=== PATIENT | female | born 1970 | race Caucasian/White ===

== ENCOUNTER 2016-05-08 11:00 | Outpatient (CLI) | payer MEDICAID | END 2016-05-08 11:01 | disposition home or self-care (01) | DX: M19.072 Primary osteoarthritis, left ankle and foot (principal); M21.42 Flat foot [pes planus] (acquired), left foot ==

== ENCOUNTER 2016-05-19 09:04 | Outpatient (CLI) | payer MEDICAID | END 2016-05-19 09:05 | disposition home or self-care (01) | DX: I10 Essential (primary) hypertension (principal); Z68.45 Body mass index [BMI] 70 or greater, adult; E66.01 Morbid (severe) obesity due to excess calories ==

== ENCOUNTER 2016-08-05 08:38 | Outpatient (CLI) | payer MEDICAID ==
--- NOTE | 2016-08-05 12:48 | Ultrasound Report ---
THYROID ULTRASOUND: 08/05/2016 CLINICAL INDICATION: Goiter. COMPARISON: 12/17/2014 TECHNIQUE: Real-time scanning was performed with treasury representative static images obtained. FINDINGS: The thyroid remains enlarged, with the right lobe measuring 8.4 x 5.5 x 4.7 cm, and the le ft lobe measuring 8.4 x 4.6 x 4.5 cm. The isthmus measures 13 mm. The thyroid again demonstrates di ffusely heterogeneous echotexture, without discrete suspicious mass identified. No cervical adenopat hy is appreciated. IMPRESSION: STABLE APPEARANCE OF MULTINODULAR GOITER. NO DOMINANT SUSPICIOUS MASS IS IDENTIFIED. JOB #: [id number] EXT JOB #:[id number]
== END 2016-08-05 08:39 | disposition home or self-care (01) ==
LOC: DI 08:38
PROVIDERS: ATTEND Internal Medicine Endocrinology, Diabetes & Metabolism
DX: E04.2 Nontoxic multinodular goiter (principal)
CPT/HCPCS: 76536

== ENCOUNTER 2017-03-02 13:16 | Outpatient (CLI) | payer MEDICAID ==
--- NOTE | 2017-03-02 21:01 | XRAY Report ---
DATE OF SERVICE: 03/02/2017 THREE VIEW CERVICAL SPINE: 03/02/2017 CLINICAL INDICATION: Neck pain. COMPARISON: 07/17/2014 AP, lateral, odontoid views of the cervical spine were obtained. The C1-2 articulation is obscured by earrings on the lateral views. Degenerative changes in the lower cervical spine have progressed from 07/17/2014, now moderate. There is no evidence of interval fracture. The prevertebral soft tissues appear unremarkable. IMPRESSION: Moderate degenerative changes. TD: 03/02/2017 22:00
== END 2017-03-02 13:17 | disposition home or self-care (01) ==
LOC: DI.S 13:16
PROVIDERS: ATTEND Nurse Practitioner Family
DX: M47.892 Other spondylosis, cervical region (principal)
CPT/HCPCS: 72040

== ENCOUNTER 2017-05-30 10:24 | Emergency (ER) | payer MEDICAID ==
--- NOTE | 2017-05-30 12:32 | XRAY Preliminary Report ---
Exam: XR ANKLE 3 VIEW LT IMPRESSION: Mild osteoarthritic changes with soft tissue swelling without evidence of acute fracture. [facility] SITE ID: [id number]
--- NOTE | 2017-05-30 12:33 | XRAY Report ---
EXAM: LEFT ANKLE RADIOGRAPHY EXAM DATE: 05/30/2017 12:26 PM. CLINICAL HISTORY: Ankle swelling. COMPARISON: None. TECHNIQUE: 3 views. FINDINGS: Bones: No acute fracture noted. Joints: Mild osteoarthritic changes present. Soft Tissues: Mild soft tissue swelling noted. IMPRESSION: Mild osteoarthritic changes with soft tissue swelling without evidence of acute fracture. [facility] Referring Provider Line: [phone] SITE ID: [id number]
--- NOTE | 2017-05-30 12:38 | ED Physician Documentation ---
PD HPI LOWER EXT INJURY - Stated complaint Stated Complaint: LEFT ANKLE PX - Chief complaint Chief Complaint: Ext Problem - History obtained from History obtained from: Patient - History of Present Illness PD HPI LOW EXT INJURY LOCATION: Left, Ankle Type of injury: Twist Where injury occurred: Home Timing - onset: How many years ago (1) Timing - duration: Years (1) Timing - details: Abrupt onset, Still present, Waxing and waning Improved by: Rest, Immobilization Worsened by: Moving, Palpating Associated symptoms: Swelling Similar symptoms before: Diagnosis (ankle fracture) Recently seen: Not recently seen - Additional information Additional information: 46-year-old morbidly obese female has injured her left ankle 1 year ago and she continues to have problems with swelling and pain in the ankle. She is not able to be compliant with her walking boot as it does not fit her. She continues to walk on the ankle and it continues to give her a problem. 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 - Present Medications Home Medications: Ambulatory Orders Medication Instructions Recorded Confirmed Fexofenadine HCl [Afshan Allergy] 139 mg PO DAILY PRN 07/25/12 12/30/16 Multivitamin [Multivitamins] 1 each PO DAILY 07/25/12 12/30/16 Tamoxifen 20 mg PO DAILY 07/25/12 12/30/16 Ibuprofen 600 mg PO BID PRN 01/18/13 12/30/16 Albuterol Sulf [Ventolin Hfa 2 puffs INH Q4H PRN 12/11/15 12/30/16 Inhaler] Budesonide [Pulmicort] 180 mg PO BID 06/10/16 12/30/16 - Allergies Allergies/Adverse Reactions: Allergies Allergy/AdvReac Type Severity Reaction Status Date / Time No Known Drug Allergies Allergy Unverified 05/30/17 10:30 - Social History Does the pt smoke?: No Smoking Status: Never smoker Does the pt drink ETOH?: No Does the pt have substance abuse?: No - Immunizations Immunizations are current?: Yes PD ED PE NORMAL - Vitals Vital signs reviewed: Yes (hypertensive ) - General General: Alert and oriented X 3, No acute distress, Well developed/nourished, Other (obese nearly 400lb female in no distress) - HEENT HEENT: Atraumatic, PERRL - Respiratory Respiratory: No respiratory distress - Derm Derm: Normal color, Warm and dry, No rash - Extremities Extremities: Other (46-year-old morbidly obese female has injured her left ankle 1 year ago and she continues to have problems with swelling and pain in the ankle. She is not able to be compliant with her walking boot as it does not fit her. She continues to walk on the ankle and it continues to give her a problem. There is swelling and point tenderness over the talofibular ligament on the left ankle. There is swelling medially as well the distal neurovascular components are intact.) - Neuro Neuro: No motor deficit Eye Opening: Spontaneous Motor: Obeys Commands Verbal: Oriented GCS Score: 15 - Psych Psych: Normal mood, Normal affect Results - Vitals Vitals: Vital Signs - 24 hr 05/30/17 05/30/17 05/30/17 10:28 12:28 13:45 Temperature 36 C L 36.0 C L Heart Rate 82 82 82 Respiratory 18 18 18 Rate Blood Pressure 149/97 H 141/70 H 130/84 H O2 Saturation 99 97 98 Oxygen O2 Source Room air - Rads (name of study) left ankle Radiology: Prelim report reviewed (Impression: Mild osteoarthritic changes with soft tissue swelling without evidence of acute fracture.), EMP read indepedently , See rad report Procedures - Splint (location) left ankle Splint applied by: Tech Type of splint: Fiberglass, Posterior Other: Patient tolerated well, No complications, Neurovascular intact, Good alignment, Crutches provided PD MEDICAL DECISION MAKING - ED course Complexity details: reviewed results, re-evaluated patient, considered differential, d/w patient, d/w family ED course: 46-year-old female with swelling to the left ankle has not been compliant with her use of a splint or immobilization and continues to have problems with swelling. She is morbidly obese and the standard walking boot does not fit. The air cast does not fit. She is placed into a posterior splint and placed on crutches. She has improvement in her ability to ambulate with this and her level of comfort but she is not able to use the crutches appropriately for nonweightbearing. She is bearing weight on this splint. She has a large enough leg that she has been noncompliant with the other modalities provided and I recommended she follow-up with orthopedics for casting. Departure - Departure Disposition: 01 Home, Self Care Clinical Impression: Ankle sprain Qualifiers: Encounter type: initial encounter Involved ligament of ankle: calcaneofibular ligament Laterality: left Qualified Code(s): S93.412A - Sprain of calcaneofibular ligament of left ankle, initial encounter Condition: Stable Instructions: ED Sprain Ankle W X Ray Follow-Up: Evette Hernandez ARNP [Primary Care Provider] - [facility] [Provider Group] Comments: Today it appears that your ankle continues to have problems with swelling and pain because you have not been able to be compliant with the use of an immobilization device. Where the posterior splint and use the crutches 31/08 for 2 weeks. Follow-up with the orthopedic doctors. Discharge Date/Time: 05/30/17 14:01
[2017-05-30 13:46] VITALS: BP 130/84
== END 2017-05-30 14:01 | disposition home or self-care (01) ==
LOC: ED 10:24
DX: S93.412A Sprain of calcaneofibular ligament of left ankle, initial encounter (principal); X50.1XXA Overexertion from prolonged static or awkward postures, initial encounter; Y92.009 Unspecified place in unspecified non-institutional (private) residence as the place of occurrence of the external cause; E66.01 Morbid (severe) obesity due to excess calories; J45.909 Unspecified asthma, uncomplicated; G47.30 Sleep apnea, unspecified
CPT/HCPCS: 29515; 99283

== ENCOUNTER 2017-08-24 08:00 | Outpatient (CLI) | payer MEDICAID ==
[2017-08-24 17:47] LABS: BASOPHILS % (AUTO) 0.2 %; EOSINOPHILS % (AUTO) 0.5 %; HGB - HEMOGLOBIN 13.3 g/dL (12.0-16.0); LYMPHOCYTES # (AUTO) 1.3 10^3/uL (1.5-3.5); LYMPHOCYTES % (AUTO) 16.7 %; MEAN CORPUSCULAR HEMOGLOBIN 28.7 pg (27.0-31.0); MEAN CORPUSCULAR HGB CONC 32.9 g/dL (32.0-36.0); MEAN CORPUSCULAR VOLUME 87.4 fL (81.0-99.0); MEAN PLATELET VOLUME 7.3 fL (7.9-10.8); MONOCYTES # (AUTO) 0.4 10^3/uL (0.0-1.0); MONOCYTES % (AUTO) 5.1 %; NEUTROPHILS # (AUTO) 6.2 10^3/uL (1.5-6.6); NEUTROPHILS % (AUTO) 77.5 %; PLT - PLATELET COUNT 287 10^3/uL (130-450); RED BLOOD COUNT 4.62 10^6/uL (4.20-5.40); RED CELL DISTRIBUTION WIDTH 14.9 % (12.0-15.0)
[2017-08-24 18:48] LABS: ALBUMIN 3.7 g/dL (3.2-5.5); ALBUMIN/GLOBULIN RATIO 0.9 (1.0-2.2); BILIRUBIN,TOTAL 0.5 mg/dL (0.2-1.0); CALCIUM 9.3 mg/dL (8.5-10.3); CREATININE 0.6 mg/dL (0.4-1.0); TOTAL PROTEIN 7.6 g/dL (6.7-8.2)
== END 2017-08-24 08:01 | disposition home or self-care (01) ==
LOC: LAB.F 08:00
PROVIDERS: ATTEND Nurse Practitioner Family
DX: R60.0 Localized edema (principal); I10 Essential (primary) hypertension; E04.2 Nontoxic multinodular goiter; Z13.0 Encounter for screening for diseases of the blood and blood-forming organs and certain disorders involving the immune mechanism
CPT/HCPCS: 36415; 80050

== ENCOUNTER 2018-01-09 07:53 | Emergency (ER) | payer MEDICAID ==
[2018-01-09] MEDS ORDERED: ALBUTEROL NEB 2.5 MG/3 ML INH STA (08:19)
[2018-01-09 08:29] LABS: GLUCOSE, URINE (UA) NEGATIVE (NEGATIVE); KETONES,URINE (UA) >=80 mg/dL (NEGATIVE); LEUKOCYTE ESTERASE, URINE NEGATIVE (NEGATIVE); NITRITE,URINE NEGATIVE (NEGATIVE); OCCULT BLOOD,URINE SMALL (NEGATIVE); PH,URINE 5.5 PH (5.0-7.5); PROTEIN,URINE NEGATIVE (NEGATIVE); UROBILINOGEN,URINE 1 (NORMAL) E.U./dL (NORMAL)
[2018-01-09 08:34] LABS: BILIRUBIN,URINE NEGATIVE (NEGATIVE); CLARITY,URINE HAZY (CLEAR); ICTOTEST,URINE NEGATIVE
[2018-01-09 08:49] LABS: AMORPHOUS SEDIMENT,UR Marked /LPF; BACTERIA,URINE Many /HPF (None Seen); MUCUS,URINE Marked Strands; RBC,URINE 0-5 /HPF (0-5); SQUAMOUS EPITHELIAL CELL,UR MOD Squamous (<= Few)
[2018-01-09] MEDS ORDERED: FLUCONAZOLE 100 MG TABLET PO STA (09:08)
[2018-01-09] MEDS ORDERED: metroNIDAZOLE 250 MG TABLET PO STA (09:11)
--- NOTE | 2018-01-09 09:30 | ED Physician Documentation ---
History of Present Illness - Stated complaint Stated Complaint: HEMATURIA - Chief complaint Chief Complaint: Abd Pain - Additonal information Additional information: 47-year-old female presents the emergency department for evaluation of hematuria and vaginal discharge. Symptoms have been intermittent for the past several months. Today the patient reports increased symptoms. The patient reports additionally that she has pain in her tailbone from sitting for prolonged periods of time. The tailbone pain improves with movement and repositioning. The patient denies headache, chest pain, abdominal pain, vomiting or diarrhea. Symptoms are described as mild. The patient also reports her typical wheezing which is normally managed with albuterol. The patient is denying shortness of breath or respiratory distress. No other associated symptoms. Review of Systems Constitutional: denies: Chills, Fatigue Eyes: denies: Discharge Ears: denies: Ear pain Nose: denies: Congestion Throat: denies: Sore throat Cardiac: denies: Chest pain / pressure Respiratory: denies: Cough GI: denies: Abdominal Pain : reports: Dysuria, Hematuria. 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 - Present Medications Home Medications: Ambulatory Orders Medication Instructions Recorded Confirmed Albuterol Sulf [Ventolin Hfa 2 puffs INH Q4H PRN 12/11/15 12/30/16 Inhaler] Fluconazole [Diflucan] 150 mg PO ONCE #1 tablet 01/09/18 Fluticasone/Vilanterol [Breo 01/09/18 Ellipta 200-25 Mcg INH] Metronidazole [Flagyl] 500 mg PO BID #10 tablet 01/09/18 - Allergies Allergies/Adverse Reactions: Allergies Allergy/AdvReac Type Severity Reaction Status Date / Time No Known Drug Allergies Allergy Unverified 01/09/18 08:01 - Social History Does the pt smoke?: No Smoking Status: Never smoker Does the pt drink ETOH?: No Does the pt have substance abuse?: No - Immunizations Immunizations are current?: Yes PD ED PE NORMAL - General General: Alert and oriented X 3, No acute distress - HEENT HEENT: Atraumatic, PERRL, EOMI, Ears normal - Cardiac Cardiac: RRR, Strong equal pulses - Respiratory Respiratory: No respiratory distress, Other (Scattered wheezing bilaterally) - Abdomen Abdomen: Soft, Non tender, Non distended - Female Female : Other (Given the patient's symptoms I offered a pelvic exam, on discussing this with the patient further she does not feel that she could get into a position to allow for a pelvic exam due to her morbid obesity.She currently has declined) - Derm Derm: Other (The sacral area was evaluated, there is no evidence of abscess or cellulitis or decubitus ulcer) - Neuro Neuro: Alert and oriented X 3, Normal speech - Psych Psych: Normal affect Results - Vitals Vitals: Vital Signs - 24 hr 01/09/18 01/09/18 07:53 08:36 Heart Rate 83 70 Respiratory 16 16 Rate Blood Pressure 160/85 H O2 Saturation 99 Oxygen O2 Source Room air - Labs Labs: Laboratory Tests 01/09/18 08:23 Urine Color YELLOW Urine Clarity HAZY Urine pH 5.5 Ur Specific [place] >=1.030 H Urine Protein NEGATIVE Urine Glucose (UA) NEGATIVE Urine Ketones >=80 H Urine Occult Blood SMALL H Urine Nitrite NEGATIVE Urine Bilirubin NEGATIVE Urine Urobilinogen 1 (NORMAL) Ur Leukocyte Esterase NEGATIVE Urine RBC 0-5 Urine WBC 0-3 Ur Squamous Epith Cells MOD Squamous H Amorphous Sediment Marked Urine Bacteria Many H Urine Casts 0-2 Granular Casts Urine Mucus Marked Strands Ur Microscopic Review INDICATED Urine Culture Comments NOT INDICATED PD MEDICAL DECISION MAKING - ED course ED course: The patient's urine does not appear infected and there is no evidence of gross hematuria. The patient does report vaginal discharge and the nursing did note a white discharge. The patient the patient has refused a pelvic exam at this time since she is not able to get into an appropriate position to perform a pelvic exam due to her size. The patient will be treated empirically for a yeast infection and bacterial vaginosis. I have advised that she follow-up with her primary care for further evaluation of the hematuria and further evaluation of the vaginal discharge. She may require an ultrasound as an outpatient if her symptoms do not improve. The patient understands and agrees to the plan. EMS and family are concerned about the patient's living condition and requested a social work consult. Social work came and evaluated the patient, they have given the patient an extensive list of resources. The patient's brother plans to have the patient move closer to him so that he can help manage her symptoms. The patient appears appropriate for discharge at this point. I discussed warning signs and recommended returning to the emergency department for any worsening or any concerns. Departure - Departure Disposition: Home, Self Care Clinical Impression: Vaginosis Hematuria Qualifiers: Hematuria type: unspecified type Qualified Code(s): R31.9 - Hematuria, unspecified Condition: Good Instructions: ED Vaginosis Bacterial, ED Vaginal Infec Fungal Tiffanie, ED Hematuria Follow-Up: Evette Hernandez ARNP [Primary Care Provider] - Within 3 Days (If your symptoms are not improving please ask your primary care to further work this up with possibly an outpatient ultrasound.) Prescriptions: Fluconazole [Diflucan] 150 mg PO ONCE #1 tablet Metronidazole [Flagyl] 500 mg PO BID #10 tablet Comments: Please return to the emergency department for worsening symptoms or any concerns
[2018-01-09 13:28] VITALS: BP 153/129
== END 2018-01-09 13:35 | disposition home or self-care (01) ==
LOC: EDUNIT# → EDBD → ED 07:53
DX: N76.0 Acute vaginitis (principal); R31.9 Hematuria, unspecified; J45.909 Unspecified asthma, uncomplicated
CPT/HCPCS: 81001; 94640; 99283; A9270; 81003; 87086

== ENCOUNTER 2019-06-13 09:33 | Outpatient (CLI) | payer MEDICAID | END 2019-06-13 09:34 | disposition critical access hospital (66) | LOC: EMS 09:33 | PROVIDERS: ATTEND Surgery | DX: M54.5 Low back pain (principal); R42 Dizziness and giddiness; Z59.0 Homelessness | CPT/HCPCS: A0425; A0429 ==

== ENCOUNTER 2019-06-13 10:10 | Emergency (ER) | payer MEDICAID ==
[2019-06-13] MEDS ORDERED: ACETAMINOPHEN 325 MG TABLET PO STA (10:23)
[2019-06-13] MEDS ORDERED: methocarbamoL 500 MG TABLET PO STA (10:23)
[2019-06-13] MEDS ORDERED: KETOROLAC 60 MG/2 ML VIAL IM STA (10:23)
--- NOTE | 2019-06-13 10:25 | ED Physician Documentation ---
PD HPI BACK PAIN - Stated complaint Stated Complaint: LOW BACK PX - History obtained from History obtained from: Patient, EMS - History of Present Illness Timing - onset: Today (Patient states she has ongoing upper and lower back pain for which she takes anti-inflammatories periodically. She is homeless and has been sleeping at the [place] or a friend's house or the bus stop. She is left at the bus stop last night and states her back is hurting more today and called EMS. She denies any numbness or weakness. She denies any dysuria nor hematuria. She denies any fall or injury.) Timing - details: Gradual onset (Worsening of her ongoing back pain today after sleeping on the bus stop.) Location: Mid, Lower Quality: Pain, Aching. No: Sharp, Tearing Associated symptoms: No: Fever, Weakness, Numbness Worsened by: Movement. No: Palpation Contributing factors: Twisting. No: Trauma Similar symptoms before: No diagnosis (Ongoing musculoskeletal pain) Recently seen: Not recently seen Review of Systems Constitutional: denies: Fever, Chills Nose: denies: Rhinorrhea / runny nose, Congestion Throat: denies: Sore throat Cardiac: denies: Chest pain / pressure, Palpitations Respiratory: denies: Dyspnea, Cough GI: denies: Abdominal Pain, Vomiting, Diarrhea : denies: Dysuria, Frequency Skin: denies: Rash, Lesions Neurologic: denies: Focal weakness, Numbness, Headache, Head injury Psychiatric: denies: Depressed, Suicidal Endocrine: denies: Weight loss Immunocompromised: denies: Immunocompromised PD PAST MEDICAL HISTORY - Past Medical History Cardiovascular: None Respiratory: Asthma, Sleep apnea, CPAP use Endocrine/Autoimmune: None GI: None : None HEENT: None Psych: None Musculoskeletal: None Derm: None - Past Surgical History Past Surgical History: Yes 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 Medications Home Medications: Ambulatory Orders Medication Instructions Recorded Confirmed Albuterol Sulf [Ventolin Hfa 2 puffs INH Q4H PRN 12/11/15 12/30/16 Inhaler] Fluconazole [Diflucan] 150 mg PO ONCE #1 tablet 01/09/18 Fluticasone/Vilanterol [Breo 01/09/18 Ellipta 200-25 Mcg INH] metroNIDAZOLE [Flagyl] 500 mg PO BID #10 tablet 01/09/18 Docusate Sodium 100 mg PO DAILY #30 capsule 06/13/19 Hydrocodone/Acetaminophen [Wadley 1 each PO Q6H PRN #15 tablet 06/13/19 5-325 Tablet] Naproxen 375 mg PO BID #20 tablet 06/13/19 dexAMETHasone [Decadron] 4 mg PO DAILY #5 tablet 06/13/19 methocarbamoL [Robaxin] 500 mg PO Q6H PRN #30 tablet 06/13/19 - Allergies Allergies/Adverse Reactions: Allergies Allergy/AdvReac Type Severity Reaction Status Date / Time No Known Drug Allergies Allergy Verified 06/13/19 14:12 - Social History Does the pt smoke?: No Smoking Status: Never smoker Does the pt drink ETOH?: No Does the pt have substance abuse?: No - Immunizations Immunizations are current?: Yes PD ED PE NORMAL - Vitals Vital signs reviewed: Yes - General General: Alert and oriented X 3, No acute distress, Well developed/nourished - HEENT HEENT: Moist mucous membranes, Pharynx benign - Neck Neck: Supple, no meningeal sign, No adenopathy - Cardiac Cardiac: RRR, No murmur - Respiratory Respiratory: Clear bilaterally - Abdomen Abdomen: Normal bowel sounds, Soft, Non tender - Back Back: No CVA TTP, No spinal TTP, Other (Some soft tissue tenderness in the lower thoracic and lumbar area in the muscles. No rash or sores noted.) - Derm Derm: Normal color, Warm and dry - Extremities Extremities: No deformity, No tenderness to palpate, Normal ROM s pain, No edema, No calf tenderness / cord - Neuro Neuro: Alert and oriented X 3, No motor deficit, No sensory deficit, Normal speech Motor: Obeys Commands Verbal: Oriented - Psych Psych: No: Normal affect (somewhat flat) Results - Vitals Vitals: Vital Signs - 24 hr 06/13/19 06/13/19 10:10 11:00 Temperature 36.7 C Heart Rate 80 78 Respiratory 20 16 Rate Blood Pressure 129/70 124/68 O2 Saturation 99 99 Oxygen O2 Source Room air - Labs Labs: Laboratory Tests 06/13/19 06/13/19 06/13/19 10:42 10:42 10:42 WBC 10.8 RBC 4.56 Hgb 13.1 Hct 41.9 MCV 91.9 MCH 28.7 MCHC 31.3 L RDW 14.1 Plt Count 288 MPV 8.8 Neut # (Auto) 8.6 H Lymph # (Auto) 1.6 Stanley # (Auto) 0.5 Eos # (Auto) 0.0 Baso # (Auto) 0.0 Absolute Nucleated RBC 0.00 Nucleated RBC % 0.0 Sodium 139 Potassium 3.7 Chloride 103 Carbon Dioxide 30 Anion Gap 6.0 BUN 17 Creatinine 0.6 Estimated GFR (MDRD) 107 Glucose 109 H Calcium 9.3 Magnesium 2.3 Total Bilirubin 0.6 AST 18 ALT 19 Alkaline Phosphatase 71 Total Creatine Kinase 57 Troponin I High Sens < 2.3 L C-Reactive Protein 2.6 H B-Natriuretic Peptide Total Protein 7.4 Albumin 3.8 Globulin 3.6 Albumin/Globulin Ratio 1.1 Lipase 38 Urine Color Urine Clarity Urine pH Ur Specific [place] Urine Protein Urine Glucose (UA) Urine Ketones Urine Occult Blood Urine Nitrite Urine Bilirubin Urine Urobilinogen Ur Leukocyte Esterase Urine RBC Urine WBC Ur Squamous Epith Cells Urine Bacteria Ur Microscopic Review Urine Culture Comments 06/13/19 06/13/19 10:42 12:05 WBC RBC Hgb Hct MCV MCH MCHC RDW Plt Count MPV Neut # (Auto) Lymph # (Auto) Stanley # (Auto) Eos # (Auto) Baso # (Auto) Absolute Nucleated RBC Nucleated RBC % Sodium Potassium Chloride Carbon Dioxide Anion Gap BUN Creatinine Estimated GFR (MDRD) Glucose Calcium Magnesium Total Bilirubin AST ALT Alkaline Phosphatase Total Creatine Kinase Troponin I High Sens C-Reactive Protein B-Natriuretic Peptide 10 Total Protein Albumin Globulin Albumin/Globulin Ratio Lipase Urine Color YELLOW Urine Clarity CLEAR Urine pH 6.0 Ur Specific [place] 1.025 Urine Protein NEGATIVE Urine Glucose (UA) NEGATIVE Urine Ketones 15 H Urine Occult Blood NEGATIVE Urine Nitrite NEGATIVE Urine Bilirubin NEGATIVE Urine Urobilinogen 0.2 (NORMAL) Ur Leukocyte Esterase TRACE H Urine RBC None Seen Urine WBC 4-5 Ur Squamous Epith Cells MANY Squamous H Urine Bacteria Rare Ur Microscopic Review INDICATED Urine Culture Comments NOT INDICATED PD MEDICAL DECISION MAKING - ED course Complexity details: reviewed results, considered differential, d/w patient ED course: The patient sounds like musculoskeletal back pain and likely worsened by poor sleep hygiene and poor bedding having slept at the bus stop. No red flags of focal weakness or numbness. We did do some metabolic screening with blood tests and urine tests and no signs of kidney infection nor other signs of infection per se. She is ambulatory here in the ER and seem comfortable walking. Just given some NSAIDs while here. Departure - Departure Disposition: 01 Home, Self Care Clinical Impression: Musculoskeletal back pain Condition: Stable Record reviewed to determine appropriate education?: Yes Instructions: ED Neck Back Pain General Prescriptions: dexAMETHasone [Decadron] 4 mg PO DAILY #5 tablet Docusate Sodium 100 mg PO DAILY #30 capsule Hydrocodone/Acetaminophen [Wadley 5-325 Tablet] 1 each PO Q6H PRN #15 tablet PRN Reason: Pain methocarbamoL [Robaxin] 500 mg PO Q6H PRN #30 tablet PRN Reason: Spasms Naproxen 375 mg PO BID #20 tablet Comments: Stay well-hydrated. For your back pains, you can use anti-inflammatories of naproxen twice daily with some food. Could also add Decadron steroid anti- inflammatory to help as well. Heat and gentle stretching as you are able to. Robaxin muscle relaxant for stiffness and spasm. To that add Tylenol 3-4 times a day or hydrocodone for worse pains. Daily stool softener while using the pain medicines. Recheck if not improved well over the next several days to week or so. Discharge Date/Time: 06/13/19 12:20
[2019-06-13 10:48] LABS: BASOPHILS % (AUTO) 0.3 %; EOSINOPHILS % (AUTO) 0.4 %; HGB - HEMOGLOBIN 13.1 g/dL (12.0-16.0); LYMPHOCYTES # (AUTO) 1.6 10^3/uL (1.5-3.5); LYMPHOCYTES % (AUTO) 14.5 %; MEAN CORPUSCULAR HEMOGLOBIN 28.7 pg (27.0-31.0); MEAN CORPUSCULAR HGB CONC 31.3 g/dL (32.0-36.0); MEAN CORPUSCULAR VOLUME 91.9 fL (81.0-99.0); MEAN PLATELET VOLUME 8.8 fL (7.9-10.8); MONOCYTES # (AUTO) 0.5 10^3/uL (0.0-1.0); MONOCYTES % (AUTO) 4.4 %; NEUTROPHILS # (AUTO) 8.6 10^3/uL (1.5-6.6); NEUTROPHILS % (AUTO) 80.1 %; PLT - PLATELET COUNT 288 10^3/uL (130-450); RED BLOOD COUNT 4.56 10^6/uL (4.20-5.40); RED CELL DISTRIBUTION WIDTH 14.1 % (12.0-15.0); WHITE BLOOD COUNT 10.8 x10^3/uL (4.8-10.8)
--- NOTE | 2019-06-13 10:52 | XRAY Report ---
Reason: upper back pain Procedure Date: 06/13/2019 Accession Number: [id number] / [id number] Procedure: XR - Chest 1 View X-Ray CPT Code: 83700 Final Report FULL RESULT: EXAM: CHEST RADIOGRAPHY EXAM DATE: 06/13/2019 10:36 AM. CLINICAL HISTORY: Upper/lower back pain. Dizziness. Shortness of air. COMPARISON: None. TECHNIQUE: 1 view. FINDINGS: Lungs/Pleura: No focal opacities evident. No pleural effusion. No pneumothorax. Mediastinum: Apical lordotic projection. Heart size is prominent. Aorta is mildly tortuous. Other: Generative changes of both shoulders. IMPRESSION: 1. Borderline cardiomegaly. 2. No acute disease. [facility]
[2019-06-13 11:07] LABS: ALBUMIN 3.8 g/dL (3.2-5.5); ALBUMIN/GLOBULIN RATIO 1.1 (1.0-2.2); BILIRUBIN,TOTAL 0.6 mg/dL (0.2-1.0); CALCIUM 9.3 mg/dL (8.5-10.3); CREATININE 0.6 mg/dL (0.4-1.0); CRP - C-REACTIVE PROTEIN 2.6 mg/dL (0-1.0); MAGNESIUM 2.3 mg/dL (1.7-2.8); TOTAL PROTEIN 7.4 g/dL (6.7-8.2)
[2019-06-13 11:09] VITALS: BP 124/68
[2019-06-13 12:10] LABS: BILIRUBIN,URINE NEGATIVE (NEGATIVE); GLUCOSE, URINE (UA) NEGATIVE (NEGATIVE); KETONES,URINE (UA) 15 mg/dL (NEGATIVE); LEUKOCYTE ESTERASE, URINE TRACE (NEGATIVE); NITRITE,URINE NEGATIVE (NEGATIVE); OCCULT BLOOD,URINE NEGATIVE (NEGATIVE); PROTEIN,URINE NEGATIVE (NEGATIVE); UROBILINOGEN,URINE 0.2 (NORMAL) E.U./dL (NORMAL)
[2019-06-13 12:13] LABS: CLARITY,URINE CLEAR (CLEAR)
[2019-06-13 12:19] LABS: BACTERIA,URINE Rare /HPF (None Seen); RBC,URINE None Seen /HPF (0-5); SQUAMOUS EPITHELIAL CELL,UR MANY Squamous (<= Few)
== END 2019-06-13 12:20 | disposition home or self-care (01) ==
LOC: EDUNIT# → ED 10:10
DX: M54.9 Dorsalgia, unspecified (principal); Z59.0 Homelessness
CPT/HCPCS: 36415; 71045; 80053; 81001; 81003; 82550; 83690; 83735; 83880; 84484; 85025; 86140; 87086

== ENCOUNTER 2019-06-13 14:04 | Emergency (ER) | payer MEDICAID ==
[2019-06-13 14:16] VITALS: BP 152/92
--- NOTE | 2019-06-13 14:16 | ED Physician Documentation ---
PD HPI ALTERED MENTAL STATUS - Stated complaint Stated Complaint: MHE - History obtained from History obtained from: Patient - History of Present Illness Timing - onset: Today (she says she is feeling slightly confused, and with feeling fullness lower abd.) Recently seen: Emergency Dept (just seen for back pain and discharged briefly ago. Had gottten Ibuprofen, decadron and robaxin in ER for the back. 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: Other - Present Medications Home Medications: Ambulatory Orders Medication Instructions Recorded Confirmed Albuterol Sulf [Ventolin Hfa 2 puffs INH Q4H PRN 12/11/15 12/30/16 Inhaler] Fluconazole [Diflucan] 150 mg PO ONCE #1 tablet 01/09/18 Fluticasone/Vilanterol [Breo 01/09/18 Ellipta 200-25 Mcg INH] metroNIDAZOLE [Flagyl] 500 mg PO BID #10 tablet 01/09/18 Docusate Sodium 100 mg PO DAILY #30 capsule 06/13/19 Hydrocodone/Acetaminophen [[place] 1 each PO Q6H PRN #15 tablet 06/13/19 5-325 Tablet] Naproxen 375 mg PO BID #20 tablet 06/13/19 dexAMETHasone [Decadron] 4 mg PO DAILY #5 tablet 06/13/19 methocarbamoL [Robaxin] 500 mg PO Q6H PRN #30 tablet 06/13/19 - Allergies Allergies/Adverse Reactions: Allergies Allergy/AdvReac Type Severity Reaction Status Date / Time No Known Drug Allergies Allergy Verified 06/13/19 14:12 - Social History Does the pt smoke?: No Smoking Status: Never smoker Does the pt drink ETOH?: No Does the pt have substance abuse?: No - Immunizations Immunizations are current?: Yes PD ED PE NORMAL - Vitals Vital signs reviewed: Yes - General General: Alert and oriented X 3 - Neuro Neuro: Other (ambulatory without ataxia. ) Results - Vitals Vitals: Vital Signs - 24 hr 06/13/19 14:12 Temperature 37.0 C Heart Rate 83 Respiratory 18 Rate Blood Pressure 152/92 H O2 Saturation 97 Oxygen O2 Source Room air PD MEDICAL DECISION MAKING - ED course Complexity details: d/w patient (brief eval of patient, and I had just seen her shortly prior for the back pain. She told the nurse that she was feeling better and wanted to go to the bus stop. No red flags on history.) ED course: There may be some baseline cognitive process but she seemed reasonable on recent visit an hour ago. Consider med side effect from the Robaxin along with some dehydration leading to brief confusion. Seems okay to be able to leave at this point. Departure - Departure Disposition: ED [place] Condition: Fair Discharge Date/Time: 06/13/19 14:16
== END 2019-06-13 14:16 | disposition left against medical advice (07) ==
LOC: ED 14:04
DX: R10.30 Lower abdominal pain, unspecified (principal); Z59.0 Homelessness

== ENCOUNTER 2019-06-13 14:51 | Emergency (ER) | payer MEDICAID ==
[2019-06-13 14:59] LABS: HCG UR QUAL NEGATIVE
[2019-06-13 15:07] LABS: MUDS CUTOFF CONCENTRATIONS CUTOFF CONC BELOW:
[2019-06-13] MEDS ORDERED: MAG HYDROX/AL HYDROX/SIMETH 30 ML UDC PO STA (15:16)
[2019-06-13] MEDS ORDERED: SACCHAROMYCES BOULARDII 250 MG CAPSULE PO STA (15:16)
[2019-06-13 15:19] LABS: COCAINE SCREEN URINE NEGATIVE (NEGATIVE); METHAMPHETAMINES SCREEN, URINE NEGATIVE (NEGATIVE); OPIATE SCREEN, URINE NEGATIVE (NEGATIVE)
[2019-06-13 15:20] LABS: AMPHETAMINE SCREEN,URINE NEGATIVE (NEGATIVE); BENZODIAZEPINES SCREEN, URINE NEGATIVE (NEGATIVE); METHADONE SCREEN, URINE NEGATIVE (NEGATIVE); OXYCODONE SCREEN, URINE NEGATIVE (NEGATIVE); PROPOXYPHENE SCREEN, URINE NEGATIVE (NEGATIVE); TRICYCLIC ANTIDEPRESSANT,URINE NEGATIVE (NEGATIVE)
--- NOTE | 2019-06-13 15:22 | ED Physician Documentation ---
PD HPI ABD PAIN - Stated complaint Stated Complaint: ABD PAIN - Chief complaint Chief Complaint: Abd Pain - History obtained from History obtained from: Patient - History of Present Illness Timing - onset: How many days ago (She states now she has been having some intermittent lower to mid abdominal cramps for several days and little bit worse this afternoon since leaving the ER from the prior visit. She states her diet has been irregular lately. She denies any constipation or diarrhea per se. No dysuria. She is feeling sad because of being homeless and has a history of depression. She denies any self-harm ideation. She denies any prior psychiatric problems. She has not had any recent Bernabe new prescribed medicines or any discontinuation of medicines.) Timing - details: Gradual onset, Intermittant Quality: Cramping (She states she was having intermittent cramps like labor cramps. She does not necessarily think she was but would like it tested. She denies any vaginal bleeding or discharge.), Aching Location: Periumbilical, Suprapubic Associated symptoms: No: Nausea, Vomiting, Diarrhea, Constipation, Dysuria, Vaginal bleeding, Vaginal dc Review of Systems Constitutional: denies: Fever, Chills GI: denies: Nausea, Vomiting, Constipation, Diarrhea, Bloody / black stool : denies: Dysuria, Frequency, Discharge PD PAST MEDICAL HISTORY - Past Medical History Cardiovascular: None Respiratory: Asthma, Sleep apnea, CPAP use Endocrine/Autoimmune: None GI: None : None HEENT: None Psych: None Musculoskeletal: None Derm: None - Past Surgical History Past Surgical History: Yes 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: Other - Present Medications Home Medications: Ambulatory Orders Medication Instructions Recorded Confirmed Albuterol Sulf [Ventolin Hfa 2 puffs INH Q4H PRN 12/11/15 12/30/16 Inhaler] Fluconazole [Diflucan] 150 mg PO ONCE #1 tablet 01/09/18 Fluticasone/Vilanterol [Breo 01/09/18 Ellipta 200-25 Mcg INH] metroNIDAZOLE [Flagyl] 500 mg PO BID #10 tablet 01/09/18 Docusate Sodium 100 mg PO DAILY #30 capsule 06/13/19 Hydrocodone/Acetaminophen [[place] 1 each PO Q6H PRN #15 tablet 06/13/19 5-325 Tablet] Naproxen 375 mg PO BID #20 tablet 06/13/19 dexAMETHasone [Decadron] 4 mg PO DAILY #5 tablet 06/13/19 methocarbamoL [Robaxin] 500 mg PO Q6H PRN #30 tablet 06/13/19 - Allergies Allergies/Adverse Reactions: Allergies Allergy/AdvReac Type Severity Reaction Status Date / Time No Known Drug Allergies Allergy Verified 06/13/19 14:53 - Social History Does the pt smoke?: No Smoking Status: Never smoker Does the pt drink ETOH?: No Does the pt have substance abuse?: No - Immunizations Immunizations are current?: Yes PD ED PE NORMAL - Vitals Vital signs reviewed: Yes - General General: Alert and oriented X 3, No acute distress, Well developed/nourished, Other (Does present with simple language and presumed lower functional cognitive ability) - Abdomen Abdomen: Normal bowel sounds, Soft, Non distended, No organomegaly, Other (obese, Some tenderness mid to lower abd without guarding. No firmness, hernias felt. ) - Female Female : Deferred - Rectal Rectal: Deferred - Back Back: No CVA TTP - Derm Derm: Normal color, No rash - Extremities Extremities: Normal ROM s pain, No edema - Neuro Neuro: Alert and oriented X 3, No motor deficit, Normal speech - Psych Psych: No: Normal mood (She is a bit anxious and seems agitated by talking with me after a little while. Initially she was good but then seemed to get anxious and agitated. She is tearful and unable to express why she is upset. We are offering her snacks and consoling and presenting genitally. I will have social work come and talk with her.) Results - Vitals Vitals: Vital Signs - 24 hr 06/13/19 06/13/19 14:53 19:25 Temperature 36.6 C 36.9 C Heart Rate 90 84 Respiratory 16 12 Rate Blood Pressure 154/91 H 153/89 H O2 Saturation 100 97 Oxygen O2 Source Room air - Labs Labs: Laboratory Tests 06/13/19 06/13/19 06/13/19 12:05 12:05 16:10 Ur Specific [place] >=1.030 H Urine HCG, Qual NEGATIVE Urine Opiates Screen NEGATIVE Ur Oxycodone Screen NEGATIVE Urine Methadone Screen NEGATIVE Ur Propoxyphene Screen NEGATIVE Ur Barbiturates Screen NEGATIVE Ur Tricyclics Screen NEGATIVE Ur Phencyclidine Scrn NEGATIVE Ur Amphetamine Screen NEGATIVE U Methamphetamines Scrn NEGATIVE U Benzodiazepines Scrn NEGATIVE Urine Cocaine Screen NEGATIVE U Cannabinoids Screen NEGATIVE Ethyl Alcohol < 5.0 PD MEDICAL DECISION MAKING - ED course Complexity details: reviewed old records (I had just seen her for back pain musculoskeletal, with some labs and urine test just couple hours ago. Can check HCG, bladder scan, and UTox. ), reviewed results (Social work talk with the patient who felt there was concern of her ability for self-care but was not clearly suicidal or expressing any self-harm ideation. The patient had a tele- psych consultation and the report suggested a need for inpatient psychiatric care given multiple factors and please refer to their report. However the patient was not wanting to stay in the ER and was trying to elope again despite coaxing and suggestion of needing further care. She was not able to clearly express that she would be safe on her own. She still was not expressing any self-harm ideation. However concern for clear ability for self-care at this point in the agitation. Given the use psychiatric evaluation suggesting inpatie nt treatment, I would have the [facility] come and evaluate the patient.), considered differential (had not mentioned abd cramps on earlier visit. Saying having some cramping pains now and intermittent for week or so. Irregular diet. ), d/w patient ED course: Can get Social Work to see if patient might be able to go to Respite or such. She is not disabled to point of harm. Seems coherent. Accepts she is not . Discussing "natural" ways to treat the intestinal pains. I suggest probiotics, antacids, and more regular diet. Departure - Departure Clinical Impression: Bilateral lower abdominal cramping, Agitation, Depressed affect Condition: Stable Record reviewed to determine appropriate education?: Yes
--- NOTE | 2019-06-13 17:59 | TELEPSYCH PHYS NOTE ---
Telepsych Note - CHIEF COMPLAINT/HX OF PRESENT ILLNESS Cheif Complaint and History of Present Illness: "I want a new life, I want to be left alone and do it myself" PT is a 48y/o swf with h/o depression who came in with c/o stomach pain. PT admits to no sleep for the past 3 days and being homeless. She says she just wants to be left alone and she doesn't want anyone trying to run her life and tell her how to live it. She says her brother tries to tell her what to do. PT kept looking away from the camera and the sound would go out. Even with repeated requests for her to face the camera, so I could hear what she was saying, she kept looking away. They last time I requested she face me so I could hear her, she said she has been through enough tests and just wants to be left alone. She would not answer questions for history even with repeating several times. She did not provide collateral to attest to her safety, She just kept saying she wants a new life, to have love and to be left alone. - SI/HI/SELF HARM SI/HI/Self Harm Text (Current or History of):: PT did not answer questions reference self harm to me but had denied thoughts of self harm to EDMD - VIOLENCE/LEGAL/COLLATERAL Violence - Legal - Collateral: unknown - PSYCHIATRIC HX/TREATMENT HX Psychiatric: None, Depression Psychiatric/Treatment Hx Other: unknown - MEDICAL HX Does the pt have a hx of MRSA?: No Eyes, Ears, Nose, Throat: None Cardiovascular: None Respiratory: Asthma, Sleep apnea, CPAP use Skin: None Endocrine/Autoimmune: None Gastrointestinal: None Urinary: None Musculoskeletal: None - SURGICAL HX Orthopedic: Carpal Tunnel surgery Gynecologic: Other - HOME MEDICATIONS Home Meds (as last confirmed): Patient History Medication Instructions Recorded Confirmed Albuterol Sulf [Ventolin Hfa 2 puffs INH Q4H PRN 12/11/15 12/30/16 Inhaler] Fluticasone/Vilanterol [Breo 01/09/18 Ellipta 200-25 Mcg INH] - ALLERGIES Allergies (as last confirmed): Allergies Allergy/AdvReac Type Severity Reaction Status Date / Time No Known Drug Allergies Allergy Verified 06/13/19 14:53 - FAMILY PSYCH/SUICIDE/SOCIAL HX-MENTAL Family - Suicide - Social Hx and Mental Status Exam: Pt is single, never and homeless. She later reported having a boyfriend for the past 3 1/2 years but did not offer further information or contacts, stating she wants to be left alone. She denied having children. She did talk about a brother but would not provide info for him either. MSE: PT is an obese wf with many tattoos. She was very soft spoken and difficult to hear. She endorsed wanting a "new life" and to do it her way. She admits to depression but did not offer further history and engage enough to assess for thought process or possible perceptual disturbances. insight and judgment were poor. - TREATMENT/PHARMACOLOGICAL RECOMMENDATION Treatment - Pharmacological - Therapy Recommendations: PT is a 48y/o swf who is homeless and has a h/o depression. She came in with c/o stomach pain. She admits to poor sleep for the past 3 days but refused to provide further information, repeatedly stating she wants a new life to do it her way. She did say she wanted a life where she felt loved but she would not offer further information about what she is experiencing. She did not provide collateral or enough history to verify safety. She presented as soft spoken, irritable and a poor historian. given her h/o depression, insomnia, homelessness, lack of supports and limited history, I would recommend psych inpatient to further assess for possible affective d/o. 1. Admit to inpatient psych for mood stabilization and safety. 2. Zyprexa 5mg po/im q 4h prn agitation/psychosis 3. Attempt to attain consent to gather collateral for further history Thank you for the consult! - TIME SPENT & PROVIDER LOCATION Telepsych consultation conducted via videoconferencing: Yes List names and roles of persons who participated in consult: Kendal and Dr Earl Telepsych Provider Location: [place] Time Telepsych consult began: 20:40 Time Telepsych consult completed: 21:00
[2019-06-13] MEDS ORDERED: LORazepam 1 MG TABLET PO STA (18:02)
[2019-06-13] MEDS ORDERED: OLANZapine 10 MG VIAL IM STA (18:46)
--- NOTE | 2019-06-14 23:54 | ED Physician Documentation ---
ED Addendum - Addendum Addendum: 06/14/19 23:52 Patient stable in ER through the day. SW tried finding disposition for patient to safe place and unable to find good dispo. See her notes. Offered the patient voluntary placement, which the patient did not really want. So SW felt the patient needed eval by DM again, despite their eval last evening that patient was not meeting gravely disabled benchmark. I discussed with Dr. Dacosta on change of shift, who will follow the patient.
[2019-06-16 09:45] VITALS: BP 140/87
== END 2019-06-16 11:10 | disposition home or self-care (01) ==
LOC: ED 14:51
DX: R10.30 Lower abdominal pain, unspecified (principal); R45.1 Restlessness and agitation; F32.9 Major depressive disorder, single episode, unspecified; M54.9 Dorsalgia, unspecified; Z59.0 Homelessness
CPT/HCPCS: 36415; 80306; 80320; 81025; 96372; 99284; 99285; A9270

== ENCOUNTER 2019-06-17 16:58 | Outpatient (CLI) | payer MEDICAID | END 2019-06-17 16:59 | disposition critical access hospital (66) | LOC: EMS 16:58 | PROVIDERS: ATTEND Surgery | DX: R11.0 Nausea (principal); R53.83 Other fatigue | CPT/HCPCS: A0425; A0427 ==

== ENCOUNTER 2019-06-17 17:19 | Emergency (ER) | payer MEDICAID ==
--- NOTE | 2019-06-17 17:55 | ED Physician Documentation ---
History of Present Illness - Stated complaint Stated Complaint: NAUSEA - Chief complaint Chief Complaint: General - History obtained from History obtained from: Patient, EMS - History of Present Illness Timing: Today (48-year-old woman presents by ambulance for complaints that are fairly hard to figure out. Reportedly EMS was called for nausea and a concern for . For me she only complains of 3 years worth of left shoulder pain worse when she lifts it. She is a nonsensical historian, records were reviewed and the nurse knows her well, reportedly was here for several days, seen by the DCR who did a walk away. 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 - Present Medications Home Medications: Ambulatory Orders Medication Instructions Recorded Confirmed Albuterol Sulf [Ventolin Hfa 2 puffs INH Q4H PRN 12/11/15 12/30/16 Inhaler] Fluconazole [Diflucan] 150 mg PO ONCE #1 tablet 01/09/18 Fluticasone/Vilanterol [Breo 01/09/18 Ellipta 200-25 Mcg INH] metroNIDAZOLE [Flagyl] 500 mg PO BID #10 tablet 01/09/18 Docusate Sodium 100 mg PO DAILY #30 capsule 06/13/19 Hydrocodone/Acetaminophen [[place] 1 each PO Q6H PRN #15 tablet 06/13/19 5-325 Tablet] Naproxen 375 mg PO BID #20 tablet 06/13/19 dexAMETHasone [Decadron] 4 mg PO DAILY #5 tablet 06/13/19 methocarbamoL [Robaxin] 500 mg PO Q6H PRN #30 tablet 06/13/19 - Allergies Allergies/Adverse Reactions: Allergies Allergy/AdvReac Type Severity Reaction Status Date / Time No Known Drug Allergies Allergy Verified 06/17/19 17:27 - Social History Does the pt smoke?: No Smoking Status: Never smoker Does the pt drink ETOH?: Yes Does the pt have substance abuse?: Yes - Immunizations Immunizations are current?: Yes PD ED PE NORMAL - Vitals Vital signs reviewed: Yes - General General: Other (She is alert and oriented to person, she knows she is in the hospital, does not know the date or time. She is a tangential thinker with paucity of thought. She seems to have delusions regarding , her brother.) - HEENT HEENT: PERRL, EOMI - Neck Neck: Supple, no meningeal sign, No bony TTP - Cardiac Cardiac: RRR, No murmur - Respiratory Respiratory: No respiratory distress, Clear bilaterally - Abdomen Abdomen: Normal bowel sounds, Soft, Non tender - Back Back: No CVA TTP, No spinal TTP - Derm Derm: Normal color, Warm and dry - Extremities Extremities: No edema, No calf tenderness / cord - Neuro Neuro: No motor deficit, No sensory deficit Results - Vitals Vitals: Vital Signs - 24 hr 06/17/19 06/17/19 06/17/19 17:27 17:31 19:31 Temperature 37.4 C 37.4 C Heart Rate 102 H 102 H 91 Respiratory 22 22 20 Rate Blood Pressure 125/69 125/69 134/86 H O2 Saturation 97 97 98 Oxygen O2 Source Room air - Labs Labs: Laboratory Tests 06/17/19 06/17/19 06/17/19 18:00 18:00 18:00 WBC 11.0 H RBC 4.34 Hgb 12.6 Hct 40.1 MCV 92.4 MCH 29.0 MCHC 31.4 L RDW 14.0 Plt Count 297 MPV 8.8 Neut # (Auto) 8.8 H Lymph # (Auto) 1.6 [place] # (Auto) 0.5 Eos # (Auto) 0.1 Baso # (Auto) 0.1 Absolute Nucleated RBC 0.00 Nucleated RBC % 0.0 Sodium 138 Potassium 4.0 Chloride 106 Carbon Dioxide 24 Anion Gap 8.0 BUN 24 H Creatinine 0.6 Estimated GFR (MDRD) 107 Glucose 116 H Calcium 8.8 Total Bilirubin < 0.2 L AST 15 ALT 17 Alkaline Phosphatase 68 Total Protein 7.1 Albumin 3.6 Globulin 3.5 Albumin/Globulin Ratio 1.0 Lipase 40 TSH 0.32 L Salicylates < 6.0 Acetaminophen < 10 L Ethyl Alcohol < 5.0 PD MEDICAL DECISION MAKING - ED course ED course: 48-year-old woman presents for what seems like a mental health issue that has decompensated. I think she needs to see be seen again by the DCR, I do not think she is a good daryl voluntary nor does she have capacity for decision- making in her current state. However the [facility] crisis line would not dispatch the DCR. They feel like nothing is changed since her last evaluation. As such she will board in the emergency department pending social work evaluation. Departure - Departure Clinical Impression: Homelessness, Delusions Condition: Stable
[2019-06-17 18:07] LABS: BASOPHILS # (AUTO) 0.1 10^3/uL (0.0-0.1); BASOPHILS % (AUTO) 0.5 %; EOSINOPHILS # (AUTO) 0.1 10^3/uL (0.0-0.7); EOSINOPHILS % (AUTO) 0.5 %; HGB - HEMOGLOBIN 12.6 g/dL (12.0-16.0); LYMPHOCYTES # (AUTO) 1.6 10^3/uL (1.5-3.5); LYMPHOCYTES % (AUTO) 14.5 %; MEAN CORPUSCULAR HGB CONC 31.4 g/dL (32.0-36.0); MEAN CORPUSCULAR VOLUME 92.4 fL (81.0-99.0); MEAN PLATELET VOLUME 8.8 fL (7.9-10.8); MONOCYTES # (AUTO) 0.5 10^3/uL (0.0-1.0); MONOCYTES % (AUTO) 4.6 %; NEUTROPHILS # (AUTO) 8.8 10^3/uL (1.5-6.6); NEUTROPHILS % (AUTO) 79.6 %; PLT - PLATELET COUNT 297 10^3/uL (130-450); RED BLOOD COUNT 4.34 10^6/uL (4.20-5.40)
[2019-06-17 18:37] LABS: ACETAMINOPHEN < 10 ug/mL (10-30); ALBUMIN 3.6 g/dL (3.2-5.5); ALKALINE PHOSPHATASE 68 IU/L (42-121); ALT ALANINE AMINOTRANSFERASE 17 IU/L (10-60); AST ASPARTATE AMINOTRANSFERASE 15 IU/L (10-42); BILIRUBIN,TOTAL < 0.2 mg/dL (0.2-1.0); BUN - BLOOD UREA NITROGEN 24 mg/dL (6-20); CALCIUM 8.8 mg/dL (8.5-10.3); CARBON DIOXIDE - CO2 24 mmol/L (21-32); CHLORIDE 106 mmol/L (101-111); CREATININE 0.6 mg/dL (0.4-1.0); GLUCOSE 116 mg/dL (70-100); LIPASE 40 U/L (22-51); SALICYLATE < 6.0 mg/dL; SODIUM 138 mmol/L (135-145); TOTAL PROTEIN 7.1 g/dL (6.7-8.2)
[2019-06-17 23:40] LABS: MUDS CUTOFF CONCENTRATIONS CUTOFF CONC BELOW:
[2019-06-17 23:43] LABS: BILIRUBIN,URINE NEGATIVE (NEGATIVE); GLUCOSE, URINE (UA) NEGATIVE (NEGATIVE); KETONES,URINE (UA) NEGATIVE (NEGATIVE); LEUKOCYTE ESTERASE, URINE SMALL (NEGATIVE); NITRITE,URINE NEGATIVE (NEGATIVE); OCCULT BLOOD,URINE NEGATIVE (NEGATIVE); PROTEIN,URINE NEGATIVE (NEGATIVE); UROBILINOGEN,URINE 0.2 (NORMAL) E.U./dL (NORMAL)
[2019-06-17 23:45] LABS: CLARITY,URINE CLEAR (CLEAR); HCG UR QUAL NEGATIVE
[2019-06-17 23:55] LABS: BACTERIA,URINE Few /HPF (None Seen); RBC,URINE None Seen /HPF (0-5); SQUAMOUS EPITHELIAL CELL,UR FEW Squamous (<= Few)
[2019-06-17 23:56] LABS: AMPHETAMINE SCREEN,URINE NEGATIVE (NEGATIVE); BENZODIAZEPINES SCREEN, URINE NEGATIVE (NEGATIVE); COCAINE SCREEN URINE NEGATIVE (NEGATIVE); METHADONE SCREEN, URINE NEGATIVE (NEGATIVE); METHAMPHETAMINES SCREEN, URINE NEGATIVE (NEGATIVE); OPIATE SCREEN, URINE NEGATIVE (NEGATIVE); OXYCODONE SCREEN, URINE NEGATIVE (NEGATIVE); PROPOXYPHENE SCREEN, URINE NEGATIVE (NEGATIVE); TRICYCLIC ANTIDEPRESSANT,URINE NEGATIVE (NEGATIVE)
[2019-06-18 06:49] VITALS: BP 136/71
--- NOTE | 2019-06-18 08:32 | ED Physician Documentation ---
ED Addendum - Addendum Addendum: 06/18/19 08:31 The patient was here awaiting social work evaluation to help with social determinants of health. She had been here since yesterday and had been here several days before. The nurse notified me that the patient stated she did not want to wait for social work and wanted to leave. There was no suicidality and she did not seem disabled per se. There did not seem to be reason to hold her involuntarily and she was allowed to leave.
== END 2019-06-18 07:30 | disposition left against medical advice (07) ==
LOC: EDUNIT# → EDSEX → ED 17:19
DX: F22 Delusional disorders (principal); Z59.0 Homelessness
CPT/HCPCS: 36415; 71045; 80053; 80306; 80307; 80320; 80329; 81001; 81003; 81025; 82550; 83690; 83735; 83880; 84443; 84484; 85025; 86140; 87086; 99281; 99283

== ENCOUNTER 2019-06-18 14:42 | Emergency (ER) | payer MEDICAID ==
[2019-06-18 14:54] VITALS: BP 139/76
[2019-06-18] MEDS ORDERED: FLUCONAZOLE 100 MG TABLET PO STA (16:36)
--- NOTE | 2019-06-18 16:38 | ED Physician Documentation ---
History of Present Illness - Stated complaint Stated Complaint: FEMALE - Chief complaint Chief Complaint: General - History obtained from History obtained from: Patient (48-year-old woman presents with a variety of complaints, longstanding left shoulder and ankle pain, also needing something for yeast infection under her pannus. 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 - Present Medications Home Medications: Ambulatory Orders Medication Instructions Recorded Confirmed Albuterol Sulf [Ventolin Hfa 2 puffs INH Q4H PRN 12/11/15 12/30/16 Inhaler] Fluconazole [Diflucan] 150 mg PO ONCE #1 tablet 01/09/18 Fluticasone/Vilanterol [Breo 01/09/18 Ellipta 200-25 Mcg INH] metroNIDAZOLE [Flagyl] 500 mg PO BID #10 tablet 01/09/18 Docusate Sodium 100 mg PO DAILY #30 capsule 06/13/19 Hydrocodone/Acetaminophen [[place] 1 each PO Q6H PRN #15 tablet 06/13/19 5-325 Tablet] Naproxen 375 mg PO BID #20 tablet 06/13/19 dexAMETHasone [Decadron] 4 mg PO DAILY #5 tablet 06/13/19 methocarbamoL [Robaxin] 500 mg PO Q6H PRN #30 tablet 06/13/19 Nystatin [Nystop] 1 applic TOP BID #3 bottle 06/18/19 - Allergies Allergies/Adverse Reactions: Allergies Allergy/AdvReac Type Severity Reaction Status Date / Time No Known Drug Allergies Allergy Verified 06/18/19 14:53 - Social History Does the pt smoke?: No Smoking Status: Never smoker Does the pt drink ETOH?: Yes Does the pt have substance abuse?: Yes - Immunizations Immunizations are current?: Yes - POLST Patient has POLST: No PD ED PE NORMAL - Vitals Vital signs reviewed: Yes - General General: Alert and oriented X 3, No acute distress - Derm Derm: Other (She has Tiffanie under her pannus on the abdominal wall) - Extremities Extremities: Other (Left shoulder and left ankle are nontender, gait is normal. She does have positive supraspinatus testing on the left.) - Neuro Neuro: Alert and oriented X 3, Normal speech Results - Vitals Vitals: Vital Signs - 24 hr 06/18/19 14:53 Temperature 36.5 C Heart Rate 96 Respiratory 14 Rate Blood Pressure 139/76 H O2 Saturation 96 Oxygen O2 Source Room air Departure - Departure Disposition: Home, Self Care Clinical Impression: Candidal skin infection Chronic ankle pain Qualifiers: Laterality: left Qualified Code(s): M25.572 - Pain in left ankle and joints of left foot Chronic shoulder pain Qualifiers: Laterality: left Qualified Code(s): M25.512 - Pain in left shoulder Condition: Good Record reviewed to determine appropriate education?: Yes Instructions: ED Candidiasis Cutaneous Follow-Up: [facility] [Provider Group] Prescriptions: Nystatin [Nystop] 1 applic TOP BID #3 bottle Comments: For the yeast infection we gave you a dose of Diflucan here, also the prescription for topical nystatin. For the chronic shoulder and ankle pain, you were administered a boot to help us support the ankle, I recommend doing gentle range of motion exercises on the shoulder and following up with the orthopedic surgery office, call Wednesday for an appointment. Return for new or worsening symptoms.
== END 2019-06-18 17:17 | disposition home or self-care (01) ==
LOC: ED 14:42
DX: B37.2 Candidiasis of skin and nail (principal); M25.572 Pain in left ankle and joints of left foot; M25.512 Pain in left shoulder; G89.29 Other chronic pain; F22 Delusional disorders; R41.82 Altered mental status, unspecified; Z59.0 Homelessness
CPT/HCPCS: 36415; 71045; 80053; 80306; 80307; 80320; 80329; 81001; 81025; 82550; 83690; 83735; 83880; 84443; 84484; 85025; 86140; 87086; 99281; 99282; 99283; A9270; 81003

== ENCOUNTER 2019-09-01 07:17 | Emergency (ER) | payer MEDICAID ==
[2019-09-01 07:34] VITALS: BP 150/84
--- NOTE | 2019-09-01 07:39 | ED Physician Documentation ---
PD HPI UPPER EXT INJURY - Stated complaint Stated Complaint: SHLDR PX - Chief complaint Chief Complaint: Ext Problem - History obtained from History obtained from: Patient - History of Present Illness Location: Left, Shoulder Type of injury: Other (she has had onset of left posterior shoulder pain with use for days/week. No abrupt injury. Hurts with reaching, lifting, and over head.). No: Fall, Twist Timing - onset: How many days ago (days to a week of worsening/persistent pain.) Timing - duration: Days, Weeks Timing - details: Gradual onset, Still present Worsened by: Moving, Palpating (tender area posterior shoulder at lateral scapula.) Associated symptoms: No: Weakness, Numbness, Swelling Contributing factors: No: Prior ortho surgery Similar symptoms before: No diagnosis Review of Systems Constitutional: denies: Fever, Chills Nose: denies: Rhinorrhea / runny nose, Congestion Throat: denies: Sore throat Respiratory: denies: Cough Skin: denies: Rash, Lesions Musculoskeletal: reports: Joint pain (left posterior shoulder). 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 - Present Medications Home Medications: Ambulatory Orders Medication Instructions Recorded Confirmed Fexofenadine/Pseudoephedrine PRN 09/01/19 [Afshan-D 24 Hour Tablet] Naproxen 375 mg PO BID #30 tablet 09/01/19 methocarbamoL [Robaxin] 500 mg PO TID PRN #30 tablet 09/01/19 - Allergies Allergies/Adverse Reactions: Allergies Allergy/AdvReac Type Severity Reaction Status Date / Time No Known Drug Allergies Allergy Verified 06/18/19 14:53 - Social History Does the pt smoke?: No Smoking Status: Never smoker Does the pt drink ETOH?: Yes Does the pt have substance abuse?: Yes - Immunizations Immunizations are current?: Yes - POLST Patient has POLST: No PD ED PE NORMAL - Vitals Vital signs reviewed: Yes - General General: Alert and oriented X 3, No acute distress, Well developed/nourished - Neck Neck: Supple, no meningeal sign, No bony TTP - Cardiac Cardiac: RRR, No murmur - Respiratory Respiratory: Clear bilaterally - Derm Derm: Normal color, Warm and dry, No rash - Extremities Extremities: Other (left posterior shoulder with tenderness at tendon area. No joint effusion. Pain with rotational movements. No clicking nor popping. ) - Neuro Neuro: No motor deficit, No sensory deficit Results - Vitals Vitals: Vital Signs - 24 hr 09/01/19 07:27 Temperature 36.3 C L Heart Rate 88 Respiratory 18 Rate Blood Pressure 150/84 H O2 Saturation 97 Oxygen O2 Source Room air - Rads (name of study) left shoulder Radiology: Prelim report reviewed (limited study due to technique of picture. no noted ovbious process. ), EMP read contemporaneously (arthritic changes at end of clavicle. ), See rad report PD MEDICAL DECISION MAKING - ED course Complexity details: reviewed results, considered differential (seems like rotator cuff tendonitis. Has local tenderness posterior shoulder muscles. Trigger point/tendon injection done there. ), d/w patient Departure - Departure Disposition: 01 Home, Self Care Clinical Impression: Left shoulder tendonitis Condition: Stable Record reviewed to determine appropriate education?: Yes Instructions: ED Tendinitis Rotator Cuff Follow-Up: Raymundo Pappas MD [Provider Admit Priv/Credential] - Prescriptions: Naproxen 375 mg PO BID #30 tablet methocarbamoL [Robaxin] 500 mg PO TID PRN #30 tablet PRN Reason: Spasms Comments: Continue your range of motion exercises and some strengthening for the shoulder. Particularly avoid overhead reaching, heavy push pull or lifting. Avoid sudden impact to the shoulder such as shoveling or power tools. Use some anti-inflammatory such as naproxen twice daily with food for the next week or 2. Robaxin muscle relaxant if needed for stiffness. Follow-up with orthopedics regarding any further evaluation or treatment of the rotator cuff. Discharge Date/Time: 09/01/19 08:38
[2019-09-01] MEDS ORDERED: NAPROXEN 250 MG TABLET PO STA (07:52)
[2019-09-01] MEDS ORDERED: TRIAMCINOLONE 40 MG/ML VIAL IM STA (07:52)
[2019-09-01] MEDS ORDERED: BUPIVACAINE 0.5%-EPI 1:200000 PF 10 ML VIAL SUBQ STA (07:52)
[2019-09-01] MEDS ORDERED: BUPIVACAINE 0.5%-EPI 1:200000 PF 30 ML VIAL SUBQ STA (08:03)
--- NOTE | 2019-09-01 08:24 | XRAY Report ---
PROCEDURE: Shoulder 3 View LT INDICATIONS: shoulder pain TECHNIQUE: 3 views of the shoulder were acquired. Suboptimal technique, exposure, positioning, and [id number]. COMPARISON: None. FINDINGS: Bones: No gross fractures or significant dislocations. Mild degenerative change at the acromioclavi cular joint. No suspicious bony lesions. Visualized ribs appear intact. Soft tissues: No suspicious soft tissue calcifications. IMPRESSION: 1. Significantly limited exam. Significant pathology could be missed. Repeat exam with improved techn ique is recommended when the patient is able. Reviewed by: Anamaria Cali MD on 09/01/2019 8:22 AM PDT Approved by: Anamaria Cali MD on 09/01/2019 8:22 AM PDT Station ID: [id number]
== END 2019-09-01 08:38 | disposition home or self-care (01) ==
LOC: ED 07:17
DX: M77.9 Enthesopathy, unspecified (principal)
CPT/HCPCS: 73030; 96372; 99283; 99284; A9270

== ENCOUNTER 2019-09-04 08:20 | Emergency (ER) | payer MEDICAID ==
[2019-09-04 08:38] VITALS: BP 147/69
--- NOTE | 2019-09-04 09:43 | ED Physician Documentation ---
History of Present Illness - Stated complaint Stated Complaint: L SHOULDER PX/RE CHECK - Chief complaint Chief Complaint: Ext Problem - History obtained from History obtained from: Patient - History of Present Illness Timing: Chronic (3 years) Pain level max: 5 Pain level now: 4 - Additonal information Additional information: 48-year-old female was seen here 3 days ago for left shoulder pain. She states her shoulder still hurts. Worse with movement and better with rest. Has not been taking the medications prescribed to her. Has not contacted orthopedics for follow-up. No new injury. 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 - Present Medications Home Medications: Ambulatory Orders Medication Instructions Recorded Confirmed Fexofenadine/Pseudoephedrine PRN 09/01/19 [Afshan-D 24 Hour Tablet] Naproxen 375 mg PO BID #30 tablet 09/01/19 methocarbamoL [Robaxin] 500 mg PO TID PRN #30 tablet 09/01/19 - Allergies Allergies/Adverse Reactions: Allergies Allergy/AdvReac Type Severity Reaction Status Date / Time No Known Drug Allergies Allergy Verified 09/04/19 08:38 - Social History Does the pt smoke?: No Smoking Status: Never smoker Does the pt drink ETOH?: Yes Does the pt have substance abuse?: Yes - Immunizations Immunizations are current?: Yes - POLST Patient has POLST: No PD ED PE NORMAL - Vitals Vital signs reviewed: Yes - General General: Alert and oriented X 3, No acute distress, Well developed/nourished, Other (Super morbidly obese female) - HEENT HEENT: Moist mucous membranes, Pharynx benign - Neck Neck: Supple, no meningeal sign, No bony TTP - Cardiac Cardiac: RRR - Respiratory Respiratory: No respiratory distress, Clear bilaterally - Back Back: No spinal TTP - Derm Derm: Warm and dry - Extremities Extremities: Other (No bony tenderness around the shoulder. Does have some Tenderness along the trapezius muscle. Otherwise normal exam. Neurovascular intact) - Neuro Neuro: Alert and oriented X 3, No motor deficit, No sensory deficit Results - Vitals Vitals: Vital Signs - 24 hr 09/04/19 08:35 Temperature 36.4 C L Heart Rate 80 Respiratory 16 Rate Blood Pressure 147/69 H O2 Saturation 98 Oxygen O2 Source Room air PD MEDICAL DECISION MAKING - ED course Complexity details: reviewed old records, considered differential, d/w patient ED course: Patient with x-rays on Wednesday that did not show any acute abnormalities. She is using the arm freely in the emergency department. No limited range of motion. We will have her continue the medications previously prescribed and follow-up with orthopedics as needed. Patient counseled regarding signs and symptoms for which I believe and urgent re-evaluation would be necessary. Patient with good understanding of and agreement to plan and is comfortable going home at this time This document was made in part using voice recognition software. While efforts are made to proofread this document, sound alike and grammatical errors may occur. Departure - Departure Disposition: 01 Home, Self Care Clinical Impression: Shoulder pain, left Qualifiers: Chronicity: chronic Qualified Code(s): M25.512 - Pain in left shoulder Condition: Good Instructions: ED Shoulder Pain [facility] Follow-Up: [facility] [Provider Group] - Within 1 week Comments: Continue the medications previously prescribed. Follow-up with orthopedics for further care. You can use the sling as needed for further comfort, you should not be in the sling all day every day. You need to continue to move your arm and shoulder to prevent a frozen shoulder. Discharge Date/Time: 09/04/19 09:51
== END 2019-09-04 09:51 | disposition home or self-care (01) ==
LOC: ED 08:20
DX: M25.512 Pain in left shoulder (principal)
CPT/HCPCS: 99282; 99284

== ENCOUNTER 2019-10-03 08:33 | Outpatient (CLI) | payer MEDICAID | END 2019-10-03 08:34 | disposition short-term general hospital (02) | LOC: EMS 08:33 | PROVIDERS: ATTEND Surgery | DX: R10.12 Left upper quadrant pain (principal) | CPT/HCPCS: A0425; A0429 ==

== ENCOUNTER 2019-11-13 08:06 | Emergency (ER) | payer MEDICAID ==
[2019-11-13] MEDS ORDERED: SODIUM CHLORIDE 0.9% 1,000 ML IV STA (08:23)
[2019-11-13] MEDS ORDERED: predniSONE 20 MG TABLET PO STA (08:38)
[2019-11-13] MEDS ORDERED: IPRATROPIUM/ALBUTEROL 3 ML NEB INH STA (08:38)
--- NOTE | 2019-11-13 08:38 | ED Physician Documentation ---
History of Present Illness - Stated complaint Stated Complaint: SOA - Chief complaint Chief Complaint: Resp - History obtained from History obtained from: Patient - Additonal information Additional information: Patient comes emergency department complaining of cough and rhinorrhea for the last 2 days. She states that she has a history of allergies but also feels as though she has had a "cold. She lives at [facility] and states that similar illness is been going through the entire snf. She denies fevers or chills. No body aches. She states that she just has a congested feeling in her chest and has been coughing up clear sputum. Patient has a history of asthma but is not a smoker. She has used nebulizers and inhalers in the past but does not currently use one. No other complaints at this time. Review of Systems Ten Systems: 10 systems reviewed and negative Constitutional: reports: Reviewed and negative Eyes: reports: Reviewed and negative Ears: reports: Reviewed and negative Nose: reports: Rhinorrhea / runny nose, Congestion Throat: reports: Reviewed and negative Cardiac: reports: Reviewed and negative Respiratory: reports: Dyspnea, Cough. denies: Wheezing GI: reports: Reviewed and negative : reports: Reviewed and negative Skin: reports: Reviewed and negative Musculoskeletal: reports: Reviewed and negative Neurologic: reports: Reviewed and negative Psychiatric: reports: Reviewed and negative Endocrine: reports: Reviewed and negative Immunocompromised: reports: Reviewed and negative PD PAST MEDICAL HISTORY - Past Medical History Cardiovascular: None Respiratory: Asthma, Sleep apnea, CPAP use Endocrine/Autoimmune: None GI: None : None HEENT: None Psych: None Musculoskeletal: None Derm: None - Past Surgical History Past Surgical History: Yes 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 - Present Medications Home Medications: Ambulatory Orders Medication Instructions Recorded Confirmed Fexofenadine/Pseudoephedrine PRN 09/01/19 [Afshan-D 24 Hour Tablet] Naproxen 375 mg PO BID #30 tablet 09/01/19 methocarbamoL [Robaxin] 500 mg PO TID PRN #30 tablet 09/01/19 Albuterol Sulf [Ventolin Hfa 1 - 2 puffs INH Q4HR PRN #1 inhaler 11/13/19 Inhaler] Furosemide [Lasix] 20 mg PO DAILY 10 Days #10 tablet 11/13/19 - Allergies Allergies/Adverse Reactions: Allergies Allergy/AdvReac Type Severity Reaction Status Date / Time No Known Drug Allergies Allergy Verified 11/13/19 08:09 - Social History Does the pt smoke?: No Smoking Status: Never smoker Does the pt drink ETOH?: Yes Does the pt have substance abuse?: Yes - Immunizations Immunizations are current?: Yes - POLST Patient has POLST: No PD ED PE NORMAL - Vitals Vital signs reviewed: Yes - General General: Alert and oriented X 3, No acute distress, Other (Morbidly obese. Patient is very well-appearing with the exception of a congested cough) - HEENT HEENT: Atraumatic, PERRL, EOMI, Moist mucous membranes - Neck Neck: Supple, no meningeal sign - Cardiac Cardiac: RRR, No murmur - Respiratory Respiratory: No respiratory distress, Other (Patient has coarse rhonchi and wheezes in her bronchi, but lung ortez themselves are clear.) - Abdomen Abdomen: Soft, Non tender, Non distended - Derm Derm: Normal color, Warm and dry, No rash - Extremities Extremities: No deformity, No edema, No calf tenderness / cord - Neuro Neuro: Alert and oriented X 3, Other (Grossly normal) - Psych Psych: Normal mood, Normal affect Results - Vitals Vitals: Vital Signs - 24 hr 11/13/19 11/13/19 11/13/19 10:18 10:26 11:05 Temperature 36.6 C Heart Rate 76 73 Respiratory 23 20 Rate Blood Pressure 142/80 H 132/77 H O2 Saturation 99 95 Oxygen O2 Source Room air - Rads (name of study) CXR Radiology: Final report received, EMP read indepedently, See rad report (neg) PD MEDICAL DECISION MAKING - ED course Complexity details: reviewed results, re-evaluated patient, considered differential, d/w patient ED course: The patient was treated symptomatically with a DuoNeb and prednisone. Chest x- ray was obtained, and negative. The pt was found to be feeling better. She has been given prescriptions for an inhaler and Zithromax. She has been tested for COVID, and understands that she should quarantine at the snf until her results come back. We have discussed that she will be notified if she tests positive. Departure - Departure Disposition: 01 Home, Self Care Clinical Impression: Upper respiratory tract infection Qualifiers: URI type: unspecified viral URI Qualified Code(s): J06.9 - Acute upper respiratory infection, unspecified Condition: Stable Instructions: ED Reactive Airway Disease, ED Viral Syndrome Prescriptions: Albuterol Sulf [Ventolin Hfa Inhaler] 1 - 2 puffs INH Q4HR PRN #1 inhaler PRN Reason: Shortness Of Air/Wheezing Furosemide [Lasix] 20 mg PO DAILY 10 Days #10 tablet Comments: Your x-ray did not show pneumonia, but did show a little bit of fluid in your l ungs which needs to be cleared out. As such, you have been started on a low dose water pill for the next 10 days. After that she should follow-up with primary care physician to revisit how things are going. You have also been given a prescription for an inhaler to see if this helps with your breathing. There is no need for antibiotics at this time. Discharge Date/Time: 11/13/19 11:30
--- NOTE | 2019-11-13 09:22 | XRAY Report ---
PROCEDURE: Chest 1 View X-Ray INDICATIONS: chest pain TECHNIQUE: One view of the chest was acquired. COMPARISON: 06/13/2019 FINDINGS: Surgical changes and devices: None. Lungs and pleura: There is pulmonary vascular prominence consistent with pulmonary edema. No pleural effusions or pneumothorax. Mediastinum: Cardiomegaly is redemonstrated. There is widening of the mediastinal contours which may be due to portable supine technique and low lung volumes. Bones and chest wall: No suspicious bony lesions. Overlying soft tissues appear unremarkable. IMPRESSION: 1. Increased prominent vascular prominence consistent with pulmonary edema. Reviewed by: Christopher Horner MD on 11/13/2019 8:21 AM AGUILA Approved by: Christopher Horner MD on 11/13/2019 8:21 AM AGUILA Station ID: [id number]
[2019-11-13 11:06] VITALS: BP 132/77
== END 2019-11-13 11:30 | disposition home or self-care (01) ==
LOC: ED 08:06
DX: J06.9 Acute upper respiratory infection, unspecified (principal); J81.1 Chronic pulmonary edema; J45.909 Unspecified asthma, uncomplicated; Z20.828 Contact with and (suspected) exposure to other viral communicable diseases
CPT/HCPCS: 71045; 87635; 94640; 99284; J7512; 80053; 83690; 85025; 85610

== ENCOUNTER 2019-11-29 07:59 | Emergency (ER) | payer MEDICAID ==
[2019-11-29] MEDS ORDERED: IPRATROPIUM/ALBUTEROL 3 ML NEB INH STA (08:18)
[2019-11-29] MEDS ORDERED: predniSONE 20 MG TABLET PO STA (08:18)
--- NOTE | 2019-11-29 08:23 | ED Physician Documentation ---
PD HPI DYSPNEA - Stated complaint Stated Complaint: SOA - Chief complaint Chief Complaint: Resp - History obtained from History obtained from: Patient - Additional information Additional information: History of asthma presents with continued cough and shortness of breath. She was seen here on the fifth of this month, had an x-ray that was normal and a coronavirus test that was negative. She is not worse but she is not better either. She was started on Zithromax which she completed. Also some Lasix. She received prednisone in the department but no prescription. She does not smoke. No history of diabetes. 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 - Present Medications Home Medications: Ambulatory Orders Medication Instructions Recorded Confirmed Fexofenadine/Pseudoephedrine PRN 09/01/19 [Afshan-D 24 Hour Tablet] Naproxen 375 mg PO BID #30 tablet 09/01/19 methocarbamoL [Robaxin] 500 mg PO TID PRN #30 tablet 09/01/19 Albuterol Sulf [Ventolin Hfa 1 - 2 puffs INH Q4HR PRN #1 inhaler 11/13/19 Inhaler] Furosemide [Lasix] 20 mg PO DAILY 10 Days #10 tablet 11/13/19 Albuterol Sulf [Ventolin Hfa 1 - 2 puffs INH Q4HR PRN #1 inhaler 11/29/19 Inhaler] predniSONE [Deltasone] 20 mg PO [id number] #21 tab 11/29/19 - Allergies Allergies/Adverse Reactions: Allergies Allergy/AdvReac Type Severity Reaction Status Date / Time No Known Drug Allergies Allergy Verified 11/29/19 08:15 - Social History Does the pt smoke?: No Smoking Status: Never smoker Does the pt drink ETOH?: Yes Does the pt have substance abuse?: Yes - Immunizations Immunizations are current?: Yes - POLST Patient has POLST: No PD ED PE NORMAL - Vitals Vital signs reviewed: Yes - General General: Alert and oriented X 3, No acute distress - HEENT HEENT: PERRL, EOMI - Neck Neck: Supple, no meningeal sign, No bony TTP - Cardiac Cardiac: RRR, No murmur - Respiratory Respiratory: No respiratory distress, Other (Expiratory wheezing with generally good air motion, nonlabored.) - Abdomen Abdomen: Soft, Non tender - Derm Derm: Normal color, Warm and dry, No rash - Neuro Neuro: Alert and oriented X 3, Normal speech Results - Vitals Vitals: Vital Signs - 24 hr 11/29/19 08:09 Temperature 36.5 C Heart Rate 91 Respiratory 22 Rate Blood Pressure 133/105 H O2 Saturation 100 Oxygen O2 Source Room air PD MEDICAL DECISION MAKING - ED course ED course: 49yo woman with asthma exacerbation. Her vital signs and exam are reassuring. She was administered a DuoNeb and prednisone here as well as a prednisone prescription. Departure - Departure Disposition: 01 Home, Self Care Clinical Impression: Asthma Qualifiers: Asthma severity: moderate Asthma persistence: persistent Asthma complication type: with acute exacerbation Qualified Code(s): J45.41 - Moderate persistent asthma with (acute) exacerbation Condition: Good Record reviewed to determine appropriate education?: Yes Instructions: Asthma Dc Prescriptions: Albuterol Sulf [Ventolin Hfa Inhaler] 1 - 2 puffs INH Q4HR PRN #1 inhaler PRN Reason: Shortness Of Air/Wheezing predniSONE [Deltasone] 20 mg PO [id number] #21 tab Comments: Call your doctor to arrange a follow-up appointment, make the next available appointment. In the interim, return anytime if worse or if new symptoms develop.
[2019-11-29 09:04] VITALS: BP 144/77
== END 2019-11-29 09:09 | disposition home or self-care (01) ==
LOC: ED 07:59
DX: J45.41 Moderate persistent asthma with (acute) exacerbation (principal)
CPT/HCPCS: 94640; 94664; 99283; J7512

== ENCOUNTER 2019-12-04 18:50 | Emergency (ER) | payer MEDICAID ==
[2019-12-04] MEDS ORDERED: IPRATROPIUM/ALBUTEROL 3 ML NEB INH STA (19:23)
--- NOTE | 2019-12-04 19:24 | ED Physician Documentation ---
History of Present Illness - Stated complaint Stated Complaint: BI-LAT HAND PX - Chief complaint Chief Complaint: General - History obtained from History obtained from: Patient - Additonal information Additional information: 49-year-old woman with history of asthma presents because she was kicked out of her halfway tonight and has multiple complaints. Her Raynaud's in her hand is acting up. She showed short of breath. She has been seen here a couple of times for bronchitis. Zithromax and steroids have been mildly helpful. Mild nonproductive cough. No fevers. 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 - Present Medications Home Medications: Ambulatory Orders Medication Instructions Recorded Confirmed Fexofenadine/Pseudoephedrine PRN 09/01/19 [Afshan-D 24 Hour Tablet] Naproxen 375 mg PO BID #30 tablet 09/01/19 methocarbamoL [Robaxin] 500 mg PO TID PRN #30 tablet 09/01/19 Albuterol Sulf [Ventolin Hfa 1 - 2 puffs INH Q4HR PRN #1 inhaler 11/13/19 Inhaler] Furosemide [Lasix] 20 mg PO DAILY 10 Days #10 tablet 11/13/19 Albuterol Sulf [Ventolin Hfa 1 - 2 puffs INH Q4HR PRN #1 inhaler 11/29/19 Inhaler] predniSONE [Deltasone] 20 mg PO [id number] #21 tab 11/29/19 Ipratropium/Albuterol [Combivent 1 - 2 puffs IH Q6H PRN #1 12/04/19 Respimat] aer.w.adap - Allergies Allergies/Adverse Reactions: Allergies Allergy/AdvReac Type Severity Reaction Status Date / Time No Known Drug Allergies Allergy Verified 12/04/19 19:04 - Social History Does the pt smoke?: No Smoking Status: Never smoker Does the pt drink ETOH?: Yes Does the pt have substance abuse?: Yes - Immunizations Immunizations are current?: Yes - POLST Patient has POLST: No PD ED PE NORMAL - Vitals Vital signs reviewed: Yes - General General: Alert and oriented X 3, No acute distress - HEENT HEENT: PERRL, EOMI - Neck Neck: Supple, no meningeal sign, No bony TTP - Cardiac Cardiac: RRR, No murmur - Respiratory Respiratory: No respiratory distress, Other (Diminished at the right base without other focal findings, mild expiratory wheezing throughout. Good air movement otherwise.) - Extremities Extremities: Other (Cap refill in the hands is normal.) - Neuro Neuro: Alert and oriented X 3, Normal speech Results - Vitals Vitals: Vital Signs - 24 hr 12/04/19 12/04/19 19:00 19:44 Temperature 37.2 C Heart Rate 93 93 Respiratory 20 20 Rate Blood Pressure 156/99 H O2 Saturation 97 Oxygen O2 Source Room air - Rads (name of study) 2v chest Radiology: EMP read contemporaneously (Difficult to interpret given body habitus, grossly normal with stable cardiomegaly, potential small left basilar atelectasis or effusion.) PD MEDICAL DECISION MAKING - ED course ED course: 49-year-old woman presents with multiple complaints, Raynaud's syndrome, homelessness after being kicked out of her halfway, continued bronchitis. After the administration of a DuoNeb her lungs were clear. Chest x-ray was without obvious infectious etiology. She appeared well. Departure - Departure Disposition: 01 Home, Self Care Clinical Impression: Homelessness, Bronchitis Raynauds phenomenon Qualifiers: Raynaud?s-associated gangrene presence: without gangrene Qualified Code(s): I73.00 - Raynaud's syndrome without gangrene Condition: Good Record reviewed to determine appropriate education?: Yes Instructions: ED Bronchitis Asthmatic Prescriptions: Ipratropium/Albuterol [Combivent Respimat] 1 - 2 puffs IH Q6H PRN #1 aer.w.adap PRN Reason: Wheezing Comments: Call your doctor to arrange a follow-up appointment, make the next available appointment. In the interim, return anytime if worse or if new symptoms develop.
--- NOTE | 2019-12-04 20:16 | XRAY Report ---
PROCEDURE: Chest 2 View X-Ray INDICATIONS: dyspnea TECHNIQUE: 2 views of the chest. COMPARISON: Chest radiographs 11/13/2019 FINDINGS: Surgical changes and devices: None. Lungs and pleura: Lung volumes have mildly improved when compared to the radiographs from 11/13/2019. Mild haziness of the left lung base may be related to superimposed soft tissue structures versus a s mall layering pleural effusion and/or atelectasis. Mediastinum: Rightward deviation of the trachea at the level of the thoracic inlet appears stable an d is most likely related to a known thyroid goiter as seen on ultrasound from 08/05/2016. Mediastinal contours are stable. Heart size is mildly enlarged. Bones and chest wall: No suspicious bony abnormalities. Soft tissues appear unremarkable. IMPRESSION: 1. Haziness of the left costophrenic angle may be related to overlying soft tissues versus a small l ayering pleural effusion and/or atelectasis. 2. Stable cardiomegaly. Reviewed by: Ander Cuello MD on 12/04/2019 8:14 PM PDT Approved by: Ander Cuello MD on 12/04/2019 8:14 PM PDT Station ID: [id number]
[2019-12-04 20:37] VITALS: BP 125/75
== END 2019-12-04 20:36 | disposition home or self-care (01) ==
LOC: ED 18:50
DX: J40 Bronchitis, not specified as acute or chronic (principal); I73.00 Raynaud's syndrome without gangrene; Z59.0 Homelessness
CPT/HCPCS: 71046; 94640; 99283

== ENCOUNTER 2020-01-03 08:10 | Emergency (ER) | payer MEDICAID ==
--- NOTE | 2020-01-03 09:48 | XRAY Report ---
PROCEDURE: Chest 2 View X-Ray INDICATIONS: persistent cough TECHNIQUE: 2 view(s) of the chest. COMPARISON: Chest x-ray 12/04/2019 FINDINGS: Surgical changes and devices: None. Lungs and pleura: No pleural effusions or pneumothorax. Increased pulmonary vascularity is present. Mediastinum: Mediastinal contours are normal. Heart size is enlarged. Bones and chest wall: No suspicious bony abnormalities. Soft tissues appear unremarkable. IMPRESSION: Cardiomegaly with increased vascularity suggestive of edema. Reviewed by: Christy Partida MD on 01/03/2020 8:46 AM [facility] Approved by: Christy Partida MD on 01/03/2020 8:46 AM [facility] Station ID: [id number]
--- NOTE | 2020-01-03 09:55 | ED Physician Documentation ---
History of Present Illness - Stated complaint Stated Complaint: CRAMPING - Chief complaint Chief Complaint: Abd Pain - History obtained from History obtained from: Patient - History of Present Illness Timing: Other (2-3 months) - Additonal information Additional information: 49-year-old homeless female with a history of asthmatic bronchitis has had a loss of her mother earlier this year resulting in her eviction. She is now living at the [facility] and she has developed a cough for the past 2 to 3 months which has not resolved. She is here today mostly for cough that has not resolved. She also has had abdominal pain periodically and intermittently over that same period of time which has been investigated but she has not resolve this issue. She states she periodically will get sharp stabbing pains in her abdomen after eating. Review of Systems Constitutional: denies: Fever Eyes: denies: Decreased vision Ears: denies: Ear pain Nose: reports: Congestion. denies: Rhinorrhea / runny nose Throat: denies: Sore throat Cardiac: denies: Chest pain / pressure, Palpitations, Pedal edema, Calf pain Respiratory: reports: Dyspnea, Cough, Wheezing GI: reports: Nausea. denies: Abdominal Pain, Vomiting, Constipation, Diarrhea : denies: Dysuria, Frequency PD PAST MEDICAL HISTORY - Past Medical History Past Medical History: Yes Cardiovascular: None Respiratory: Asthma, Sleep apnea, CPAP use Neuro: None Endocrine/Autoimmune: None GI: None MANAGER BUSINESS INTELLIGENCE: None : None HEENT: None Psych: Depression Musculoskeletal: None Derm: None - Past Surgical History Past Surgical History: Yes Ortho: Carpal Tunnel surgery /MANAGER BUSINESS INTELLIGENCE: Other - Present Medications Home Medications: Ambulatory Orders Medication Instructions Recorded Confirmed Fexofenadine/Pseudoephedrine PRN 09/01/19 [Afshan-D 24 Hour Tablet] Furosemide [Lasix] 20 mg PO DAILY 10 Days #10 tablet 11/13/19 01/03/20 Albuterol Sulf [Ventolin Hfa 1 - 2 puffs INH Q4HR PRN #1 inhaler 11/29/19 01/03/20 Inhaler] Ipratropium/Albuterol [Combivent 1 - 2 puffs IH Q6H PRN #1 12/04/19 01/03/20 Respimat] aer.w.adap Azithromycin [Zithromax] 250 mg PO DAILY #6 tablet 01/03/20 Fluticasone/Salmeterol [Advair 1 each IH BID #1 blst.w.dev 01/03/20 250-50 Diskus] predniSONE [Deltasone] 10 mg PO ONCE #26 tablet 01/03/20 - Allergies Allergies/Adverse Reactions: Allergies Allergy/AdvReac Type Severity Reaction Status Date / Time No Known Drug Allergies Allergy Verified 01/03/20 08:19 - Social History Does the pt smoke?: No Smoking Status: Never smoker Does the pt drink ETOH?: No Does the pt have substance abuse?: No - Immunizations Immunizations are current?: Yes - POLST Patient has POLST: No PD ED PE NORMAL - Vitals Vital signs reviewed: Yes (tachy and hypertensive ) - General General: Alert and oriented X 3, No acute distress, Well developed/nourished - HEENT HEENT: Atraumatic, PERRL, EOMI, Other (cerumen impaction bilaterally ) - Neck Neck: Supple, no meningeal sign, No bony TTP - Cardiac Cardiac: RRR, No murmur - Respiratory Respiratory: No respiratory distress, Other (diminished breath sounds bilaterally) - Abdomen Abdomen: Soft, Non tender, Other (obese) - Back Back: No CVA TTP, No spinal TTP - Derm Derm: Normal color, Warm and dry, No rash - Extremities Extremities: No deformity, No edema - Neuro Neuro: Alert and oriented X 3, commercial litigation paralegal 2-12 intact, No motor deficit, No sensory deficit, Normal speech Eye Opening: Spontaneous Motor: Obeys Commands Verbal: Oriented GCS Score: 15 - Psych Psych: Normal mood, Normal affect Results - Vitals Vitals: Vital Signs - 24 hr 01/03/20 01/03/20 01/03/20 08:19 08:24 10:32 Temperature 37 C 36.8 C Heart Rate 103 H 99 78 Respiratory 28 H 28 H 11 L Rate Blood Pressure 154/138 H 151/83 H 138/85 H O2 Saturation 92 93 98 01/03/20 01/03/20 01/03/20 10:50 11:25 11:49 Temperature 36.6 C Heart Rate 77 80 85 Respiratory 20 18 15 Rate Blood Pressure 141/91 H 155/84 H O2 Saturation 95 97 01/03/20 12:08 Temperature 36.7 C Heart Rate 85 Respiratory 11 L Rate Blood Pressure 159/99 H O2 Saturation 97 Oxygen O2 Source Room air - EKG (time done) 0957 Rate: Rate (enter#) (87) Rhythm: NSR QRS: Low voltage Computer interpretation: Agree with computer - Labs Labs: Laboratory Tests 01/03/20 01/03/20 01/03/20 10:05 10:15 10:15 WBC 10.0 RBC 4.61 Hgb 12.7 Hct 42.0 MCV 91.1 MCH 27.5 MCHC 30.2 L RDW 14.7 Plt Count 325 MPV 8.7 Neut # (Auto) 7.6 H Lymph # (Auto) 1.6 [place] # (Auto) 0.5 Eos # (Auto) 0.1 Baso # (Auto) 0.0 Absolute Nucleated RBC 0.00 Nucleated RBC % 0.0 Sodium 137 Potassium 4.2 Chloride 99 L Carbon Dioxide 30 Anion Gap 8.0 BUN 15 Creatinine 0.5 Estimated GFR (MDRD) 131 Glucose 173 H Calcium 9.6 Total Bilirubin 0.4 AST 16 ALT 20 Alkaline Phosphatase 78 Troponin I High Sens B-Natriuretic Peptide Total Protein 7.3 Albumin 3.5 Globulin 3.8 Albumin/Globulin Ratio 0.9 L Lipase 42 TSH Free T4 Total T3 Urine Color YELLOW Urine Clarity CLEAR Urine pH 6.5 Ur Specific Loyal 1.010 Urine Protein NEGATIVE Urine Glucose (UA) NEGATIVE Urine Ketones NEGATIVE Urine Occult Blood NEGATIVE Urine Nitrite NEGATIVE Urine Bilirubin NEGATIVE Urine Urobilinogen 0.2 (NORMAL) Ur Leukocyte Esterase NEGATIVE Ur Microscopic Review NOT INDICATED Urine Culture Comments NOT INDICATED 01/03/20 01/03/20 01/03/20 10:15 10:15 10:15 WBC RBC Hgb Hct MCV MCH MCHC RDW Plt Count MPV Neut # (Auto) Lymph # (Auto) [place] # (Auto) Eos # (Auto) Baso # (Auto) Absolute Nucleated RBC Nucleated RBC % Sodium Potassium Chloride Carbon Dioxide Anion Gap BUN Creatinine Estimated GFR (MDRD) Glucose Calcium Total Bilirubin AST ALT Alkaline Phosphatase Troponin I High Sens 5.7 B-Natriuretic Peptide 27 Total Protein Albumin Globulin Albumin/Globulin Ratio Lipase TSH 0.94 Free T4 0.73 Total T3 1.40 Urine Color Urine Clarity Urine pH Ur Specific Loyal Urine Protein Urine Glucose (UA) Urine Ketones Urine Occult Blood Urine Nitrite Urine Bilirubin Urine Urobilinogen Ur Leukocyte Esterase Ur Microscopic Review Urine Culture Comments - Rads (name of study) chest Radiology: Prelim report reviewed (Impression: Cardiomegaly with increased vascularity suggestive of edema.), EMP read indepedently, See rad report PD MEDICAL DECISION MAKING - ED course Complexity details: reviewed results, re-evaluated patient, considered differential, d/w patient ED course: 49-year-old female homeless with asthma has asthmatic bronchitis she has had an exacerbation and previously she has had improvement with antibiotic and steroid she has not been on this course and so we are placing her on this course. She is administered ipratropium bromide and albuterol in the emergency department with improvement. Departure - Departure Disposition: 01 Home, Self Care Clinical Impression: Asthmatic bronchitis with exacerbation Qualifiers: Asthma severity: mild Asthma persistence: intermittent Qualified Code(s): J45.21 - Mild intermittent asthma with (acute) exacerbation Condition: Stable Instructions: ED Bronchitis Asthmatic Follow-Up: [facility] [Provider Group] Prescriptions: Fluticasone/Salmeterol [Advair 250-50 Diskus] 1 each IH BID #1 blst.w.dev predniSONE [Deltasone] 10 mg PO ONCE #26 tablet Azithromycin [Zithromax] 250 mg PO DAILY #6 tablet Discharge Date/Time: 01/03/20 12:19
[2020-01-03 10:13] LABS: BILIRUBIN,URINE NEGATIVE (NEGATIVE); GLUCOSE, URINE (UA) NEGATIVE (NEGATIVE); KETONES,URINE (UA) NEGATIVE (NEGATIVE); LEUKOCYTE ESTERASE, URINE NEGATIVE (NEGATIVE); NITRITE,URINE NEGATIVE (NEGATIVE); OCCULT BLOOD,URINE NEGATIVE (NEGATIVE); PH,URINE 6.5 PH (5.0-7.5); PROTEIN,URINE NEGATIVE (NEGATIVE); UROBILINOGEN,URINE 0.2 (NORMAL) E.U./dL (NORMAL)
[2020-01-03 10:15] LABS: CLARITY,URINE CLEAR (CLEAR)
[2020-01-03 10:21] LABS: BASOPHILS % (AUTO) 0.3 %; EOSINOPHILS # (AUTO) 0.1 10^3/uL (0.0-0.7); EOSINOPHILS % (AUTO) 1.3 %; HGB - HEMOGLOBIN 12.7 g/dL (12.0-16.0); LYMPHOCYTES # (AUTO) 1.6 10^3/uL (1.5-3.5); LYMPHOCYTES % (AUTO) 16.4 %; MEAN CORPUSCULAR HEMOGLOBIN 27.5 pg (27.0-31.0); MEAN CORPUSCULAR HGB CONC 30.2 g/dL (32.0-36.0); MEAN CORPUSCULAR VOLUME 91.1 fL (81.0-99.0); MEAN PLATELET VOLUME 8.7 fL (7.9-10.8); MONOCYTES # (AUTO) 0.5 10^3/uL (0.0-1.0); MONOCYTES % (AUTO) 5.2 %; NEUTROPHILS # (AUTO) 7.6 10^3/uL (1.5-6.6); NEUTROPHILS % (AUTO) 76.2 %; PLT - PLATELET COUNT 325 10^3/uL (130-450); RED BLOOD COUNT 4.61 10^6/uL (4.20-5.40); RED CELL DISTRIBUTION WIDTH 14.7 % (12.0-15.0)
[2020-01-03 10:39] LABS: ALBUMIN 3.5 g/dL (3.2-5.5); ALBUMIN/GLOBULIN RATIO 0.9 (1.0-2.2); BILIRUBIN,TOTAL 0.4 mg/dL (0.2-1.0); CALCIUM 9.6 mg/dL (8.5-10.3); CREATININE 0.5 mg/dL (0.4-1.0); TOTAL PROTEIN 7.3 g/dL (6.7-8.2)
[2020-01-03 10:56] LABS: THYROID STIMULATING HORMONE 0.94 uIU/mL (0.34-5.60)
[2020-01-03 10:58] LABS: FREE T4 (FREE THYROXINE) 0.73 ng/dL (0.58-1.64)
[2020-01-03 11:03] LABS: TOTAL T3 1.4 ng/mL (0.87-1.78)
[2020-01-03] MEDS ORDERED: IPRATROPIUM/ALBUTEROL 3 ML NEB INH STA (11:24)
[2020-01-03 12:14] VITALS: BP 159/99
== END 2020-01-03 12:19 | disposition home or self-care (01) ==
LOC: ED 08:10
DX: J45.21 Mild intermittent asthma with (acute) exacerbation (principal); H61.23 Impacted cerumen, bilateral; I51.7 Cardiomegaly; Z59.0 Homelessness
CPT/HCPCS: 36415; 71046; 80053; 81001; 81003; 83690; 83880; 84439; 84443; 84480; 84484; 85025; 87086; 93005; 94640; 99284

== ENCOUNTER 2020-01-14 08:39 | Outpatient (CLI) | payer MEDICAID | END 2020-01-14 08:40 | disposition critical access hospital (66) | LOC: EMS 08:39 | PROVIDERS: ATTEND Surgery | DX: R53.83 Other fatigue (principal) | CPT/HCPCS: A0425; A0429; A0999 ==

== ENCOUNTER 2020-01-14 09:01 | Inpatient (IN) | payer MEDICAID ==
[2020-01-14] MEDS ORDERED: ALBUTEROL 1 PUFF INH STA (09:42)
--- NOTE | 2020-01-14 09:59 | XRAY Report ---
PROCEDURE: Chest 1 View X-Ray INDICATIONS: sob TECHNIQUE: One view of the chest was acquired. COMPARISON: Chest x-ray, 01/03/2020. FINDINGS: Surgical changes and devices: None. Lungs and pleura: There is interstitial prominence. No pleural effusions or pneumothorax. Mediastinum: Mediastinal contours appear normal. Heart size is moderately increased. Bones and chest wall: No suspicious bony lesions. Overlying soft tissues appear unremarkable. IMPRESSION: Moderate cardiac megaly and bilateral interstitial prominence suspicious for CHF. Reviewed by: Nancy Mcadams MD on 01/14/2020 9:57 AM PST Approved by: Nancy Mcadams MD on 01/14/2020 9:57 AM PST Station ID: [id number]
[2020-01-14 10:07] LABS: BASOPHILS % (AUTO) 0.3 %; EOSINOPHILS % (AUTO) 0.1 %; LYMPHOCYTES # (AUTO) 0.9 10^3/uL (1.5-3.5); LYMPHOCYTES % (AUTO) 8.1 %; MEAN CORPUSCULAR HEMOGLOBIN 27.6 pg (27.0-31.0); MEAN CORPUSCULAR HGB CONC 30.1 g/dL (32.0-36.0); MEAN CORPUSCULAR VOLUME 91.7 fL (81.0-99.0); MONOCYTES # (AUTO) 0.4 10^3/uL (0.0-1.0); MONOCYTES % (AUTO) 3.2 %; NEUTROPHILS # (AUTO) 10.1 10^3/uL (1.5-6.6); NEUTROPHILS % (AUTO) 87.9 %; PLT - PLATELET COUNT 273 10^3/uL (130-450); RED BLOOD COUNT 4.35 10^6/uL (4.20-5.40); RED CELL DISTRIBUTION WIDTH 14.6 % (12.0-15.0); WHITE BLOOD COUNT 11.5 x10^3/uL (4.8-10.8)
[2020-01-14 10:28] LABS: ALBUMIN 3.2 g/dL (3.2-5.5); ALBUMIN/GLOBULIN RATIO 0.9 (1.0-2.2); BILIRUBIN,TOTAL 0.4 mg/dL (0.2-1.0); CALCIUM 9.2 mg/dL (8.5-10.3); CREATININE 0.6 mg/dL (0.4-1.0); TOTAL PROTEIN 6.8 g/dL (6.7-8.2)
--- NOTE | 2020-01-14 10:31 | ED Physician Documentation ---
History of Present Illness - Stated complaint Stated Complaint: N/V/SYNCOPE - Chief complaint Chief Complaint: Abd Pain - History obtained from History obtained from: Patient - Additonal information Additional information: 49-year-old woman with past medical history of asthma, pneumonia diagnosed a week ago status post azithromycin presents with syncopal episode this morning. She states that she has been short of breath over the past month with nonproductive cough that has improved slightly after antibiotics. Also with intermittent chest pain that is substernal nonradiating aching in quality as sociated with nausea. Denies Covid exposure however she does come [facility] [place]. Review of Systems Ten Systems: 10 systems reviewed and negative Constitutional: reports: Myalgias. denies: Fever, Chills Cardiac: reports: Chest pain / pressure Respiratory: reports: Dyspnea, Cough Neurologic: reports: Syncope PD PAST MEDICAL HISTORY - Past Medical History Past Medical History: Yes Cardiovascular: None Respiratory: Asthma, Pneumonia, Sleep apnea, CPAP use Neuro: None Endocrine/Autoimmune: None GI: None MACHINE REPAIRER: None : None HEENT: None Psych: Depression Musculoskeletal: None Derm: None - Past Surgical History Past Surgical History: Yes Ortho: Carpal Tunnel surgery /MACHINE REPAIRER: Other - Present Medications Home Medications: Ambulatory Orders Medication Instructions Recorded Confirmed Albuterol Sulf [Ventolin Hfa 1 - 2 puffs INH Q4HR PRN #1 inhaler 11/29/19 01/14/20 Inhaler] Ipratropium/Albuterol [Combivent 1 - 2 puffs IH Q6H PRN #1 12/04/19 01/14/20 Respimat] aer.w.adap Fluticasone/Salmeterol [Advair 1 each IH BID #1 blst.w.dev 01/03/20 01/14/20 250-50 Diskus] predniSONE [Deltasone] 10 mg PO ONCE #26 tablet 01/03/20 01/14/20 - Allergies Allergies/Adverse Reactions: Allergies Allergy/AdvReac Type Severity Reaction Status Date / Time No Known Drug Allergies Allergy Verified 01/14/20 09:10 - Social History Does the pt smoke?: No Smoking Status: Never smoker Does the pt drink ETOH?: No Does the pt have substance abuse?: No - Immunizations Immunizations are current?: Yes - POLST Patient has POLST: No PD ED PE NORMAL - Vitals Vital signs reviewed: Yes - General General: Alert and oriented X 3 - HEENT HEENT: Atraumatic, PERRL, EOMI - Neck Neck: Supple, no meningeal sign - Cardiac Cardiac: RRR - Respiratory Respiratory: Other (Bilateral wheezing, distant lung sounds secondary to large body habitus) - Abdomen Abdomen: Non tender, Non distended - Female Female : Deferred - Rectal Rectal: Deferred - Back Back: No spinal TTP - Derm Derm: Normal color - Extremities Extremities: No deformity, Other (1+ pitting edema) - Neuro Neuro: Alert and oriented X 3 - Psych Psych: Normal mood, Normal affect Results - Vitals Vitals: Vital Signs - 24 hr 01/14/20 01/14/20 01/14/20 09:06 10:00 10:34 Temperature 36.8 C 37.4 C Heart Rate 85 74 81 Respiratory 24 19 20 Rate Blood Pressure 175/80 H 135/89 H 135/89 H O2 Saturation 91 L 91 L 96 01/14/20 01/14/20 10:50 11:44 Temperature Heart Rate 95 68 Respiratory 23 23 Rate Blood Pressure 139/64 H O2 Saturation 96 Oxygen O2 Source Nasal cannula - Labs Labs: Laboratory Tests 01/14/20 01/14/20 01/14/20 09:35 10:00 10:00 WBC 11.5 H RBC 4.35 Hgb 12.0 Hct 39.9 MCV 91.7 MCH 27.6 MCHC 30.1 L RDW 14.6 Plt Count 273 MPV 9.0 Neut # (Auto) 10.1 H Lymph # (Auto) 0.9 L Nelson # (Auto) 0.4 Eos # (Auto) 0.0 Baso # (Auto) 0.0 Absolute Nucleated RBC 0.00 Nucleated RBC % 0.0 ESR VBG pH VBG pCO2 VBG pO2 VBG HCO3 VBG Total CO2 VBG O2 Saturation VBG Base Excess Sodium 140 Potassium 4.4 Chloride 98 L Carbon Dioxide 32 Anion Gap 10.0 BUN 16 Creatinine 0.6 Estimated GFR (MDRD) 106 Glucose 203 H Lactic Acid Calcium 9.2 Total Bilirubin 0.4 AST 14 ALT 25 Alkaline Phosphatase 67 Lactate Dehydrogenase Troponin I High Sens B-Natriuretic Peptide Total Protein 6.8 Albumin 3.2 Globulin 3.6 Albumin/Globulin Ratio 0.9 L Lipase 34 Nasal Adenovirus (PCR) NOT DETECTED Nasal B. parapertussis DNA (PCR) NOT DETECTED Nasal Coronavir 229E PCR NOT DETECTED Nasal Coronavir HKU1 PCR NOT DETECTED Nasal Coronavir NL63 PCR NOT DETECTED Nasal Coronavir OC43 PCR NOT DETECTED Nasal Enterovir/Rhinovir PCR NOT DETECTED Nasal Influenza B PCR NOT DETECTED Nasal Influenza A PCR NOT DETECTED Nasal Parainfluen 1 PCR NOT DETECTED Nasal Parainfluen 2 PCR NOT DETECTED Nasal Parainfluen 3 PCR NOT DETECTED Nasal Parainfluen 4 PCR NOT DETECTED Nasal RSV (PCR) NOT DETECTED Nasal B.pertussis DNA PCR NOT DETECTED Nasal C.pneumoniae (PCR) NOT DETECTED Rohan Human Metapneumo PCR NOT DETECTED Nasal M.pneumoniae (PCR) NOT DETECTED Nasal SARS-CoV-2 (PCR) NOT DETECTED 01/14/20 01/14/20 01/14/20 10:00 10:33 10:33 WBC RBC Hgb Hct MCV MCH MCHC RDW Plt Count MPV Neut # (Auto) Lymph # (Auto) Nelson # (Auto) Eos # (Auto) Baso # (Auto) Absolute Nucleated RBC Nucleated RBC % ESR 25 H VBG pH VBG pCO2 VBG pO2 VBG HCO3 VBG Total CO2 VBG O2 Saturation VBG Base Excess Sodium Potassium Chloride Carbon Dioxide Anion Gap BUN Creatinine Estimated GFR (MDRD) Glucose Lactic Acid Calcium Total Bilirubin AST ALT Alkaline Phosphatase Lactate Dehydrogenase 214 Troponin I High Sens 8.2 B-Natriuretic Peptide Total Protein Albumin Globulin Albumin/Globulin Ratio Lipase Nasal Adenovirus (PCR) Nasal B. parapertussis DNA (PCR) Nasal Coronavir 229E PCR Nasal Coronavir HKU1 PCR Nasal Coronavir NL63 PCR Nasal Coronavir OC43 PCR Nasal Enterovir/Rhinovir PCR Nasal Influenza B PCR Nasal Influenza A PCR Nasal Parainfluen 1 PCR Nasal Parainfluen 2 PCR Nasal Parainfluen 3 PCR Nasal Parainfluen 4 PCR Nasal RSV (PCR) Nasal B.pertussis DNA PCR Nasal C.pneumoniae (PCR) Rohan Human Metapneumo PCR Nasal M.pneumoniae (PCR) Nasal SARS-CoV-2 (PCR) 01/14/20 01/14/20 01/14/20 10:33 10:33 11:45 WBC RBC Hgb Hct MCV MCH MCHC RDW Plt Count MPV Neut # (Auto) Lymph # (Auto) Nelson # (Auto) Eos # (Auto) Baso # (Auto) Absolute Nucleated RBC Nucleated RBC % ESR VBG pH 7.342 VBG pCO2 66.5 H VBG pO2 26.0 VBG HCO3 36.0 H VBG Total CO2 38.0 H VBG O2 Saturation 42.0 L VBG Base Excess 10.0 H Sodium Potassium Chloride Carbon Dioxide Anion Gap BUN Creatinine Estimated GFR (MDRD) Glucose Lactic Acid 1.2 Calcium Total Bilirubin AST ALT Alkaline Phosphatase Lactate Dehydrogenase Troponin I High Sens B-Natriuretic Peptide 39 Total Protein Albumin Globulin Albumin/Globulin Ratio Lipase Nasal Adenovirus (PCR) Nasal B. parapertussis DNA (PCR) Nasal Coronavir 229E PCR Nasal Coronavir HKU1 PCR Nasal Coronavir NL63 PCR Nasal Coronavir OC43 PCR Nasal Enterovir/Rhinovir PCR Nasal Influenza B PCR Nasal Influenza A PCR Nasal Parainfluen 1 PCR Nasal Parainfluen 2 PCR Nasal Parainfluen 3 PCR Nasal Parainfluen 4 PCR Nasal RSV (PCR) Nasal B.pertussis DNA PCR Nasal C.pneumoniae (PCR) Rohan Human Metapneumo PCR Nasal M.pneumoniae (PCR) Nasal SARS-CoV-2 (PCR) PD MEDICAL DECISION MAKING - ED course Complexity details: reviewed results, re-evaluated patient, d/w patient ED course: 10:30am - on review of CXR, sepsis suspected given elevated WBC count and hypoxia. holding antibiotics and fluids for now due to suspected covid/viral etiology and evidence of fluid overload. Patient volume overloaded on xr therefore fluids were held. antibiotics given for possible pneumonia. patient with intermittent bradycardic episodes captured on ekg. plan to admit icu. hospitalist aware Departure - Departure Disposition: 66 [facility] DC/Xfer Clinical Impression: Bradycardia, Syncope, Shortness of breath, Nausea & vomiting, Chest pain Discharge Date/Time: 01/14/20 13:27
[2020-01-14 10:41] LABS: VBG PCO2 66.5 mmHg (41-51); VBG PH 7.342 (7.31-7.41)
[2020-01-14 10:53] LABS: C. PNEUMONIAE- RESP PCR PANEL NOT DETECTED
[2020-01-14] MEDS ORDERED: ONDANSETRON 4 MG/2 ML VIAL IVP PRN (11:55)
[2020-01-14] MEDS ORDERED: ALBUTEROL NEB 2.5 MG/3 ML INH PRN (11:55)
[2020-01-14] MEDS ORDERED: levoFLOXacin 750 MG/150 ML 750 MG/150 ML BAG IV SCH (12:00)
[2020-01-14] MEDS ORDERED: DEXTROSE 5%-0.9% NACL 1,000 ML IV SCH (12:00)
[2020-01-14] MEDS: methylPREDNISolone SUCCINATE 125 MG/2 ML VIAL IVP SCH ×2 (13:53→21:33)
[2020-01-14] MEDS ORDERED: ALBUTEROL NEB 2.5 MG/3 ML INH SCH (15:00)
[2020-01-14] MEDS: SODIUM CHLORIDE FLUSH 0.9% 10 ML SYRINGE IVP SCH (16:23)
--- NOTE | 2020-01-14 19:07 | HISTORY & PHYSICAL EXAMINATION ---
DATE OF SERVICE: 01/14/2020 Physician: Carlyn Awan MD HISTORY OF PRESENT ILLNESS: This is a 49-year-old white female who is homeless, and has no PCP. She has a history of morbid obesity, her BMI is 73. She used to weigh 400 pounds, then lost weight with portion control and went down to 250 pounds, she has gained much of it back. She has a history of asthma, sleep apnea remotely on CPAP, and a recent pneumonia for which she has been on a Z-Anand treatment started 1 week ago. Over this one past month, she has had a cough and nausea with occaisional vomiting, fatigue, but no fevers or diarrhea. Today, she had an episode of syncope, thinks it happened when she stood up quickly, and states that when she awoke after syncope she had nausea and vomiting and also experienced chest pain. She was brought to the Emergency Room where oxygen saturation was found to be 91% on room air, and she was audibly wheezing and in respiratory distress. Her blood pressure was elevated at 170. She received a nebulizer in the ER, which helped the wheezing significantly. Her workup showed that she has an elevated white blood count of 11.5, lactic acid level normal, COVID BioFire test negative, chest x-ray, however, shows bilateral fluffy infiltrates. In addition, in the ER on telemetry, she was noted to be bradycardic with rates in the 50s and had at least 2 episodes of significant bradycardia, where she went into junctional rhythm at a rate of 10-30, came out of this quickly and did not have syncope with either of those that was witnessed. She is being placed in the ICU, with external pacing electrodes on that were already placed in the ER. PAST MEDICAL HISTORY: Morbid obesity, asthma, sleep apnea, L shoulder pain (orthopedic eval is pending). ALLERGIES: NONE. MEDICATIONS 1. Ipratropium inhaler. 2. Advair Diskus. 3. Ventolin inhaler. 4. Prednisone 10 mg daily. 5. She has just finished the Z-Anand. FAMILY HISTORY: No inherited diseases. SOCIAL HISTORY: She is nonsmoker who never smoked, no alcohol use or abuse history. She was living in her mother's house, alone then got evicted, for reason she did not disclose, and she is homeless and lives in a [facility] and eats what they offer. She did use a CPAP machine for her sleep apnea, lost it and cannot afford one. She has several brothers but "the family is all estranged, which happened 2 years ago, when their mother ". She first said she has a child then said she has no child. She "has a fiancee in [place]", but does not want to give us his name or contact information. REVIEW OF SYSTEMS: A comprehensive review of systems was performed and the pertinent positives are listed, the rest are negative. PHYSICAL EXAM GENERAL: Morbidly obese female, who appears older than her age and has very masculine features. VITAL SIGNS: Blood pressure is 160/98, heart rate of 70-100 in sinus rhythm. Those episodes of junctional bradycardia, heart rates of 10-30 x2 were noted in the ER. She is afebrile, room air saturation was 91%, she is saturating at 97- 100% on 2 liters nasal cannula. HEENT: Reveals cushingoid appearance. Her voice is nasal. NECK: Very obese, cannot rule out JVD. CHEST: Audible wheezing from across the room per the MARINE REPORTER, and now she has a prolonged expiratory phase, but she is not in respiratory distress. She has a wet cough. HEART: Heart sounds are distant. ABDOMEN: Obese with a large pannus. EXTREMITIES: Show no edema, clubbing or cyanosis. NEUROLOGIC: Grossly intact. LABORATORY DATA: Normal electrolytes. Glucose is 203. Lactic acid 1.2. Normal liver tests. Troponin 8.2. BNP 39. Lipase normal. White blood count 11.5, hemoglobin 12, platelet count 273. Her venous blood gas has a pH of 7.34. The Respiratory PCR panel was negative for COVID. EKG: Normal sinus rhythm, left atrial enlargement, within normal limits. CHEST X-RAY: Cardiomegaly, bilateral interstitial prominence, either CHF or inflammatory. IMPRESSION 1. Acute respiratory failure with hypoxia. 2. Bilateral community-acquired pneumonia. This is not CHF, by virtue of a normal BNP. 3. Asthma exacerbation. 4. Syncope. 5. Nausea and vomiting. 6. Junctional bradycardia, recurrent and not associated with nausea or wretching or vomiting. 7. Cardiomegaly, which she has had before on prior chest x-ray readings. 8. Homeless single person. 9. Morbid obesity with a body mass index of 73. PLAN: Admit the patient to the ICU on telemetry, continuing to keep her external pacing electrode on in case there is a prolonged episode of junctional bradycardia causing syncope for which she would need temporary pacing. Continue supplemental oxygen, taper to room air, if possible. Recommend respiratory isolation until a repeat COVID test is done, since this chest x-ray appearance and her presentation is suspicious for COVID despite a negative test, which could be false negative therefore. Begin IV steroids, Mucinex for pulmonary toilet. Begin nebulizer treatments or use her inhalers. Obtain blood and sputum cultures. Begin iv antibiotics using Levaquin, since she has failed a course of Zithromax. Use a CPAP device if possible while here. Obtain an Echo because of findings of cardiomegaly and her shortness of breath, to rule out congestive heart failure. The extreme junctional bradycardia is a possible vagal response if she had vomiting or was nauseated right at that point; however, it could also indicate intrinsic conduction system disease and she may need a permanent pacemaker if this is reproduced on telemetry. Will obtain Dietary consult to assess and give recommendations regarding her massive morbid obesity management. Start a clear liquid diet, because of N/V and advance as tolerated. CODE STATUS: FULL CODE. DEEP VENOUS THROMBOSIS PROPHYLAXIS: Pharmacotherapy. ATTESTATION: Patient is expected to be discharged or transferred to another facility within 96 hours: Yes. TD: 01/14/2020 17:34 MTDEric
[2020-01-14] MEDS: SODIUM CHLORIDE 0.9% 1,000 ML IV SCH (19:53)
[2020-01-14] MEDS: ALBUTEROL 1 PUFF INH PRN (21:51)
[2020-01-15] MEDS: SODIUM CHLORIDE FLUSH 0.9% 10 ML SYRINGE IVP SCH ×3 (00:14→16:32)
[2020-01-15] MEDS: ACETAMINOPHEN 325 MG TABLET PO PRN ×2 (03:30→18:27)
[2020-01-15] MEDS: SODIUM CHLORIDE 0.9% 1,000 ML IV SCH ×3 (03:37→21:38)
[2020-01-15 04:53] LABS: BASOPHILS % (AUTO) 0.1 %; EOSINOPHILS % (AUTO) 0.1 %; LYMPHOCYTES # (AUTO) 0.5 10^3/uL (1.5-3.5); LYMPHOCYTES % (AUTO) 5.2 %; MEAN CORPUSCULAR HEMOGLOBIN 27.8 pg (27.0-31.0); MEAN CORPUSCULAR HGB CONC 30.3 g/dL (32.0-36.0); MEAN CORPUSCULAR VOLUME 91.7 fL (81.0-99.0); MEAN PLATELET VOLUME 8.6 fL (7.9-10.8); MONOCYTES # (AUTO) 0.1 10^3/uL (0.0-1.0); MONOCYTES % (AUTO) 0.7 %; NEUTROPHILS # (AUTO) 9.7 10^3/uL (1.5-6.6); NEUTROPHILS % (AUTO) 93.2 %; PLT - PLATELET COUNT 272 10^3/uL (130-450); RED BLOOD COUNT 4.32 10^6/uL (4.20-5.40); RED CELL DISTRIBUTION WIDTH 14.6 % (12.0-15.0); WHITE BLOOD COUNT 10.4 x10^3/uL (4.8-10.8)
[2020-01-15 04:58] LABS: INR 1.2 (0.8-1.2); PT - PROTHROMBIN TIME 13.5 secs (9.9-12.6)
[2020-01-15 05:07] LABS: ALBUMIN 3.2 g/dL (3.2-5.5); ALBUMIN/GLOBULIN RATIO 0.9 (1.0-2.2); BILIRUBIN,TOTAL 0.4 mg/dL (0.2-1.0); CALCIUM 8.8 mg/dL (8.5-10.3); CREATININE 0.5 mg/dL (0.4-1.0); MAGNESIUM 2.1 mg/dL (1.7-2.8); PHOSPHORUS 3.7 mg/dL (2.5-4.6); TOTAL PROTEIN 6.6 g/dL (6.7-8.2)
[2020-01-15] MEDS: methylPREDNISolone SUCCINATE 125 MG/2 ML VIAL IVP SCH ×3 (06:40→21:42)
[2020-01-15] MEDS: PANTOPRAZOLE 40 MG VIAL IVP SCH (06:40)
[2020-01-15] MEDS: levoFLOXacin 750 MG/150 ML 750 MG/150 ML BAG IV SCH (08:15)
[2020-01-15] MEDS: ENOXAPARIN 40 MG/0.4 ML SYRINGE SUBQ SCH (08:16)
[2020-01-15] MEDS: guaiFENesin 600 MG TABLET PO SCH (08:20)
--- NOTE | 2020-01-15 09:21 | PHARMACY PROGRESS NOTE ---
- Best Possible Medication History Admit Date and Time: 01/14/20 1155 Processed by: Nursing Medication History completed: Yes As the person ultimately responsible for medication therapy, providers are able to order a medication from an existing home medication list in [facility] via the "Reconcile Routine" prior to Confirmation of that medication by database support. Such practice is discouraged except when the physician, in their clinical judgment, deems that a medical need exists for a medication without regard to previous use.
[2020-01-15] MEDS: ALBUTEROL 1 PUFF INH PRN ×2 (11:26→16:09)
[2020-01-15] MEDS ORDERED: FLU VACC QS2020-21(6MOS UP)/PF 60 MCG/0.5 ML SYRINGE IM ONE (13:00)
--- NOTE | 2020-01-15 13:24 | PROVIDER PROGRESS NOTE ---
Assessment/Plan - Problem List (1) Acute respiratory failure with hypoxia Assessment/Plan: He remains on a small amount of supplemental oxygen. Treat the underlying pneumonia and asthma exacerbation. Wean oxygen to off as tolerated (2) Bilateral pneumonia Assessment/Plan: Her WBC decreased from 11 to 10 today. She still has bilateral rhonchi, the wheezing has resolved. Continue with empiric IV antibiotics, Mucinex and supplemental oxygen. Add probiotic (3) Asthma exacerbation Assessment/Plan: Continue nebs and IV steroids. Treat the PNA that led to this exacerbation (4) Syncope Assessment/Plan: She does not remember the event, the details let led up to it. She only remembers awakening and then having nausea and vomiting. The significant junctional bradycardia may have caused the syncope or her dehydration from the infection. We will start to check orthostatic vital signs daily. (5) Junctional bradycardia Assessment/Plan: Patient had 2 witnessed short runs of brief junctional bradycardia with heart rate 10 to 30 bpm, in the ER, and then it resolved spontaneously. It was too short to have caused any symptoms. She had 1 of these episodes last evening in the ICU. None of these 3 had any concomitant vomiting, to suggest that they were vagally mediated. Continue to monitor on telemetry. When her pneumonia and asthma have improved, reaching out to Cardiology for further advice is warranted. Remain in the ICU today, possibly out to telemetry tomorrow. Possibly start with PT eval tomorrow. (6) Cardiomegaly Assessment/Plan: her troponins and bnp are all normal. An Echo was done today that reported normal LV size and contractility. The preliminary report does not report anything about the right ventricle. The Echo also shows that she does have a fat pad which will increase her overall cardiac silhouette size on the chest x-ray. Await final Echo reading to hopefully comment on the RV. (7) N&V (nausea and vomiting) Assessment/Plan: Solved. She is happy to be on a soft diet. (8) Morbid obesity with BMI of 70 and over, adult Assessment/Plan: I empirically started a carb controlled diet for it is calorie restriction and because she needs a nighttime snack. Dietary consult was also requested. - Current Meds Current Meds: Current Medications Generic Name Dose Route Start Last Admin Trade Name Freq PRN Reason Stop Dose Admin Acetaminophen 650 mg 01/14/20 11:55 01/15/20 03:30 Acetaminophen 325 Mg Tablet PO 650 mg Q4HR PRN Administration Pain 1 to 4 Albuterol 2 puffs 01/14/20 21:37 01/15/20 11:26 Albuterol 1 Puff INH 2 puffs Q4H PRN Administration Dyspnea Enoxaparin Sodium 40 mg 01/15/20 09:00 01/15/20 08:16 Enoxaparin 40 Mg/0.4 Ml Syringe SUBQ 40 mg DAILY DEANGELO Administration Guaifenesin 600 mg 01/15/20 09:00 01/15/20 08:20 Guaifenesin 600 Mg Tablet PO 600 mg DAILY DEANGELO Administration Levofloxacin 750 mg in 150 mls @ 100 mls/hr 01/15/20 09:00 01/15/20 08:15 Levaquin 750 Mg/150 Ml IV 100 mls/hr Q24H DEANGELO Administration Sodium Chloride 1,000 mls @ 125 mls/hr 01/14/20 20:00 01/15/20 03:37 Normal Saline 0.9% IV 125 mls/hr .Q8H DEANGELO Administration Methylprednisolone Sodium Succinate 80 mg 01/14/20 14:00 01/15/20 06:40 Methylprednisolone Succinate 125 Mg/2 Ml Vial IVP 80 mg Q8HR DEANGELO Administration Pantoprazole Sodium 40 mg 01/15/20 07:00 01/15/20 06:40 Pantoprazole 40 Mg Vial IVP 40 mg QDAC DEANGELO Administration Sodium Chloride 10 ml 01/14/20 17:00 01/15/20 08:15 Sodium Chloride Flush 0.9% 10 Ml Syringe IVP 10 ml 0100,0900,1700 DEANGELO Administration - Lab Result Fish Bone Diagrams: 01/15/20 04:40 01/15/20 04:40 - Additional Planning My Orders: My Active Orders 01/14/20 13:30 CUL, MRSA SCREEN [RM] Routine 01/14/20 14:00 methylPREDNISolone SUCCINATE [SOLU-Medrol (125MG VIAL)] 80 mg IVP Q8HR 01/14/20 Dinner DIET [Carb-controlled Diet] [DIET] 01/14/20 17:00 Sodium Chloride Flush 0.9% [Normal Saline Flush 0.9%] 10 ml IVP 0100,0900,1700 01/14/20 17:23 Home CPAP/BiPAP [RC] .ONCE 01/14/20 20:00 Sodium Chloride 0.9% [Normal Saline 0.9%] 1,000 ml IV 125 mls/hr 01/14/20 21:48 RT [Oxygen Therapy] [RC] .PRN 01/15/20 07:00 Pantoprazole [Protonix] 40 mg IVP QDAC 01/15/20 08:00 Echo Transthoracic Complete [ECHO] Routine 01/15/20 08:47 Infection Precautions - Discon [RC] .ONCE 01/15/20 09:00 Enoxaparin [Lovenox] 40 mg SUBQ DAILY guaiFENesin [Mucinex] 600 mg PO DAILY levoFLOXacin 750 MG/150 ML [Levaquin 750 mg/150 ml] 750 mg in 150 ml IV Q24H 01/16/20 05:00 CBC - COMP BLD CT W/AUTO DIFF [HEME] DAILYLAB COMPREHENSIVE METABOLIC PANEL [CHEM] DAILYLAB 01/17/20 05:00 CBC - COMP BLD CT W/AUTO DIFF [HEME] DAILYLAB COMPREHENSIVE METABOLIC PANEL [CHEM] DAILYLAB 01/18/20 05:00 CBC - COMP BLD CT W/AUTO DIFF [HEME] DAILYLAB COMPREHENSIVE METABOLIC PANEL [CHEM] DAILYLAB Subjective - Subjective Patient Reports: Feeling Better, Fatigue (Still feels very fatigued. Nausea and vomiting have resolved.) Objective Vital Signs: Vital Signs - 24 hr 01/14/20 01/14/20 01/14/20 13:45 14:00 15:00 Temperature 36.2 C L Heart Rate Heart Rate [ 98 95 93 Monitoring electrodes] Respiratory 26 H 18 17 Rate Blood Pressure 171/85 H 160/83 H [Left Brachial artery] Blood Pressure 143/84 H [Left Radial artery] O2 Saturation 96 100 97 01/14/20 01/14/20 01/14/20 16:00 17:00 18:00 Temperature 36.7 C Heart Rate Heart Rate [ 76 100 65 Monitoring electrodes] Respiratory 23 21 16 Rate Blood Pressure [Left Brachial artery] Blood Pressure 153/102 H 160/98 H 135/77 H [Left Radial artery] O2 Saturation 96 92 92 01/14/20 01/14/20 01/14/20 19:00 19:41 20:00 Temperature 36.9 C Heart Rate Heart Rate [ 100 106 H Monitoring electrodes] Respiratory 21 28 H Rate Blood Pressure [Left Brachial artery] Blood Pressure 147/84 H 133/74 H [Left Radial artery] O2 Saturation 93 93 01/14/20 01/14/20 01/14/20 21:00 21:50 22:00 Temperature Heart Rate 105 H Heart Rate [ 101 H 94 Monitoring electrodes] Respiratory 20 18 23 Rate Blood Pressure [Left Brachial artery] Blood Pressure 144/73 H 115/58 L [Left Radial artery] O2 Saturation 94 93 01/14/20 01/15/20 01/15/20 23:00 00:05 01:00 Temperature 36.5 C Heart Rate Heart Rate [ 87 102 H 90 Monitoring electrodes] Respiratory 26 H 19 21 Rate Blood Pressure [Left Brachial artery] Blood Pressure 108/94 H 136/72 H 129/60 [Left Radial artery] O2 Saturation 94 94 95 01/15/20 01/15/20 01/15/20 02:00 03:00 04:00 Temperature 36.4 C L Heart Rate Heart Rate [ 76 90 88 Monitoring electrodes] Respiratory 24 22 24 Rate Blood Pressure [Left Brachial artery] Blood Pressure 141/73 H 158/90 H 123/74 [Left Radial artery] O2 Saturation 94 93 96 01/15/20 01/15/20 01/15/20 05:00 07:00 08:00 Temperature 36.9 C Heart Rate Heart Rate [ 67 88 84 Monitoring electrodes] Respiratory 20 14 14 Rate Blood Pressure [Left Brachial artery] Blood Pressure 142/74 H 138/70 H 127/72 [Left Radial artery] O2 Saturation 92 94 93 01/15/20 01/15/20 01/15/20 09:00 10:00 11:00 Temperature Heart Rate Heart Rate [ 85 90 90 Monitoring electrodes] Respiratory 18 18 20 Rate Blood Pressure [Left Brachial artery] Blood Pressure 139/74 H 139/69 H 123/67 [Left Radial artery] O2 Saturation 98 99 97 01/15/20 01/15/20 01/15/20 11:27 11:51 12:00 Temperature Heart Rate 91 90 Heart Rate [ 92 Monitoring electrodes] Respiratory 20 18 23 Rate Blood Pressure [Left Brachial artery] Blood Pressure 134/75 H [Left Radial artery] O2 Saturation 97 99 Oxygen O2 Source Nasal cannula I&O (Last 24 Hrs): Intake and Output Totals x24h 01/13/20 01/14/20 01/15/20 23:59 23:59 23:59 Intake Total 1097 1206.667 Output Total 550 1 Balance 547 1205.667 General: Alert, Oriented x3 HEENT: Mucous membr. moist/pink, Other (Nasal voice.) Neck: Supple, Other (Cushingoid with large "double chin") Neuro: Alert, Non Focal Cardiovascular: Regular rate, No murmurs Respiratory: Rhonchi, Other (No wheezing) Abdomen: Soft, Other (Obese with large pannus) Extremities: No edema, Other (Thighs not visible under pannus) Skin: No rashes (Large diop's hump) - Results Results: Laboratory Results WBC 10.4 x10^3/uL (4.8-10.8) 01/15/20 04:40 RBC 4.32 10^6/uL (4.20-5.40) 01/15/20 04:40 Hgb 12.0 g/dL (12.0-16.0) 01/15/20 04:40 Hct 39.6 % (37.0-47.0) 01/15/20 04:40 MCV 91.7 fL (81.0-99.0) 01/15/20 04:40 MCH 27.8 pg (27.0-31.0) 01/15/20 04:40 MCHC 30.3 g/dL (32.0-36.0) L 01/15/20 04:40 RDW 14.6 % (12.0-15.0) 01/15/20 04:40 Plt Count 272 10^3/uL (130-450) 01/15/20 04:40 MPV 8.6 fL (7.9-10.8) 01/15/20 04:40 Neut # (Auto) 9.7 10^3/uL (1.5-6.6) H 01/15/20 04:40 Lymph # (Auto) 0.5 10^3/uL (1.5-3.5) L 01/15/20 04:40 Beckham # (Auto) 0.1 10^3/uL (0.0-1.0) 01/15/20 04:40 Eos # (Auto) 0.0 10^3/uL (0.0-0.7) 01/15/20 04:40 Baso # (Auto) 0.0 10^3/uL (0.0-0.1) 01/15/20 04:40 Absolute Nucleated RBC 0.00 x10^3/uL 01/15/20 04:40 Nucleated RBC % 0.0 /100WBC 01/15/20 04:40 ESR 25 mm/Hr (0-20) H 01/14/20 10:33 PT 13.5 secs (9.9-12.6) H 01/15/20 04:40 INR 1.2 (0.8-1.2) 01/15/20 04:40 VBG pH 7.342 (7.31-7.41) 01/14/20 10:33 VBG pCO2 66.5 mmHg (41-51) H 01/14/20 10:33 VBG pO2 26.0 mmHg (25-47) 01/14/20 10:33 VBG HCO3 36.0 mmol/L (23-28) H 01/14/20 10:33 VBG Total CO2 38.0 mmol/L (24-29) H 01/14/20 10:33 VBG O2 Saturation 42.0 % (60-80) L 01/14/20 10:33 VBG Base Excess 10.0 mmol/L (-2 - +2) H 01/14/20 10:33 Sodium 138 mmol/L (135-145) 01/15/20 04:40 Potassium 4.5 mmol/L (3.5-5.0) 01/15/20 04:40 Chloride 97 mmol/L (101-111) L 01/15/20 04:40 Carbon Dioxide 30 mmol/L (21-32) 01/15/20 04:40 Anion Gap 11.0 (6-13) 01/15/20 04:40 BUN 14 mg/dL (6-20) 01/15/20 04:40 Creatinine 0.5 mg/dL (0.4-1.0) 01/15/20 04:40 Estimated GFR (MDRD) 131 (>89) 01/15/20 04:40 Glucose 232 mg/dL (70-100) H 01/15/20 04:40 Lactic Acid 1.2 mmol/L (0.5-2.2) 01/14/20 11:45 Calcium 8.8 mg/dL (8.5-10.3) 01/15/20 04:40 Phosphorus 3.7 mg/dL (2.5-4.6) 01/15/20 04:40 Magnesium 2.1 mg/dL (1.7-2.8) 01/15/20 04:40 Total Bilirubin 0.4 mg/dL (0.2-1.0) 01/15/20 04:40 AST 17 IU/L (10-42) 01/15/20 04:40 ALT 26 IU/L (10-60) 01/15/20 04:40 Alkaline Phosphatase 67 IU/L (42-121) 01/15/20 04:40 Lactate Dehydrogenase 214 IU/L (91-225) 01/14/20 10:33 Troponin I High Sens 4.3 ng/L (2.3-14.8) 01/15/20 04:40 B-Natriuretic Peptide 39 pg/mL (5-100) 01/14/20 10:33 Total Protein 6.6 g/dL (6.7-8.2) L 01/15/20 04:40 Albumin 3.2 g/dL (3.2-5.5) 01/15/20 04:40 Globulin 3.4 g/dL (2.1-4.2) 01/15/20 04:40 Albumin/Globulin Ratio 0.9 (1.0-2.2) L 01/15/20 04:40 Lipase 34 U/L (22-51) 01/14/20 10:00 Nasal Adenovirus (PCR) NOT DETECTED 01/14/20 09:35 Nasal B. parapertussis DNA (PCR) NOT DETECTED 01/14/20 09:35 Nasal Coronavir 229E PCR NOT DETECTED 01/14/20 09:35 Nasal Coronavir HKU1 PCR NOT DETECTED 01/14/20 09:35 Nasal Coronavir NL63 PCR NOT DETECTED 01/14/20 09:35 Nasal Coronavir OC43 PCR NOT DETECTED 01/14/20 09:35 Nasal Enterovir/Rhinovir PCR NOT DETECTED 01/14/20 09:35 Nasal Influenza B PCR NOT DETECTED 01/14/20 09:35 Nasal Influenza A PCR NOT DETECTED 01/14/20 09:35 Nasal Parainfluen 1 PCR NOT DETECTED 01/14/20 09:35 Nasal Parainfluen 2 PCR NOT DETECTED 01/14/20 09:35 Nasal Parainfluen 3 PCR NOT DETECTED 01/14/20 09:35 Nasal Parainfluen 4 PCR NOT DETECTED 01/14/20 09:35 Nasal RSV (PCR) NOT DETECTED 01/14/20 09:35 Nasal B.pertussis DNA PCR NOT DETECTED 01/14/20 09:35 Nasal C.pneumoniae (PCR) NOT DETECTED 01/14/20 09:35 Rohan Human Metapneumo PCR NOT DETECTED 01/14/20 09:35 Nasal M.pneumoniae (PCR) NOT DETECTED 01/14/20 09:35 Nasal SARS-CoV-2 (PCR) NOT DETECTED 01/14/20 09:35 - Procedures Procedures: Procedures METATARSOPHALANGEAL FUS (07/27/13)
[2020-01-15] MEDS: SACCHAROMYCES BOULARDII 250 MG CAPSULE PO SCH (16:31)
[2020-01-15] MEDS: SODIUM CHLORIDE FLUSH 0.9% 10 ML SYRINGE IVP PRN (21:42)
[2020-01-15] MEDS: BUDESONIDE 0.5 MG/2 ML NEB INH SCH (22:32)
[2020-01-15] MEDS: ALBUTEROL NEB 2.5 MG/3 ML INH PRN (22:32)
[2020-01-15] MEDS: FORMOTEROL FUMARATE NEB 20 MCG/2 ML INH SCH (22:32)
[2020-01-16] MEDS: SODIUM CHLORIDE FLUSH 0.9% 10 ML SYRINGE IVP SCH ×3 (00:48→16:55)
[2020-01-16 04:55] LABS: BASOPHILS % (AUTO) 0.1 %; HGB - HEMOGLOBIN 11.6 g/dL (12.0-16.0); LYMPHOCYTES # (AUTO) 0.7 10^3/uL (1.5-3.5); LYMPHOCYTES % (AUTO) 5.5 %; MEAN CORPUSCULAR HEMOGLOBIN 27.5 pg (27.0-31.0); MEAN CORPUSCULAR HGB CONC 30.2 g/dL (32.0-36.0); MEAN PLATELET VOLUME 8.9 fL (7.9-10.8); MONOCYTES # (AUTO) 0.3 10^3/uL (0.0-1.0); MONOCYTES % (AUTO) 2.4 %; NEUTROPHILS # (AUTO) 11.1 10^3/uL (1.5-6.6); NEUTROPHILS % (AUTO) 91.4 %; PLT - PLATELET COUNT 282 10^3/uL (130-450); RED BLOOD COUNT 4.22 10^6/uL (4.20-5.40); RED CELL DISTRIBUTION WIDTH 14.6 % (12.0-15.0); WHITE BLOOD COUNT 12.1 x10^3/uL (4.8-10.8)
[2020-01-16 05:08] LABS: ALBUMIN 3.3 g/dL (3.2-5.5); ALBUMIN/GLOBULIN RATIO 0.9 (1.0-2.2); BILIRUBIN,TOTAL 0.6 mg/dL (0.2-1.0); CALCIUM 9.1 mg/dL (8.5-10.3); CREATININE 0.6 mg/dL (0.4-1.0); TOTAL PROTEIN 6.8 g/dL (6.7-8.2)
[2020-01-16] MEDS: SODIUM CHLORIDE 0.9% 1,000 ML IV SCH (05:40)
[2020-01-16] MEDS: methylPREDNISolone SUCCINATE 125 MG/2 ML VIAL IVP SCH ×3 (05:42→21:52)
[2020-01-16 06:12] LABS: MAGNESIUM 2.4 mg/dL (1.7-2.8); PHOSPHORUS 3.4 mg/dL (2.5-4.6)
[2020-01-16] MEDS: PANTOPRAZOLE 40 MG VIAL IVP SCH (06:52)
[2020-01-16] MEDS: ALBUTEROL NEB 2.5 MG/3 ML INH PRN ×2 (07:10→19:51)
[2020-01-16] MEDS: BUDESONIDE 0.5 MG/2 ML NEB INH SCH ×2 (07:10→19:51)
[2020-01-16] MEDS: FORMOTEROL FUMARATE NEB 20 MCG/2 ML INH SCH ×2 (07:10→19:51)
[2020-01-16] MEDS: SACCHAROMYCES BOULARDII 250 MG CAPSULE PO SCH ×2 (08:08→16:55)
[2020-01-16] MEDS: guaiFENesin 600 MG TABLET PO SCH (08:08)
[2020-01-16] MEDS: ENOXAPARIN 40 MG/0.4 ML SYRINGE SUBQ SCH (08:08)
[2020-01-16] MEDS: levoFLOXacin 750 MG/150 ML 750 MG/150 ML BAG IV SCH (08:09)
[2020-01-16] MEDS ORDERED: ZINC OXIDE 20% OINT 30 GM TUBE TOP PRN (09:40)
[2020-01-16] MEDS: NYSTATIN POWDER 15 GM TOP SCH ×2 (10:00→20:18)
--- NOTE | 2020-01-16 11:07 | PROVIDER PROGRESS NOTE ---
Subjective - Prog Note Date Prog Note Date: 01/16/20 Prog Note Time: 11:05 - Subjective Subjective: She is a 49-year-old homeless female who spends her evenings at [facility] and during the day walks with her suitcase and clothing. Diagnosed with pneum onia in the outpatient setting and presented with syncope and nausea and vomiting. She has bilateral infiltrates. Covid negative.She says that she is getting a little bit better. When she sitting still, she is able to eat, not cough. When she has to talk, or move around, she starts to get short of breath, very fatigued. She continues to have episodes of bradycardia into the 30s. With one episode blood pressure was in the 120s over 60s and O2 sat was 94%. With the second episode she was 117/70 with an O2 sat of 93%. Nursing has looked to see if there is any rhyme or reason to the bradycardia. Is is associated with coughing, sleep, apnea, etc. No specific behaviors been associated with the bradycardia. Patient denies dizziness. However she did have syncope as a presentation for why she came in. Nursing does report that the patient is mildly hyperglycemic since admission. She has made some mention of her personal life. There seems to be conflict within the family and that she was "evicted" from the home she lived in with her mother. Mom . Social work reports that the patient was unable to take care of the house and it gradually fell apart around her, until the house was condemned. The patient does not recognize that and says that her "brother" evicted her. He sold the house and kept the money. The patient herself seems to be developmentally delayed. When asked if there is anyone in her life that would speak up for her, she says that her "fianc" would. This is where I became alarmed. She says that she has never met this person [id number]. He lives in [place]. She has been sending him money to save up to "move here with her". Social work reports that this is most likely a scam. But the patient refuses help, and refuses to stop sending this person money. Objective - Vital Signs/Intake & Output Reviewed Vital Signs: Yes Vital Signs: Vital Signs x48h Temp Pulse Pulse Resp BP Pulse Ox 01/16/20 10:00 70 21 145/86 H 95 01/16/20 09:00 91 22 156/81 H 97 01/16/20 08:30 36.3 C L 01/16/20 08:00 67 21 140/83 H 93 01/16/20 07:11 76 18 01/16/20 07:00 79 26 H 150/67 H 99 01/16/20 06:00 61 20 148/78 H 96 01/16/20 05:00 85 18 116/73 94 01/16/20 04:00 36.4 C L 77 17 117/56 L 94 Intake & Output: Intake & Output 01/13/20 01/14/20 01/15/20 01/16/20 23:59 23:59 23:59 23:59 Intake Total 1097 4122.500 1780 Output Total 550 550 276 Balance 547 3572.500 1504 - Objective General Appearance: positive: Alert, Other (Morbidly obese 206.5 kg white female. Sitting upright in a chair, rhonchi audible from across the room as she speaks and coughs.) Eyes Bilateral: positive: PERRL ENT: positive: Pharynx nml Neck: negative: Stiff neck Cardiovascular: positive: Regular rate & rhythm, Tachycardia (When she is short of breath. When she is speaking. At rest pulse is in the 70s and 80s.). nega tive: Gallop/S4, Friction rub Abdomen: positive: Non-tender, Nml bowel sounds, No distention, Other (Huge obese abdominal pannus) Skin: positive: Other (Multiple tattoos. In sun exposed areas this patient is deeply tanned. In nonsun exposed areas very pale.) Extremities: positive: Full ROM, Pedal edema Neurologic/Psychiatric: positive: Oriented x3, CN's nml (2-12), Motor nml - Lab Results Fish Bones: 01/16/20 04:30 01/16/20 04:30 Other Labs: Lab Results x24hrs 01/16/20 01/16/20 01/16/20 Range/Units 04:30 04:30 04:30 WBC 12.1 H (4.8-10.8) x10^3/uL RBC 4.22 (4.20-5.40) 10^6/uL Hgb 11.6 L (12.0-16.0) g/dL Hct 38.4 (37.0-47.0) % MCV 91.0 (81.0-99.0) fL MCH 27.5 (27.0-31.0) pg MCHC 30.2 L (32.0-36.0) g/dL RDW 14.6 (12.0-15.0) % Plt Count 282 (130-450) 10^3/uL MPV 8.9 (7.9-10.8) fL Neut # (Auto) 11.1 H (1.5-6.6) 10^3/uL Lymph # (Auto) 0.7 L (1.5-3.5) 10^3/uL [place] # (Auto) 0.3 (0.0-1.0) 10^3/uL Eos # (Auto) 0.0 (0.0-0.7) 10^3/uL Baso # (Auto) 0.0 (0.0-0.1) 10^3/uL Absolute Nucleated RBC 0.00 x10^3/uL Nucleated RBC % 0.0 /100WBC Sodium 139 (135-145) mmol/L Potassium 4.5 (3.5-5.0) mmol/L Chloride 99 L (101-111) mmol/L Carbon Dioxide 30 (21-32) mmol/L Anion Gap 10.0 (6-13) BUN 16 (6-20) mg/dL Creatinine 0.6 (0.4-1.0) mg/dL Estimated GFR (MDRD) 106 (>89) Glucose 230 H (70-100) mg/dL Calcium 9.1 (8.5-10.3) mg/dL Phosphorus 3.4 (2.5-4.6) mg/dL Magnesium 2.4 (1.7-2.8) mg/dL Total Bilirubin 0.6 (0.2-1.0) mg/dL AST 16 (10-42) IU/L ALT 28 (10-60) IU/L Alkaline Phosphatase 63 (42-121) IU/L Total Protein 6.8 (6.7-8.2) g/dL Albumin 3.3 (3.2-5.5) g/dL Globulin 3.5 (2.1-4.2) g/dL Albumin/Globulin Ratio 0.9 L (1.0-2.2) ABX Reporting Has patient been on IV antibiotics over the past 48 hours?: Yes Assessment/Plan - Problem List (1) Acute respiratory failure with hypoxia Impression: Due to asthma and pneumonia. As we continue to treat those diseases, hypoxia should resolve. (2) Asthma exacerbation Impression: On steroids, nebulizers, antibiotics. Not much wheezing today. More rhonchi than anything else. Qualifiers: Asthma severity: moderate (3) Bilateral pneumonia Impression: Chest x-ray read is moderate cardiomegaly and bilateral interstitial prominence suspicious for CHF. BNP was 39. White cell count was mildly elevated. Sed rate was 25. As such she was treated as pneumonia and asthma not CHF. Blood c ultures negative after 1 day. MRSA nasal swab negative. She is being treated as a community-acquired pneumonia. Day #2 of antibiotics today. Qualifiers: Pneumonia type: due to unspecified organism (4) Bradycardia Impression: This is a woman who presented with a junctional rhythm of 10 to 30 bpm when she was acutely distressed in the emergency room with her illness. She was wheezing, desaturating. So her junctional rhythm could be associated with severe illness. As she is improved, she is needed less oxygen and is a 95% saturation on room air. When she gets up she will desat into the 80s. However, she continues to have bradycardia not associated with any specific activity of hypoxia, coughing, going to the bathroom, etc. She is not asleep. I spoke to Dr. Stauffer at [facility], electrophysiology, and right now would be difficult to justify any type of intervention on her. The argument could be made that she was bradycardic because she was acutely ill. Now she has had no symptoms. The recommendation is just to keep an eye on her. If she gets symptomatic with her bradycardia then we could make an argument for intervention.At this time we are thinking bradycardia may be linked to obstructive sleep apnea. This woman would be at risk for falling asleep, getting bradycardic enough to become asystolic and in her sleep. (5) Hyperglycemia Impression: She is on steroids. Not clear if there is a baseline diabetic diagnosis for her. Plan: Check A1c Sliding scale insulin (6) CEDRIC (obstructive sleep apnea) Impression: Respiratory therapy was able to get a sleep study ordered by Harjeet Simental from November 01, 2009. It was done at the sleep center here at [facility]. Very poor sleep efficiency due to frequent prolonged awakenings. We are seeing that even here at the hospital. Sleep architecture was abnormal for sleep fragmentation and lack of REM and slow wave sleep. Mild obstructive sleep apnea with an AHI of 13.6 associated with frequent arousals, oxyhemoglobin desaturation and mild hypoxia to 86%. The events occurred independently of sleep stage and body position. No periodic limb movement. At that time her BMI was 64. Today's BMI is 76. She ended up requiring close to 14 cm of water pressure. The patient states she has not done that in a while. She can even remember the last time she used a sleep mask. We are wondering if long-term obstructive sleep apnea may be the problem that is causing her sinus bradycardia. She does fall asleep, and within 5 to 10 seconds pulse starts to drop. It will go from the 70s to the 50s to the 30s for a few moments. She then snort herself awake, and the pulse goes back to normal. She does not have accompanying hypoxia with this all the time. She will maintain her O2 sats and only once that she dropped to 88% when I was watching her for 15 minutes. Respiratory therapy will work with her. Try her on CPAP while she is here. (7) Developmental delay, mild Impression: Or moderate. I am unclear to me what the extent is. Social work tells me that they have been working with this patient for a very long time. Mom was insistent that this person was normal. She never allowed her daughter to be evaluated while in the school system. She then pushed through graduation to high school, and has not had any evaluation as an adult. Now with the of her mother, the patient is homeless, at risk for assault, sudden , and is most likely being scammed.She does make reference to [employer] worker, and a case managers. Plan: Social work is well aware of this patient's problems. The patient herself is very resistant to intervention because her mom told her in the past that "you never get involved in the system". She was very much against group homes. The patient herself is tired of being homeless, and is starting to accept possible intervention.Social work will try and make contact with a [employer] worker and case managers.
[2020-01-16] MEDS: INSULIN ASPART 300 UNIT/3 ML PEN SUBQ SCH ×3 (12:41→20:44)
[2020-01-16 18:55] LABS: MUDS CUTOFF CONCENTRATIONS CUTOFF CONC BELOW:
[2020-01-16 19:09] LABS: AMPHETAMINE SCREEN,URINE NEGATIVE (NEGATIVE); BENZODIAZEPINES SCREEN, URINE NEGATIVE (NEGATIVE); COCAINE SCREEN URINE NEGATIVE (NEGATIVE); METHADONE SCREEN, URINE NEGATIVE (NEGATIVE); METHAMPHETAMINES SCREEN, URINE NEGATIVE (NEGATIVE); OPIATE SCREEN, URINE NEGATIVE (NEGATIVE); OXYCODONE SCREEN, URINE NEGATIVE (NEGATIVE); PROPOXYPHENE SCREEN, URINE NEGATIVE (NEGATIVE); TRICYCLIC ANTIDEPRESSANT,URINE NEGATIVE (NEGATIVE)
[2020-01-16] MEDS: ACETAMINOPHEN 325 MG TABLET PO PRN (19:52)
[2020-01-16] MEDS: SODIUM CHLORIDE FLUSH 0.9% 10 ML SYRINGE IVP PRN (21:53)
[2020-01-17] MEDS: SODIUM CHLORIDE FLUSH 0.9% 10 ML SYRINGE IVP SCH ×4 (00:46→20:13)
[2020-01-17 04:36] LABS: BASOPHILS % (AUTO) 0.1 %; HGB - HEMOGLOBIN 11.3 g/dL (12.0-16.0); LYMPHOCYTES # (AUTO) 0.7 10^3/uL (1.5-3.5); LYMPHOCYTES % (AUTO) 6.1 %; MEAN CORPUSCULAR HEMOGLOBIN 26.7 pg (27.0-31.0); MEAN CORPUSCULAR HGB CONC 28.5 g/dL (32.0-36.0); MEAN CORPUSCULAR VOLUME 93.4 fL (81.0-99.0); MEAN PLATELET VOLUME 9.1 fL (7.9-10.8); MONOCYTES # (AUTO) 0.2 10^3/uL (0.0-1.0); MONOCYTES % (AUTO) 2.1 %; NEUTROPHILS # (AUTO) 10.3 10^3/uL (1.5-6.6); NEUTROPHILS % (AUTO) 91.2 %; PLT - PLATELET COUNT 268 10^3/uL (130-450); RED BLOOD COUNT 4.24 10^6/uL (4.20-5.40); RED CELL DISTRIBUTION WIDTH 14.6 % (12.0-15.0); WHITE BLOOD COUNT 11.3 x10^3/uL (4.8-10.8)
[2020-01-17 05:02] LABS: ALBUMIN 3.2 g/dL (3.2-5.5); ALBUMIN/GLOBULIN RATIO 0.9 (1.0-2.2); BILIRUBIN,TOTAL 0.6 mg/dL (0.2-1.0); CALCIUM 8.9 mg/dL (8.5-10.3); CREATININE 0.6 mg/dL (0.4-1.0); MAGNESIUM 2.3 mg/dL (1.7-2.8); PHOSPHORUS 4.1 mg/dL (2.5-4.6); TOTAL PROTEIN 6.6 g/dL (6.7-8.2)
[2020-01-17] MEDS: methylPREDNISolone SUCCINATE 125 MG/2 ML VIAL IVP SCH ×3 (06:25→21:01)
[2020-01-17] MEDS: SODIUM CHLORIDE FLUSH 0.9% 10 ML SYRINGE IVP PRN (06:26)
[2020-01-17] MEDS: PANTOPRAZOLE 40 MG VIAL IVP SCH (06:26)
[2020-01-17] MEDS: guaiFENesin 600 MG TABLET PO SCH (08:27)
[2020-01-17] MEDS: ENOXAPARIN 40 MG/0.4 ML SYRINGE SUBQ SCH (08:27)
[2020-01-17] MEDS: SACCHAROMYCES BOULARDII 250 MG CAPSULE PO SCH ×2 (08:27→17:09)
[2020-01-17] MEDS: levoFLOXacin 750 MG/150 ML 750 MG/150 ML BAG IV SCH (08:30)
[2020-01-17] MEDS: NYSTATIN POWDER 15 GM TOP SCH ×2 (08:30→20:08)
[2020-01-17] MEDS: INSULIN ASPART 300 UNIT/3 ML PEN SUBQ SCH ×4 (08:31→20:08)
--- NOTE | 2020-01-17 08:34 | PROVIDER PROGRESS NOTE ---
Subjective - Prog Note Date Prog Note Date: 01/17/20 Prog Note Time: 18:40 - Subjective Subjective: not tolerating the cpap. it covers her eyes too much. So resp switched over the mask to one below her nose and she was able to sleep for an hour. still w episodes of sinus prem and delayed desat at times. cough is looser. She is pushing p.o. fluids. Make sure she drinks enough. But she just cannot bring up the phlegm. It seems to get caught up in her upper chest and in her throat. She notes that her voice has changes tonality. She sounds like "Gautam the frog". Started about a month ago and has not changed. No sore throat. No dysphagia but she feels like something is "caught up in there". She was able to walk up and down the hallway of ICU. She is exhausted by the end of it. Current Medications - Current Medications Current Medications: Active Medications Acetaminophen (Acetaminophen 325 Mg Tablet) 650 mg PO Q4HR PRN PRN Reason: Pain 1 to 4 Last Admin: 01/16/20 19:52 Dose: 650 mg Documented by: Albuterol (Albuterol 1 Puff) 2 puffs INH Q4H PRN PRN Reason: Dyspnea Last Admin: 01/15/20 16:09 Dose: 2 puffs Documented by: Albuterol (Albuterol Neb 2.5 Mg/3 Ml) 2.5 mg INH RTQ4H PRN PRN Reason: Wheezing Last Admin: 01/16/20 19:51 Dose: 2.5 mg Documented by: Budesonide (Budesonide 0.5 Mg/2 Ml Neb) 0.5 mg INH RTBID DEANGELO Last Admin: 01/16/20 19:51 Dose: 0.5 mg Documented by: Enoxaparin Sodium (Enoxaparin 40 Mg/0.4 Ml Syringe) 40 mg SUBQ DAILY DEANGELO Last Admin: 01/17/20 08:27 Dose: 40 mg Documented by: Formoterol Fumarate (Formoterol Fumarate Neb 20 Mcg/2 Ml) 20 mcg INH RTBID DEANGELO Last Admin: 01/16/20 19:51 Dose: 20 mcg Documented by: Guaifenesin (Guaifenesin 600 Mg Tablet) 600 mg PO DAILY DEANGELO Last Admin: 01/17/20 08:27 Dose: 600 mg Documented by: Levofloxacin (Levaquin 750 Mg/150 Ml) 750 mg in 150 mls @ 100 mls/hr IV Q24H [facility] Last Admin: 01/17/20 08:30 Dose: 100 mls/hr Documented by: Insulin Aspart (Insulin Aspart 300 Unit/3 Ml Pen) 2 - 10 unit SUBQ 0800,1200,1700,2100 [facility]; Protocol Last Admin: 01/17/20 08:31 Dose: 4 unit Documented by: Ipratropium [place] (Ipratropium 0.2 Mg/Ml Neb) 0.5 mg INH Q6HR PRN PRN Reason: Wheezing Methylprednisolone Sodium Succinate (Methylprednisolone Succinate 125 Mg/2 Ml Vial) 80 mg IVP Q8HR [facility] Last Admin: 01/17/20 06:25 Dose: 80 mg Documented by: Multi-Ingredient Ointment (Zinc Oxide 20% Oint 30 Gm Tube) 1 applic TOP PRN PRN PRN Reason: Skin Care Nystatin (Nystatin Powder 15 Gm) 1 applic TOP BID [facility] Last Admin: 01/17/20 08:30 Dose: 1 applic Documented by: Ondansetron HCl (Ondansetron 4 Mg/2 Ml Vial) 4 mg IVP Q6HR PRN PRN Reason: Nausea / Vomiting Pantoprazole Sodium (Pantoprazole 40 Mg Vial) 40 mg IVP QDAC [facility] Last Admin: 01/17/20 06:26 Dose: 40 mg Documented by: Saccharomyces Boulardii (Saccharomyces Boulardii 250 Mg Capsule) 500 mg PO BIDWM [facility] Last Admin: 01/17/20 08:27 Dose: 500 mg Documented by: Sodium Chloride (Sodium Chloride Flush 0.9% 10 Ml Syringe) 10 ml IVP 0100,0900,1700 [facility] Last Admin: 01/17/20 08:30 Dose: 10 ml Documented by: Sodium Chloride (Sodium Chloride Flush 0.9% 10 Ml Syringe) 10 ml IVP PRN PRN PRN Reason: NEEDED PER PROVIDER ORDERS Last Admin: 01/17/20 06:26 Dose: 10 ml Documented by: Objective - Vital Signs/Intake & Output Reviewed Vital Signs: Yes Vital Signs: Vital Signs x48h Temp Pulse Pulse Resp BP BP Pulse Ox 01/17/20 08:00 55 L 19 134/78 H 95 01/17/20 07:00 46 L 19 117/64 94 01/17/20 06:50 60 01/17/20 06:00 73 20 139/67 H 95 01/17/20 05:20 47 L 18 126/74 91 L 01/17/20 04:00 36.5 C 64 19 93/81 H 95 01/17/20 03:00 64 17 124/65 95 01/17/20 02:00 67 20 124/68 96 01/17/20 01:00 69 20 130/64 96 01/17/20 00:50 36.5 C Intake & Output: Intake & Output 01/14/20 01/15/20 01/16/20 01/17/20 23:59 23:59 23:59 23:59 Intake Total 1097 4122.500 3842 600 Output Total 816 026 6401 Balance 547 3572.500 2641 600 - Objective General Appearance: positive: Alert, Other (Pleasant morbidly obese white female, high-pitched nasal tone of voice. Watching TV. Comfortable. Still cou ghing but cannot bring up phlegm) Eyes Bilateral: positive: PERRL, EOMI ENT: positive: No signs of dehydration Neck: negative: Stiff neck Respiratory: positive: No respiratory distress, Wheezes (Mild and bilateral and scant.), Rhonchi (Much better than yesterday. Still occasional upper airway tubular breath sounds that seem to be more from her trachea than her bronchial tube) Cardiovascular: positive: Regular rate & rhythm. negative: Gallop/S4, Friction rub Abdomen: positive: Non-tender, Nml bowel sounds, No distention. negative: Guarding, Rebound Skin: positive: Warm, Dry Extremities: positive: Full ROM (But her left shoulder really hurts. Especially since she has been using a trapeze to help herself position in bed. Pain with abduction of left arm.), No pedal edema Neurologic/Psychiatric: positive: Oriented x3, CN's nml (2-12), Motor nml - Lab Results Fish Bones: 01/17/20 04:10 01/17/20 04:10 Other Labs: Lab Results x24hrs 01/17/20 01/17/20 01/16/20 Range/Units 04:10 04:10 18:00 WBC 11.3 H (4.8-10.8) x10^3/uL RBC 4.24 (4.20-5.40) 10^6/uL Hgb 11.3 L (12.0-16.0) g/dL Hct 39.6 (37.0-47.0) % MCV 93.4 (81.0-99.0) fL MCH 26.7 L (27.0-31.0) pg MCHC 28.5 L (32.0-36.0) g/dL RDW 14.6 (12.0-15.0) % Plt Count 268 (130-450) 10^3/uL MPV 9.1 (7.9-10.8) fL Neut # (Auto) 10.3 H (1.5-6.6) 10^3/uL Lymph # (Auto) 0.7 L (1.5-3.5) 10^3/uL [place] # (Auto) 0.2 (0.0-1.0) 10^3/uL Eos # (Auto) 0.0 (0.0-0.7) 10^3/uL Baso # (Auto) 0.0 (0.0-0.1) 10^3/uL Absolute Nucleated RBC 0.00 x10^3/uL Nucleated RBC % 0.0 /100WBC Sodium 139 (135-145) mmol/L Potassium 4.6 (3.5-5.0) mmol/L Chloride 101 (101-111) mmol/L Carbon Dioxide 32 (21-32) mmol/L Anion Gap 6.0 (6-13) BUN 19 (6-20) mg/dL Creatinine 0.6 (0.4-1.0) mg/dL Estimated GFR (MDRD) 106 (>89) Glucose 222 H (70-100) mg/dL Calcium 8.9 (8.5-10.3) mg/dL Phosphorus 4.1 (2.5-4.6) mg/dL Magnesium 2.3 (1.7-2.8) mg/dL Total Bilirubin 0.6 (0.2-1.0) mg/dL AST 14 (10-42) IU/L ALT 26 (10-60) IU/L Alkaline Phosphatase 57 (42-121) IU/L Total Protein 6.6 L (6.7-8.2) g/dL Albumin 3.2 (3.2-5.5) g/dL Globulin 3.4 (2.1-4.2) g/dL Albumin/Globulin Ratio 0.9 L (1.0-2.2) Urine Opiates Screen NEGATIVE (NEGATIVE) Ur Oxycodone Screen NEGATIVE (NEGATIVE) Urine Methadone Screen NEGATIVE (NEGATIVE) Ur Propoxyphene Screen NEGATIVE (NEGATIVE) Ur Barbiturates Screen NEGATIVE (NEGATIVE) Ur Tricyclics Screen NEGATIVE (NEGATIVE) Ur Phencyclidine Scrn NEGATIVE (NEGATIVE) Ur Amphetamine Screen NEGATIVE (NEGATIVE) U Methamphetamines Scrn NEGATIVE (NEGATIVE) U Benzodiazepines Scrn NEGATIVE (NEGATIVE) Urine Cocaine Screen NEGATIVE (NEGATIVE) U Cannabinoids Screen NEGATIVE (NEGATIVE) ABX Reporting Has patient been on IV antibiotics over the past 48 hours?: Yes Assessment/Plan - Problem List (1) Acute respiratory failure with hypoxia Impression: Resolved. She has been able to stay on room air except when she falls asleep. She desaturates and CPAP is required. Then today she is required 2 L nasal cannula down to 1 L nasal cannula to maintain O2 sat of 98%. This afternoon she is back down to room air and is 96%. Plan: Most likely will transfer to [facility] tomorrow morning. Continue to monitor oxygen needs with CPAP tonight. If she needs CPAP in the ICU, she will have to be [facility] border in ICU (2) Asthma exacerbation Impression: Improved. Still with occasional scant wheezing but not as much tachypnea or wheezing today. We will continue antibiotics Qualifiers: Asthma severity: moderate (3) Bilateral pneumonia Impression: Chest x-ray has been equivocal. She presented as possible infection and pneumonia and has been treated as such since admission. However final report showed cardiomegaly and interstitial prominence. White cell count has been mil dly elevated. Sed rate was 25. Day #3 of antibiotics today. Blood cultures negative at 2 days. Will change to oral medications tomorrow. (4) Bradycardia Impression: In the cocoa room operator hours of today, pulse 1 10-47. No symptoms. For the rest of the day she has remained with a normal pulse and a normal blood pressure. (5) Type 2 diabetes mellitus Impression: This is a new diagnosis for her. A1c is 7.6%. While here her glucose has been 200-232. Plan: Nutrition consult Start Metformin 500 mg p.o. twice daily AC. Hopefully she will not have side effect of diarrhea. Increase medication if necessary before and her stay. Qualifiers: Diabetes mellitus terminal computer operator insulin use: without terminal computer operator use Diabetes mellitus complication status: without complication Qualified Code(s): E11.9 - Type 2 diabetes mellitus without complications (6) CEDRIC (obstructive sleep apnea) Impression: Respiratory therapy has been working with her. Masses been changed. We will see how she does with the new mask tonight. She is only sleeping an hour or so at a time. (7) Developmental delay, mild Impression: Working closely with social work and problem-solving for the outpatient setting as to where she needs to live, and gain financial control.
[2020-01-17 09:11] LABS: HEMOGLOBIN A1c% 7.6 % (4.27-6.07)
[2020-01-17] MEDS: BUDESONIDE 0.5 MG/2 ML NEB INH SCH ×2 (09:14→19:08)
[2020-01-17] MEDS: FORMOTEROL FUMARATE NEB 20 MCG/2 ML INH SCH ×2 (09:14→19:08)
[2020-01-17] MEDS: ALBUTEROL NEB 2.5 MG/3 ML INH PRN (19:08)
[2020-01-17] MEDS: ACETAMINOPHEN 325 MG TABLET PO PRN (20:09)
[2020-01-18] MEDS: IBUPROFEN 400 MG TABLET PO PRN ×3 (00:06→20:06)
[2020-01-18] MEDS: ACETAMINOPHEN 325 MG TABLET PO PRN ×2 (04:12→20:10)
[2020-01-18 04:31] LABS: BASOPHILS % (AUTO) 0.1 %; HGB - HEMOGLOBIN 11.6 g/dL (12.0-16.0); LYMPHOCYTES # (AUTO) 0.8 10^3/uL (1.5-3.5); LYMPHOCYTES % (AUTO) 8.5 %; MEAN CORPUSCULAR HEMOGLOBIN 27.2 pg (27.0-31.0); MEAN CORPUSCULAR HGB CONC 29.5 g/dL (32.0-36.0); MONOCYTES # (AUTO) 0.4 10^3/uL (0.0-1.0); MONOCYTES % (AUTO) 3.8 %; NEUTROPHILS # (AUTO) 8.4 10^3/uL (1.5-6.6); PLT - PLATELET COUNT 252 10^3/uL (130-450); RED BLOOD COUNT 4.27 10^6/uL (4.20-5.40); RED CELL DISTRIBUTION WIDTH 14.5 % (12.0-15.0); WHITE BLOOD COUNT 9.7 x10^3/uL (4.8-10.8)
[2020-01-18 04:48] LABS: ALBUMIN 3.1 g/dL (3.2-5.5); BILIRUBIN,TOTAL 0.5 mg/dL (0.2-1.0); CALCIUM 8.8 mg/dL (8.5-10.3); CREATININE 0.7 mg/dL (0.4-1.0); MAGNESIUM 2.3 mg/dL (1.7-2.8); PHOSPHORUS 3.8 mg/dL (2.5-4.6); TOTAL PROTEIN 6.3 g/dL (6.7-8.2)
[2020-01-18] MEDS: PANTOPRAZOLE 40 MG TABLET PO SCH (06:13)
[2020-01-18] MEDS: methylPREDNISolone SUCCINATE 125 MG/2 ML VIAL IVP SCH (06:13)
[2020-01-18] MEDS: SODIUM CHLORIDE FLUSH 0.9% 10 ML SYRINGE IVP PRN (06:14)
[2020-01-18] MEDS: ALBUTEROL NEB 2.5 MG/3 ML INH PRN ×3 (07:53→18:56)
[2020-01-18] MEDS: BUDESONIDE 0.5 MG/2 ML NEB INH SCH ×2 (07:54→18:56)
[2020-01-18] MEDS: FORMOTEROL FUMARATE NEB 20 MCG/2 ML INH SCH ×2 (07:54→18:56)
[2020-01-18] MEDS: INSULIN ASPART 300 UNIT/3 ML PEN SUBQ SCH ×4 (08:26→20:06)
[2020-01-18] MEDS: metFORMIN 500 MG TABLET PO SCH ×2 (08:27→16:58)
[2020-01-18] MEDS: SODIUM CHLORIDE FLUSH 0.9% 10 ML SYRINGE IVP SCH ×3 (08:27→20:08)
[2020-01-18] MEDS: SACCHAROMYCES BOULARDII 250 MG CAPSULE PO SCH ×2 (08:28→16:59)
[2020-01-18] MEDS: guaiFENesin 600 MG TABLET PO SCH (08:28)
[2020-01-18] MEDS: levoFLOXacin 750 MG/150 ML 750 MG/150 ML BAG IV SCH (08:30)
[2020-01-18] MEDS: ENOXAPARIN 40 MG/0.4 ML SYRINGE SUBQ SCH (08:37)
--- NOTE | 2020-01-18 10:20 | XRAY Report ---
PROCEDURE: Shoulder 3 View LT INDICATIONS: pain w abduction for months TECHNIQUE: 3 views of the shoulder were acquired. COMPARISON: None. FINDINGS: Bones: No fractures. There is mild widening at the acromioclavicular joint space measuring No suspi cious bony lesions. Visualized ribs appear intact. Soft tissues: No suspicious soft tissue calcifications. IMPRESSION: No acute osseous abnormality. No appreciable change compared to 09/01/19. Reviewed by: Christy Partida MD on 01/18/2020 10:19 AM [facility] Approved by: Christy Partida MD on 01/18/2020 10:19 AM PST Station ID: [id number]
--- NOTE | 2020-01-18 10:43 | PROVIDER PROGRESS NOTE ---
Subjective - Prog Note Date Prog Note Date: 01/18/20 Prog Note Time: 10:51 - Subjective Pt reports feeling: Improved Subjective: still coughs frequently and still w sensation of voice change and something "stuck in her throat" Left shoulder films w mild AC joint widening but no OA or effusion. SOB w any exertion. But slowly slowly improving w less 02 need. less wheezing. Current Medications - Current Medications Current Medications: Active Medications Acetaminophen (Acetaminophen 325 Mg Tablet) 650 mg PO Q4HR PRN PRN Reason: Pain 1 to 4 Last Admin: 01/18/20 04:12 Dose: 650 mg Documented by: Albuterol (Albuterol Neb 2.5 Mg/3 Ml) 2.5 mg INH RTQ4H PRN PRN Reason: Wheezing Last Admin: 01/18/20 07:53 Dose: 2.5 mg Documented by: Budesonide (Budesonide 0.5 Mg/2 Ml Neb) 0.5 mg INH RTBID [facility] Last Admin: 01/18/20 07:54 Dose: 0.5 mg Documented by: Enoxaparin Sodium (Enoxaparin 30 Mg/0.3 Ml Syringe) 30 mg SUBQ BID DEANGELO Formoterol Fumarate (Formoterol Fumarate Neb 20 Mcg/2 Ml) 20 mcg INH RTBID [facility] Last Admin: 01/18/20 07:54 Dose: 20 mcg Documented by: Guaifenesin (Guaifenesin 600 Mg Tablet) 600 mg PO DAILY [facility] Last Admin: 01/18/20 08:28 Dose: 600 mg Documented by: Ibuprofen (Ibuprofen 400 Mg Tablet) 400 mg PO Q6H PRN PRN Reason: PAIN Last Admin: 01/18/20 00:06 Dose: 400 mg Documented by: Insulin Aspart (Insulin Aspart 300 Unit/3 Ml Pen) 3 - 11 unit SUBQ 0800,1200,1700,2100 [facility]; Protocol Last Admin: 01/18/20 08:26 Dose: 7 unit Documented by: Ipratropium [place] (Ipratropium 0.2 Mg/Ml Neb) 0.5 mg INH Q6HR PRN PRN Reason: Wheezing Metformin HCl (Metformin 500 Mg Tablet) 500 mg PO BIDWM [facility] Last Admin: 01/18/20 08:27 Dose: 500 mg Documented by: Multi-Ingredient Ointment (Zinc Oxide 20% Oint 30 Gm Tube) 1 applic TOP PRN PRN PRN Reason: Skin Care Nystatin (Nystatin Powder 15 Gm) 1 applic TOP BID [facility] Last Admin: 01/17/20 20:08 Dose: 1 applic Documented by: Ondansetron HCl (Ondansetron 4 Mg/2 Ml Vial) 4 mg IVP Q6HR PRN PRN Reason: Nausea / Vomiting Pantoprazole Sodium (Pantoprazole 40 Mg Tablet) 40 mg PO QDAC [facility] Last Admin: 01/18/20 06:13 Dose: 40 mg Documented by: Saccharomyces Boulardii (Saccharomyces Boulardii 250 Mg Capsule) 500 mg PO BIDWM [facility] Last Admin: 01/18/20 08:28 Dose: 500 mg Documented by: Sodium Chloride (Sodium Chloride Flush 0.9% 10 Ml Syringe) 10 ml IVP 0100,0900,1700 [facility] Last Admin: 01/18/20 08:27 Dose: 10 ml Documented by: Sodium Chloride (Sodium Chloride Flush 0.9% 10 Ml Syringe) 10 ml IVP PRN PRN PRN Reason: NEEDED PER PROVIDER ORDERS Last Admin: 01/18/20 06:14 Dose: 10 ml Documented by: Objective - Vital Signs/Intake & Output Reviewed Vital Signs: Yes Vital Signs: Vital Signs x48h Temp Pulse Pulse Resp BP Pulse Ox 01/18/20 09:32 36.6 C 58 L 14 93 01/18/20 09:00 85 21 145/76 H 95 01/18/20 08:03 58 L 01/18/20 08:00 36.6 C 72 22 142/97 H 95 01/18/20 07:54 63 17 01/18/20 07:00 88 21 144/91 H 93 01/18/20 06:00 76 17 136/67 H 96 01/18/20 05:00 74 17 134/83 H 96 01/18/20 04:05 36.4 C L 80 20 144/83 H 94 01/18/20 03:30 68 01/18/20 03:00 63 22 97 Intake & Output: Intake & Output 01/15/20 01/16/20 01/17/20 01/18/20 23:59 23:59 23:59 23:59 Intake Total 4122.500 3842 2330 1350 Output Total 550 1201 350 150 Balance 3572.500 2641 1980 1200 - Objective General Appearance: positive: No acute distress, Alert, Other (209 kg, 5'5". comfortable in sitting positiion but can't lay flat) Eyes Bilateral: positive: PERRL ENT: positive: No signs of dehydration Neck: positive: No JVD Respiratory: positive: No respiratory distress, Wheezes, Rhonchi. negative: Rales Cardiovascular: positive: Regular rate & rhythm. negative: Gallop/S4, Friction rub Abdomen: positive: Non-tender, Nml bowel sounds, No distention Skin: positive: Warm, Dry Extremities: positive: Full ROM, No pedal edema Neurologic/Psychiatric: positive: Oriented x3, CN's nml (2-12), Motor nml - Lab Results Fish Bones: 01/18/20 04:05 01/18/20 04:05 Other Labs: Lab Results x24hrs 01/18/20 01/18/20 Range/Units 04:05 04:05 WBC 9.7 (4.8-10.8) x10^3/uL RBC 4.27 (4.20-5.40) 10^6/uL Hgb 11.6 L (12.0-16.0) g/dL Hct 39.3 (37.0-47.0) % MCV 92.0 (81.0-99.0) fL MCH 27.2 (27.0-31.0) pg MCHC 29.5 L (32.0-36.0) g/dL RDW 14.5 (12.0-15.0) % Plt Count 252 (130-450) 10^3/uL MPV 9.0 (7.9-10.8) fL Neut # (Auto) 8.4 H (1.5-6.6) 10^3/uL Lymph # (Auto) 0.8 L (1.5-3.5) 10^3/uL [place] # (Auto) 0.4 (0.0-1.0) 10^3/uL Eos # (Auto) 0.0 (0.0-0.7) 10^3/uL Baso # (Auto) 0.0 (0.0-0.1) 10^3/uL Absolute Nucleated RBC 0.00 x10^3/uL Nucleated RBC % 0.0 /100WBC Sodium 138 (135-145) mmol/L Potassium 4.5 (3.5-5.0) mmol/L Chloride 99 L (101-111) mmol/L Carbon Dioxide 32 (21-32) mmol/L Anion Gap 7.0 (6-13) BUN 21 H (6-20) mg/dL Creatinine 0.7 (0.4-1.0) mg/dL Estimated GFR (MDRD) 89 (>89) Glucose 242 H (70-100) mg/dL Calcium 8.8 (8.5-10.3) mg/dL Phosphorus 3.8 (2.5-4.6) mg/dL Magnesium 2.3 (1.7-2.8) mg/dL Total Bilirubin 0.5 (0.2-1.0) mg/dL AST 11 (10-42) IU/L ALT 23 (10-60) IU/L Alkaline Phosphatase 52 (42-121) IU/L Total Protein 6.3 L (6.7-8.2) g/dL Albumin 3.1 L (3.2-5.5) g/dL Globulin 3.2 (2.1-4.2) g/dL Albumin/Globulin Ratio 1.0 (1.0-2.2) ABX Reporting Has patient been on IV antibiotics over the past 48 hours?: Yes Assessment/Plan - Problem List (1) Asthma exacerbation Impression: She has been able to stay on room air except when she falls asleep. She desaturates and CPAP is required. Respiratory therapy is working with her on CPAP. She is now down to room air and is 93 to 95%. Still with occasional scant wheezing but not as much tachypnea or wheezing today. Plan: Transfer to [facility] status Stop high-dose steroids Continue nebulizers Changed to p.o. antibiotics Qualifiers: Asthma severity: moderate (3) Bilateral pneumonia Impression: Chest x-ray has been equivocal. She presented as possible infection and pneumonia and has been treated as such since admission. However final report showed cardiomegaly and interstitial prominence. White cell count has been mildly elevated. Sed rate was 25. Day #4 of antibiotics today. Blood cultures negative at 2 days. Plan: Change to p.o. antibiotics today and complete a total of 7 days. (4) Bradycardia Impression: Has been a problem throughout her stay. When looking at her vital signs, there is no recorded pulse that documents she has been as low as the 30s. But in my presence, she has been as low as 32 when she falls asleep. The last time she did that was on January 15. For most of January 16 the lowest she has been is the 50s. This morning she is 58. No symptoms. Again I have spoken to cardiology and no intervention at this time since it may be linked to hypoxia and obstructive sleep apnea. I will keep her on telemetry on [employer] (5) Type 2 diabetes mellitus Impression: This is a new diagnosis for her. A1c is 7.6%. While here her glucose has been 200-232. this morning 242 Plan: Nutrition consult for today Start Metformin 500 mg p.o. twice daily AC. Hopefully she will not have side effect of diarrhea. Increase medication if necessary before and her stay. Qualifiers: Diabetes mellitus long filler cigar roller machine insulin use: without long filler cigar roller machine use Diabetes mellitus complication status: without complication Qualified Code(s): E11.9 - Type 2 diabetes mellitus without complications (6) CEDRIC (obstructive sleep apnea) Impression: Respiratory therapy has been working with her. Masks been changed. We will see how she does with the new mask tonight. She is only sleeping an hour or so at a time. (7) Developmental delay, mild Impression: Working closely with social work and problem-solving for the outpatient setting as to where she needs to live, and gain financial control. She may be able to go to [facility] [place] at discharge.
[2020-01-18] MEDS: NYSTATIN POWDER 15 GM TOP SCH ×2 (11:00→20:07)
[2020-01-18] MEDS: IPRATROPIUM 0.2 MG/ML NEB INH PRN (15:55)
[2020-01-18] MEDS: ENOXAPARIN 30 MG/0.3 ML SYRINGE SUBQ SCH (20:06)
[2020-01-19] MEDS: ACETAMINOPHEN 325 MG TABLET PO PRN ×2 (00:55→17:04)
[2020-01-19 05:04] LABS: MAGNESIUM 2.3 mg/dL (1.7-2.8); PHOSPHORUS 3.4 mg/dL (2.5-4.6)
[2020-01-19] MEDS: PANTOPRAZOLE 40 MG TABLET PO SCH (06:14)
[2020-01-19] MEDS: IPRATROPIUM 0.2 MG/ML NEB INH PRN ×3 (07:39→20:26)
[2020-01-19] MEDS: FORMOTEROL FUMARATE NEB 20 MCG/2 ML INH SCH ×2 (07:39→20:26)
[2020-01-19] MEDS: ALBUTEROL NEB 2.5 MG/3 ML INH PRN ×3 (07:39→20:26)
[2020-01-19] MEDS: BUDESONIDE 0.5 MG/2 ML NEB INH SCH ×2 (07:39→20:26)
[2020-01-19] MEDS: metFORMIN 500 MG TABLET PO SCH ×2 (08:50→15:43)
[2020-01-19] MEDS: SACCHAROMYCES BOULARDII 250 MG CAPSULE PO SCH ×2 (08:51→17:00)
[2020-01-19] MEDS: guaiFENesin 600 MG TABLET PO SCH (08:51)
[2020-01-19] MEDS: ENOXAPARIN 30 MG/0.3 ML SYRINGE SUBQ SCH ×2 (08:52→20:40)
[2020-01-19] MEDS: NYSTATIN POWDER 15 GM TOP SCH ×2 (08:57→20:39)
[2020-01-19] MEDS: SODIUM CHLORIDE FLUSH 0.9% 10 ML SYRINGE IVP SCH ×3 (08:58→23:41)
[2020-01-19] MEDS: INSULIN ASPART 300 UNIT/3 ML PEN SUBQ SCH ×4 (08:58→20:38)
[2020-01-19] MEDS ORDERED: IOVERSOL 320 100 ML VIAL IVP ONE ×2 (13:29→15:53)
--- NOTE | 2020-01-19 14:25 | CT Report ---
PROCEDURE: SOFT TISSUE NECK W INDICATIONS: STRIDOR AND VOCAL CORD CHANGE CONTRAST: IV CONTRAST: Optiray 320 ml: 100 PO CONTRAST: *NO PO CONTRAST TECHNIQUE: After the administration of intravenous contrast, 3.0 mm axial sections acquired from the sella to th e aortic arch. Additional oblique axial 3.0 mm sections acquired through the pharynx. 3 mm thick co cydney reformats were generated. For radiation dose reduction, the following was used: automated exp osure control, adjustment of mA and/or kV according to patient size. COMPARISON: None. FINDINGS: Image quality: This study is limited by body habitus. Lymph nodes: No enlarged lymph nodes seen throughout the neck. Vessels: Visualized vasculature appears patent. Neck spaces: The oropharynx, nasopharynx, and pharynx demonstrate no mucosal lesions. The vocal cor ds, false vocal cords, pyriform sinuses, epiglottis, vallecula, and tongue base all appear normal. E xtramucosal spaces appear unremarkable. Glands: The parotid and submandibular glands appear normal. The thyroid is grossly enlarged, with p rominent component seen posterior to the trachea. There is narrowing of the subglottic airway seen, a s on series 3 image 91. The thyroid measures at least 11 x 11 x 8 cm. Miscellaneous: Visualized brain and orbits appear normal. Lung apices appear clear. Superficial so ft tissues appear normal. Bones: No suspicious bony lesions. Visualized sinuses and mastoids appear unremarkable. Moderate c ervical spine degenerative changes are seen. IMPRESSION: Grossly enlarged thyroid, with subglottic narrowing. An urgent surgical consultation is recommended. Note: Findings and recommendations discussed by telephone with Dr. Smith at 11:19 PM [place] time on 01/19/2020. Reviewed by: Chinedu Shi MD on 01/19/2020 1:23 PM [facility] Approved by: Chinedu Shi MD on 01/19/2020 1:23 PM [place] Station ID: [id number]
--- NOTE | 2020-01-19 19:48 | PROVIDER PROGRESS NOTE ---
Progress Note January 19, 2020 7:42 PM I am awaiting acceptance from [facility] transfer center. The patient has been medically stabilized with regards to her acute respiratory failure, and severe hypoxia. She is now able to be on room air with good saturations. When she is asleep she still has episodes of desaturation and bradycardia. Sometimes they will happen when she is laying in bed watching TV in a supine position. She continued to complain of a feeling of food getting caught in her throat, or that phlegm could not come up past her trachea. She also continue to describe having vocal cord changes over the last few weeks. She tells me that she has had problems with her thyroid in the past. 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 She continues to have episodes of bradycardia and had run of junctional bradycardia. On examination temperature is 36.5, pulse 83, blood pressure 154/92, respirations 22, 97% on room air. She is 5 foot 5 inches tall and weighs 208 kg. Alert, oriented, able to now stand and walk in the room without any severe tachypnea or respiratory distress Neck really is thick and I cannot assess that she has a mass because of the large neck size. There may be some asymmetry with the right side is larger than the left side. Voice is high-pitched and occasionally hoarse. Coarse upper airway sounds, stridor at the neck. Sometimes with sling. Cough is still present, nonproductive. No uses of accessory muscles and no respiratory distress Abdomen is hugely obese, soft. Unable to be assessed for organomegaly. Tiffanie intertrigo is improving No edema of the legs. Assessment/plan 1. 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 I spoke to ear nose and throat at [facility] feels the patient is in acceptable candidate for transfer however they would prefer that the patient be admitted to the hospitalist service and they will consult. I been awaiting return phone call and is signed off the case to the whiting machine operator. I do not think this patient is safe to go home and that when she falls asleep she bradycardia is down. She would be at risk for falling asleep at night and never waking up. 2. Acute respiratory failure with hypoxia has resolved. This was due to probable severe viral infection, and no congestive heart failure. Echocardiogram has an ejection fraction of 60 to 65%. 3. New diagnosis of type 2 diabetes mellitus. Has been started on metformin and glucose is 03 02- 30 today. A1c was 7.6%. 4. Acute asthma exacerbation seems to have resolved for the most part. In retrospect I wonder if some of the wheezing/stridor sounds were hearing more from her neck. 5. Obstructive sleep apnea on exam. 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 On room air oxygen. But being carefully monitored with telemetry and pulse oximetry at night when she falls asleep. 6. Presumed pneumonia that was seen on chest x-ray by admitting provider and ER physician. Final radiology report read more as possible interstitial infiltrate versus CHF. Echo is been negative. She is completed therapy for possible pneumonia with IV antibiotics. No longer febrile, has no white cell count.
[2020-01-20] MEDS: PANTOPRAZOLE 40 MG TABLET PO SCH (05:49)
[2020-01-20] MEDS: ALBUTEROL NEB 2.5 MG/3 ML INH PRN ×3 (07:38→17:56)
[2020-01-20] MEDS: FORMOTEROL FUMARATE NEB 20 MCG/2 ML INH SCH (07:38)
[2020-01-20] MEDS: BUDESONIDE 0.5 MG/2 ML NEB INH SCH ×2 (07:38→17:56)
[2020-01-20] MEDS: INSULIN ASPART 300 UNIT/3 ML PEN SUBQ SCH ×4 (09:14→20:37)
[2020-01-20] MEDS: metFORMIN 500 MG TABLET PO SCH ×2 (09:15→15:31)
[2020-01-20] MEDS: SODIUM CHLORIDE FLUSH 0.9% 10 ML SYRINGE IVP SCH ×3 (09:24→23:41)
[2020-01-20] MEDS: guaiFENesin 600 MG TABLET PO SCH (09:24)
[2020-01-20] MEDS: ENOXAPARIN 30 MG/0.3 ML SYRINGE SUBQ SCH ×2 (09:24→20:36)
[2020-01-20] MEDS: SACCHAROMYCES BOULARDII 250 MG CAPSULE PO SCH ×2 (09:24→16:58)
[2020-01-20] MEDS: NYSTATIN POWDER 15 GM TOP SCH ×2 (10:30→20:38)
[2020-01-20] MEDS: IPRATROPIUM 0.2 MG/ML NEB INH PRN (12:32)
[2020-01-20] MEDS: BENZOCAINE/MENTHOL LOZENGE MM PRN (13:58)
[2020-01-20] MEDS: PHENOL THROAT SPRAY 177 ML MM PRN (13:58)
--- NOTE | 2020-01-20 19:22 | PROVIDER PROGRESS NOTE ---
Progress Note January 20, 2020 7:20 PM The patient is still awaiting a bed at [facility]. I did call [facility] but they do not take insurance. [facility] says that this is beyond his skill set and cannot take care of such a complicated patient. [facility] also said that this is beyond their skill set and cannot take care of this patient. [facility] said that they will most likely take her tomorrow morning. She is otherwise stable. The only time she has problems is when she lays flat on her back in her sleep. Otherwise she is up in her room, eating, on room air. Cough is less and less. Temperature 36.6, pulse 90, blood pressure 143/81. 98% on room air. Respirations 20 she is 5 foot 5 inches tall and weighs 204 kg. Coarse upper airway breath sounds and stridorous breath sounds in the upper lung ortez. No respiratory distress. PMI normally placed with distant cardiac tones. Hugely obese abdominal pannus that is nontender. Large tree trunk legs that also have evidence of old venous stasis rubor but at this time are without edema. Eschars were present on admission continue to be closed and healed. Assessment/plan at this time this patient is here awaiting a bed at [facility] for large thyroid mass that is compressing her airway/trachea. When she lays back, she has subglottic stenosis that then makes her hypoxic switch and makes her go into a junctional rhythm. All other medical problems of the acute respiratory failure, severe hypoxia, type 2 diabetes mellitus, are stable at this time.
[2020-01-20] MEDS: ACETAMINOPHEN 325 MG TABLET PO PRN (20:38)
[2020-01-21] MEDS: ACETAMINOPHEN 325 MG TABLET PO PRN ×2 (03:21→17:15)
[2020-01-21] MEDS: PANTOPRAZOLE 40 MG TABLET PO SCH (06:20)
[2020-01-21] MEDS: FORMOTEROL FUMARATE NEB 20 MCG/2 ML INH SCH ×3 (07:37→18:00)
[2020-01-21] MEDS: BUDESONIDE 0.5 MG/2 ML NEB INH SCH ×3 (07:37→18:01)
[2020-01-21] MEDS: INSULIN ASPART 300 UNIT/3 ML PEN SUBQ SCH ×4 (08:19→20:38)
[2020-01-21] MEDS: guaiFENesin 600 MG TABLET PO SCH (08:20)
[2020-01-21] MEDS: SACCHAROMYCES BOULARDII 250 MG CAPSULE PO SCH ×2 (08:20→16:20)
[2020-01-21] MEDS: polyethylene glycoL 3350 17 GM PACKET PO SCH (08:21)
[2020-01-21] MEDS: BENZOCAINE/MENTHOL LOZENGE MM PRN (08:22)
[2020-01-21] MEDS: PHENOL THROAT SPRAY 177 ML MM PRN (08:23)
[2020-01-21] MEDS: ENOXAPARIN 30 MG/0.3 ML SYRINGE SUBQ SCH ×2 (08:24→20:38)
[2020-01-21] MEDS: NYSTATIN POWDER 15 GM TOP SCH ×2 (08:26→20:39)
[2020-01-21] MEDS: SODIUM CHLORIDE FLUSH 0.9% 10 ML SYRINGE IVP SCH ×2 (08:31→16:21)
[2020-01-21] MEDS: metFORMIN 500 MG TABLET PO SCH (16:41)
--- NOTE | 2020-01-21 18:19 | XRAY Report ---
PROCEDURE: Hand 2 View RT INDICATIONS: trauma and pain TECHNIQUE: 2 views of the hand(s) acquired. COMPARISON: None. FINDINGS: Bones: No fractures or dislocations. No suspicious bony lesions. Soft tissues: No suspicious soft tissue calcifications. Diffuse soft tissue swelling. IMPRESSION: No acute osseous abnormality identified. Reviewed by: Ben Doyle MD on 01/21/2020 5:18 PM [facility] Approved by: Ben oDyle MD on 01/21/2020 5:18 PM [facility] Station ID: [id number]
--- NOTE | 2020-01-21 18:43 | PROVIDER PROGRESS NOTE ---
Progress Note January 21, 2020 18:39 Still awaiting bed availability at [facility]. Patient complains of some right hand pain from previous trauma. Still has food catching in her throat, still has stridor breathing in and out. Telemetry shows no bradycardia for 2 days now. However she has been purposely sleeping upright to avoid sleeping on her back. Temperature is 36.9, pulse was 94, blood pressure 123/83, respirations 20. 98% on room air. She is a 5 foot 5 inch tall female who now weighs 198.5 kg. This may be an error since she was 208 kg on admission. She is ambulating in the hallways, alert, oriented, cheerful and cooperative. Neck is thick, unable to be assessed. But supple lungs have diminished breath sounds at the bases. As you move stethoscope up the chest wall and anterior chest you can hear the stridor coming from her neck. Occasional phlegm production. Regular rate and rhythm. Abdomen is obese, soft, nontender. No organomegaly to be able to be assessed because of large pannus. Would be changes of skin are present. Dried eschars of right and left anterior shins are present. No open wounds or oozing. Those were present on admission. 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 Awaiting bed at [facility].I did call the transfer center earlier today. Left a message. Awaiting phone call
[2020-01-22] MEDS: SODIUM CHLORIDE FLUSH 0.9% 10 ML SYRINGE IVP SCH ×3 (02:02→17:17)
[2020-01-22] MEDS: PANTOPRAZOLE 40 MG TABLET PO SCH (06:25)
[2020-01-22] MEDS: ALBUTEROL NEB 2.5 MG/3 ML INH PRN ×2 (07:08→20:01)
[2020-01-22] MEDS: BUDESONIDE 0.5 MG/2 ML NEB INH SCH ×2 (07:09→20:00)
[2020-01-22] MEDS: FORMOTEROL FUMARATE NEB 20 MCG/2 ML INH SCH ×2 (07:09→20:00)
[2020-01-22] MEDS: metFORMIN 500 MG TABLET PO SCH ×2 (08:40→17:17)
[2020-01-22] MEDS: INSULIN ASPART 300 UNIT/3 ML PEN SUBQ SCH ×4 (08:40→20:51)
[2020-01-22] MEDS: guaiFENesin 600 MG TABLET PO SCH (08:41)
[2020-01-22] MEDS: SACCHAROMYCES BOULARDII 250 MG CAPSULE PO SCH ×2 (08:41→17:17)
[2020-01-22] MEDS: polyethylene glycoL 3350 17 GM PACKET PO SCH (08:42)
[2020-01-22] MEDS: ENOXAPARIN 30 MG/0.3 ML SYRINGE SUBQ SCH ×2 (08:44→20:50)
[2020-01-22] MEDS: BENZOCAINE/MENTHOL LOZENGE MM PRN (08:45)
[2020-01-22] MEDS: NYSTATIN POWDER 15 GM TOP SCH ×2 (08:49→20:52)
--- NOTE | 2020-01-22 11:20 | PROVIDER PROGRESS NOTE ---
Subjective - Prog Note Date Prog Note Date: 01/22/20 Prog Note Time: 11:18 - Subjective Subjective: She was complaining of right hand pain yesterday. Weeks before she had hurt it in a fall and has never stopped hurting. Mainly over the thumb and index f malathi. Hand film was done yesterday and there is no acute osseous abnormality identified. She remains on telemetry. So far pulse is staying in the 70s and 80s. In the multifocal button generator hours she did bradycardia down to 51. Is still having episodes of apnea, obstructive sleep apnea, and remained stridorous with her respirations. Otherwise she is eating well. Ambulating in the hallways. Independent. Current Medications - Current Medications Current Medications: Active Medications Acetaminophen (Acetaminophen 325 Mg Tablet) 650 mg PO Q4HR PRN PRN Reason: Pain 1 to 4 Last Admin: 01/21/20 17:15 Dose: 650 mg Documented by: Albuterol (Albuterol Neb 2.5 Mg/3 Ml) 2.5 mg INH RTQ4H PRN PRN Reason: Wheezing Last Admin: 01/22/20 07:08 Dose: 2.5 mg Documented by: Budesonide (Budesonide 0.5 Mg/2 Ml Neb) 0.5 mg INH RTBID DEANGELO Last Admin: 01/22/20 07:09 Dose: 0.5 mg Documented by: Enoxaparin Sodium (Enoxaparin 30 Mg/0.3 Ml Syringe) 30 mg SUBQ BID [facility] Last Admin: 01/22/20 08:44 Dose: 30 mg Documented by: Formoterol Fumarate (Formoterol Fumarate Neb 20 Mcg/2 Ml) 20 mcg INH RTBID DEANGELO Last Admin: 01/22/20 07:09 Dose: 20 mcg Documented by: Guaifenesin (Guaifenesin 600 Mg Tablet) 600 mg PO DAILY DEANGELO Last Admin: 01/22/20 08:41 Dose: 600 mg Documented by: Ibuprofen (Ibuprofen 400 Mg Tablet) 400 mg PO Q6H PRN PRN Reason: PAIN Last Admin: 01/18/20 20:06 Dose: 400 mg Documented by: Insulin Aspart (Insulin Aspart 300 Unit/3 Ml Pen) 3 - 11 unit SUBQ 0800,1200,1700,2100 [facility]; Protocol Last Admin: 01/22/20 08:40 Dose: Not Given Documented by: Ipratropium Hospers (Ipratropium 0.2 Mg/Ml Neb) 0.5 mg INH Q6HR PRN PRN Reason: Wheezing Last Admin: 01/20/20 12:32 Dose: 0.5 mg Documented by: Metformin HCl (Metformin 500 Mg Tablet) 500 mg PO BIDWM [facility] Last Admin: 01/22/20 08:40 Dose: 500 mg Documented by: Multi-Ingredient Ointment (Zinc Oxide 20% Oint 30 Gm Tube) 1 applic TOP PRN PRN PRN Reason: Skin Care Nystatin (Nystatin Powder 15 Gm) 1 applic TOP BID [facility] Last Admin: 01/22/20 08:49 Dose: 1 applic Documented by: Ondansetron HCl (Ondansetron 4 Mg/2 Ml Vial) 4 mg IVP Q6HR PRN PRN Reason: Nausea / Vomiting Pantoprazole Sodium (Pantoprazole 40 Mg Tablet) 40 mg PO QDAC [facility] Last Admin: 01/22/20 06:25 Dose: 40 mg Documented by: Phenol/Menthol (Phenol Throat Bryant 177 Ml) 2 sprays MM Q2HR PRN PRN Reason: Throat Pain Last Admin: 01/21/20 08:23 Dose: 2 sprays Documented by: Polyethylene Glycol (Polyethylene Glycol 3350 17 Gm Packet) 17 gm PO DAILY [facility] Last Admin: 01/22/20 08:42 Dose: 17 gm Documented by: Saccharomyces Boulardii (Saccharomyces Boulardii 250 Mg Capsule) 500 mg PO BIDWM [facility] Last Admin: 01/22/20 08:41 Dose: 500 mg Documented by: Sodium Chloride (Sodium Chloride Flush 0.9% 10 Ml Syringe) 10 ml IVP 0100,0900 ,1700 [facility] Last Admin: 01/22/20 08:45 Dose: 10 ml Documented by: Sodium Chloride (Sodium Chloride Flush 0.9% 10 Ml Syringe) 10 ml IVP PRN PRN PRN Reason: NEEDED PER PROVIDER ORDERS Last Admin: 01/18/20 06:14 Dose: 10 ml Documented by: Throat Lozenges (Benzocaine/Menthol Lozenge) 1 lozenge MM Q2HR PRN PRN Reason: Throat pain Last Admin: 01/22/20 08:45 Dose: 1 lozenge Documented by: Objective - Vital Signs/Intake & Output Reviewed Vital Signs: Yes Vital Signs: Vital Signs x48h Temp Pulse Pulse Pulse Resp BP BP 01/22/20 11:02 36.3 C L 90 16 01/22/20 09:00 36.3 C L 95 16 146/98 H 01/22/20 07:38 84 18 01/22/20 04:42 36.6 C 51 L 16 104/62 01/22/20 03:48 37.1 C 87 22 128/76 Pulse Ox 01/22/20 11:02 95 01/22/20 09:00 95 01/22/20 07:38 01/22/20 04:42 96 01/22/20 03:48 92 Intake & Output: Intake & Output 01/19/20 01/20/20 01/21/20 01/22/20 23:59 23:59 23:59 23:59 Intake Total 2750 1276 2277 480 Output Total 0 100 Balance 2750 1276 2277 380 - Objective General Appearance: positive: Alert, Other (5 foot 5 inch female who weighs 197 kg.) Eyes Bilateral: positive: PERRL, EOMI Neck: positive: Other (Thick massive neck. Unable to assess for JVD. The entire neck is so thick that really I cannot feel a specific mass other than the entire neck is full. It is not stiff. She has stridor with intake of breath and exhalation. Voice is high-pitched and hoarse.) Respiratory: positive: No respiratory distress. negative: Wheezes, Rales, Rhonchi Cardiovascular: positive: Regular rate & rhythm. negative: Gallop/S4, Friction rub Abdomen: positive: Other (Huge abdominal pannus because of her size. Tiffanie intertrigo is slowly improving. Unable to assess for any organomegaly. Hypoactive bowel sounds, nontender. No distention) Skin: positive: Warm, Dry Extremities: positive: Full ROM, No pedal edema Neurologic/Psychiatric: positive: Oriented x3, CN's nml (2-12), Motor nml - Lab Results Fish Bones: 01/18/20 04:05 01/18/20 04:05 Assessment/Plan - Problem List (1) Thyroid mass Impression: This patient was admitted with acute respiratory failure with hypoxia secondary to COPD exacerbation as well as possible bilateral pneumonia. She was treated for both of those diseases, and respiratory status improved to baseline. As we were getting ready to discharge her she was continuing to complain of the sensation of food getting stuck in her throat, or a sensation of fullness in her throat. She was unable to bring up phlegm past the level of the mid trachea. We did a CT of the neck and she has an 11 x 11 x 8 cm thyroid mass. When she reclines it causes compression of the trachea and subglottic stenosis with bradycardia, desaturation. We do not feel that she is safe to go home and that no amount of CPAP or BiPAP has improved this scenario for her even while in the hospital.Her last TSH was 0.94 on January 03, 2020. All of her TSHs have been relatively normal in the EMR for several years. Free T4 was 0.73 on January 02. Again previous levels have been normal. She has not had a TSH or free T4 done this admission since since only been a month since her last blood work. I have contacted [facility], they have accepted the patient since last Wednesday. We are awaiting a bed. In the meantime I have called [facility] and they do not accept her insurance. [facility] and [facility] on-call have reviewed the films. Both of those surgeons said that the scope of her surgery is beyond their facilities capability or their skill set to remove this large thyroid mass. They feel that [facility] is her best bet. As such we are awaiting bed placement. I did call [facility] this morning. Bed availability is still limited. They will call us when they have a bed. (2) Type 2 diabetes mellitus Impression: A1c is 7.6%. She did receive steroids during the stay and as such her sugar went up. We have not checked her glucose since January 17. She is on Glucophage and NovoLog sliding scale. Plan: Check fasting morning glucose. No more than that to avoid excessive finger puncture for this patient who is essentially stable and awaiting transfer Qualifiers: Diabetes mellitus terminal manager insulin use: without terminal manager use (3) Bradycardia Impression: When she first presented to us she was actually a junctional rhythm below 30. As the admission has progressed she had less and less episodes of junctional rhythm. Then developed more sinus bradycardia especially when she desaturated with apnea. Since her hypoxia has resolved, the only time she gets bradycardic is when she desaturates with subglottic stenosis and stridor in her sleep. She remains on telemetry and has been stable for 3 days. I did speak to cardiology on-call at [facility]. This was when she was first admitted and I described her episodes of arrhythmia. Their focus was treating the hypoxia and apnea. They were recommending that those be treated first. After that was treated, only then with a consider the patient for any type of intervention. (4) CEDRIC (obstructive sleep apnea) Impression: Seen during this admission. She has a previous sleep study from 10 years ago that documents that. This patient is homeless, and will need to be referred back to the sleep center for another sleep study and mask. However all that needs to happen after she gets her thyroid taken out because a thyroid issue is contributing to this significantly. (5) Developmental delay, mild Impression: This patient is known to the ER staff and social work staff. She is not usually admitted to this hospital. She has a history of developmental delay all of her life. However her mother had strong suspicions of "the healthcare system". She never allowed her daughter to be evaluated or formally diagnosed. She was also very resistant of her daughter being placed in a alf or halfway when presented with that as an option. This option was presented to her because she herself was getting older, and social work was trying to figure out a way to keep Ms. Linton safe. Unfortunately this patient's mother . Ms. Linton stayed in their home but was never able to keep up with the maintenance. The house gradually deteriorated around her until it was condemned. That is when Ms. Soria became homeless. She currently stays at a ch[facility] during night. She has all of her belongings in a suitcase and wanders throughout the [facility]. Un til she can go back to the chcf at night. Unfortunately she has been sending her money to a man in [place]. She is convinced that there to be . She has been sending money for 3 years. This is for him to save up so that he can get a ticket to come pick her up here and that they can get and go live together somewhere. She has already been scammed a few times. She refuses to believe that she is being scammed again. Social work has found placement for her. This [facility] at [facility]. The patient will be a candidate for moving in there once all of her medical issues have been stabilized. (6) COPD (chronic obstructive pulmonary disease) Impression: The wheezing, rhonchi and respiratory distress from admission have resolved. The hypoxia requiring high oxygen flows have is resolved. She is now on Pulmicort, Perforomist, albuterol and ipratropium. Stable. Qualifiers: COPD type: unspecified COPD Qualified Code(s): J44.9 - Chronic obstructive pulmonary disease, unspecified (7) Left shoulder tendonitis Impression: She has had months of left shoulder pain. During her stay she needed a trapeze in the bed. The raising of her arms and lifting her body using the trapeze exacerbated the chronic left shoulder pain. I repeated left shoulder films and those were negative for any osteoarthritis. There may be some AC joint narrowing but that is about it. As she has improved and is walking in the hallway, and more independent her pain is better. (8) Right hand pain Impression: Weeks ago she fell. Her thumb and index finger continue to hurt especially at the base of the joints. She wanted a film to make sure that she did not have a fracture. Hand film is negative.
[2020-01-22 13:34] LABS: CALCIUM 9.3 mg/dL (8.5-10.3); CREATININE 0.7 mg/dL (0.4-1.0)
[2020-01-22] MEDS: ACETAMINOPHEN 325 MG TABLET PO PRN (20:52)
[2020-01-23] MEDS: SODIUM CHLORIDE FLUSH 0.9% 10 ML SYRINGE IVP SCH ×3 (00:47→16:19)
[2020-01-23] MEDS: PANTOPRAZOLE 40 MG TABLET PO SCH (06:41)
[2020-01-23] MEDS: ALBUTEROL NEB 2.5 MG/3 ML INH PRN (07:45)
[2020-01-23] MEDS: FORMOTEROL FUMARATE NEB 20 MCG/2 ML INH SCH (07:45)
[2020-01-23] MEDS: BUDESONIDE 0.5 MG/2 ML NEB INH SCH (07:57)
[2020-01-23] MEDS: INSULIN ASPART 300 UNIT/3 ML PEN SUBQ SCH ×3 (08:13→16:15)
[2020-01-23 08:43] LABS: BASOPHILS % (AUTO) 0.1 %; EOSINOPHILS # (AUTO) 0.2 10^3/uL (0.0-0.7); EOSINOPHILS % (AUTO) 2.3 %; HGB - HEMOGLOBIN 12.9 g/dL (12.0-16.0); LYMPHOCYTES # (AUTO) 1.5 10^3/uL (1.5-3.5); LYMPHOCYTES % (AUTO) 18.4 %; MEAN CORPUSCULAR HEMOGLOBIN 26.7 pg (27.0-31.0); MEAN CORPUSCULAR HGB CONC 29.6 g/dL (32.0-36.0); MEAN CORPUSCULAR VOLUME 90.3 fL (81.0-99.0); MONOCYTES # (AUTO) 0.5 10^3/uL (0.0-1.0); MONOCYTES % (AUTO) 6.4 %; NEUTROPHILS # (AUTO) 5.8 10^3/uL (1.5-6.6); NEUTROPHILS % (AUTO) 72.4 %; PLT - PLATELET COUNT 240 10^3/uL (130-450); RED BLOOD COUNT 4.83 10^6/uL (4.20-5.40); RED CELL DISTRIBUTION WIDTH 14.6 % (12.0-15.0)
[2020-01-23 08:50] LABS: CREATININE 0.6 mg/dL (0.4-1.0)
[2020-01-23] MEDS: guaiFENesin 600 MG TABLET PO SCH (09:22)
[2020-01-23] MEDS: SACCHAROMYCES BOULARDII 250 MG CAPSULE PO SCH ×2 (09:22→16:19)
[2020-01-23] MEDS: polyethylene glycoL 3350 17 GM PACKET PO SCH (09:23)
[2020-01-23] MEDS: ENOXAPARIN 30 MG/0.3 ML SYRINGE SUBQ SCH (09:23)
[2020-01-23] MEDS: BENZOCAINE/MENTHOL LOZENGE MM PRN (09:24)
[2020-01-23] MEDS: metFORMIN 500 MG TABLET PO SCH ×2 (09:24→16:16)
[2020-01-23] MEDS: NYSTATIN POWDER 15 GM TOP SCH (10:52)
--- NOTE | 2020-01-23 15:04 | DISCHARGE SUMMARY ---
Discharge Summary Admit Date: 01/14/20 Discharge Date: 01/23/20 Discharging Provider: Elgin Izquierdo Primary Care Provider: no PCP Condition at Discharge: Fair Discharge Disposition: 02 Transfer Acute Care Hosp Discharge Facility Name: [facility] - DIAGNOSES Discharge Diagnoses with Status of Each Condition: (1) Thyroid mass CT of the neck and she has an 11 x 11 x 8 cm thyroid mass which likely causes compression of the trachea and subglottic stenosis with bradycardia, desaturation. After The case was presented by Dr. Smith to [facility], pt was accepted. pt is transferred to [facility] for high level of care. (2) Type 2 diabetes mellitus A1c is 7.6%. pt has no hx of diabetes. pt had insulin at hospital. pt was treated steroid in hospital for her asthma exacerbation which could elevated her glucose level. (3) Bradycardia pt developed sinus bradycardia especially when she desaturated with apnea. Since her hypoxia has resolved, the only time she gets bradycardic is when she desaturates with subglottic stenosis and stridor in her sleep. followup with high level care in [facility] (4) CEDRIC (obstructive sleep apnea) pt need sleep study elevation for her CEDRIC (5) Developmental delay, mild This is Dr. Smith's progress note, and hope [facility] know pt's social and mental status, "This patient is known to the ER staff and social work staff. She is not usually admitted to this hospital. She has a history of devel opmental delay all of her life. However her mother had strong suspicions of "the healthcare system". She never allowed her daughter to be evaluated or formally diagnosed. She was also very resistant of her daughter being placed in a detention or halfway when presented with that as an option. This option was presented to her because she herself was getting older, and social work was trying to figure out a way to keep Ms. Linton safe. Unfortunately this patient's mother . Ms. Linton stayed in their home but was never able to keep up with the maintenance. The house gradually deteriorated around her until it was condemned. That is when Ms. Soria became homeless. She currently stays at a senior care during night. She has all of her belongings in a suitcase and wanders throughout the [facility]. Until she can go back to the senior care at night. Unfortunately she has been sending her money to a man in [place]. She is convinced that there to be . She has been sending money for 3 years. This is for him to save up so that he can get a ticket to come pick her up here and that they can get and go live together somewhere. She has already been scammed a few times. She refuses to believe that she is being scammed again." (6) COPD (chronic obstructive pulmonary disease) stable after treated in hospital (7) Left shoulder tendonitis Stable, x-ray show unremarkable (8) Right hand pain Stable, x-ray show Unremarkable. nurse did not report to me pt had temperature 38.4 degree just before pt was transferred to [facility] for high level of care. I just found out this conditi on when I am doing discharge summary now. - HPI History of Present Illness: This is a 49 years old female with past medical history of asthma, morbid obesity, Homeless and developmental delay, Who present to ER complain shortness of breathing. Patient was found to have acute respiratory failure with hypoxia, Asthma exacerbation, Bilaterally community acquired pneumonia, Syncope, nausea and vomiting, Bradycardia, Homeless single person, Morbid obesity. - HOSPITAL COURSE Hospital Course: Patient was admitted for asthma exacerbation. Patient has a history of morbid obesity and homeless status. After patient was treated for asthma exacerbation, patient respiratory status become stable, however, Patient was found to have a large thyroid mass which is likely causes compression of the trachea and subglottic stenosis with bradycardia, desaturation special in the night. The case was presented to [facility], and [facility] accepted patient for higher level of the care. - ALLERGIES Allergies/Adverse Reactions: Allergies Allergy/AdvReac Type Severity Reaction Status Date / Time No Known Drug Allergies Allergy Verified 01/14/20 09:10 - MEDICATIONS Home Medications: Ambulatory Orders Medication Instructions Recorded Confirmed Albuterol Sulf [Ventolin Hfa 1 - 2 puffs INH Q4HR PRN #1 inhaler 11/29/19 01/14/20 Inhaler] Ipratropium/Albuterol [Combivent 1 - 2 puffs IH Q6H PRN #1 12/04/19 01/14/20 Respimat] [email or web address] Fluticasone/Salmeterol [Advair 1 each IH BID #1 blst.w.dev 01/03/20 01/14/20 250-50 Diskus] - PHYSICAL EXAM AT DISCHARGE General Appearance: positive: No acute distress, Alert. negative: Lethargic Eyes Bilateral: positive: Normal inspection, PERRL, No lid inflammation ENT: positive: No signs of dehydration, Other (pt has large neck) Neck: positive: Other (pt has large and short neck, difficult to have a palpitation of thyroid). negative: Stiff neck Respiratory: positive: Chest non-tender, No respiratory distress. negative: Whe ezes, Rales, Rhonchi Cardiovascular: positive: Regular rate & rhythm, No murmur. negative: Tachycardia, Bradycardia, Systolic murmur, Diastolic murmur Peripheral Pulses: positive: 2+ Abdomen: positive: Non-tender, Nml bowel sounds. negative: Tenderness, Guarding, Rebound Back: positive: Nml inspection. negative: CVA tenderness (R), CVA tenderness (L) Skin: positive: Color nml, No rash, Warm, Dry. negative: Cyanosis, Diaphoresis, Pallor Extremities: positive: Non-tender, Full ROM, Nml appearance. negative: Calf tenderness Neurologic/Psychiatric: positive: Oriented x3, Motor nml, Sensation nml, Mood/affect nml. negative: Weakness, Sensory loss, Facial droop, Slurred/abnml speech, Depressed mood/affect - LABS Result Diagrams: 01/23/20 08:26 01/23/20 08:26 - FOLLOW UP Follow Up: followup with high level of care in [facility] - TIME SPENT Time Spent in Discharge (Minutes): 30
[2020-01-23 16:15] VITALS: BP 149/80
[2020-01-23 16:23] LABS: C. PNEUMONIAE- RESP PCR PANEL NOT DETECTED
== END 2020-01-23 16:30 | disposition short-term general hospital (02) | DRG 189 ==
LOC: EDUNIT# → ED 09:01 → ICU 11:55 → MS2 01-19 00:48
PROVIDERS: ADMIT Internal Medicine; ATTEND Nurse Practitioner Gerontology
DX: J96.01 Acute respiratory failure with hypoxia (principal); J18.9 Pneumonia, unspecified organism; J44.0 Chronic obstructive pulmonary disease with (acute) lower respiratory infection; J45.901 Unspecified asthma with (acute) exacerbation; J44.1 Chronic obstructive pulmonary disease with (acute) exacerbation; Z68.45 Body mass index [BMI] 70 or greater, adult; E66.01 Morbid (severe) obesity due to excess calories; E07.9 Disorder of thyroid, unspecified; J39.8 Other specified diseases of upper respiratory tract; J38.6 Stenosis of larynx; R00.1 Bradycardia, unspecified; G47.33 Obstructive sleep apnea (adult) (pediatric); R62.50 Unspecified lack of expected normal physiological development in childhood; M75.92 Shoulder lesion, unspecified, left shoulder; M79.641 Pain in right hand; Z59.0 Homelessness; R53.83 Other fatigue; R11.2 Nausea with vomiting, unspecified; I51.7 Cardiomegaly; Z20.828 Contact with and (suspected) exposure to other viral communicable diseases; R55 Syncope and collapse; E11.65 Type 2 diabetes mellitus with hyperglycemia
CPT/HCPCS: 0202U; 36415; 70491; 71045; 73030; 73120; 80048; 80053; 80306; 82803; 83036; 83605; 83615; 83690; 83735; 83880; 84100; 84484; 85025; 85610; 85651; 87040; 87081; 93005; 93306; 94640; 94660; 99285; A9270; J1650; J7626; Q9967; 84443; 87150; 90686

== ENCOUNTER 2020-01-23 16:30 | Outpatient (CLI) | payer MEDICAID | END 2020-01-23 16:31 | disposition short-term general hospital (02) | LOC: EMS 16:30 | PROVIDERS: ATTEND Surgery | DX: E07.9 Disorder of thyroid, unspecified (principal); R00.1 Bradycardia, unspecified; J44.9 Chronic obstructive pulmonary disease, unspecified | CPT/HCPCS: A0425; A0428 ==

== ENCOUNTER 2020-02-03 07:53 | Outpatient (CLI) | payer MEDICAID | END 2020-02-03 07:54 | disposition critical access hospital (66) | LOC: EMS 07:53 | PROVIDERS: ATTEND Surgery | DX: M25.552 Pain in left hip (principal); R06.00 Dyspnea, unspecified | CPT/HCPCS: A0425; A0427; A0999 ==

== ENCOUNTER 2020-02-03 08:13 | Emergency (ER) | payer MEDICAID ==
[2020-02-03] MEDS ORDERED: KETOROLAC 60 MG/2 ML VIAL IM STA (08:31)
[2020-02-03] MEDS ORDERED: DEXAMETHASONE 10 MG/ML VIAL IM STA (08:31)
--- NOTE | 2020-02-03 08:54 | ED Physician Documentation ---
History of Present Illness - Stated complaint Stated Complaint: HIP PX - Chief complaint Chief Complaint: Ext Problem - History obtained from History obtained from: Patient - Additonal information Additional information: 49-year-old undomiciled woman, morbidly obese brought in by EMSPlan of chronic left hip pain that has been worsening over the past week. Denies trauma. She states that she has not had prior imaging until a week ago when she had an MRI at [facility]. Does not have the results back yet. Denies having physical therapy but she does have a pain management doctor that has been giving her range of motion exercises. She takes ibuprofen alone for the pain. States that she woke this morning with constant aching nonradiating left hip pain, worse with walking on it and with range of motion, not relieved by ibuprofen that she took yesterday. She has not had any ibuprofen today. Denies fevers, traumatic injury, numbness or weakness of the extremity or increased swellin g.Denies back pain, urinary or fecal incontinence or retention. Denies saddle anesthesia. Review of Systems Constitutional: denies: Fever Skin: denies: Abrasion (s) Musculoskeletal: reports: Joint pain PD PAST MEDICAL HISTORY - Past Medical History Cardiovascular: None Respiratory: Asthma, Pneumonia, Sleep apnea, CPAP use Neuro: None Endocrine/Autoimmune: None GI: None QM CONSULTANT: None : None HEENT: None Psych: Depression Musculoskeletal: None Derm: None - Past Surgical History Past Surgical History: Yes Ortho: Carpal Tunnel surgery /QM CONSULTANT: Other - Present Medications Home Medications: Ambulatory Orders Medication Instructions Recorded Confirmed Albuterol Sulf [Ventolin Hfa 1 - 2 puffs INH Q4HR PRN #1 inhaler 11/29/19 01/14/20 Inhaler] Ipratropium/Albuterol [Combivent 1 - 2 puffs IH Q6H PRN #1 12/04/19 01/14/20 Respimat] aer.w.adap Fluticasone/Salmeterol [Advair 1 each IH BID #1 blst.w.dev 01/03/20 01/14/20 250-50 Diskus] - Allergies Allergies/Adverse Reactions: Allergies Allergy/AdvReac Type Severity Reaction Status Date / Time No Known Drug Allergies Allergy Verified 02/03/20 08:35 - Social History Does the pt smoke?: No Smoking Status: Never smoker Does the pt drink ETOH?: No Does the pt have substance abuse?: No - Immunizations Immunizations are current?: Yes - POLST Patient has POLST: No PD ED PE NORMAL - Vitals Vital signs reviewed: Yes - General General: Alert and oriented X 3, No acute distress, Other (Morbidly obese) - HEENT HEENT: Atraumatic, PERRL, EOMI - Neck Neck: Supple, no meningeal sign - Cardiac Cardiac: RRR - Respiratory Respiratory: No respiratory distress - Abdomen Abdomen: Normal bowel sounds - Female Female : Deferred - Derm Derm: Normal color - Extremities Extremities: No deformity, Other (Stable pelvis. Left gluteal muscle tender to palpation. Normal range of motion of left hip. Normal distal pulses to the left lower extremity. Normal sensation and motor function in the left lower extremity) Results - Vitals Vitals: Vital Signs - 24 hr 02/03/20 08:15 Temperature 37 C Heart Rate 93 Respiratory 18 Rate Blood Pressure 145/74 H O2 Saturation 95 Oxygen O2 Source Room air PD MEDICAL DECISION MAKING - ED course ED course: 49-year-old woman presents with chronic left hip pain that is worsening today. It improved somewhat with Toradol. X-ray without signs of fracture or dislocation. She already had an MRI outpatient a week ago at [facility] and is going to follow-up the results. Return precautions given. She will follow up with her orthopedist as well. Departure - Departure Disposition: 01 Home, Self Care Clinical Impression: Hip pain, left Condition: Stable Instructions: ED RICE Follow-Up: Raymundo Pappas MD [Provider Admit Priv/Credential] - Comments: You have been seen for chronic hip pain. You should follow up with orthopedics and follow-up with [facility] to obtain the results of your MRI. Weight loss will be very helpful in the long-term to relieve the pain on your hips. Return to the ED if you are unable to urinate or defecate or if you find that you are spontaneously urinating yourself or pooping yourself. Return for any fevers. If you have new or worsening symptoms then we are here 24 hours.
--- NOTE | 2020-02-03 09:06 | XRAY Report ---
PROCEDURE: Hip w/Pelvis 2-3V LT INDICATIONS: hip pain, chronic, worse today TECHNIQUE: AP pelvis with lateral view(s) of the left hip(s). COMPARISON: None. FINDINGS: This study is limited by body habitus. Bones: No fractures or dislocations. Pelvic ring appears intact. No suspicious bony lesions. There is moderate superior joint space narrowing seen involving both hips. There is associated remode ling change, with subchondral sclerosis and osteophyte formation. Note is made of age-appropriate degenerative change of the lower lumbar spine. Soft tissues: The visualized bowel gas pattern is normal. No suspicious soft tissue calcifications. IMPRESSION: Limited study demonstrating moderate degenerative change of both hips, without an acute abnormality. If it would be helpful for clinical management decision making, please consider a dedicated hip MRI f or further evaluation (assuming that there is no contraindication). This should be performed accordi ng to the arthrogram protocol, if there is strong clinical concern for a labral abnormality. Reviewed by: Chinedu Shi MD on 02/03/2020 8:05 AM [facility] Approved by: Chinedu Shi MD on 02/03/2020 8:05 AM [facility] Station ID: [id number]
[2020-02-03 09:27] VITALS: BP 143/89
== END 2020-02-03 09:41 | disposition home or self-care (01) ==
LOC: ED 08:13
DX: M25.552 Pain in left hip (principal); G89.29 Other chronic pain; E66.01 Morbid (severe) obesity due to excess calories; Z68.43 Body mass index [BMI] 50.0-59.9, adult
CPT/HCPCS: 96372; 99283; 99284

== ENCOUNTER 2020-02-07 06:33 | Outpatient (CLI) | payer MEDICAID | END 2020-02-07 06:34 | disposition critical access hospital (66) | LOC: EMS 06:33 | PROVIDERS: ATTEND Surgery | DX: M25.552 Pain in left hip (principal); M79.605 Pain in left leg | CPT/HCPCS: A0425; A0429; A0999 ==

== ENCOUNTER 2020-02-07 07:17 | Emergency (ER) | payer MEDICAID ==
[2020-02-07] MEDS ORDERED: KETOROLAC 30 MG/ML VIAL IM STA (08:04)
[2020-02-07] MEDS ORDERED: TRIAMCINOLONE 40 MG/ML VIAL IM STA (08:04)
[2020-02-07] MEDS ORDERED: HYDROmorphone 2 MG/ML VIAL IM STA (08:04)
[2020-02-07] MEDS ORDERED: ALBUTEROL NEB 2.5 MG/3 ML INH STA (08:04)
--- NOTE | 2020-02-07 08:33 | XRAY Report ---
PROCEDURE: Chest 1 View X-Ray INDICATIONS: dyspnea, recent pneumonia TECHNIQUE: One view of the chest was acquired. COMPARISON: 01/14/2020. FINDINGS: Surgical changes and devices: None. Lungs and pleura: No pleural effusions or pneumothorax. There is mild pulmonary vascular congestion with overall bilateral lung aeration improved from previous study. No definite focal infiltrate. Mediastinum: Mediastinal contours appear normal. Heart size is enlarged. Bones and chest wall: No suspicious bony lesions. Overlying soft tissues appear unremarkable. IMPRESSION: Mild pulmonary vascular congestion, significantly improved since previous study. No definite focal in filtrate. No pleural effusion or pneumothorax. Reviewed by: Andrew Moscoso MD on 02/07/2020 8:31 AM PST Approved by: Andrew Moscoso MD on 02/07/2020 8:31 AM PST Station ID: [id number]
[2020-02-07 08:43] LABS: BASOPHILS % (AUTO) 0.3 %; EOSINOPHILS # (AUTO) 0.1 10^3/uL (0.0-0.7); EOSINOPHILS % (AUTO) 0.6 %; LYMPHOCYTES # (AUTO) 1.4 10^3/uL (1.5-3.5); LYMPHOCYTES % (AUTO) 12.6 %; MEAN CORPUSCULAR HEMOGLOBIN 27.2 pg (27.0-31.0); MEAN CORPUSCULAR VOLUME 90.7 fL (81.0-99.0); MEAN PLATELET VOLUME 8.8 fL (7.9-10.8); MONOCYTES # (AUTO) 0.5 10^3/uL (0.0-1.0); MONOCYTES % (AUTO) 4.7 %; NEUTROPHILS # (AUTO) 8.8 10^3/uL (1.5-6.6); NEUTROPHILS % (AUTO) 81.4 %; PLT - PLATELET COUNT 290 10^3/uL (130-450); RED BLOOD COUNT 4.41 10^6/uL (4.20-5.40); RED CELL DISTRIBUTION WIDTH 14.7 % (12.0-15.0); WHITE BLOOD COUNT 10.8 x10^3/uL (4.8-10.8)
--- NOTE | 2020-02-07 08:45 | ED Physician Documentation ---
PD HPI LOWER EXT INJURY - Stated complaint Stated Complaint: L HIP/SHOULDER PX/SOA - Chief complaint Chief Complaint: General - History obtained from History obtained from: Patient, EMS - History of Present Illness PD HPI LOW EXT INJURY LOCATION: Left, Hip, Other (also shoulder) Type of injury: No: Fall, Twist Where injury occurred: Other (chronic hip and shoulder pain, worse the past few days.) Timing - details: Gradual onset, Still present, Waxing and waning Worsened by: Moving, Palpating (back of pelvis/SI area) Associated symptoms: No: Weakness, Numbness Similar symptoms before: Diagnosis (athritis left hip and pelvis. Prior dx rotator tendonitis left shoulder.) Review of Systems Constitutional: denies: Fever, Chills Nose: denies: Rhinorrhea / runny nose, Congestion Throat: denies: Sore throat Respiratory: reports: Dyspnea, Wheezing (ongoing asthma, worse wheezing the past few days. No sputum production.). denies: Cough GI: denies: Nausea, Vomiting, Diarrhea Skin: denies: Rash, Lesions Neurologic: reports: Generalized weakness. 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 SERVICE SUPERVISOR: None : None HEENT: None Psych: Depression Musculoskeletal: None Derm: None - Past Surgical History Past Surgical History: Yes Ortho: Carpal Tunnel surgery /SALES SERVICE SUPERVISOR: Other - Present Medications Home Medications: Ambulatory Orders Medication Instructions Recorded Confirmed Albuterol Sulf [Ventolin Hfa 1 - 2 puffs INH Q4HR PRN #1 inhaler 11/29/1901/13 Inhaler] Ipratropium/Albuterol [Combivent 1 - 2 puffs IH Q6H PRN #1 12/04/19 01/14/20 Respimat] aer.w.adap Fluticasone/Salmeterol [Advair 1 each IH BID #1 blst.w.dev 01/03/20 01/14/20 250-50 Diskus] Acetaminophen [Tylenol] 325 mg PO Q6H #100 tablet 02/07/20 Albuterol Sulf [Ventolin Hfa 1 - 2 puffs INH Q4HR PRN #1 inhaler 02/07/20 Inhaler] HYDROcod/ACETAM 5/325 [Boyle 5/325] 1 ea PO BID PRN #15 tablet 02/07/20 dexAMETHasone [Decadron] 4 mg PO DAILY #5 tablet 02/07/20 - Allergies Allergies/Adverse Reactions: Allergies Allergy/AdvReac Type Severity Reaction Status Date / Time No Known Drug Allergies Allergy Verified 02/07/20 07:35 - Living Situation Living Arrangement: reports: Homeless (but has supportive employment case manager through [facility] that is working on housing. ) - Social History Does the pt smoke?: No Smoking Status: Never smoker Does the pt drink ETOH?: No Does the pt have substance abuse?: No - Immunizations Immunizations are current?: Yes - POLST Patient has POLST: No PD ED PE NORMAL - Vitals Vital signs reviewed: Yes - General General: Alert and oriented X 3, Well developed/nourished, Other (seems uncomfortable with hip and shoulder pain. ) - HEENT HEENT: Moist mucous membranes, Pharynx benign, Other (obese chin but does have palpable thyroid mass anteriorly. Normal voice. Some audible exp wheezing. No noted stridor. ) - Neck Neck: Supple, no meningeal sign, No adenopathy. No: Thyroid normal - Cardiac Cardiac: RRR, No murmur - Respiratory Respiratory: No: Clear bilaterally (no coarse shounds but does have exp wheezing centrally and some peripherally. No fine crackles. ) - Abdomen Abdomen: Soft, Non tender, Other (very obese) - Back Back: No CVA TTP, No spinal TTP - Derm Derm: Normal color, Warm and dry - Extremities Extremities: No calf tenderness / cord, Other (1+ edema in both ankles and hands. Left shoulder tender anterior rotator cuff area. Left hip tender posterior SI area. ) - Neuro Neuro: Alert and oriented X 3, No motor deficit, Normal speech Results - Vitals Vitals: Vital Signs - 24 hr 02/07/20 02/07/20 02/07/20 07:20 08:30 09:28 Temperature 37.4 C Heart Rate 102 H 94 79 Respiratory 20 20 19 Rate Blood Pressure 152/66 H 115/57 L O2 Saturation 98 92 02/07/20 02/07/20 11:00 11:26 Temperature 36.5 C Heart Rate 86 80 Respiratory 18 19 Rate Blood Pressure 133/65 H 128/60 O2 Saturation 94 92 Oxygen O2 Source Room air - Labs Labs: Laboratory Tests 02/07/20 02/07/20 02/07/20 08:34 08:34 08:34 WBC 10.8 RBC 4.41 Hgb 12.0 Hct 40.0 MCV 90.7 MCH 27.2 MCHC 30.0 L RDW 14.7 Plt Count 290 MPV 8.8 Neut # (Auto) 8.8 H Lymph # (Auto) 1.4 L Page # (Auto) 0.5 Eos # (Auto) 0.1 Baso # (Auto) 0.0 Absolute Nucleated RBC 0.00 Nucleated RBC % 0.0 Sodium 139 Potassium 4.4 Chloride 99 L Carbon Dioxide 31 Anion Gap 9.0 BUN 13 Creatinine 0.6 Estimated GFR (MDRD) 106 Glucose 205 H Calcium 9.0 B-Natriuretic Peptide 19 PD MEDICAL DECISION MAKING - ED course Complexity details: reviewed old records (discharge summary from [facility] from earlier this month. Note of bradycardia with her obstructive sleep apnea, presumed goiter causing some vagal stim. ), re-evaluated patient (Got Report from recent admission to [facility] - had xrays there, eval by ENT for goiter and got upper airway scope, CT chest. To get cardiology clearance and plan to schedule her for surgery for thyroidectomy in February sometime. ), considered differential, d/w patient, d/w sr solutions consultant (SW talked with pt's supportive employment case manager and they will work on housing ([facility] for now, but working on apt, might get her hotel for couple nights). We gave walker here to help her. ) Departure - Departure Disposition: 01 Home, Self Care Clinical Impression: Homelessness, Goiter Chronic hip pain Qualifiers: Laterality: left Qualified Code(s): M25.552 - Pain in left hip; G89.29 - Other chronic pain Shoulder pain Qualifiers: Chronicity: chronic Laterality: left Qualified Code(s): M25.512 - Pain in left shoulder; G89.29 - Other chronic pain Asthma Qualifiers: Asthma severity: mild Asthma persistence: intermittent Asthma complication type: uncomplicated Qualified Code(s): J45.20 - Mild intermittent asthma, uncomplicated Condition: Stable Record reviewed to determine appropriate education?: Yes Prescriptions: Albuterol Sulf [Ventolin Hfa Inhaler] 1 - 2 puffs INH Q4HR PRN #1 inhaler PRN Reason: Shortness Of Air/Wheezing dexAMETHasone [Decadron] 4 mg PO DAILY #5 tablet HYDROcod/ACETAM 5/325 [Boyle 5/325] 1 ea PO BID PRN #15 tablet PRN Reason: Pain Acetaminophen [Tylenol] 325 mg PO Q6H #100 tablet Comments: Use Tylenol 3-4 times a day regularly. To that add hydrocodone 2-3 times a day if needed for worse pain. Decadron steroid daily for 5 more days to help reduce inflammation and help with the hip and shoulder pains. This could also help your asthma as well. Continue your albuterol inhaler 2 to 3 puffs 4 times a day for your wheezing. Follow-up with the hearing officer in [place] to whom you had been referred on your recent hospitalization there. The records we got from [facility] suggest they are wanting to do surgery on that sometime in February so stay connected with the specialist. Follow-up with your v block saw operator and primary care regarding help with your living situation and also ongoing treatment for your other medical problems. Discharge Date/Time: 02/07/20 11:55
[2020-02-07 08:52] LABS: CREATININE 0.6 mg/dL (0.4-1.0)
[2020-02-07 11:26] VITALS: BP 128/60
== END 2020-02-07 11:55 | disposition home or self-care (01) ==
LOC: EDUNIT# → ED 07:17
DX: M25.552 Pain in left hip (principal); M25.512 Pain in left shoulder; G89.29 Other chronic pain; E04.9 Nontoxic goiter, unspecified; J45.20 Mild intermittent asthma, uncomplicated; E66.9 Obesity, unspecified; Z68.44 Body mass index [BMI] 60.0-69.9, adult; Z59.0 Homelessness
CPT/HCPCS: 36415; 71045; 80048; 83880; 85025; 94640; 96372; 99284; J1170

== ENCOUNTER 2020-02-18 14:17 | Outpatient (CLI) | payer MEDICAID | END 2020-02-18 14:18 | disposition critical access hospital (66) | LOC: EMS 14:17 | PROVIDERS: ATTEND Surgery | DX: R35.8 Other polyuria (principal) | CPT/HCPCS: A0425; A0429; A0999 ==

== ENCOUNTER 2020-02-18 14:34 | Emergency (ER) | payer MEDICAID ==
[2020-02-18] MEDS ORDERED: ONDANSETRON ODT 4 MG TABLET TL STA (15:19)
--- NOTE | 2020-02-18 15:23 | ED Physician Documentation ---
History of Present Illness - Stated complaint Stated Complaint: LETHARGIC - Chief complaint Chief Complaint: General - History obtained from History obtained from: Patient, EMS - History of Present Illness Pain level max: 0 Pain level now: 0 - Additonal information Additional information: Patient is a 49-year-old female who presents to the emergency department today stating she felt nauseated after drinking 2 cans of Ensure. She denies any abdominal pain to me. No vomiting. No diarrhea or constipation. Nothing makes it better or worse. No fevers. No chills. She states she feels short of breath, but she is at her normal baseline. She states she has felt short of breath for the past 2 years. She also states sometimes she does not sleep very well and is tired the next day. She states she has not slept very well for the past few days. She states she would just like a bed to sleep in. She is currently staying at a residential. Her lining caser is [facility] and the patient states that they are working on housing for her. Patient has been seen here multiple times for similar vague complaints. She states the only thing that is different from her usual baseline today was the nausea with eating. Patient states that she was unable to stay in the residential this afternoon and was tired, therefore was hoping to come here and get some rest. 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 : None HEENT: None Psych: Depression Musculoskeletal: None Derm: None - Past Surgical History Past Surgical History: Yes Ortho: Carpal Tunnel surgery /PAINT FORMULATOR: Other - Present Medications Home Medications: Ambulatory Orders Medication Instructions Recorded Confirmed Albuterol Sulf [Ventolin Hfa 1 - 2 puffs INH Q4HR PRN #1 inhaler 11/29/19 01/14/20 Inhaler] Ipratropium/Albuterol [Combivent 1 - 2 puffs IH Q6H PRN #1 12/04/19 02/18/20 Respimat] aer.w.adap Fluticasone/Salmeterol [Advair 1 each IH BID #1 blst.w.dev 01/03/20 02/18/20 250-50 Diskus] Albuterol Sulf [Ventolin Hfa 1 - 2 puffs INH Q4HR PRN #1 inhaler 02/07/20 02/18/20 Inhaler] Acetaminophen [Tylenol] 325 mg PO Q6H PRN 02/18/20 02/18/20 Naproxen Sodium [Aleve] 220 mg PO DAILY 02/18/20 02/18/20 - Allergies Allergies/Adverse Reactions: Allergies Allergy/AdvReac Type Severity Reaction Status Date / Time No Known Drug Allergies Allergy Verified 02/18/20 14:52 - Social History Does the pt smoke?: No Smoking Status: Never smoker Does the pt drink ETOH?: No Does the pt have substance abuse?: No - Immunizations Immunizations are current?: Yes - POLST Patient has POLST: No PD ED PE NORMAL - Vitals Vital signs reviewed: Yes - General General: Alert and oriented X 3, No acute distress, Other (Super morbidly obese female) - HEENT HEENT: Moist mucous membranes - Neck Neck: Supple, no meningeal sign - Cardiac Cardiac: RRR, Strong equal pulses - Respiratory Respiratory: No respiratory distress, Clear bilaterally - Abdomen Abdomen: Soft, Non tender, Non distended - Derm Derm: Warm and dry - Extremities Extremities: No calf tenderness / cord - Neuro Neuro: Alert and oriented X 3 Results - Vitals Vitals: Vital Signs - 24 hr 02/18/20 14:34 Temperature 36.8 C Heart Rate 76 Respiratory 18 Rate Blood Pressure 170/125 H O2 Saturation 94 Oxygen O2 Source Room air PD MEDICAL DECISION MAKING - ED course Complexity details: reviewed old records, considered differential, d/w patient ED course: Patient with no acute complaints other than mild nausea earlier today. She states that she mainly wanted somewhere to sleep until the residential opened back up this afternoon. Social work was consulted. She does not want any further resources. She has a fire manager. There is no acute emergency medical condition at this time. We will have her follow-up with her primary care doctor as previously instructed. Patient counseled regarding signs and symptoms for which I believe and urgent re-evaluation would be necessary. Patient with good understanding of and agreement to plan and is comfortable going home at this time This document was made in part using voice recognition software. While efforts are made to proofread this document, sound alike and grammatical errors may occur. Departure - Departure Disposition: 01 Home, Self Care Clinical Impression: Nausea Condition: Good Instructions: ED Nausea Vomiting Follow-Up: your,doctor in 1 week [Other] [facility] [Provider Group] Comments: Follow up with your doctor for further care. [facility].
[2020-02-18 16:13] VITALS: BP 170/122
== END 2020-02-18 16:32 | disposition home or self-care (01) ==
LOC: EDUNIT# → ED 14:34
DX: R11.0 Nausea (principal); R53.83 Other fatigue; E66.01 Morbid (severe) obesity due to excess calories; Z68.43 Body mass index [BMI] 50.0-59.9, adult; Z59.0 Homelessness
CPT/HCPCS: 99283; 99284; Q0162

== ENCOUNTER 2020-02-20 09:25 | Outpatient (CLI) | payer MEDICAID ==
--- OUTSIDE RECORDS SUMMARY | 2020-02-21 04:51 | EXTERNAL MEDICAL SUMMARY RPT | Continuity of Care Document ---
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 Problems date description facility 2012-09-19 10:00 CA IN SITU BREAST Formerly [facility] 2012-09-19 10:00 INFLAM DISEASE OF BREAST [facility] 2012-09-19 10:00 HX OF IRRADIATION Formerly [facility] 2012-09-19 10:00 COMB TREATMENT FOLLOW-UP [facility] 2012-09-19 10:00 ESTROGEN RECEPTOR POSITIVE [facility] STATUS [ER+] 2012-09-27 11:47 HX OF BREAST MALIGNANCY [facility] 2012-09-27 11:47 SURGERY FOLLOW-UP, OTHER SURGERY [facility] 2012-12-15 10:08 GENERAL MEDICAL EXAM NOS [facility] 2013-01-17 09:13 MALIGN NEOPL BREAST NOS [facility] 2013-01-17 09:13 INFLAM DISEASE OF BREAST [facility] 2013-01-18 11:40 CA IN SITU BREAST Former[facility] 2013-01-18 11:40 INFLAM DISEASE OF BREAST [facility] 2013-01-18 11:40 EDEMA Formerly [facility] 2013-01-18 11:40 HX OF IRRADIATION Formerly [facility] 2013-01-18 11:40 COMB TREATMENT FOLLOW-UP [facility] 2013-01-18 11:40 ESTROGEN RECEPTOR POSITIVE [facility] STATUS [ER+] 2013-01-19 08:38 GOITER NOS [facility] 2013-01-19 08:38 INFLAM DISEASE OF BREAST [facility] 2013-01-19 09:45 GOITER NOS [facility] 2013-01-19 09:45 INFLAM DISEASE OF BREAST [facility] 2013-01-25 09:27 INFLAM DISEASE OF BREAST [facility] 2013-02-02 09:28 INFLAM DISEASE OF BREAST [facility] 2013-02-03 11:23 INFLAM DISEASE OF BREAST [facility] 2013-02-03 11:23 MASTODYNIA Former[facility] 2013-02-03 11:23 HX OF BREAST MALIGNANCY [facility] 2013-06-12 14:28 JOINT PAIN-SHLDER Former[facility] 2013-06-27 15:45 CALCANEAL SPUR Former[facility] 2013-06-27 15:45 SPRAIN SHOULDER/ARM NOS [facility] 2013-06-27 15:45 ACCIDENT NOS [facility] 2013-07-17 13:00 CA IN SITU BREAST Former[facility] 2013-07-17 13:00 USE OF SELECTIVE ESTROGEN [facility] RECEPTOR MODULATORS (SERMS) 2013-07-17 13:00 HX-HEALTH HAZARDS [facility] dical [place] 2013-07-17 13:00 COMB TREATMENT FOLLOW-UP [facility] 2013-07-27 10:30 MORBID OBESITY [facility] 2013-07-27 10:30 LOC OSTEOAR NOS-SITE NEC [facility] 2013-07-27 10:30 HALLUX RIGIDUS [facility] 2013-07-27 10:30 USE OF SELECTIVE ESTROGEN [facility] RECEPTOR MODULATORS (SERMS) 2013-07-27 10:30 HX OF BREAST MALIGNANCY [facility] 2013-07-27 10:30 ALLERGY TO LATEX [facility] 2013-11-21 10:11 GOITER NOS [facility] 2013-11-21 10:11 LUMP OR MASS IN BREAST [facility] edical [place] 2013-11-24 09:01 MASTODYNIA Formerly [facility] 2013-11-24 09:01 HX OF BREAST MALIGNANCY [facility] 2013-11-27 08:00 GOITER NOS [facility] 2013-11-27 08:00 HYPERTENSION NOS Former[facility] 2013-11-27 08:00 MASTODYNIA Formerly [facility] 2013-12-20 10:07 CA IN SITU BREAST Formerly [facility] 2013-12-20 10:07 MASTODYNIA Formerly [facility] 2013-12-20 10:07 USE OF SELECTIVE ESTROGEN [facility] RECEPTOR MODULATORS (SERMS) 2013-12-20 10:07 COMB TREATMENT FOLLOW-UP [facility] 2014-06-14 09:50 MALIGN NEOPL BREAST NOS [facility] 2014-06-20 09:56 CA IN SITU BREAST Former[facility] 2014-06-20 09:56 USE OF SELECTIVE ESTROGEN [facility] RECEPTOR MODULATORS (SERMS) 2014-06-20 09:56 HX OF IRRADIATION Former[facility] 2014-06-20 09:56 COMB TREATMENT FOLLOW-UP [facility] 2014-07-17 09:36 SPRAIN OF NECK [facility] 2014-07-17 10:34 CERVICAL SPONDYLOSIS [facility] 2014-12-07 07:37 NONTOXIC MULTINODULAR GOITER Formerly [facility] 2014-12-07 07:37 OTHER HYPERLIPIDEMIA [facility] 2014-12-07 07:37 ENCOUNTER FOR SCREENING FOR [facility] DIABETES MELLITUS 2014-12-12 09:38 UNSPECIFIED TYPE OF CARCINOMA IN [facility] SITU OF RIGHT BREAST 2014-12-12 09:38 NAUSEA [facility] 2014-12-12 09:38 FLUSHING [facility] 2014-12-12 09:38 LNG TRM (CRNT) USE OF SLCTV [facility] ESTROG RECEPTOR MODULATORS 2014-12-17 08:47 NONTOXIC MULTINODULAR GOITER Former[facility] 2015-06-19 08:48 UNSPECIFIED TYPE OF CARCINOMA IN [facility] SITU OF RIGHT BREAST 2015-06-19 08:48 TYPE 2 DIABETES MELLITUS WITHOUT [facility] COMPLICATIONS 2015-06-19 08:48 NAUSEA [facility] 2015-06-19 08:48 FLUSHING [facility] 2015-06-19 08:48 LNG TRM (CRNT) USE OF SLCTV [facility] ESTROG RECEPTOR MODULATORS 2015-06-26 12:14 MALIGNANT 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 2015-07-04 10:40 OTHER ADRENOCORTICAL [facility] OVERACTIVITY 2015-12-23 10:18 NONTOXIC MULTINODULAR GOITER Former[facility] 2015-12-23 10:18 OTHER FORMS OF DYSPNEA [facility] 2015-12-30 12:48 OTHER FORMS OF DYSPNEA [facility] 2016-05-08 11:00 PRIMARY OSTEOARTHRITIS, LEFT [facility] ANKLE AND FOOT 2016-05-08 11:00 FLAT FOOT [PES PLANUS] [facility] (ACQUIRED), LEFT FOOT 2016-05-19 09:04 MORBID (SEVERE) OBESITY DUE TO Located Within [facility] EXCESS CALORIES 2016-05-19 09:04 ESSENTIAL (PRIMARY) HYPERTENSION [facility] 2016-05-19 09:04 BODY MASS INDEX (BMI) 70 OR [facility] GREATER, ADULT 2016-06-10 11:39 INTRADUCTAL CARCINOMA IN SITU OF [facility] RIGHT BREAST 2016-06-10 11:39 LNG TRM (CRNT) USE OF [facility] ESTROG RECEPTOR MODULATORS 2016-08-05 08:38 NONTOXIC MULTINODULAR GOITER Former[facility] 2016-12-30 13:12 INTRADUCTAL CARCINOMA IN SITU OF [facility] RIGHT BREAST 2016-12-30 13:12 [facility]NG [facility]CRNT[facility] 2017-03-02 13:16 OTHER SPONDYLOSIS, CERVICAL [facility] REGION 2017-05-30 10:24 MORBID (SEVERE) OBESITY DUE TO Located Within [facility] EXCESS CALORIES 2017-05-30 10:24 SLEEP APNEA, UNSPECIFIED [facility] 2017-05-30 10:24 UNSPECIFIED ASTHMA, [facility] UNCOMPLICATED 2017-05-30 10:[address] [facility] LIGAMENT OF LEFT ANKLE, INIT 2017-05-30 10:24 UNSPECIFIED INJURY OF LEFT [facility] ANKLE, INITIAL ENCOUNTER 2017-05-30 10:24 OVEREXERTION FROM PROLONGED [facility] STATIC OR AWKWARD POSTURES, INIT 2017-05-30 10:[address] IN UNSP NON-[facility] (PRIVATE[facility] RESIDENCE PLACE 2017-08-24 08:00 NONTOXIC MULTINODULAR GOITER Former[facility] 2017-08-24 08:00 ESSENTIAL (PRIMARY) HYPERTENSION [facility] 2017-08-24 08:00 LOCALIZED EDEMA Former[facility] 2017-08-24 08:00 ENCNTR SCREEN FOR DIS OF THE [facility] BLD/BLD-FORM ORG/IMMUN MECHN 2018-01-09 07:53 [facility] 2018-01-09 07:53 ACUTE VAGINITIS [facility] 2018-01-09 07:53 HEMATURIA, UNSPECIFIED [facility] 2019-06-13 10:10 PAIN IN THORACIC SPINE [facility] 2019-06-13 10:10 DORSALGIA, [facility]PECIFIED [facility] 2019-06-13 10:10 [facility]ELESSNESS [facility] 2019-06-13 14:51 MAJOR DEPRESSIVE DISORDER, [facility] SINGLE EPISODE, UNSPECIFIED 2019-06-13 14:51 DORSALGIA, [facility]NSPECIFIED [facility] 2019-06-13 14:51 LOWER ABDOMINAL PAIN, [facility] UNSPECIFIED 2019-06-13 14:51 UNSPECIFIED ABDOMINAL PAIN [facility] 2019-06-13 14:51 RESTLESSNESS AND AGITATION [facility] 2019-06-13 14:51 HOMELESSNESS [facility] 2019-06-17 17:19 DELUSIONAL DISORDERS [facility] ical [place] 2019-06-17 17:19 PAIN IN LEFT SHOULDER [facility] 2019-06-17 17:19 HOMELESSNESS [facility] [place] 2019-06-18 14:42 CANDIDIASIS OF SKIN AND NAIL [facility] 2019-06-18 14:42 DELUSIONAL DISORDERS [facility] ical [place] 2019-06-18 14:42 OTHER CHRONIC PAIN [facility] [place] 2019-06-18 14:42 LOCAL INFECTION OF THE SKIN AND [facility] SUBCUTANEOUS TISSUE, [facility] 2019-06-18 14:42 PAIN IN LEFT SHOULDER [facility] 2019-06-18 14:42 PAIN IN LEFT ANKLE AND JOINTS OF [facility] LEFT FOOT 2019-06-18 14:42 ALTERED MENTAL STATUS, [facility] UNSPECIFIED 2019-06-18 14:42 HOMELESSNESS [facility] [place] 2019-09-01 07:17 PAIN IN LEFT SHOULDER [facility] 2019-09-01 07:17 ENTHESOPATHY, UNSPECIFIED [facility] 2019-10-03 08:33 LEFT UPPER QUADRANT PAIN [facility] 2019-11-13 08:06 ACUTE UPPER RESPIRATORY [facility] INFECTION, UNSPECIFIED 2019-11-13 08:06 UNSPECIFIED ASTHMA, [facility] UNCOMPLICATED 2019-11-13 08:06 CHRONIC PULMONARY EDEMA [facility] 2019-11-13 08:06 COUGH [facility] 2019-11-13 08:06 CONTACT W AND EXPOSURE TO OTH [facility] VIRAL COMMUNICABLE DISEASES 2019-11-29 07:59 MODERATE PERSISTENT ASTHMA WITH [facility] (ACUTE) EXACERBATION 2019-11-29 07:59 MODERATE PERSISTENT ASTHMA WITH 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 (ACUTE) EXACERBATION 2020-01-14 11:55 DISORDER OF THYROID, UNSPECIFIED [facility] 2020-01-14 11:55 TYPE [address] [facility] HYPERGLYCEMIA 2020-01-14 11:55 MORBID (SEVERE) OBESITY DUE TO Located Within [facility] EXCESS CALORIES 2020-01-14 11:55 OBSTRUCTIVE SLEEP APNEA (ADULT) [facility] (PEDIATRIC) 2020-01-14 11:55 CARDIOMEGALY [facility] 2020-01-14 11:55 PNEUMONIA, UNSPECIFIED ORGANISM [facility] 2020-01-14 11:55 STENOSIS OF LARYNX [facility] 2020-01-14 11:55 OTHER SPECIFIED DISEASES OF [facility] UPPER RESPIRATORY TRAC 2020-01-14 11:55 CHR OBSTRUCTIVE PULMON DISEASE Located Within [facility] WITH (ACUTE) LOWER 2020-01-14 11:[address] [facility] DISEASE W (ACUTE) EX 2020-01-14 11:55 UNSPECIFIED ASTHMA WITH (ACUTE) [facility] EXACERBATION 2020-01-14 11:55 ACUTE RESPIRATORY FAILURE WITH Located Within [facility] HYPOXIA 2020-01-14 11:55 SHOULDER LESION, UNSPECIFIED, [facility] LEFT SHOULDER 2020-01-14 11:55 PAIN IN RIGHT HAND [facility] 2020-01-14 11:55 BRADYCARDIA, UNSPECIFIED [facility] 2020-01-14 11:55 NAUSEA WITH VOMITING, [facility] UNSPECIFIED 2020-01-14 11:55 OTHER FATIGUE [facility] 2020-01-14 11:55 SYNCOPE AND COLLAPSE [facility] 2020-01-14 11:55 UNSP LACK OF EXPECTED NORMAL [facility] PHYSIOL DEV IN CHILDH 2020-01-14 11:55 CONTACT W AND EXPOSURE TO OTH [facility] VIRAL COMMUNICABLE D 2020-01-14 11:55 [facility]ESSNESS [facility] 2020-01-14 11:55 BODY MASS INDEX [BMI] 70 OR [facility] GREATER, ADULT 2020-02-03 08:13 MORBID (SEVERE) OBESITY DUE TO Located Within [facility] EXCESS CALORIES 2020-02-03 08:13 OTHER CHRONIC PAIN [facility] 2020-02-03 08:13 PAIN IN LEFT HIP [facility] 2020-02-03 08:13 BODY MASS INDEX [BMI] 50.0-59.9, [facility] ADULT 2020-02-05 00:00:00 Type 2 diabetes mellitus with [facility] & unspecified complications Ancillary Serv icebrayden Jostin 2020-02-05 00:00:00 Disorder due to type 2 diabetes [facility] & mellitus Ancillary Services C kenton 2020-02-07 07:17 NONTOXIC GOITER, UNSPECIFIED [facility] 2020-02-07 07:17 OBESITY, [facility] 2020-02-07 07:17 OTHER CHRONIC PAIN [facility] 2020-02-07 07:17 MILD INTERMITTENT ASTHMA, [facility] UNCOMPLICATED 2020-02-07 07:17 PAIN IN LEFT SHOULDER [facility] 2020-02-07 07:17 PAIN IN LEFT HIP [facility] 2020-02-07 07:17 HOMELESSNESS [facility] 2020-02-07 07:17 BODY MASS INDEX [BMI] 60.0-69.9, [facility] ADULT Allergies date description facility ACETIC [facility] BENZOCAINE [facility] CARBAMIDE PEROXIDE [facility] CIPROFLOXACIN [facility] CLEMASTINE FUMARATE [facility] CODEINE [facility] CORTISONE [facility] CYCLOBENZAPRINE [facility] GLYCINE [facility] HYDROCODONE [facility] LISINOPRIL [facility] MORPHINE [facility] OXYCODONE [facility] PHENOBARBITAL [facility] POLLEN EXTRACT [facility] SERTRALINE [facility] SULFAMETHOXAZOLE W/TRIMETHOPRIM [facility] (CO-TRIMOXAZOLE) TRAZODONE [facility] AMOXICILLIN-POT CLAVULANATE [facility] TAI INHIBITORS [facility] NO KNOWN ENVIRONMENTAL ALLERGIES [facility] NSAIDS [facility] PENICILLINS [facility] QUINOLONES [facility] SULFA ANTIBIOTICS [facility] NSAIDS (Non-Steroidal Anti-Inflamma [facility] OTHER [facility] gabapentin [facility] PENICILLINS [facility] NO KNOWN ALLERGIES [facility] NO ALLERGY INFORMATION AVAILABLE [facility] GLUTEN PROTEIN [facility] PENICILLINS [facility] SULFA (SULFONAMIDE ANTIBIOTICS) [facility] IODINATED CONTRAST MEDIA [facility] NO KNOWN ALLERGIES [facility] LATEX, NATURAL RUBBER [facility] dical Center MILK CONTAINING PRODUCTS [facility] ALCOHOL [facility] KIWI [facility] LACTASE [facility] D[facility]AGLIFLOZIN [facility] CODEINE [facility] DULAGLUTIDE [facility] PROPOXYPHENE [facility] ASPIRIN [facility] PENICILLIN [facility] PSEUDOEPHEDRINE HCL [facility] METOCLOPRAMIDE HCL [facility] HYDROCHLOROTHIAZIDE [facility] TRIAMTERENE [facility] IBUPROFEN [facility] CEPHALEXIN [facility] ERYTHROMYCIN BASE [facility] SULFAMETHOXAZOLE [facility] RHO(D) IMMUNE GLOBULIN [facility] CIMETIDINE [facility] KETOROLAC TROMETHAMINE [facility] FENTANYL [facility] CHLORHEXIDINE [facility] AMOXICILLIN [facility] TRAMADOL [facility] PROMETHAZINE [facility] METFORMIN [facility] KETOROLAC [facility] VANCOMYCIN [facility] ATORVASTATIN [facility] EGG [facility] BRADLEY FLAVOR [facility] LATEX [facility] RASPBERRY [facility] STRAWBERRY [facility] HYDROCODONE-ACETAMINOPHEN [facility] OXYCODONE-ACETAMINOPHEN [facility] PROPOXYPHENE N-ACETAMINOPHEN [facility] BETA-2 [facility] ADHESIVE TAPE-SILICONES [facility] CHLORHEXIDINE TOWELETTE [facility] No Known Drug Allergies [facility] No Known Drug Allergies [facility] CIPROFLOXACIN [facility] CYCLOBENZAPRINE [facility] QUINOLONES [facility] SULFA ANTIBIOTICS [facility] OTHER [facility] NO KNOWN ALLERGIES [facility] No Known Drug Allergies [facility] Medications date description facility 2020-02-05 00:00:00 null [facility] Luis chi 2020-02-05 00:00:00 null [facility] Luis amezcuaalon 2020-02-05 00:00:00 null [facility] C alon 2020-02-05 00:00:00 null [facility] C alon 2020-02-05 00:00:00 IBUPROFEN [facility] Luis chi 2020-02-05 00:00:00 FLUTICASONE-SALMETEROL [facility] & Ancillary Services C alon 2020-02-05 00:00:00 FLUTICASONE-SALMETEROL [facility] Luis chi 2020-02-05 00:00:00 IBUPROFEN [facility] Luis chi Results Social History date description facility [id number]
== END 2020-02-20 09:26 | disposition critical access hospital (66) ==
LOC: EMS 09:25
PROVIDERS: ATTEND Surgery
DX: M54.5 Low back pain (principal); R05 Cough
CPT/HCPCS: A0425; A0429; A0999

== ENCOUNTER 2020-02-20 09:42 | Emergency (ER) | payer MEDICAID ==
[2020-02-20] MEDS ORDERED: KETOROLAC 60 MG/2 ML VIAL IM STA (10:52)
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
--- NOTE | 2020-02-20 10:55 | ED Physician Documentation ---
History of Present Illness - Stated complaint Stated Complaint: LOW BACK PX - Chief complaint Chief Complaint: Back Pain - History obtained from History obtained from: Patient - Additonal information Additional information: Patient comes emergency department chief complaint of low back pain that came up spontaneously a couple of days ago. She states that it seems to hurt more after she has been walking around for a while, and feels better when she lays down. No direct injury. No numbness or tingling in her lower extremities. No loss of bowel or bladder control. Patient states she also has been feeling as though she is coughing a little bit more, but has not been running any fevers. She states she feels a little chilled sometimes. The patient has a history of asthma and has albuterol and Advair at home. She denies any sputum production. She has a mild cough. No other complaints at this time. Review of Systems Ten Systems: 10 systems reviewed and negative Constitutional: reports: Reviewed and negative Eyes: reports: Reviewed and negative Ears: reports: Reviewed and negative Nose: reports: Reviewed and negative Throat: reports: Reviewed and negative Cardiac: reports: Reviewed and negative Respiratory: reports: Cough. 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 : None HEENT: None Psych: Depression Musculoskeletal: None Derm: None - Past Surgical History Past Surgical History: Yes Ortho: Carpal Tunnel surgery /GAS LEAK INSPECTOR HELPER: Other - Present Medications Home Medications: Ambulatory Orders Medication Instructions Recorded Confirmed Albuterol Sulf [Ventolin Hfa 1 - 2 puffs INH Q4HR PRN #1 inhaler 11/29/19 01/14/20 Inhaler] Ipratropium/Albuterol [Combivent 1 - 2 puffs IH Q6H PRN #1 12/04/19 02/18/20 Respimat] [email or web address] Fluticasone/Salmeterol [Advair 1 each IH BID #1 blst.w.dev 01/03/20 02/18/20 250-50 Diskus] Albuterol Sulf [Ventolin Hfa 1 - 2 puffs INH Q4HR PRN #1 inhaler 02/07/20 02/18/20 Inhaler] Acetaminophen [Tylenol] 325 mg PO Q6H PRN 02/18/20 02/18/20 Naproxen Sodium [Aleve] 220 mg PO DAILY 02/18/20 02/18/20 Cyclobenzaprine [Flexeril] 10 mg PO TID PRN #20 tablet 02/20/20 - Allergies Allergies/Adverse Reactions: Allergies Allergy/AdvReac Type Severity Reaction Status Date / Time No Known Drug Allergies Allergy Verified 02/20/20 09:51 - Social History Does the pt smoke?: No Smoking Status: Never smoker Does the pt drink ETOH?: No Does the pt have substance abuse?: No - Immunizations Immunizations are current?: Yes - POLST Patient has POLST: No PD ED PE NORMAL - Vitals Vital signs reviewed: Yes - General General: Alert and oriented X 3, No acute distress, Other (Morbidly obese) - HEENT HEENT: Atraumatic, PERRL, EOMI, Moist mucous membranes - Neck Neck: Supple, no meningeal sign - Cardiac Cardiac: RRR, No murmur - Respiratory Respiratory: No respiratory distress, Clear bilaterally, Other - Abdomen Abdomen: Soft, Non tender, Non distended - Back Back: No spinal TTP, Other (Moderate tenderness bilateral lumbar paraspinal musculature.) - Derm Derm: Normal color, Warm and dry, No rash - Extremities Extremities: No deformity - Neuro Neuro: Alert and oriented X 3, hairspring assembler 2-12 intact, No motor deficit, No sensory deficit, Normal speech - Psych Psych: Normal mood, Normal affect Results - Vitals Vitals: Vital Signs - 24 hr 02/20/20 09:51 Temperature 36.6 C Heart Rate 92 Respiratory 24 Rate Blood Pressure 143/85 H O2 Saturation 96 Oxygen O2 Source Room air PD MEDICAL DECISION MAKING - ED course Complexity details: reviewed old records, reviewed results, re-evaluated patient, considered differential, d/w patient ED course: I suspected that the patient's back pain was more than anything due to her extreme obesity, as the patient had not had a distinct injury. There is no evide nce of an emergent cause or complication of the back pain. Lumbar x-rays were unremarkable for acute findings. The patient's lungs were clear and her oxygen saturation was good, and I did not find any reason for further treatment or work-up of the patient's respiratory status. We have discussed home management of the symptoms, as well as the usual indications for return. Departure - Departure Disposition: 01 Home, Self Care Clinical Impression: Lumbar strain Qualifiers: Encounter type: initial encounter Qualified Code(s): S39.012A - Strain of muscle, fascia and tendon of lower back, initial encounter Asthma Qualifiers: Asthma severity: mild Asthma persistence: intermittent Asthma complication type: unspecified Qualified Code(s): J45.20 - Mild intermittent asthma, uncomplicated Condition: Stable Instructions: Asthma Dc, ED Spasm Back No Trauma Prescriptions: Cyclobenzaprine [Flexeril] 10 mg PO TID PRN #20 tablet PRN Reason: Spasms Comments: Your x-rays do not show an acute cause of your back pain. Most likely, you have some strain from chronic wear and tear. Your lungs sound good and your oxygen levels are good here in the emergency department. The best plan at this point is to continue your inhaler regimen. There is no evidence of pneumonia to indicate a chest x-ray, and there is no evidence of an asthma flareup to indicate steroids at this time. Please follow-up with your primary care physician if you continue to have chronic worsening of your low back issues and your asthma.
[2020-02-20 11:34] VITALS: BP 148/100
== END 2020-02-20 11:55 | disposition home or self-care (01) ==
LOC: EDUNIT# → ED 09:42
DX: S39.012A Strain of muscle, fascia and tendon of lower back, initial encounter (principal); X58.XXXA Exposure to other specified factors, initial encounter; M51.37 Other intervertebral disc degeneration, lumbosacral region; J45.20 Mild intermittent asthma, uncomplicated; E66.01 Morbid (severe) obesity due to excess calories; Z68.44 Body mass index [BMI] 60.0-69.9, adult
CPT/HCPCS: 96372; 99283; 99284

== ENCOUNTER 2020-02-22 20:12 | Outpatient (CLI) | payer MEDICAID | END 2020-02-22 20:13 | disposition critical access hospital (66) | LOC: EMS 20:12 | PROVIDERS: ATTEND Surgery | DX: R61 Generalized hyperhidrosis (principal); M25.572 Pain in left ankle and joints of left foot | CPT/HCPCS: A0425; A0429 ==

== ENCOUNTER 2020-02-22 20:33 | Emergency (ER) | payer MEDICAID ==
[2020-02-22] MEDS ORDERED: IPRATROPIUM/ALBUTEROL 3 ML NEB INH STA (20:42)
--- NOTE | 2020-02-22 20:46 | ED Physician Documentation ---
History of Present Illness - Stated complaint Stated Complaint: WEAKNESS,SWEATING, THYROID ISSUE - History obtained from History obtained from: Patient - History of Present Illness Timing: How many days ago (3) - Additonal information Additional information: 49-year-old homeless female residing at [facility] has a history of COPD and recent pneumonia hospitalized in January. She reports that over the past 3 days she has had episodes of sweating and she has noted a cough that is deeper than usual and increased shortness of breath. She acknowledges some urinary frequency as well but denies fever, nausea, diarrhea or pains. She did get some relief with albuterol but feels that she would get more relief with the nebulizer. Review of Systems Constitutional: reports: Chills, Myalgias, Sweats. denies: Fever Eyes: denies: Decreased vision Ears: reports: Loss of hearing (to the right ear --cloggged). denies: Ear pain Nose: denies: Rhinorrhea / runny nose, Congestion Throat: denies: Sore throat Cardiac: denies: Chest pain / pressure, Palpitations, Pedal edema, Calf pain Respiratory: reports: Dyspnea, Cough, Wheezing GI: denies: Abdominal Pain, Nausea, Vomiting, Diarrhea : reports: Frequency. denies: Dysuria PD PAST MEDICAL HISTORY - Past Medical History Cardiovascular: None Respiratory: Asthma, Pneumonia, Sleep apnea, CPAP use Neuro: None Endocrine/Autoimmune: None GI: None COREMAKING SUPERVISOR: None : None HEENT: None Psych: Depression Musculoskeletal: None Derm: None - Past Surgical History Past Surgical History: Yes Ortho: Carpal Tunnel surgery /COREMAKING SUPERVISOR: Other - Present Medications Home Medications: Ambulatory Orders Medication Instructions Recorded Confirmed Albuterol Sulf [Ventolin Hfa 1 - 2 puffs INH Q4HR PRN #1 inhaler 11/29/19 02/22/20 Inhaler] Amox/Clav 875/125 [Augmentin] 1 each PO Q12H #20 tablet 02/22/20 - Allergies Allergies/Adverse Reactions: Allergies Allergy/AdvReac Type Severity Reaction Status Date / Time No Known Drug Allergies Allergy Verified 02/22/20 20:37 - Social History Does the pt smoke?: No Smoking Status: Never smoker Does the pt drink ETOH?: No Does the pt have substance abuse?: No - Immunizations Immunizations are current?: Yes - POLST Patient has POLST: No PD ED PE NORMAL - Vitals Vital signs reviewed: Yes (Tachycardic and hypertensive) - General General: Alert and oriented X 3, No acute distress, Well developed/nourished - HEENT HEENT: Atraumatic, PERRL, EOMI, Other (Cerumen impaction bilaterally dry mucous membranes. The cerumen is removed to reveal erythema bilaterally flattening of the landmarks bilaterally worse on the right than the left.) - Neck Neck: Supple, no meningeal sign, No bony TTP - Cardiac Cardiac: RRR, No murmur - Respiratory Respiratory: No respiratory distress, Other (Course respiratory sounds bilaterally sounds transmitted.) - Abdomen Abdomen: Soft, Non tender, Other (Morbidly obese) - Back Back: No CVA TTP, No spinal TTP - Derm Derm: Normal color, Warm and dry, No rash - Extremities Extremities: No deformity, No edema - Neuro Neuro: Alert and oriented X 3, account service associate 2-12 intact, No motor deficit, No sensory deficit, Normal speech Eye Opening: Spontaneous Motor: Obeys Commands Verbal: Oriented GCS Score: 15 - Psych Psych: Normal mood, Normal affect Results - Vitals Vitals: Vital Signs - 24 hr 02/22/20 02/22/20 02/22/20 20:37 20:41 20:44 Temperature 37.0 C 37.0 C 37.0 C Heart Rate 104 H 102 H 102 H Respiratory 18 18 18 Rate Blood Pressure 152/93 H 152/93 H 152/93 H O2 Saturation 95 95 95 02/22/20 02/22/20 21:16 23:00 Temperature 37.0 C 37.2 C Heart Rate 96 94 Respiratory 19 20 Rate Blood Pressure 146/91 H 150/88 H O2 Saturation 99 95 Oxygen O2 Source Room air - Labs Labs: Laboratory Tests 02/22/20 02/22/20 02/22/20 20:49 20:49 21:02 WBC 12.2 H RBC 4.67 Hgb 12.7 Hct 42.8 MCV 91.6 MCH 27.2 MCHC 29.7 L RDW 14.7 Plt Count 248 MPV 9.0 Neut # (Auto) 9.3 H Lymph # (Auto) 2.1 Yates # (Auto) 0.6 Eos # (Auto) 0.1 Baso # (Auto) 0.0 Absolute Nucleated RBC 0.00 Nucleated RBC % 0.0 Sodium 140 Potassium 4.1 Chloride 100 L Carbon Dioxide 33 H Anion Gap 7.0 BUN 21 H Creatinine 1.0 Estimated GFR (MDRD) 59 L Glucose 172 H Calcium 9.0 Total Bilirubin 0.3 AST 15 ALT 22 Alkaline Phosphatase 68 Total Protein 6.4 L Albumin 3.2 Globulin 3.2 Albumin/Globulin Ratio 1.0 Lipase 59 H Urine Color Urine Clarity Urine pH Ur Specific Vansant Urine Protein Urine Glucose (UA) Urine Ketones Urine Occult Blood Urine Nitrite Urine Bilirubin Urine Urobilinogen Ur Leukocyte Esterase Urine RBC Urine WBC Ur Squamous Epith Cells Amorphous Sediment Urine Bacteria Ur Microscopic Review Urine Culture Comments Nasal Adenovirus (PCR) NOT DETECTED Nasal B. parapertussis DNA (PCR) NOT DETECTED Nasal Coronavir 229E PCR NOT DETECTED Nasal Coronavir HKU1 PCR NOT DETECTED Nasal Coronavir NL63 PCR NOT DETECTED Nasal Coronavir OC43 PCR NOT DETECTED Nasal Enterovir/Rhinovir PCR NOT DETECTED Nasal Influenza B PCR NOT DETECTED Nasal Influenza A PCR NOT DETECTED Nasal Parainfluen 1 PCR NOT DETECTED Nasal Parainfluen 2 PCR NOT DETECTED Nasal Parainfluen 3 PCR NOT DETECTED Nasal Parainfluen 4 PCR NOT DETECTED Nasal RSV (PCR) NOT DETECTED Nasal B.pertussis DNA PCR NOT DETECTED Nasal C.pneumoniae (PCR) NOT DETECTED Rohan Human Metapneumo PCR NOT DETECTED Nasal M.pneumoniae (PCR) NOT DETECTED Nasal SARS-CoV-2 (PCR) NOT DETECTED 02/22/20 22:35 WBC RBC Hgb Hct MCV MCH MCHC RDW Plt Count MPV Neut # (Auto) Lymph # (Auto) Yates # (Auto) Eos # (Auto) Baso # (Auto) Absolute Nucleated RBC Nucleated RBC % Sodium Potassium Chloride Carbon Dioxide Anion Gap BUN Creatinine Estimated GFR (MDRD) Glucose Calcium Total Bilirubin AST ALT Alkaline Phosphatase Total Protein Albumin Globulin Albumin/Globulin Ratio Lipase Urine Color YELLOW Urine Clarity CLEAR Urine pH 7.0 Ur Specific Vansant 1.020 Urine Protein NEGATIVE Urine Glucose (UA) NEGATIVE Urine Ketones NEGATIVE Urine Occult Blood NEGATIVE Urine Nitrite NEGATIVE Urine Bilirubin NEGATIVE Urine Urobilinogen 0.2 (NORMAL) Ur Leukocyte Esterase SMALL H Urine RBC 0-5 Urine WBC 6-10 H Ur Squamous Epith Cells FEW Squamous Amorphous Sediment Few Urine Bacteria Rare Ur Microscopic Review INDICATED Urine Culture Comments INDICATED Nasal Adenovirus (PCR) Nasal B. parapertussis DNA (PCR) Nasal Coronavir 229E PCR Nasal Coronavir HKU1 PCR Nasal Coronavir NL63 PCR Nasal Coronavir OC43 PCR Nasal Enterovir/Rhinovir PCR Nasal Influenza B PCR Nasal Influenza A PCR Nasal Parainfluen 1 PCR Nasal Parainfluen 2 PCR Nasal Parainfluen 3 PCR Nasal Parainfluen 4 PCR Nasal RSV (PCR) Nasal B.pertussis DNA PCR Nasal C.pneumoniae (PCR) Rohan Human Metapneumo PCR Nasal M.pneumoniae (PCR) Nasal SARS-CoV-2 (PCR) - Rads (name of study) chest Radiology: Prelim report reviewed (Impression: No acute findings. Nonemergent/incidental findings in the report.), EMP read indepedently, See rad report Procedures - General procedure General procedure: Cerumen impaction removal: With use of an oil enema both of the ear canals were saturated to soften the wax this was followed by irrigation with warm saline and removal of large wax casts of the ear canals. Examination following irrigation shows evidence of otitis. PD MEDICAL DECISION MAKING - ED course Complexity details: considered differential, d/w patient ED course: 49-year-old morbid morbidly obese homeless female is living in a congregate living situation at [facility] and she is tested for coronavirus using a rapid PCR with anticipation that she will return to her current living situation. Her PCR is negative for coronavirus and noticed with otitis media after irrigation of her ears. She does have recurrent cough congestion postnasal drainage and a chest x-ray is without evidence of recurrence of her pneumonia. She is given a dose of dexamethasone 10 mg orally and we have given her a dose of Augmentin as well. We will place her on a course of Augmentin. Departure - Departure Disposition: 01 Home, Self Care Clinical Impression: Otitis media Qualifiers: Otitis media type: suppurative Chronicity: acute Laterality: bilateral Recurrence: not specified as recurrent Spontaneous tympanic membrane rupture: without spontaneous rupture Qualified Code(s): H66.003 - Acute suppurative ot itis media without spontaneous rupture of ear drum, bilateral Condition: Stable Instructions: ED Otitis Media Acute Adult Follow-Up: [facility] [Provider Group] Prescriptions: Amox/Clav 875/125 [Augmentin] 1 each PO Q12H #20 tablet
[2020-02-22 20:54] LABS: BASOPHILS % (AUTO) 0.2 %; EOSINOPHILS # (AUTO) 0.1 10^3/uL (0.0-0.7); EOSINOPHILS % (AUTO) 0.6 %; HGB - HEMOGLOBIN 12.7 g/dL (12.0-16.0); LYMPHOCYTES # (AUTO) 2.1 10^3/uL (1.5-3.5); LYMPHOCYTES % (AUTO) 17.4 %; MEAN CORPUSCULAR HEMOGLOBIN 27.2 pg (27.0-31.0); MEAN CORPUSCULAR HGB CONC 29.7 g/dL (32.0-36.0); MEAN CORPUSCULAR VOLUME 91.6 fL (81.0-99.0); MONOCYTES # (AUTO) 0.6 10^3/uL (0.0-1.0); MONOCYTES % (AUTO) 5.1 %; NEUTROPHILS # (AUTO) 9.3 10^3/uL (1.5-6.6); NEUTROPHILS % (AUTO) 76.1 %; PLT - PLATELET COUNT 248 10^3/uL (130-450); RED BLOOD COUNT 4.67 10^6/uL (4.20-5.40); RED CELL DISTRIBUTION WIDTH 14.7 % (12.0-15.0); WHITE BLOOD COUNT 12.2 x10^3/uL (4.8-10.8)
[2020-02-22 21:11] LABS: ALBUMIN 3.2 g/dL (3.2-5.5); BILIRUBIN,TOTAL 0.3 mg/dL (0.2-1.0); TOTAL PROTEIN 6.4 g/dL (6.7-8.2)
[2020-02-22 22:07] LABS: C. PNEUMONIAE- RESP PCR PANEL NOT DETECTED
[2020-02-22 22:50] LABS: BILIRUBIN,URINE NEGATIVE (NEGATIVE); GLUCOSE, URINE (UA) NEGATIVE (NEGATIVE); KETONES,URINE (UA) NEGATIVE (NEGATIVE); LEUKOCYTE ESTERASE, URINE SMALL (NEGATIVE); NITRITE,URINE NEGATIVE (NEGATIVE); OCCULT BLOOD,URINE NEGATIVE (NEGATIVE); PROTEIN,URINE NEGATIVE (NEGATIVE); UROBILINOGEN,URINE 0.2 (NORMAL) E.U./dL (NORMAL)
[2020-02-22 22:51] LABS: CLARITY,URINE CLEAR (CLEAR)
[2020-02-22 22:58] LABS: AMORPHOUS SEDIMENT,UR Few /LPF; BACTERIA,URINE Rare /HPF (None Seen); RBC,URINE 0-5 /HPF (0-5); SQUAMOUS EPITHELIAL CELL,UR FEW Squamous (<= Few)
[2020-02-22] MEDS ORDERED: AMOX/CLAV 875 MG/125 MG TABLET PO STA (23:46)
[2020-02-22] MEDS ORDERED: CHERRY SYRUP 10 ML UDC PO ONE (23:46)
[2020-02-22] MEDS ORDERED: DEXAMETHASONE 10 MG/ML VIAL PO STA (23:46)
[2020-02-23 00:18] VITALS: BP 142/81
--- NOTE | 2020-02-23 08:13 | XRAY Report ---
PROCEDURE: Chest 2 View X-Ray INDICATIONS: cough TECHNIQUE: 2 view(s) of the chest. COMPARISON: 02/07/2020. FINDINGS: Surgical changes and devices: None. Lungs and pleura: No pleural effusions or pneumothorax. Lungs are clear. Mediastinum: Mediastinal contours are normal. Heart size is enlarged. Bones and chest wall: No suspicious bony abnormalities. Soft tissues appear unremarkable. IMPRESSION: No acute cardiopulmonary process. No discrepancies from preliminary reading. Reviewed by: Andrew Moscoso MD on 02/23/2020 8:11 AM PST Approved by: Andrew Moscoso MD on 02/23/2020 8:11 AM PST Station ID: [id number]
== END 2020-02-23 00:17 | disposition home or self-care (01) ==
LOC: EDUNIT# → ED 20:33
DX: H66.003 Acute suppurative otitis media without spontaneous rupture of ear drum, bilateral (principal); H61.23 Impacted cerumen, bilateral; Z20.822 Contact with and (suspected) exposure to COVID-19; R03.0 Elevated blood-pressure reading, without diagnosis of hypertension; R35.0 Frequency of micturition; J44.9 Chronic obstructive pulmonary disease, unspecified; E66.01 Morbid (severe) obesity due to excess calories; Z68.45 Body mass index [BMI] 70 or greater, adult; Z59.0 Homelessness
CPT/HCPCS: 0202U; 69209; 71046; 80053; 81001; 83690; 85025; 87086; 94640; 99284; A9270; 36415; 81003

== ENCOUNTER 2020-02-27 08:56 | Emergency (ER) | payer MEDICAID ==
[2020-02-27] MEDS ORDERED: ALBUTEROL 1 PUFF INH STA (09:50)
[2020-02-27] MEDS ORDERED: predniSONE 20 MG TABLET PO STA (09:50)
--- NOTE | 2020-02-27 10:02 | ED Physician Documentation ---
PD HPI DYSPNEA - Stated complaint Stated Complaint: SOA - Chief complaint Chief Complaint: Resp - History obtained from History obtained from: Patient - History of Present Illness Timing - onset: How many days ago (3) Timing - onset during: Rest Timing - duration: Days (3) Timing - details: Gradual onset Pain level max: 0 Pain level now: 0 Improved by: Rest Associated symptoms: No: Fever, Cough - Additional information Additional information: 49-year-old supermorbidly obese female presents to the emergency department stating that she has been wheezing more than usual lately. She states that this feels like her typical asthma. No fever. No cough. Used her inhaler last night without relief. Is not using a spacer with her inhaler. No abdominal pain. 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: None : None HEENT: None Psych: Depression Musculoskeletal: None Derm: None - Past Surgical History Past Surgical History: Yes Ortho: Carpal Tunnel surgery /SALES RESEARCH ANALYST: Other - Present Medications Home Medications: Ambulatory Orders Medication Instructions Recorded Confirmed Albuterol Sulf [Ventolin Hfa 1 - 2 puffs INH Q4HR PRN #1 inhaler 11/29/19 02/22/20 Inhaler] Amox/Clav 875/125 [Augmentin] 1 each PO Q12H #20 tablet 02/22/20 Albuterol Sulf [Ventolin Hfa 1 - 2 puffs INH Q4HR PRN #1 inhaler 02/27/20 Inhaler] predniSONE [Deltasone] 10 mg PO [id number] #42 tab 02/27/20 - Allergies Allergies/Adverse Reactions: Allergies Allergy/AdvReac Type Severity Reaction Status Date / Time No Known Drug Allergies Allergy Verified 02/27/20 09:00 - Social History Does the pt smoke?: No Smoking Status: Never smoker Does the pt drink ETOH?: No Does the pt have substance abuse?: No - Immunizations Immunizations are current?: Yes - POLST Patient has POLST: No PD ED PE NORMAL - Vitals Vital signs reviewed: Yes - General General: Alert and oriented X 3, No acute distress - HEENT HEENT: Moist mucous membranes - Neck Neck: Supple, no meningeal sign - Cardiac Cardiac: RRR - Respiratory Respiratory: No respiratory distress, Other (minimal wheeze B) - Abdomen Abdomen: Soft, Non tender, Non distended - Derm Derm: Warm and dry - Neuro Neuro: Alert and oriented X 3 Results - Vitals Vitals: Vital Signs - 24 hr 02/27/20 02/27/20 02/27/20 09:00 10:11 10:45 Temperature 36.6 C Heart Rate 95 100 93 Respiratory 36 H 22 22 Rate Blood Pressure 181/94 H 188/95 H O2 Saturation 98 95 Oxygen O2 Source Room air PD MEDICAL DECISION MAKING - ED course Complexity details: reviewed results, re-evaluated patient, considered differential, d/w patient ED course: Patient feels better after steroids and albuterol treatment with a spacer. No evidence of pneumonia. No indication for x-ray. No coughing. Social work was consulted and provided her resources for follow-up including a primary care provider. Patient counseled regarding signs and symptoms for which I believe and urgent re-evaluation would be necessary. Patient with good understanding of and agreement to plan and is comfortable going home at this time This document was made in part using voice recognition software. While efforts are made to proofread this document, sound alike and grammatical errors may occur. Departure - Departure Disposition: 01 Home, Self Care Clinical Impression: Homelessness Asthma Qualifiers: Asthma severity: unspecified severity Asthma persistence: unspecified Asthma complication type: with acute exacerbation Qualified Code(s): J45.901 - Unspecified asthma with (acute) exacerbation Condition: Good Instructions: ED Reactive Airway Disease Follow-Up: your,doctor in 1 week [Other] Prescriptions: Albuterol Sulf [Ventolin Hfa Inhaler] 1 - 2 puffs INH Q4HR PRN #1 inhaler PRN Reason: Shortness Of Air/Wheezing predniSONE [Deltasone] 10 mg PO [id number] #42 tab Comments: Use the steroids as prescribed. You can continue your inhaler use as well. Follow-up with your doctor for further care. Discharge Date/Time: 02/27/20 10:46
[2020-02-27 10:46] VITALS: BP 188/95
== END 2020-02-27 10:46 | disposition home or self-care (01) ==
LOC: ED 08:56
DX: J45.901 Unspecified asthma with (acute) exacerbation (principal); Z59.0 Homelessness; E66.01 Morbid (severe) obesity due to excess calories; Z68.44 Body mass index [BMI] 60.0-69.9, adult
CPT/HCPCS: 94640; 94664; 99283; 99284; J7512

== ENCOUNTER 2020-02-29 10:55 | Outpatient (CLI) | payer MEDICAID | END 2020-02-29 10:56 | disposition critical access hospital (66) | LOC: EMS 10:55 | PROVIDERS: ATTEND Surgery | DX: R06.00 Dyspnea, unspecified (principal) | CPT/HCPCS: A0425; A0427; A0999 ==

== ENCOUNTER 2020-02-29 11:13 | Emergency (ER) | payer MEDICAID ==
[2020-02-29] MEDS ORDERED: predniSONE 20 MG TABLET PO STA (13:25)
[2020-02-29] MEDS ORDERED: ALBUTEROL 1 PUFF INH STA (13:26)
--- NOTE | 2020-02-29 13:34 | ED Physician Documentation ---
History of Present Illness - Stated complaint Stated Complaint: SOA - Chief complaint Chief Complaint: Resp - History obtained from History obtained from: Patient - Additonal information Additional information: 49-year-old female presents to the emergency department for revealed duration of shortness of air and wheeze. She has had multiple ED visits for similar over the last week. She is currently completing a 10-day course of Augmentin prescribed on the of this month for otitis media. She was also seen by my colleague 2 days ago for shortness of air. She improved in the emergency depart ment following inhaler. She was placed on a 10-day taper of prednisone. The patient did not feel that prednisone until today and has not yet started the medication. She does have a history of morbid obesity, asthma, developmental delay. In addition she is also homeless and currently staying at [facility]. She did receive a hospitalization in mid January for an asthma exacerbation. 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 She was ultimately transferred to [facility] for further evaluation and treatment of this concern. Review of Systems Unable to obtain: Other (Review of systems is difficult to obtain secondary to suspected developmental delay) Eyes: reports: Reviewed and negative Nose: reports: Reviewed and negative Throat: reports: Reviewed and negative Cardiac: reports: Reviewed and negative Respiratory: reports: Dyspnea, Cough, Wheezing GI: denies: Abdominal Pain, Abdominal Swelling, Nausea, Vomiting : reports: Reviewed and negative Skin: reports: Reviewed and negative Musculoskeletal: reports: Reviewed and negative Neurologic: reports: Other (developmental delay) Psychiatric: reports: Other PD PAST MEDICAL HISTORY - Past Medical History Cardiovascular: None Respiratory: Asthma, Pneumonia, Sleep apnea, CPAP use Neuro: None Endocrine/Autoimmune: None GI: None 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 : None HEENT: None Psych: Depression Musculoskeletal: None Derm: None - Past Surgical History Past Surgical History: Yes Ortho: Carpal Tunnel surgery /SMALL ELECTRIC ENGINE TECHNICIAN: Other - Present Medications Home Medications: Ambulatory Orders Medication Instructions Recorded Confirmed Albuterol Sulf [Ventolin Hfa 1 - 2 puffs INH Q4HR PRN #1 inhaler 11/29/19 02/29/20 Inhaler] Amox/Clav 875/125 [Augmentin] 1 each PO Q12H #20 tablet 02/22/20 02/29/20 Albuterol Sulf [Ventolin Hfa 1 - 2 puffs INH Q4HR PRN #1 inhaler 02/27/20 02/29/20 Inhaler] predniSONE [Deltasone] 10 mg PO [id number] #42 tab 02/27/20 02/29/20 - Allergies Allergies/Adverse Reactions: Allergies Allergy/AdvReac Type Severity Reaction Status Date / Time No Known Drug Allergies Allergy Verified 02/29/20 11:23 - Social History Does the pt smoke?: No Smoking Status: Never smoker Does the pt drink ETOH?: No Does the pt have substance abuse?: No - Immunizations Immunizations are current?: Yes - POLST Patient has POLST: No PD ED PE EXPANDED - General General: Alert, Other (morbid obesty) - Neck Neck: Supple w/out meningeal sx, Thyroid enlarged / mass, Other (raspy voice) - Cardiac Cardiac: Regular Rate, Regular Rhythm, Radial strong equal, Cap refill < 2 sec - Respiratory Respiratory: Other (Globally rhonchorous breath sounds with shallow inspiration.). No: Distress, Labored - Abdomen Abdomen: Normal Bowel sounds. No: Tender to palpation - Extremities Extremities: Normal, Pedal Pulses Present. No: Deformity, Tenderness, Pedal edema bilateral, Right calf TTP/cord, Left calf TTP/cord - Neuro Neuro: Alert and Oriented X 3. No: Confused, Disoriented - GCS Eye Opening: Spontaneous Motor: Obeys Commands Verbal: Oriented Total: 15 Results - Vitals Vitals: Vital Signs - 24 hr 02/29/20 02/29/20 02/29/20 11:19 14:14 14:24 Temperature 36.0 C L Heart Rate 97 93 102 H Respiratory 16 22 Rate Blood Pressure 147/79 H 145/93 H O2 Saturation 96 102 H 02/29/20 02/29/20 14:25 15:42 Temperature Heart Rate 84 Respiratory 18 22 Rate Blood Pressure 161/92 H O2 Saturation 98 Oxygen O2 Source Room air - Labs Labs: Laboratory Tests 02/29/20 02/29/20 02/29/20 14:12 14:12 14:12 WBC 10.4 RBC 4.61 Hgb 12.2 Hct 42.6 MCV 92.4 MCH 26.5 L MCHC 28.6 L RDW 15.4 H Plt Count 245 MPV 8.7 Neut # (Auto) 8.1 H Lymph # (Auto) 1.6 Stearns # (Auto) 0.6 Eos # (Auto) 0.1 Baso # (Auto) 0.0 Absolute Nucleated RBC 0.00 Nucleated RBC % 0.0 Manual Slide Review Indicated WBC Morphology NORMAL APPEARANCE Platelet Estimate NORMAL (130-450,000) Platelet Morphology NORMAL APPEARANCE RBC Morph Micro Appear NORMAL APPEARANCE Sodium 141 Potassium 3.9 Chloride 98 L Carbon Dioxide 33 H Anion Gap 10.0 BUN 12 Creatinine 0.6 Estimated GFR (MDRD) 106 Glucose 148 H Calcium 9.0 Total Bilirubin 0.4 AST 16 ALT 25 Alkaline Phosphatase 67 B-Natriuretic Peptide Total Protein 6.6 L Albumin 3.4 Globulin 3.2 Albumin/Globulin Ratio 1.1 Lipase 42 Serum HCG, Qual NEGATIVE Nasal Adenovirus (PCR) Nasal B. parapertussis DNA (PCR) Nasal Coronavir 229E PCR Nasal Coronavir HKU1 PCR Nasal Coronavir NL63 PCR Nasal Coronavir OC43 PCR Nasal Enterovir/Rhinovir PCR Nasal Influenza B PCR Nasal Influenza A PCR Nasal Parainfluen 1 PCR Nasal Parainfluen 2 PCR Nasal Parainfluen 3 PCR Nasal Parainfluen 4 PCR Nasal RSV (PCR) Nasal B.pertussis DNA PCR Nasal C.pneumoniae (PCR) Rohan Human Metapneumo PCR Nasal M.pneumoniae (PCR) Nasal SARS-CoV-2 (PCR) 02/29/20 02/29/20 14:12 14:35 WBC RBC Hgb Hct MCV MCH MCHC RDW Plt Count MPV Neut # (Auto) Lymph # (Auto) Stearns # (Auto) Eos # (Auto) Baso # (Auto) Absolute Nucleated RBC Nucleated RBC % Manual Slide Review WBC Morphology Platelet Estimate Platelet Morphology RBC Morph Micro Appear Sodium Potassium Chloride Carbon Dioxide Anion Gap BUN Creatinine Estimated GFR (MDRD) Glucose Calcium Total Bilirubin AST ALT Alkaline Phosphatase B-Natriuretic Peptide 23 Total Protein Albumin Globulin Albumin/Globulin Ratio Lipase Serum HCG, Qual Nasal Adenovirus (PCR) NOT DETECTED Nasal B. parapertussis DNA (PCR) NOT DETECTED Nasal Coronavir 229E PCR NOT DETECTED Nasal Coronavir HKU1 PCR NOT DETECTED Nasal Coronavir NL63 PCR NOT DETECTED Nasal Coronavir OC43 PCR NOT DETECTED Nasal Enterovir/Rhinovir PCR NOT DETECTED Nasal Influenza B PCR NOT DETECTED Nasal Influenza A PCR NOT DETECTED Nasal Parainfluen 1 PCR NOT DETECTED Nasal Parainfluen 2 PCR NOT DETECTED Nasal Parainfluen 3 PCR NOT DETECTED Nasal Parainfluen 4 PCR NOT DETECTED Nasal RSV (PCR) NOT DETECTED Nasal B.pertussis DNA PCR NOT DETECTED Nasal C.pneumoniae (PCR) NOT DETECTED Rohan Human Metapneumo PCR NOT DETECTED Nasal M.pneumoniae (PCR) NOT DETECTED Nasal SARS-CoV-2 (PCR) NOT DETECTED - Rads (name of study) CXR Radiology: Final report received (Bernabe and sukhwinder. No definite focal infiltrate. 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 She is on room air without hypoxia. Saturations typically 94 to 98%. She is noted to desaturate to the low 80s when asleep. She does have a history of obstructive sleep apnea. She was at [facility] in mid January for evaluation of this thyroid mass. The plan was to have a total thyroidectomy completed once she had been seen and cleared by cardiology. Due to her homelessness and incorrect phone number [facility] has been unable to reach the patient. I did discuss with Dr. Odom's ear nose throat surgeon at [facility] regarding the third presentation for respiratory distress. In conversation with her she does not feel that the thyroid mass is contributing significantly to her airway as she feels that there was mild to little stenosis seen on their imaging. She does recommend that she continue outpatient follow-up and [facility] is going to help arrange the further testing as they have been given the correct phone number. Here in the emergency department her chest x-ray shows cardiomegaly but no obvious focal infiltrates this is not changed from baseline. Her labs are otherwise reassuring. There is no indication for admission at this time. COVID screening negative. Rapid test was ordered in anticipation of possibel transfer to [facility] She is advised to continue the prednisone that she just filled today that have been described prescribed 2 days ago for reactive airway disease. emergetn return precautions discussed Departure - Departure Disposition: 01 Home, Self Care Clinical Impression: Shortness of breath, Thyroid mass Condition: Stable Record reviewed to determine appropriate education?: Yes Comments: You were seen today in the emergency department for shortness of air. Your chest x-ray does not show pneumonia. Your Covid testing is negative. I have spoken with the surgeons at [facility]. They should be contacting you shortly to help arrange transportation and testing of your heart so that they may continue to plan and schedule the removal of your thyroid gland. Please take the prednisone that was prescribed for you the other day. It may help significantly with your shortness of air. If at any point you feel that your symptoms are worsening return to the emergency department
--- NOTE | 2020-02-29 13:47 | XRAY Report ---
PROCEDURE: Chest 1 View X-Ray INDICATIONS: cough, wheeze TECHNIQUE: One view of the chest was acquired. COMPARISON: 02/21/2020 FINDINGS: Surgical changes and devices: None. Lungs and pleura: Pulmonary vascular congestion is seen. No definite focal infiltrate. No pleural eff usion or pneumothorax. Mediastinum: Mediastinal contours appear normal. Heart size is enlarged. Bones and chest wall: No suspicious bony lesions. Overlying soft tissues appear unremarkable. IMPRESSION: Cardiomegaly and congestion. No definite focal infiltrate. No gross pneumothorax. Reviewed by: Andrew Moscoso MD on 02/29/2020 1:46 PM PST Approved by: Andrew Moscoso MD on 02/29/2020 1:46 PM [facility] Station ID: [id number]
[2020-02-29 14:19] LABS: BASOPHILS % (AUTO) 0.4 %; EOSINOPHILS # (AUTO) 0.1 10^3/uL (0.0-0.7); EOSINOPHILS % (AUTO) 0.7 %; HGB - HEMOGLOBIN 12.2 g/dL (12.0-16.0); LYMPHOCYTES # (AUTO) 1.6 10^3/uL (1.5-3.5); LYMPHOCYTES % (AUTO) 15.3 %; MEAN CORPUSCULAR HEMOGLOBIN 26.5 pg (27.0-31.0); MEAN CORPUSCULAR HGB CONC 28.6 g/dL (32.0-36.0); MEAN CORPUSCULAR VOLUME 92.4 fL (81.0-99.0); MEAN PLATELET VOLUME 8.7 fL (7.9-10.8); MONOCYTES # (AUTO) 0.6 10^3/uL (0.0-1.0); MONOCYTES % (AUTO) 5.5 %; NEUTROPHILS # (AUTO) 8.1 10^3/uL (1.5-6.6); NEUTROPHILS % (AUTO) 77.7 %; PLT - PLATELET COUNT 245 10^3/uL (130-450); RED BLOOD COUNT 4.61 10^6/uL (4.20-5.40); RED CELL DISTRIBUTION WIDTH 15.4 % (12.0-15.0); WHITE BLOOD COUNT 10.4 x10^3/uL (4.8-10.8)
[2020-02-29 14:34] LABS: ALBUMIN 3.4 g/dL (3.2-5.5); ALBUMIN/GLOBULIN RATIO 1.1 (1.0-2.2); BILIRUBIN,TOTAL 0.4 mg/dL (0.2-1.0); CREATININE 0.6 mg/dL (0.4-1.0); TOTAL PROTEIN 6.6 g/dL (6.7-8.2)
[2020-02-29 14:35] LABS: PLATELET ESTIMATE, MANUAL NORMAL (130-450,000) (NORMAL); PLATELET MORPHOLOGY NORMAL APPEARANCE (NORMAL); RBC MORPHOLOGY (MULTIPLE) NORMAL APPEARANCE (NORMAL)
[2020-02-29 14:42] LABS: HCG,QUALITATIVE BLOOD NEGATIVE
[2020-02-29 15:39] LABS: C. PNEUMONIAE- RESP PCR PANEL NOT DETECTED
[2020-02-29 15:43] VITALS: BP 161/92
== END 2020-02-29 17:07 | disposition home or self-care (01) ==
LOC: EDUNIT# → ED 11:13
DX: R06.02 Shortness of breath (principal); E04.9 Nontoxic goiter, unspecified; J45.909 Unspecified asthma, uncomplicated; G47.33 Obstructive sleep apnea (adult) (pediatric); I51.7 Cardiomegaly; E66.01 Morbid (severe) obesity due to excess calories; Z68.44 Body mass index [BMI] 60.0-69.9, adult; Z59.0 Homelessness; Z20.822 Contact with and (suspected) exposure to COVID-19
CPT/HCPCS: 0202U; 36415; 71045; 80053; 83690; 83880; 84703; 85025; 94640; 99284; J7512

== ENCOUNTER 2020-03-07 06:50 | Outpatient (CLI) | payer MEDICAID | END 2020-03-07 06:51 | disposition critical access hospital (66) | LOC: EMS 06:50 | PROVIDERS: ATTEND Surgery | DX: R06.00 Dyspnea, unspecified (principal) | CPT/HCPCS: A0425; A0427; A0999 ==

== ENCOUNTER 2020-03-07 08:27 | Emergency (ER) | payer MEDICAID ==
[2020-03-07 08:42] VITALS: BP 136/90
--- NOTE | 2020-03-07 09:09 | ED Physician Documentation ---
History of Present Illness - Stated complaint Stated Complaint: LT HAND PX - Chief complaint Chief Complaint: Ext Problem - History obtained from History obtained from: Patient - Additonal information Additional information: Patient returns emergency department for the second time today, this time complaining of left hand swelling for 1 month. The patient states that her hand sometimes "cramps up on her" and that it feels like when she has had carpal tunnel syndrome in the past. She states she occasionally gets some pain in the hand. She has not noticed any ongoing swelling of the rest of her upper extremity, though she is rather obese. No swelling on the other side. Patient has had a number of left shoulder joint injuries in the past, including rotator cuff, but denies any history of surgery. She denies any numbness or tingling in the hand. No elbow pain. No other complaints at this time. Review of Systems Ten Systems: 10 systems reviewed and negative Constitutional: reports: Reviewed and negative Eyes: reports: Reviewed and negative Ears: reports: Reviewed and negative Nose: reports: Reviewed and negative Throat: reports: Reviewed and negative Cardiac: reports: Reviewed and negative Respiratory: reports: Reviewed and negative GI: reports: Reviewed and negative : reports: Reviewed and negative Skin: reports: Reviewed and negative Musculoskeletal: reports: Extremity swelling Neurologic: reports: Reviewed and negative Psychiatric: reports: Reviewed and negative Endocrine: reports: Reviewed and negative Immunocompromised: reports: Reviewed and negative PD PAST MEDICAL HISTORY - Past Medical History Cardiovascular: None Respiratory: Asthma, Pneumonia, Sleep apnea, CPAP use Neuro: None Endocrine/Autoimmune: None GI: None 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 : None HEENT: None Psych: Depression Musculoskeletal: None Derm: None - Past Surgical History Past Surgical History: Yes Ortho: Carpal Tunnel surgery /COVERING MACHINE TENDER: Other - Present Medications Home Medications: Ambulatory Orders Medication Instructions Recorded Confirmed Albuterol Sulf [Ventolin Hfa 1 - 2 puffs INH Q4HR PRN #1 inhaler 11/29/19 02/29/20 Inhaler] Amox/Clav 875/125 [Augmentin] 1 each PO Q12H #20 tablet 02/22/20 02/29/20 Albuterol Sulf [Ventolin Hfa 1 - 2 puffs INH Q4HR PRN #1 inhaler 02/27/20 02/29/20 Inhaler] predniSONE [Deltasone] 10 mg PO [id number] #42 tab 02/27/20 02/29/20 - Allergies Allergies/Adverse Reactions: Allergies Allergy/AdvReac Type Severity Reaction Status Date / Time No Known Drug Allergies Allergy Verified 03/07/20 07:18 - Social History Does the pt smoke?: No Smoking Status: Never smoker Does the pt drink ETOH?: No Does the pt have substance abuse?: No - Immunizations Immunizations are current?: Yes - POLST Patient has POLST: No PD ED PE NORMAL - Vitals Vital signs reviewed: Yes - General General: Alert and oriented X 3, No acute distress, Other (Severely obese) - HEENT HEENT: Atraumatic, PERRL, EOMI, Moist mucous membranes - Neck Neck: Supple, no meningeal sign - Cardiac Cardiac: Strong equal pulses - Respiratory Respiratory: No respiratory distress - Abdomen Abdomen: Other (Obese) - Derm Derm: Normal color, Warm and dry, No rash - Extremities Extremities: No deformity, Normal ROM s pain, Other (Patient has nonpitting edema of left hand mildly left distal forearm. No tenderness to palpation over musculature of forearm or upper arm. 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 2-12 intact, No motor deficit, No sensory deficit, Normal speech - Psych Psych: Normal mood, Normal affect Results - Vitals Vitals: Vital Signs - 24 hr 03/07/20 08:31 Temperature 37.1 C Heart Rate 100 Respiratory 20 Rate Blood Pressure 136/90 H O2 Saturation 94 Oxygen O2 Source Room air - Rads (name of study) L hand XR Radiology: Final report received, EMP read indepedently, See rad report PD MEDICAL DECISION MAKING - ED course Complexity details: reviewed old records, reviewed results, re-evaluated patient, considered differential, d/w patient ED course: The patient had chronic symptoms without much pain, and no distinct injury. The x-ray series was unremarkable. I discussed with the patient that she may have some lymphedema from chronic scarring in her left shoulder, but that I am not exactly certain what has caused her hand to swell. On further discussion with the patient, it does sound like the swelling has actually been going on much longer than 1 month. The patient has no tenderness of her arm whatsoever, and the likelihood of DVT is very low. We have discussed the need for follow-up, as well as usual indications for return. I have given the patient the orthopedic clinic contact information. Departure - Departure Disposition: 01 Home, Self Care Clinical Impression: Hand swelling Qualifiers: Laterality: left Qualified Code(s): M79.89 - Other specified soft tissue disorders Condition: Stable Follow-Up: Alexei Murillo PA-C [Provider Admit Priv/Credential] - Comments: It is not exactly clear what is causing your chronic hand swelling. Your x-ray series looks good and shows no evidence of problems with the bones. It is possible that you have some chronic scarring in your shoulder joint from prior injuries, which could be pressing on your veins or lymph vessels and causing the chronic puffiness of your hand. It is hard to say this for sure. You should follow-up with orthopedics for any further concerns about your shoulder, elbow, wrist, or hand. They may have other recommendations for evaluation or treatment of your condition.
--- NOTE | 2020-03-07 09:26 | XRAY Report ---
PROCEDURE: Hand 2 View LT INDICATIONS: pain, swelling TECHNIQUE: 2 views of the hand(s) acquired. COMPARISON: None. FINDINGS: Bones: No fractures or dislocations. No suspicious bony lesions. Soft tissues: No suspicious soft tissue calcifications. No radiopaque foreign body. Marked swelling at the dorsum of the hand. IMPRESSION: No acute osseous abnormality. No radiopaque foreign body. Marked dorsal hand swelling. Reviewed by: Ben Doyle MD on 03/07/2020 9:25 AM [facility] Approved by: Ben Doyle MD on 03/07/2020 9:25 AM [facility] Station ID: [id number]
== END 2020-03-07 09:13 | disposition home or self-care (01) ==
LOC: ED 08:27
DX: M79.89 Other specified soft tissue disorders (principal); R60.0 Localized edema; J44.1 Chronic obstructive pulmonary disease with (acute) exacerbation; Z59.0 Homelessness
CPT/HCPCS: 99283; 99284

== ENCOUNTER 2020-03-10 00:50 | Outpatient (CLI) | payer MEDICAID | END 2020-03-10 00:51 | disposition short-term general hospital (02) | LOC: EMS 00:50 | PROVIDERS: ATTEND Surgery | DX: E04.1 Nontoxic single thyroid nodule (principal); E66.9 Obesity, unspecified; R06.89 Other abnormalities of breathing; J44.1 Chronic obstructive pulmonary disease with (acute) exacerbation | CPT/HCPCS: A0425; A0426 ==

== ENCOUNTER 2020-03-10 06:44 | Outpatient (CLI) | payer MEDICAID | END 2020-03-10 06:45 | disposition critical access hospital (66) | LOC: EMS 06:44 | PROVIDERS: ATTEND Surgery | DX: R06.00 Dyspnea, unspecified (principal) | CPT/HCPCS: A0425; A0427; A0999 ==

== ENCOUNTER 2020-03-10 07:01 | Emergency (ER) | payer MEDICAID ==
[2020-03-10] MEDS ORDERED: IPRATROPIUM/ALBUTEROL 3 ML NEB INH STA (07:08)
[2020-03-10] MEDS ORDERED: methylPREDNISolone SUCCINATE 125 MG/2 ML VIAL IVP STA (07:08)
--- NOTE | 2020-03-10 07:11 | ED Physician Documentation ---
PD HPI DYSPNEA - Stated complaint Stated Complaint: SOA - History obtained from History obtained from: Patient, EMS - Additional information Additional information: 49-year-old woman with history of asthma, sleep apnea, pneumonia. She is ho meless and morbidly obese. Paramedics said she had a history of heart failure, the patient is not aware of any heart problems. She became acutely ill last night with nonproductive cough, shortness of breath. No associated fevers or pedal edema. Paramedics found her to have pulse oximetry is in the mid 80s on room air. Several puffs on MDI prior to arrival and supplemental oxygen gave her some improvement. Last month she was seen for bradycardia here and admitted and subsequently transferred to [place]. 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 : None HEENT: None Psych: Depression Musculoskeletal: None Derm: None - Past Surgical History Past Surgical History: Yes Ortho: Carpal Tunnel surgery /OIL WELL SERVICE OPERATOR: Other - Present Medications Home Medications: Ambulatory Orders Medication Instructions Recorded Confirmed Albuterol Sulf [Ventolin Hfa 1 - 2 puffs INH Q4HR PRN #1 inhaler 02/27/20 03/10/20 Inhaler] predniSONE [Deltasone] 10 mg PO [id number] #42 tab 02/27/20 03/10/20 Fluticasone/Salmeterol [Advair 1 puffs IH BID 03/10/20 03/10/20 250-50 Diskus] - Allergies Allergies/Adverse Reactions: Allergies Allergy/AdvReac Type Severity Reaction Status Date / Time No Known Drug Allergies Allergy Verified 03/10/20 07:10 - Social History Does the pt smoke?: No Smoking Status: Never smoker Does the pt drink ETOH?: No Does the pt have substance abuse?: No - Immunizations Immunizations are current?: Yes - POLST Patient has POLST: No PD ED PE NORMAL - Vitals Vital signs reviewed: Yes - General General: Alert and oriented X 3, Other (Saturation of about 87-88 on room air, better with supplemental oxygen. She is also tachycardic and tachypneic.) - HEENT HEENT: PERRL, EOMI - Neck Neck: Supple, no meningeal sign, No bony TTP - Cardiac Cardiac: No murmur, Other (Tachycardic, regular) - Respiratory Respiratory: Other (Tachypneic with rhonchorous breath sounds throughout, mild expiratory wheezes.) - Abdomen Abdomen: Soft, Non tender - Back Back: No CVA TTP, No spinal TTP - Extremities Extremities: No edema, No calf tenderness / cord - Neuro Neuro: Alert and oriented X 3, Normal speech Results - Vitals Vitals: Vital Signs - 24 hr 03/10/20 03/10/20 03/10/20 07:10 07:17 07:30 Temperature 36.3 C L 36.5 C Heart Rate 120 H 116 H 109 H Respiratory 32 H 30 H 19 Rate Blood Pressure 153/79 H O2 Saturation 87 L 98 03/10/20 03/10/20 03/10/20 07:53 08:30 08:32 Temperature 37.1 C Heart Rate 112 H 104 H 93 Respiratory 24 28 H Rate Blood Pressure 145/84 H 150/92 H O2 Saturation 98 97 03/10/20 03/10/20 03/10/20 08:58 09:37 09:38 Temperature 36.5 C Heart Rate 104 H 103 H 110 H Respiratory 25 H 32 H 29 H Rate Blood Pressure 165/105 H 143/103 H 143/103 H O2 Saturation 95 94 96 03/10/20 03/10/20 03/10/20 10:02 10:31 11:02 Temperature 36.2 C L Heart Rate 100 100 100 Respiratory 26 H 25 H 24 Rate Blood Pressure 152/89 H 152/73 H 149/84 H O2 Saturation 98 96 98 03/10/20 03/10/20 03/10/20 11:33 11:39 12:11 Temperature Heart Rate 102 H 104 H 987 H Respiratory 28 H 24 Rate Blood Pressure 142/93 H 141/95 H O2 Saturation 97 99 03/10/20 03/10/20 03/10/20 12:12 12:30 13:00 Temperature 36.5 C Heart Rate 107 H 100 94 Respiratory 28 H 28 H 21 Rate Blood Pressure 136/75 H 137/85 H O2 Saturation 97 94 01/31/21 01/31/21 01/31/21 13:30 14:00 14:30 Temperature Heart Rate 90 100 100 Respiratory 20 24 22 Rate Blood Pressure 136/86 H 136/80 H 142/78 H O2 Saturation 96 96 99 03/10/20 03/10/20 03/10/20 14:52 15:00 15:30 Temperature 37.3 C Heart Rate 105 H 103 H 101 H Respiratory 24 24 Rate Blood Pressure 125/76 131/84 H O2 Saturation 96 97 03/10/20 03/10/20 03/10/20 16:00 16:41 16:42 Temperature Heart Rate 100 93 87 Respiratory 24 29 H Rate Blood Pressure 130/86 H 135/80 H O2 Saturation 96 96 03/10/20 03/10/20 03/10/20 16:58 17:00 17:22 Temperature Heart Rate 101 H 97 94 Respiratory 28 H 24 Rate Blood Pressure 148/74 H O2 Saturation 95 03/10/20 03/10/20 03/10/20 17:30 18:00 18:30 Temperature Heart Rate 100 100 102 H Respiratory 24 24 24 Rate Blood Pressure 116/70 138/75 H 136/78 H O2 Saturation 95 96 96 Oxygen O2 Source Nasal cannula Oxygen Flow Rate 2 - EKG (time done) 0719 Rate: Rate (enter#) (115) Rhythm: Sinus tachycardia [place]: Normal Intervals: Normal DE QRS: Normal Ischemia: Non specific changes. No: ST elevation c/w ischemia Computer interpretation: Agree with computer - Labs Labs: Laboratory Tests 03/10/20 03/10/20 03/10/20 07:15 07:15 07:15 WBC 10.0 RBC 4.63 Hgb 12.7 Hct 42.8 MCV 92.4 MCH 27.4 MCHC 29.7 L RDW 15.1 H Plt Count 270 MPV 8.9 Neut # (Auto) 8.2 H Lymph # (Auto) 1.2 L [place] # (Auto) 0.5 Eos # (Auto) 0.1 Baso # (Auto) 0.0 Absolute Nucleated RBC 0.00 Nucleated RBC % 0.0 VBG pH VBG pCO2 VBG pO2 VBG HCO3 VBG Total CO2 VBG O2 Saturation VBG Base Excess Sodium 138 Potassium 4.3 Chloride 96 L Carbon Dioxide 34 H Anion Gap 8.0 BUN 15 Creatinine 0.7 Estimated GFR (MDRD) 89 Glucose 259 H Calcium 8.9 Total Bilirubin 0.5 AST 15 ALT 24 Alkaline Phosphatase 70 Troponin I High Sens 7.3 B-Natriuretic Peptide Total Protein 6.5 L Albumin 3.3 Globulin 3.2 Albumin/Globulin Ratio 1.0 Nasal Adenovirus (PCR) Nasal B. parapertussis DNA (PCR) Nasal Coronavir 229E PCR Nasal Coronavir HKU1 PCR Nasal Coronavir NL63 PCR Nasal Coronavir OC43 PCR Nasal Enterovir/Rhinovir PCR Nasal Influenza B PCR Nasal Influenza A PCR Nasal Parainfluen 1 PCR Nasal Parainfluen 2 PCR Nasal Parainfluen 3 PCR Nasal Parainfluen 4 PCR Nasal RSV (PCR) Nasal B.pertussis DNA PCR Nasal C.pneumoniae (PCR) Rohan Human Metapneumo PCR Nasal M.pneumoniae (PCR) Nasal SARS-CoV-2 (PCR) 03/10/20 03/10/20 03/10/20 07:15 07:15 07:15 WBC RBC Hgb Hct MCV MCH MCHC RDW Plt Count MPV Neut # (Auto) Lymph # (Auto) [place] # (Auto) Eos # (Auto) Baso # (Auto) Absolute Nucleated RBC Nucleated RBC % VBG pH 7.285 L VBG pCO2 78.2 H VBG pO2 35.7 VBG HCO3 36.3 H VBG Total CO2 38.7 H VBG O2 Saturation 68.5 VBG Base Excess 6.8 H Sodium Potassium Chloride Carbon Dioxide Anion Gap BUN Creatinine Estimated GFR (MDRD) Glucose Calcium Total Bilirubin AST ALT Alkaline Phosphatase Troponin I High Sens B-Natriuretic Peptide 23 Total Protein Albumin Globulin Albumin/Globulin Ratio Nasal Adenovirus (PCR) NOT DETECTED Nasal B. parapertussis DNA (PCR) NOT DETECTED Nasal Coronavir 229E PCR NOT DETECTED Nasal Coronavir HKU1 PCR NOT DETECTED Nasal Coronavir NL63 PCR NOT DETECTED Nasal Coronavir OC43 PCR NOT DETECTED Nasal Enterovir/Rhinovir PCR DETECTED A Nasal Influenza B PCR NOT DETECTED Nasal Influenza A PCR NOT DETECTED Nasal Parainfluen 1 PCR NOT DETECTED Nasal Parainfluen 2 PCR NOT DETECTED Nasal Parainfluen 3 PCR NOT DETECTED Nasal Parainfluen 4 PCR NOT DETECTED Nasal RSV (PCR) NOT DETECTED Nasal B.pertussis DNA PCR NOT DETECTED Nasal C.pneumoniae (PCR) NOT DETECTED Rohan Human Metapneumo PCR NOT DETECTED Nasal M.pneumoniae (PCR) NOT DETECTED Nasal SARS-CoV-2 (PCR) NOT DETECTED 03/10/20 03/10/20 10:03 16:51 WBC RBC Hgb Hct MCV MCH MCHC RDW Plt Count MPV Neut # (Auto) Lymph # (Auto) [place] # (Auto) Eos # (Auto) Baso # (Auto) Absolute Nucleated RBC Nucleated RBC % VBG pH 7.275 L 7.332 VBG pCO2 76.0 H 55.2 H VBG pO2 90.3 H 61.6 H VBG HCO3 34.5 H 28.6 H VBG Total CO2 36.8 H 30.3 H VBG O2 Saturation 96.8 H 92.3 H VBG Base Excess 5.0 H 1.5 Sodium Potassium Chloride Carbon Dioxide Anion Gap BUN Creatinine Estimated GFR (MDRD) Glucose Calcium Total Bilirubin AST ALT Alkaline Phosphatase Troponin I High Sens B-Natriuretic Peptide Total Protein Albumin Globulin Albumin/Globulin Ratio Nasal Adenovirus (PCR) Nasal B. parapertussis DNA (PCR) Nasal Coronavir 229E PCR Nasal Coronavir HKU1 PCR Nasal Coronavir NL63 PCR Nasal Coronavir OC43 PCR Nasal Enterovir/Rhinovir PCR Nasal Influenza B PCR Nasal Influenza A PCR Nasal Parainfluen 1 PCR Nasal Parainfluen 2 PCR Nasal Parainfluen 3 PCR Nasal Parainfluen 4 PCR Nasal RSV (PCR) Nasal B.pertussis DNA PCR Nasal C.pneumoniae (PCR) Rohan Human Metapneumo PCR Nasal M.pneumoniae (PCR) Nasal SARS-CoV-2 (PCR) - Rads (name of study) 1V CHEST Radiology: EMP read contemporaneously (Limited by body habitus and underpenetration, potential cardiomegaly and small pleural effusion, CHF considered.) CTA Chest Radiology: EMP read contemporaneously (no large PE, limited study; thyromegaly) PD MEDICAL DECISION MAKING - ED course ED course: This is a 49-year-old woman who presents with shortness of breath, likely due to asthma exacerbation and bronchitis by initial evaluation. Differential diagnosis would also include CHF, PE, COVID-19. Work-up here demonstrates basically unintelligible chest x-ray and CT of the chest due to size. Venous gas shows acute retention with a CO2 of 80. She is acidotic. She was placed on BiPAP and given nebs and steroids. No evidence of bacterial infection. Bio fire was done to rule out Covid which was negative for that blood positive for enterovirus. Spoke with Dr. Awan for admission at approximately 8:55 AM. She noted that on the previous visit a large thyroid mass was found and this was one of the reasons the patient was transferred other than the bradycardia. She wondered if this thyroid mass may be contributing to her shortness of breath, and requests that we look at records from her discharge summary from [place] to see what the plan was there as she may exceed the capabilities of this facility if she needs to have this mass addressed. Discharge summary dated January 26, 2020 from [facility] was received and reviewed. As far as the goiter, ENT and cardiothoracic surgery were consulted there. ENT did a laryngoscope and confirmed the vocal cords and trachea to be patent. Plan was for total thyroidectomy either this month or next. I presume the patient was lost to follow-up given the combination of some Social issues/homelessness as well as issues with comprehension. [facility] was called for transfer, but there are beds are tight so we were notified there would probably be a significant delay to transfer. We were able to wean him her off of BiPAP during the course of the day. She seemed to be okay off of BiPAP for the next hour and a half. Still waiting on a bed in [place]. Care to overnight ED physician to monitor and send to higher level of care when bed available. - Critical Care Time(min): 45 Time Includes: Direct patient care, Review records, Reassess patient, Document care, Coordinate care, Medical consult Data interpretation: Labs, Pulse ox Procedures included in critical care time: Peripheral IV Procedures excluded from critical care time: EKG Departure - Departure Disposition: 02 Transfer Acute Care Hosp Clinical Impression: Rhinovirus infection, Morbid obesity with BMI of 60.0-69.9, adult, Thyroid mass Acute and chronic respiratory failure Qualifiers: Respiratory failure complication: hypoxia and hypercapnia Qualified Code(s): J96.21 - Acute and chronic respiratory failure with hypoxia Asthma exacerbation Qualifiers: Asthma severity: severe Asthma persistence: persistent Qualified Code(s): J45.51 - Severe persistent asthma with (acute) exacerbation Condition: Serious
[2020-03-10 07:36] LABS: ALBUMIN 3.3 g/dL (3.2-5.5); BILIRUBIN,TOTAL 0.5 mg/dL (0.2-1.0); CALCIUM 8.9 mg/dL (8.5-10.3); CREATININE 0.7 mg/dL (0.4-1.0); TOTAL PROTEIN 6.5 g/dL (6.7-8.2)
[2020-03-10 07:41] LABS: BASOPHILS % (AUTO) 0.3 %; EOSINOPHILS # (AUTO) 0.1 10^3/uL (0.0-0.7); EOSINOPHILS % (AUTO) 0.6 %; HGB - HEMOGLOBIN 12.7 g/dL (12.0-16.0); LYMPHOCYTES # (AUTO) 1.2 10^3/uL (1.5-3.5); LYMPHOCYTES % (AUTO) 11.8 %; MEAN CORPUSCULAR HEMOGLOBIN 27.4 pg (27.0-31.0); MEAN CORPUSCULAR HGB CONC 29.7 g/dL (32.0-36.0); MEAN CORPUSCULAR VOLUME 92.4 fL (81.0-99.0); MEAN PLATELET VOLUME 8.9 fL (7.9-10.8); MONOCYTES # (AUTO) 0.5 10^3/uL (0.0-1.0); MONOCYTES % (AUTO) 4.8 %; NEUTROPHILS # (AUTO) 8.2 10^3/uL (1.5-6.6); PLT - PLATELET COUNT 270 10^3/uL (130-450); RED BLOOD COUNT 4.63 10^6/uL (4.20-5.40); RED CELL DISTRIBUTION WIDTH 15.1 % (12.0-15.0)
[2020-03-10 07:43] LABS: VBG BASE EXCESS 6.8 mmol/L (-2 - +2); VBG PCO2 78.2 mmHg (41-51); VBG PH 7.285 (7.31-7.41); VBG PO2 35.7 mmHg (25-47); VBG TOTAL CO2 38.7 mmol/L (24-29)
[2020-03-10] MEDS ORDERED: IOVERSOL 320 100 ML VIAL IVP ONE ×2 (07:55→08:43)
--- NOTE | 2020-03-10 07:59 | XRAY Report ---
PROCEDURE: Chest 1 View X-Ray INDICATIONS: dyspnea, cough TECHNIQUE: One view of the chest was acquired. COMPARISON: 02/19/2020, 02/22/2020 FINDINGS: This study is limited by body habitus and underpenetration. Surgical changes and devices: None. Lungs and pleura: No pneumothorax is seen. There is a likely small left-sided pleural effusion. Demo nstrate mild interstitial prominence. Mediastinum: Mediastinal contours appear normal. Heart size is at least moderately enlarged. Bones and chest wall: No suspicious bony lesions. Overlying soft tissues appear unremarkable. IMPRESSION: Cardiomegaly and interstitial prominence, with a likely small left-sided pleural effusion. Please con legal transcriptionist CHF. Reviewed by: Chinedu Shi MD on 03/10/2020 6:58 AM [facility] Approved by: Chinedu Shi MD on 03/10/2020 6:58 AM [facility] Station ID: [id number]
[2020-03-10 08:26] LABS: C. PNEUMONIAE- RESP PCR PANEL NOT DETECTED
--- NOTE | 2020-03-10 08:39 | CT Report ---
PROCEDURE: ANGIO CHEST W/WO INDICATIONS: DYSPNEA, PE PROTOCOL CONTRAST: IV CONTRAST: Optiray 320 ml: 100 PO CONTRAST: *NO PO CONTRAST TECHNIQUE: After the administration of intravenous contrast, 2 mm thick sections acquired from the pulmonary api laura to the posterior costophrenic angles. 3-dimensional maximum intensity projection (MIP) coronal a nd sagittal reformats were then acquired through the thorax. For radiation dose reduction, the follow ing was used: automated exposure control, adjustment of mA and/or kV according to patient size. COMPARISON: Plain film 03/10/2020. Ultrasound 07/28/2016. FINDINGS: Image quality: Limited by body habitus with streak artifact and quantum mottle artifact Pulmonary arteries: Pulmonary arteries are normal in size, and demonstrate no large or central pulmo nary emboli. Lungs and pleura: The trachea is narrowed. Lungs are clear. No pleural effusions or pneumothorax. Central and peripheral airways are patent. Mediastinum: Prominent pericardial fat can be seen. Heart size is moderately enlarged, without peric ardial effusion. No mediastinal or hilar adenopathy. Thoracic aorta is normal in caliber and enhanc ement. Esophagus is normal in caliber, without hiatal hernia. Bones and chest wall: No suspicious bony lesions. Prominent bony degenerative changes are seen. Ribs and thoracic spine appear intact throughout. The thyroid is grossly enlarged, with left and right p osterior projections. No axillary or supraclavicular adenopathy. Abdomen: Visualized upper abdominal solid organs appear normal in the early arterial phase of enhanc ement. IMPRESSION: The study is highly limited by body habitus and streak artifact. To the limits of this examination, no large or central pulmonary embolism can be seen. The thyroid is enlarged, with associated narrowing of the trachea. This patient has a previously demo nstrated enlarged thyroid by ultrasound. Reviewed by: Chinedu Shi MD on 03/10/2020 7:37 AM [facility] Approved by: Chinedu Shi MD on 03/10/2020 7:37 AM [facility] Station ID: [id number]
[2020-03-10 10:21] LABS: VBG PH 7.275 (7.31-7.41); VBG PO2 90.3 mmHg (25-47); VBG TOTAL CO2 36.8 mmol/L (24-29)
[2020-03-10] MEDS: ALBUTEROL NEB 2.5 MG/3 ML INH SCH ×3 (12:11→20:23)
[2020-03-10 16:58] LABS: VBG PCO2 55.2 mmHg (41-51); VBG PH 7.332 (7.31-7.41)
[2020-03-10 16:59] LABS: VBG BASE EXCESS 1.5 mmol/L (-2 - +2); VBG PO2 61.6 mmHg (25-47); VBG TOTAL CO2 30.3 mmol/L (24-29)
--- NOTE | 2020-03-10 19:57 | ED Physician Documentation ---
ED Addendum - Addendum Addendum: 03/10/20 19:56 Patient endorsed to me by Dr. Powell pending transfer. [place] hospitalist Dr. Sinha called back and d/w our PLATE MA[employer]ER [place] that he needs his CT surgeon on board given her thyroid mass pressing on the trachea. will d/w CT surgery and call back. 03/10/20 20:26 program and research coordinator called with an update stating Dr. Sinha is in conversation with CT surgery and ENT in regards to who can take this patient for surgery of thyroid mass with pressure on the trachea. José Manuel is requesting we admit here temporarily, however Dr. Powell already spoke with our hospitalist and the case was declined for admission given that we do not have subspecialty surgical service here. 03/10/20 21:59 d/w Dr. Bai, ED physician who accepts the patient for ED-ED transfer.
[2020-03-10 22:33] VITALS: BP 124/68
== END 2020-03-10 23:03 | disposition short-term general hospital (02) ==
LOC: EDUNIT# → ED 07:01
DX: E07.9 Disorder of thyroid, unspecified (principal); B34.8 Other viral infections of unspecified site; J96.21 Acute and chronic respiratory failure with hypoxia; J45.51 Severe persistent asthma with (acute) exacerbation; E66.01 Morbid (severe) obesity due to excess calories; Z68.44 Body mass index [BMI] 60.0-69.9, adult; Z20.822 Contact with and (suspected) exposure to COVID-19
CPT/HCPCS: 0202U; 36415; 71045; 71275; 80053; 82803; 83880; 84484; 85025; 93005; 94640; 94660; 96374; 99285; 99291; Q9967

== ENCOUNTER 2020-04-02 16:48 | Outpatient (CLI) | payer MEDICAID | END 2020-04-02 16:49 | disposition short-term general hospital (02) | LOC: EMS 16:48 | PROVIDERS: ATTEND Emergency Medicine | DX: R06.00 Dyspnea, unspecified (principal); R05 Cough; R07.89 Other chest pain | CPT/HCPCS: A0425; A0429; A0999 ==

== ENCOUNTER 2020-04-02 17:09 | Emergency (ER) | payer MEDICAID ==
--- NOTE | 2020-04-02 17:16 | ED Physician Documentation ---
PD HPI DYSPNEA - Stated complaint Stated Complaint: SOA - History obtained from History obtained from: Patient - History of Present Illness Timing - onset: How many days ago (few) Timing - onset during: Light activity Timing - duration: Days (few) Timing - details: Gradual onset, Still present Inciting event(s): URI Improved by: Inhaler/neb, Rest Worsened by: Exertion, Coughing Associated symptoms: Cough (with yellow sputum), Wheezing. No: Fever, Hemoptysis Similar symptoms before: Diagnosis (asthma with URI episodes) Review of Systems Constitutional: denies: Fever, Chills Nose: reports: Congestion. denies: Rhinorrhea / runny nose Throat: denies: Sore throat Cardiac: denies: Chest pain / pressure Respiratory: reports: Dyspnea, Cough, Wheezing GI: reports: Nausea. denies: Abdominal Pain, Vomiting, Diarrhea Musculoskeletal: denies: Extremity swelling Neurologic: reports: Generalized weakness. 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 : None HEENT: None Psych: Depression Musculoskeletal: None Derm: None - Past Surgical History Past Surgical History: Yes Ortho: Carpal Tunnel surgery /INNERSOLE MAKER: Other - Present Medications Home Medications: Ambulatory Orders Medication Instructions Recorded Confirmed Albuterol Sulf [Ventolin Hfa 1 - 2 puffs INH Q4HR PRN #1 inhaler 02/27/20 04/02/20 Inhaler] predniSONE [Deltasone] 10 mg PO [id number] #42 tab 02/27/20 04/02/20 Fluticasone/Salmeterol [Advair 1 puffs IH BID 03/10/20 04/02/20 250-50 Diskus] Cyclobenzaprine HCl 10 mg PO TID PRN 04/02/20 04/02/20 Glipizide 2.5 mg PO DAILY PM 04/02/20 04/02/20 Senna [Senokot] 8.6 mg PO DAILY PRN 04/02/20 04/02/20 Torsemide 20 mg PO DAILY 04/02/20 04/02/20 - Allergies Allergies/Adverse Reactions: Allergies Allergy/AdvReac Type Severity Reaction Status Date / Time No Known Drug Allergies Allergy Verified 04/02/20 22:42 - Social History Does the pt smoke?: No Smoking Status: Never smoker Does the pt drink ETOH?: No Does the pt have substance abuse?: No - Immunizations Immunizations are current?: Yes - POLST Patient has POLST: No PD ED PE NORMAL - Vitals Vital signs reviewed: Yes - General General: Alert and oriented X 3, No acute distress, Well developed/nourished - HEENT HEENT: Ears normal, Moist mucous membranes, Pharynx benign - Neck Neck: Supple, no meningeal sign, No adenopathy - Cardiac Cardiac: RRR (mild tachycardia), No murmur - Respiratory Respiratory: No respiratory distress, Other (some exp wheezing noted diffuse. Prolonged exp phase. no coarse sounds. ) - Abdomen Abdomen: Soft, Non tender, Other (very obese) - Derm Derm: Normal color, Warm and dry - Extremities Extremities: No edema, No calf tenderness / cord Results - Vitals Vitals: Vital Signs - 24 hr 04/02/20 04/02/20 04/02/20 17:09 18:20 19:16 Temperature 36 C L Heart Rate 102 H 91 90 Respiratory 24 27 H 25 H Rate Blood Pressure 160/102 H 130/75 O2 Saturation 95 98 Oxygen O2 Source Room air Oxygen Flow Rate 3 - Rads (name of study) chest xray Radiology: Prelim report reviewed (no infiltrates), See rad report PD MEDICAL DECISION MAKING - ED course Complexity details: considered differential, d/w patient Departure - Departure Disposition: 01 Home, Self Care Clinical Impression: Bronchitis Dyspnea Qualifiers: Dyspnea type: shortness of breath Qualified Code(s): R06.02 - Shortness of breath Exacerbation of asthma Qualifiers: Asthma severity: mild Asthma persistence: intermittent Qualified Code(s): J45.21 - Mild intermittent asthma with (acute) exacerbation Condition: Stable Record reviewed to determine appropriate education?: Yes Comments: Is your albuterol inhaler or nebulizer 3 or 4 times a day regularly for the next several days then as needed. Tessalon if needed for cough. Add Tylenol if needed for pains. Amoxicillin 3 times a day for possible bronchitis associated with your asthma flareup. There is no signs of pneumonia on x-ray at this time. Recheck if not improved well over the next several days and resolved within the week. Return if worse. Discharge Date/Time: 04/02/20 19:19
[2020-04-02] MEDS ORDERED: IPRATROPIUM/ALBUTEROL 3 ML NEB INH STA (17:54)
[2020-04-02] MEDS ORDERED: CHERRY SYRUP 10 ML UDC PO ONE (17:55)
[2020-04-02] MEDS ORDERED: DEXAMETHASONE 10 MG/ML VIAL PO STA (17:55)
[2020-04-02] MEDS ORDERED: HYDROcod/ACETAM 5/325 MG TABLET PO STA (17:55)
[2020-04-02] MEDS ORDERED: AMOXICILLIN 250 MG CAPSULE PO STA (18:50)
--- NOTE | 2020-04-02 18:58 | XRAY Report ---
PROCEDURE: Chest 1 View X-Ray INDICATIONS: dyspnea, cough TECHNIQUE: One view of the chest was acquired. COMPARISON: Chest x-ray 03/10/2020, CT chest 03/10/2020 FINDINGS: Significantly limited exam secondary to patient body habitus. Surgical changes and devices: None. Lungs and pleura: No pleural effusions or pneumothorax. Lungs are clear. Mediastinum: Mediastinal contours appear normal. Heart size is enlarged. Bones and chest wall: No suspicious bony lesions. Overlying soft tissues appear unremarkable. IMPRESSION: No acute pulmonary process. It is noted this is a limited exam secondary to patient body habitus. Reviewed by: Christy Partida MD on 04/02/2020 5:57 PM [facility] Approved by: Christy Partida MD on 04/02/2020 5:57 PM [facility] Station ID: [id number]
[2020-04-02 19:17] VITALS: BP 130/75
== END 2020-04-02 19:19 | disposition home or self-care (01) ==
LOC: EDUNIT# → ED 17:09
DX: J40 Bronchitis, not specified as acute or chronic (principal); J45.21 Mild intermittent asthma with (acute) exacerbation
CPT/HCPCS: 99284

== ENCOUNTER 2020-04-02 22:35 | Emergency (ER) | payer MEDICAID ==
[2020-04-02 23:43] LABS: BASOPHILS % (AUTO) 0.2 %; EOSINOPHILS % (AUTO) 0.1 %; HCT - HEMATOCRIT 41.3 % (37.0-47.0); HGB - HEMOGLOBIN 12.6 g/dL (12.0-16.0); LYMPHOCYTES # (AUTO) 0.5 10^3/uL (1.5-3.5); LYMPHOCYTES % (AUTO) 4.5 %; MEAN CORPUSCULAR HEMOGLOBIN 27.8 pg (27.0-31.0); MEAN CORPUSCULAR HGB CONC 30.5 g/dL (32.0-36.0); MEAN PLATELET VOLUME 8.9 fL (7.9-10.8); MONOCYTES # (AUTO) 0.1 10^3/uL (0.0-1.0); MONOCYTES % (AUTO) 0.7 %; NEUTROPHILS # (AUTO) 10.1 10^3/uL (1.5-6.6); NEUTROPHILS % (AUTO) 94.1 %; PLT - PLATELET COUNT 261 10^3/uL (130-450); RED BLOOD COUNT 4.54 10^6/uL (4.20-5.40); RED CELL DISTRIBUTION WIDTH 15.7 % (12.0-15.0); WHITE BLOOD COUNT 10.7 x10^3/uL (4.8-10.8)
[2020-04-03 00:07] LABS: ALBUMIN 3.4 g/dL (3.2-5.5); ALBUMIN/GLOBULIN RATIO 1.2 (1.0-2.2); BILIRUBIN,TOTAL 0.5 mg/dL (0.2-1.0); CALCIUM 8.9 mg/dL (8.5-10.3); CREATININE 0.6 mg/dL (0.4-1.0); POTASSIUM 4.4 mmol/L (3.5-5.0); TOTAL PROTEIN 6.3 g/dL (6.7-8.2)
[2020-04-03] MEDS ORDERED: KETOROLAC 30 MG/ML VIAL IVP STA (00:14)
--- NOTE | 2020-04-03 00:31 | ED Physician Documentation ---
PD HPI CHEST PAIN - Stated complaint Stated Complaint: CHEST PX - Chief complaint Chief Complaint: Cardiac - History obtained from History obtained from: Patient - History of Present Illness Timing - onset: How many hours ago (approximately 1 hour ago) Timing - onset during: Rest Timing - details: Gradual onset, Intermittant Pain level max: 4 Pain level now: 2 Quality: Pain Location: Substernal Radiation: Other (does not radiate) Improved by: Nothing Worsened by: Other (no exacerbating factors) Associated symptoms: Shortness of air, Cough (mild, moist but not productive). No: Nausea, Vomiting, Feeling faint / dizzy, Palpitations Recently seen: Emergency Dept - Additional information Additional information: patient was evaluated in this emergency department a few hours ago for shortness of breath. Blood test and a chest x-ray were performed, and she was started on an antibiotic for clinical suspicion of a lower respiratory tract infection. There apparently was no clear evidence of infiltrate on her chest x-ray, but her body habitus limits the ability to interpret the study. patient was discharged to the waiting room but could not procure a ride back to the senior living at which she is staying. She now checks back into the emergency department complaining of approximately one hour of episodic midline chest pain with no apparent exacerbating or ameliorating factors. Review of Systems Constitutional: reports: Reviewed and negative Cardiac: reports: Chest pain / pressure, Pedal edema. denies: Palpitations Respiratory: reports: Dyspnea, Cough. 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: Other - Present Medications Home Medications: Ambulatory Orders Medication Instructions Recorded Confirmed Albuterol Sulf [Ventolin Hfa 1 - 2 puffs INH Q4HR PRN #1 inhaler 02/27/20 04/02/20 Inhaler] predniSONE [Deltasone] 10 mg PO [id number] #42 tab 02/27/20 04/02/20 Fluticasone/Salmeterol [Advair 1 puffs IH BID 03/10/20 04/02/20 250-50 Diskus] Cyclobenzaprine HCl 10 mg PO TID PRN 04/02/20 04/02/20 Glipizide 2.5 mg PO DAILY PM 04/02/20 04/02/20 Senna [Senokot] 8.6 mg PO DAILY PRN 04/02/20 04/02/20 Torsemide 20 mg PO DAILY 04/02/20 04/02/20 - Allergies Allergies/Adverse Reactions: Allergies Allergy/AdvReac Type Severity Reaction Status Date / Time No Known Drug Allergies Allergy Verified 04/02/20 22:42 - Social History Does the pt smoke?: No Smoking Status: Never smoker Does the pt drink ETOH?: No Does the pt have substance abuse?: No - Immunizations Immunizations are current?: Yes - POLST Patient has POLST: No PD ED PE NORMAL - Vitals Vital signs reviewed: Yes - General General: Alert and oriented X 3, No acute distress, Other (morbidly obese) - Neck Neck: Supple, no meningeal sign - Cardiac Cardiac: No murmur - Abdomen Abdomen: Soft, Non tender - Derm Derm: Normal color, Warm and dry PD ED PE EXPANDED - Neck Neck: Thyroid enlarged / mass, No tenderness - Cardiac Cardiac: Tachy, Regular Rhythm - Respiratory Respiratory: Rhonchi (scattered rhonchi with trace end-expiratory wheezing) - Extremities Extremities: Pedal edema bilateral Results - Vitals Vitals: Vital Signs - 24 hr 04/02/20 04/02/20 04/02/20 22:42 22:55 23:43 Temperature 36.6 C Heart Rate 120 H 100 Respiratory 24 16 Rate Blood Pressure 126/77 143/82 H O2 Saturation 90 L 93 96 04/03/20 04/03/20 04/03/20 00:45 00:54 02:00 Temperature 36.2 C L 36.8 C Heart Rate 94 106 H Respiratory 22 20 Rate Blood Pressure 155/86 H 124/72 O2 Saturation 78 L 92 89 L 04/03/20 04/03/20 04/03/20 03:44 04:51 05:19 Temperature 37.2 C 37.0 C 36.5 C Heart Rate 102 H 104 H 94 Respiratory 20 20 20 Rate Blood Pressure 122/66 148/84 H 130/67 O2 Saturation 91 L 93 91 L Oxygen O2 Source Room air - EKG (time done) No standard instances Rate: Rate (enter#) (113) Rhythm: Sinus tachycardia, Normal P waves [place]: Normal Intervals: Normal NV, QRS normal QRS: Normal Ischemia: Normal ST segments - Labs Labs: Laboratory Tests 04/02/20 04/02/20 04/02/20 23:38 23:38 23:38 WBC 10.7 RBC 4.54 Hgb 12.6 Hct 41.3 MCV 91.0 MCH 27.8 MCHC 30.5 L RDW 15.7 H Plt Count 261 MPV 8.9 Neut # (Auto) 10.1 H Lymph # (Auto) 0.5 L Grainger # (Auto) 0.1 Eos # (Auto) 0.0 Baso # (Auto) 0.0 Absolute Nucleated RBC 0.00 Nucleated RBC % 0.0 Sodium 136 Potassium 4.4 Chloride 98 L Carbon Dioxide 29 Anion Gap 9.0 BUN 13 Creatinine 0.6 Estimated GFR (MDRD) 106 Glucose 279 H Calcium 8.9 Total Bilirubin 0.5 AST 20 ALT 32 Alkaline Phosphatase 64 Troponin I High Sens 3.3 B-Natriuretic Peptide Total Protein 6.3 L Albumin 3.4 Globulin 2.9 Albumin/Globulin Ratio 1.2 Lipase 32 04/02/20 23:38 WBC RBC Hgb Hct MCV MCH MCHC RDW Plt Count MPV Neut # (Auto) Lymph # (Auto) Grainger # (Auto) Eos # (Auto) Baso # (Auto) Absolute Nucleated RBC Nucleated RBC % Sodium Potassium Chloride Carbon Dioxide Anion Gap BUN Creatinine Estimated GFR (MDRD) Glucose Calcium Total Bilirubin AST ALT Alkaline Phosphatase Troponin I High Sens B-Natriuretic Peptide 16 Total Protein Albumin Globulin Albumin/Globulin Ratio Lipase PD MEDICAL DECISION MAKING - ED course Complexity details: reviewed old records, reviewed results, re-evaluated patient, considered differential, d/w patient ED course: reassuring blood tests including normal BNP and high sensitivity troponin. her chest pain resolved early in ED stay after toradol given. she was given a dose of lasix as well for possible fluid overload/pulmonary edema; although her bnp is normal, she did gradually have significant improvement in her dyspnea that correlated with her diuresis. I reviewed records from [facility] (inpatient stays in January 2020 as well as beginning of March 2020). Within these records is a recommendation to target oxygen saturation of 89-92% due to hypercarbia. she is held for several hours in ED as her dyspnea continued to improve, eventually maintaining oxygen saturations in low-mid 90s on room air. she has an oxygen tank that she can use if she gets dyspneic with exertion. she was discharged once the buses were running and at discharge, she was ambulating without assistance and without significant dyspnea. denies chest pain prior to discharge. she was given 125mg solumedrol during ED stay, as well Departure - Departure Disposition: 01 Home, Self Care Clinical Impression: Dyspnea Qualifiers: Dyspnea type: shortness of breath Qualified Code(s): R06.02 - Shortness of breath Chest pain Qualifiers: Chest pain type: unspecified Qualified Code(s): R07.9 - Chest pain, unspecified Condition: Good Instructions: ED Chest Pain Atypical Unkn Cause, ED Dyspnea Shortness of Breath Discharge Date/Time: 04/03/20 05:38
[2020-04-03] MEDS ORDERED: FUROSEMIDE 40 MG/4 ML VIAL IVP STA (00:47)
[2020-04-03] MEDS ORDERED: methylPREDNISolone SUCCINATE 125 MG/2 ML VIAL IVP STA (04:58)
[2020-04-03 05:21] VITALS: BP 130/67
== END 2020-04-03 05:38 | disposition home or self-care (01) ==
LOC: ED 22:35
DX: R06.02 Shortness of breath (principal); R07.9 Chest pain, unspecified; J40 Bronchitis, not specified as acute or chronic; J45.21 Mild intermittent asthma with (acute) exacerbation
CPT/HCPCS: 36415; 71045; 80053; 83690; 83880; 84484; 85025; 93005; 96374; 96375; 99284; A9270

== ENCOUNTER 2020-04-04 04:22 | Outpatient (CLI) | payer MEDICAID | END 2020-04-04 04:23 | disposition critical access hospital (66) | LOC: EMS 04:22 | DX: M25.512 Pain in left shoulder (principal); M25.572 Pain in left ankle and joints of left foot; M25.552 Pain in left hip | CPT/HCPCS: A0425; A0429; A0999 ==

== ENCOUNTER 2020-04-04 04:44 | Emergency (ER) | payer MEDICAID ==
--- NOTE | 2020-04-04 05:52 | ED Physician Documentation ---
PD HPI Fall - Stated complaint Stated Complaint: LEFT SHOULDER, ANKLE PAIN S/P FALL - Chief complaint Chief Complaint: Ext Problem - History obtained from History obtained from: Patient - History of Present Illness Mechanism of injury: Tripped Fall distance: Standing position Where injury occurred: Home Timing - onset: Today Injury(ies) location: Left Uppper Extremity, Left Lower Extremity Quality of pain: Pain, Throbbing Associated symptoms: No: LOC, AMS, Amnesia, Seizures, Ear drainage, Nasal drainage, Neck pain, Weakness, Paresthesias, Dyspnea, Nausea / vomiting, Hematemesis, Abdominal distension Symptoms improve with: Rest Worsens with: Movement, Palpation Contributing factors: No: Anticoagulated Similar symptoms before: Diagnosis (sprains and contusions) Recently seen: Emergency Dept - Additional information Additional information: 49-year-old homeless female well-known to the urgency department for numerous falls and lung disease. She has had 2 falls in the past 2 days and she is complaining of pain in the left ankle the left shoulder and the left hand. She is able to move all of these joints without difficulty but is having some pain with weightbearing. She is taken the ambulance to the emergency department from the senior living this morning for evaluation. Review of Systems Constitutional: denies: Fever Eyes: denies: Decreased vision Ears: denies: Ear pain Nose: denies: Congestion GI: denies: Vomiting, Diarrhea Skin: denies: Rash Musculoskeletal: reports: Extremity pain, Joint pain, Pain with weight bearing. 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 HEENT: None Psych: Depression Musculoskeletal: None Derm: None - Past Surgical History Past Surgical History: Yes Ortho: Carpal Tunnel surgery /MARKETING DEVELOPER: Other - Present Medications Home Medications: Ambulatory Orders Medication Instructions Recorded Confirmed Albuterol Sulf [Ventolin Hfa 1 - 2 puffs INH Q4HR PRN #1 inhaler 02/27/20 04/04/20 Inhaler] predniSONE [Deltasone] 10 mg PO [id number] #42 tab 02/27/20 04/04/20 Fluticasone/Salmeterol [Advair 1 puffs IH BID 03/10/20 04/04/20 250-50 Diskus] Cyclobenzaprine HCl 10 mg PO TID PRN 04/02/20 04/04/20 Glipizide 2.5 mg PO DAILY PM 04/02/20 04/04/20 Senna [Senokot] 8.6 mg PO DAILY PRN 04/02/20 04/04/20 Torsemide 20 mg PO DAILY 04/02/20 04/04/20 - Allergies Allergies/Adverse Reactions: Allergies Allergy/AdvReac Type Severity Reaction Status Date / Time No Known Drug Allergies Allergy Verified 04/04/20 04:54 - Social History Does the pt smoke?: No Smoking Status: Never smoker Does the pt drink ETOH?: No Does the pt have substance abuse?: No - Immunizations Immunizations are current?: Yes - POLST Patient has POLST: No PD ED PE NORMAL - Vitals Vital signs reviewed: Yes (Tachycardic and hypertensive) - General General: Alert and oriented X 3, No acute distress, Well developed/nourished - HEENT HEENT: Atraumatic, PERRL, EOMI - Neck Neck: Supple, no meningeal sign, No bony TTP - Respiratory Respiratory: No respiratory distress - Derm Derm: Normal color, Warm and dry, No rash - Extremities Extremities: No deformity, No edema, Other (Point tenderness to the left anterior shoulder with normal range of motion. Point tenderness to the dorsum of the left hand with normal range of motion and flexion extension at the wrist. The left ankle is with tenderness to the lateral malleolus. Distal neurova scular components are intact.) - Neuro Neuro: Alert and oriented X 3, scientist immunology 2-12 intact, No motor deficit, No sensory deficit, Normal speech Eye Opening: Spontaneous Motor: Obeys Commands Verbal: Oriented GCS Score: 15 - Psych Psych: Normal mood, Normal affect Results - Vitals Vitals: Vital Signs - 24 hr 04/04/20 04/04/20 04/04/20 04:48 04:52 06:37 Temperature 36.8 C 36.8 C 36.8 C Heart Rate 103 H 101 H 72 Respiratory 17 17 16 Rate Blood Pressure 126/87 H 126/88 H 130/72 O2 Saturation 94 94 97 Oxygen O2 Source Room air - Rads (name of study) Left ankle Radiology: Prelim report reviewed (Impression: 1. No acute fracture or dislocation. Osteoarthritis. Soft tissue edema lateral aspect of the ankle.), EMP read indepedently, See rad report Left hand Radiology: Prelim report reviewed (Impression: No acute fracture or dislocation.), EMP read indepedently, See rad report Left shoulder Radiology: Prelim report reviewed (Impression: 1. No displaced fracture or acute dislocation. Crescentic lucency along the curvature of the humeral head is likely projectional. If clinical presentation suggest occult fracture, this may be further evaluated with MRI. Groundglass opacity within the left lower lobe. ), Final report received (. Although this may be secondary to low lung volumes, underlying infection or pulmonary edema can have this appearance.), EMP read indepedently, EMP read contemporaneously Departure - Departure Disposition: 01 Home, Self Care Clinical Impression: Contusion of left shoulder Qualifiers: Encounter type: initial encounter Qualified Code(s): S40.012A - Contusion of left shoulder, initial encounter Contusion of left hand Qualifiers: Encounter type: initial encounter Qualified Code(s): S60.222A - Contusion of left hand, initial encounter Ankle sprain Qualifiers: Encounter type: initial encounter Involved ligament of ankle: anterior talofibular ligament Laterality: left Qualified Code(s): S93.492A - Sprain of other ligament of left ankle, initial encounter Condition: Stable Instructions: ED Sprain Ankle W X Ray, ED Sprain Hand, ED Contusion Shoulder Follow-Up: [facility] [Provider Group] Discharge Date/Time: 04/04/20 06:37
[2020-04-04 06:39] VITALS: BP 130/72
--- NOTE | 2020-04-04 08:10 | XRAY Report ---
PROCEDURE: Shoulder 3 View LT INDICATIONS: fall anterior pain TECHNIQUE: 3 views of the shoulder were acquired. COMPARISON: None. FINDINGS: Bones: The body habitus is large, inspiratory volume is reduced., Quality of visualization is consid ered significantly limited. There is at least degenerative osteoarthritic change that is moderately s evere at the AC joint, and no dislocation is suspected. No fractures or dislocations. No suspicious bony lesions. Visualized ribs appear intact. Soft tissues: No suspicious soft tissue calcifications. IMPRESSION: This study is significantly limited in ability to detect a nondisplaced fracture. Modera tely severe AC joint osteoarthritis present. If there are signs and symptoms of fracture not accurate ly detected by this limited study follow-up by CT scanning likely would be the appropriate next step. Given body habitus MR scanning option is likely not available. Reviewed by: Danielito Og MD on 04/04/2020 8:08 AM [facility] Approved by: Danielito Og MD on 04/04/2020 8:08 AM [facility] Station ID: [id number]
--- NOTE | 2020-04-04 08:15 | XRAY Report ---
PROCEDURE: Ankle 3 View LT INDICATIONS: fall lateral pain TECHNIQUE: 3 views of the ankle were acquired. COMPARISON: Ankle 05/30/17 Bones: No fractures or dislocations, and there has been expected progression of osteoarthritic matos e over the forefoot and ankle region, and mild worsening of pes planus. A plantar fascial insertion s pur also has become slightly more prominent over time. No acute trauma found. Ankle mortise is khurram lly aligned. No suspicious bony lesions. Soft tissues: No tibiotalar joint effusion. Achilles tendon appears normal. IMPRESSION: Mild worsening of degenerative osteoarthritic change and pes planus at the left foot fro 2017. No acute trauma found. Reviewed by: Danielito Og MD on 04/04/2020 8:14 AM PST Approved by: Danielito Og MD on 04/04/2020 8:14 AM PST Station ID: [id number]
--- NOTE | 2020-04-04 08:16 | XRAY Report ---
PROCEDURE: Hand 3 View LT INDICATIONS: fall pain to dorsal hand TECHNIQUE: 3 views of the hand(s) acquired. COMPARISON: None FINDINGS: Bones: No fractures or dislocations. No suspicious bony lesions. Soft tissues: No suspicious soft tissue calcifications. IMPRESSION: No trauma found. Reviewed by: Danielito Og MD on 04/04/2020 8:15 AM [facility] Approved by: Danielito Og MD on 04/04/2020 8:15 AM [facility] Station ID: [id number]
== END 2020-04-04 06:37 | disposition home or self-care (01) ==
LOC: EDUNIT# → ED 04:44
DX: S40.012A Contusion of left shoulder, initial encounter (principal); S60.222A Contusion of left hand, initial encounter; S93.492A Sprain of other ligament of left ankle, initial encounter; W01.0XXA Fall on same level from slipping, tripping and stumbling without subsequent striking against object, initial encounter; Y93.01 Activity, walking, marching and hiking; Y92.89 Other specified places as the place of occurrence of the external cause; Z59.0 Homelessness; M25.512 Pain in left shoulder; E66.01 Morbid (severe) obesity due to excess calories; Z68.43 Body mass index [BMI] 50.0-59.9, adult; R22.1 Localized swelling, mass and lump, neck
CPT/HCPCS: 99283; 99284

== ENCOUNTER 2020-04-04 12:43 | Outpatient (CLI) | payer MEDICAID | END 2020-04-04 12:44 | disposition critical access hospital (66) | LOC: EMS 12:43 | PROVIDERS: ATTEND Registered Nurse | DX: R06.00 Dyspnea, unspecified (principal); M25.512 Pain in left shoulder; W19.XXXA Unspecified fall, initial encounter | CPT/HCPCS: A0425; A0429; A0999 ==

== ENCOUNTER 2020-04-04 13:07 | Emergency (ER) | payer MEDICAID ==
[2020-04-04 13:15] VITALS: BP 154/98
--- NOTE | 2020-04-04 13:26 | ED Physician Documentation ---
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 : None HEENT: None Psych: Depression Musculoskeletal: None Derm: None - Past Surgical History Past Surgical History: Yes Ortho: Carpal Tunnel surgery /SUMMER INTERN: Other - Present Medications Home Medications: Ambulatory Orders Medication Instructions Recorded Confirmed Albuterol Sulf [Ventolin Hfa 1 - 2 puffs INH Q4HR PRN #1 inhaler 02/27/20 04/04/20 Inhaler] predniSONE [Deltasone] 10 mg PO [id number] #42 tab 02/27/20 04/04/20 Fluticasone/Salmeterol [Advair 1 puffs IH BID 03/10/20 04/04/20 250-50 Diskus] Cyclobenzaprine HCl 10 mg PO TID PRN 04/02/20 04/04/20 Glipizide 2.5 mg PO DAILY PM 04/02/20 04/04/20 Senna [Senokot] 8.6 mg PO DAILY PRN 04/02/20 04/04/20 Torsemide 20 mg PO DAILY 04/02/20 04/04/20 - Allergies Allergies/Adverse Reactions: Allergies Allergy/AdvReac Type Severity Reaction Status Date / Time No Known Drug Allergies Allergy Verified 04/04/20 13:15 - Social History Does the pt smoke?: No Smoking Status: Never smoker Does the pt drink ETOH?: No Does the pt have substance abuse?: No - Immunizations Immunizations are current?: Yes - POLST Patient has POLST: No Results - Vitals Vitals: Vital Signs - 24 hr 04/04/20 13:12 Temperature 36.4 C L Heart Rate 96 Respiratory 22 Rate Blood Pressure 154/98 H O2 Saturation 94 Oxygen O2 Source Room air
--- NOTE | 2020-04-04 13:39 | ED Physician Documentation ---
History of Present Illness - Stated complaint Stated Complaint: SOA - Chief complaint Chief Complaint: Ext Problem - Additonal information Additional information: 49-year-old homeless female well-known to this emergency department returns for evaluation of left shoulder pain and shortness of air. She does have a history of recurrent falls. She was seen earlier this morning for left shoulder pain and underwent shoulder x-ray that did not show an acute fracture. She moves the shoulder fairly well but does complain of some discomfort. She has had many visits and repeat visits this week for similar often presenting just a few minutes or few hours after being discharged from the emergency department. On exam in our fast track area the patient would like a repeat x-ray. She is requesting something to eat as well as a shoulder sling. She is also requesting to see not this provider but Dr. Edward. 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: None : None HEENT: None Psych: Depression Musculoskeletal: None Derm: None - Past Surgical History Past Surgical History: Yes Ortho: Carpal Tunnel surgery /CAFETERIA OR LUNCHROOM CHECKER: Other - Present Medications Home Medications: Ambulatory Orders Medication Instructions Recorded Confirmed Albuterol Sulf [Ventolin Hfa 1 - 2 puffs INH Q4HR PRN #1 inhaler 02/27/20 04/04/20 Inhaler] predniSONE [Deltasone] 10 mg PO [id number] #42 tab 02/27/20 04/04/20 Fluticasone/Salmeterol [Advair 1 puffs IH BID 03/10/20 04/04/20 250-50 Diskus] Cyclobenzaprine HCl 10 mg PO TID PRN 04/02/20 04/04/20 Glipizide 2.5 mg PO DAILY PM 04/02/20 04/04/20 Senna [Senokot] 8.6 mg PO DAILY PRN 04/02/20 04/04/20 Torsemide 20 mg PO DAILY 04/02/20 04/04/20 - Allergies Allergies/Adverse Reactions: Allergies Allergy/AdvReac Type Severity Reaction Status Date / Time No Known Drug Allergies Allergy Verified 04/04/20 13:15 - Social History Does the pt smoke?: No Smoking Status: Never smoker Does the pt drink ETOH?: No Does the pt have substance abuse?: No - Immunizations Immunizations are current?: Yes - POLST Patient has POLST: No PD ED PE EXPANDED - General General: Other (Appears at baseline health. Morbidly obese. Ambulating well with her walker.) - Cardiac Cardiac: Regular Rate, Radial strong equal, Cap refill < 2 sec - Respiratory Respiratory: Clear to ausultation sabi (Mild tachypnea likely secondary to obesity. However breath sounds are generally clear in her middle lung ortez.Saturating 95% on room air) - Extremities Extremities: Left shoulder (Tenderness to the posterior shoulder down through the trapezius body. No obvious deformity or ecchymosis though given morbid obesity exam is somewhat limited. She moves the shoulder freely in all planes. negative impingment signs) Results - Vitals Vitals: Vital Signs - 24 hr 04/04/20 13:12 Temperature 36.4 C L Heart Rate 96 Respiratory 22 Rate Blood Pressure 154/98 H O2 Saturation 94 Oxygen O2 Source Room air PD MEDICAL DECISION MAKING - ED course Complexity details: reviewed results, re-evaluated patient ED course: 49-year-old female who is well-known to this emergency department returns for reevaluation of left shoulder pain for which she was seen earlier this morning and discharged. She does appear to be malingering. She is requesting something to eat as well as a shoulder sling. I declined the shoulder sling as I do not feel it would benefit her and would put her at increased risk of falls given that she uses a front wheeled walker. I have also declined to give her anything to eat. Per EMS she was picked up in front of [employer] where she was seen eating prior to arrival. 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 She has been transferred and evaluated at [facility] for this multiple times. Patient does appear to be at baseline health and though tachypneic does not appear to be in any unusual distress. Departure - Departure Disposition: 01 Home, Self Care Clinical Impression: Left shoulder pain Qualifiers: Chronicity: acute Qualified Code(s): M25.512 - Pain in left shoulder Condition: Stable Record reviewed to determine appropriate education?: Yes Comments: Kendal the x-ray of your shoulder completed earlier this morning did not show any broken bones. You most likely have a bruise. You do not need a shoulder sling it is likely to put you at increased risk of falls. You are cleared to be discharged home.
== END 2020-04-04 13:59 | disposition home or self-care (01) ==
LOC: EDUNIT# → ED 13:07
DX: M25.512 Pain in left shoulder (principal); E66.01 Morbid (severe) obesity due to excess calories; Z68.43 Body mass index [BMI] 50.0-59.9, adult; R22.1 Localized swelling, mass and lump, neck

== ENCOUNTER 2020-04-06 09:38 | Outpatient (CLI) | payer MEDICAID | END 2020-04-06 09:39 | disposition critical access hospital (66) | LOC: EMS 09:38 | PROVIDERS: ATTEND Emergency Medicine | DX: R06.02 Shortness of breath (principal); R05 Cough; R07.89 Other chest pain | CPT/HCPCS: A0425; A0429; A0999 ==

== ENCOUNTER 2020-04-06 09:54 | Inpatient (IN) | payer MEDICAID ==
--- NOTE | 2020-04-06 10:08 | ED Physician Documentation ---
PD HPI DYSPNEA - Stated complaint Stated Complaint: SOA - History obtained from History obtained from: Patient, EMS - History of Present Illness Timing - onset: How many weeks ago (patient states has had cough, congestion, wheezing and dyspnea for over a week. Has been to ER several times, with neb treatments. Also had a fall with wrist/ankle injuries.) Timing - onset during: Light activity Timing - duration: Weeks (1-2) Timing - details: Gradual onset, Still present, Waxing and waning Inciting event(s): URI (has had congestion, cough and some discolored sputum (yellowish per pt). Fatigue. Does not have fevers that she can tell.). No: Out of meds Improved by: O2 (medics noted her sats 88-90% and she felt better with oxygen.), Inhaler/neb (She says she has a nebulizer at the [facility] which she can only access at night. During the day she is using albuterol inhalers.) Worsened by: Exertion Associated symptoms: Cough, Hemoptysis (possibly today, although had eaten fruit poptart shortly prior, per EMS.), Wheezing. No: Fever Similar symptoms before: Diagnosis (Athma/COPD and uses MDI/nebulizer. Has not been on oxygen. 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 Has been evaluated by ENT and is scheduled for surgery in May, per patient.) Recently seen: Emergency Dept (3 times this week for dyspnea and wheezing, with use of nebulizers. Was on steroids last week with some improvement. More congested the past few days.) Review of Systems Constitutional: reports: Myalgias, Fatigue. denies: Fever, Chills, Weight Loss Nose: reports: Congestion. denies: Rhinorrhea / runny nose Throat: denies: Sore throat Cardiac: reports: Chest pain / pressure (with coughing.) Respiratory: reports: Dyspnea, Cough, Hemoptysis (possible small streak this morning.), Wheezing GI: denies: Abdominal Pain, Nausea, Vomiting Skin: denies: Rash, Lesions Musculoskeletal: reports: Extremity pain, Joint pain (ankle pain from recent fall.) Neurologic: reports: Generalized weakness. denies: Focal weakness, Near syncope PD PAST MEDICAL HISTORY - Past Medical History Cardiovascular: None Respiratory: Asthma, COPD, Pneumonia, Sleep apnea, CPAP use Neuro: None Endocrine/Autoimmune: Type 2 diabetes GI: None CERAMIC COATER: None : None HEENT: None Psych: Depression Musculoskeletal: None Derm: None - Past Surgical History Past Surgical History: Yes Ortho: Carpal Tunnel surgery /CERAMIC COATER: Other - Present Medications Home Medications: Ambulatory Orders Medication Instructions Recorded Confirmed Albuterol Sulf [Ventolin Hfa 1 - 2 puffs INH Q4HR PRN #1 inhaler 02/27/20 04/06/20 Inhaler] predniSONE [Deltasone] 10 mg PO [id number] #42 tab 02/27/20 04/06/20 Fluticasone/Salmeterol [Advair 1 puffs IH BID 03/10/20 04/06/20 250-50 Diskus] Cyclobenzaprine HCl 10 mg PO TID PRN 04/02/20 04/06/20 Glipizide 2.5 mg PO DAILY PM 04/02/20 04/06/20 Senna [Senokot] 8.6 mg PO DAILY PRN 04/02/20 04/06/20 Torsemide 20 mg PO DAILY 04/02/20 04/06/20 - Allergies Allergies/Adverse Reactions: Allergies Allergy/AdvReac Type Severity Reaction Status Date / Time No Known Drug Allergies Allergy Verified 04/06/20 10:15 - Social History Does the pt smoke?: No Smoking Status: Never smoker Does the pt drink ETOH?: No Does the pt have substance abuse?: No - Immunizations Immunizations are current?: Yes - POLST Patient has POLST: No PD ED PE NORMAL - Vitals Vital signs reviewed: Yes (ranging from mid 90s down to 85-88%. Improved with neb. ) - General General: Other (no labored breathing, but is tachycardic. Prolonged exp phase. Wheezing noted. Mild coarse sounds left upper. ) - HEENT HEENT: Atraumatic, Moist mucous membranes, Pharynx benign - Neck Neck: Supple, no meningeal sign, Other (large mass left anterior thyroid area. ) - Cardiac Cardiac: No murmur. No: RRR (tachycardic but regular. ) - Respiratory Respiratory: No: Clear bilaterally (wheezing noted, and some mild coarse sounds left upper area. ) - Abdomen Abdomen: Soft, Non tender, Other (very obese) - Derm Derm: Normal color, Warm and dry - Extremities Extremities: No tenderness to palpate, Normal ROM s pain, No calf tenderness / cord, Other (left ankle tender on ROM and palpation. ) - Neuro Neuro: Alert and oriented X 3, No motor deficit, Normal speech Results - Vitals Vitals: Vital Signs - 24 hr 04/06/20 04/06/20 04/06/20 09:55 10:39 11:15 Temperature 36.5 C Heart Rate 121 H 95 89 Respiratory 22 24 22 Rate Blood Pressure 134/81 H 155/88 H O2 Saturation 98 92 04/06/20 04/06/20 04/06/20 11:25 12:00 12:10 Temperature Heart Rate 105 H 103 H 79 Respiratory 22 20 21 Rate Blood Pressure 158/99 H O2 Saturation 88 L 96 04/06/20 13:00 Temperature 36.2 C L Heart Rate 85 Respiratory 20 Rate Blood Pressure 152/94 H O2 Saturation 104 H Oxygen O2 Source Nasal cannula - Labs Labs: Laboratory Tests 04/06/20 04/06/20 04/06/20 12:12 12:12 12:12 WBC 10.7 RBC 4.37 Hgb 12.0 Hct 40.2 MCV 92.0 MCH 27.5 MCHC 29.9 L RDW 15.7 H Plt Count 286 MPV 9.1 Neut # (Auto) 9.0 H Lymph # (Auto) 1.2 L [place] # (Auto) 0.5 Eos # (Auto) 0.1 Baso # (Auto) 0.0 Absolute Nucleated RBC 0.00 Nucleated RBC % 0.0 Sodium 143 Potassium 4.2 Chloride 98 L Carbon Dioxide 34 H Anion Gap 11.0 BUN 12 Creatinine 0.5 Estimated GFR (MDRD) 131 Glucose 216 H Calcium 9.0 Total Bilirubin 0.4 AST 15 ALT 24 Alkaline Phosphatase 61 B-Natriuretic Peptide 37 Total Protein 6.2 L Albumin 3.2 Globulin 3.0 Albumin/Globulin Ratio 1.1 Lipase 50 Nasal Adenovirus (PCR) Nasal B. parapertussis DNA (PCR) Nasal Coronavir 229E PCR Nasal Coronavir HKU1 PCR Nasal Coronavir NL63 PCR Nasal Coronavir OC43 PCR Nasal Enterovir/Rhinovir PCR Nasal Influenza B PCR Nasal Influenza A PCR Nasal Parainfluen 1 PCR Nasal Parainfluen 2 PCR Nasal Parainfluen 3 PCR Nasal Parainfluen 4 PCR Nasal RSV (PCR) Nasal B.pertussis DNA PCR Nasal C.pneumoniae (PCR) Rohan Human Metapneumo PCR Nasal M.pneumoniae (PCR) Nasal SARS-CoV-2 (PCR) 04/06/20 12:12 WBC RBC Hgb Hct MCV MCH MCHC RDW Plt Count MPV Neut # (Auto) Lymph # (Auto) [place] # (Auto) Eos # (Auto) Baso # (Auto) Absolute Nucleated RBC Nucleated RBC % Sodium Potassium Chloride Carbon Dioxide Anion Gap BUN Creatinine Estimated GFR (MDRD) Glucose Calcium Total Bilirubin AST ALT Alkaline Phosphatase B-Natriuretic Peptide Total Protein Albumin Globulin Albumin/Globulin Ratio Lipase Nasal Adenovirus (PCR) NOT DETECTED Nasal B. parapertussis DNA (PCR) NOT DETECTED Nasal Coronavir 229E PCR NOT DETECTED Nasal Coronavir HKU1 PCR NOT DETECTED Nasal Coronavir NL63 PCR NOT DETECTED Nasal Coronavir OC43 PCR NOT DETECTED Nasal Enterovir/Rhinovir PCR NOT DETECTED Nasal Influenza B PCR NOT DETECTED Nasal Influenza A PCR NOT DETECTED Nasal Parainfluen 1 PCR NOT DETECTED Nasal Parainfluen 2 PCR NOT DETECTED Nasal Parainfluen 3 PCR NOT DETECTED Nasal Parainfluen 4 PCR NOT DETECTED Nasal RSV (PCR) NOT DETECTED Nasal B.pertussis DNA PCR NOT DETECTED Nasal C.pneumoniae (PCR) NOT DETECTED Rohan Human Metapneumo PCR NOT DETECTED Nasal M.pneumoniae (PCR) NOT DETECTED Nasal SARS-CoV-2 (PCR) NOT DETECTED PD MEDICAL DECISION MAKING - ED course Complexity details: reviewed old records (Discharge summary from [facility] encapsulating [id number] admission showed no urgency on her thyroid mass with planned outpatient surgery in May. They treated her previous symptoms like this as asthma/COPD.), reviewed results, considered differential (She is having increased wheezing and dyspnea and cough over the last week. It does sound like she may have some acute infectious bronchitis. She has been here several times this week. Her nebulizer and possibly oxygen concentrator are at the [facility] so no access during the day.), d/w patient Departure - Departure Disposition: 66 [facility] DC/Xfer Clinical Impression: Hypoxia, Morbid obesity Acute asthma exacerbation Qualifiers: Asthma severity: mild Asthma persistence: persistent Qualified Code(s): J45.31 - Mild persistent asthma with (acute) exacerbation Acute bronchitis Qualifiers: Bronchitis organism: unspecified organism Qualified Code(s): J20.9 - Acute bronchitis, unspecified Condition: Stable Record reviewed to determine appropriate education?: Yes
[2020-04-06] MEDS ORDERED: CHERRY SYRUP 10 ML UDC PO ONE (10:14)
[2020-04-06] MEDS ORDERED: BENZONATATE 100 MG CAPSULE PO STA (10:14)
[2020-04-06] MEDS ORDERED: guaiFENesin/CODEINE 5 ML UDC PO STA (10:14)
[2020-04-06] MEDS ORDERED: IPRATROPIUM/ALBUTEROL 3 ML NEB INH STA (10:14)
[2020-04-06] MEDS ORDERED: DEXAMETHASONE 10 MG/ML VIAL PO STA (10:14)
[2020-04-06] MEDS ORDERED: DOXYCYCLINE 100 MG TABLET PO STA (10:15)
--- NOTE | 2020-04-06 10:45 | XRAY Report ---
PROCEDURE: Chest 1 View X-Ray INDICATIONS: cough and wheezing TECHNIQUE: One view of the chest was acquired. COMPARISON: 04/02/2020. Correlation is also made with CT, 03/10/2020. FINDINGS: This study is limited by body habitus. Surgical changes and devices: None. Lungs and pleura: Mass effect is again seen upon the trachea, which is deviated to the right. On the semiupright images, no large pneumothorax or large pleural effusions can be seen. No focal infiltrat es are seen. Low lung volumes can be seen, causing a crowded appearance to the lung markings. Mediastinum: Mediastinal contours appear normal. Heart size is moderately enlarged. Bones and chest wall: No suspicious bony lesions. Overlying soft tissues appear unremarkable. IMPRESSION: Limited portable chest examination, without an acute abnormality identified. Moderate cardiomegaly again seen. Mass effect is again seen upon the trachea, which is deviated to the right. Reviewed by: Chinedu Shi MD on 04/06/2020 9:44 AM [facility] Approved by: Chinedu Shi MD on 04/06/2020 9:44 AM [facility] Station ID: [id number]
[2020-04-06] MEDS ORDERED: ALBUTEROL NEB 2.5 MG/3 ML INH STA ×2 (11:42→14:41)
[2020-04-06 12:21] LABS: BASOPHILS % (AUTO) 0.1 %; EOSINOPHILS # (AUTO) 0.1 10^3/uL (0.0-0.7); EOSINOPHILS % (AUTO) 0.7 %; HCT - HEMATOCRIT 40.2 % (37.0-47.0); LYMPHOCYTES # (AUTO) 1.2 10^3/uL (1.5-3.5); LYMPHOCYTES % (AUTO) 10.8 %; MEAN CORPUSCULAR HEMOGLOBIN 27.5 pg (27.0-31.0); MEAN CORPUSCULAR HGB CONC 29.9 g/dL (32.0-36.0); MEAN PLATELET VOLUME 9.1 fL (7.9-10.8); MONOCYTES # (AUTO) 0.5 10^3/uL (0.0-1.0); MONOCYTES % (AUTO) 4.3 %; NEUTROPHILS % (AUTO) 83.8 %; PLT - PLATELET COUNT 286 10^3/uL (130-450); RED BLOOD COUNT 4.37 10^6/uL (4.20-5.40); RED CELL DISTRIBUTION WIDTH 15.7 % (12.0-15.0); WHITE BLOOD COUNT 10.7 x10^3/uL (4.8-10.8)
[2020-04-06 12:37] LABS: ALBUMIN 3.2 g/dL (3.2-5.5); ALBUMIN/GLOBULIN RATIO 1.1 (1.0-2.2); BILIRUBIN,TOTAL 0.4 mg/dL (0.2-1.0); CREATININE 0.5 mg/dL (0.4-1.0); POTASSIUM 4.2 mmol/L (3.5-5.0); TOTAL PROTEIN 6.2 g/dL (6.7-8.2)
[2020-04-06 13:11] LABS: B. PARAPERTUSSIS- RESP PCR PAN NOT DETECTED; B. PERTUSSIS- RESP PCR PANEL NOT DETECTED; C. PNEUMONIAE- RESP PCR PANEL NOT DETECTED; CORONAVIRUS 229E-RESP PCR NOT DETECTED; CORONAVIRUS HKU1-RESP PCR NOT DETECTED; CORONAVIRUS NL63-RESP PCR NOT DETECTED; CORONAVIRUS OC43-RESP PCR NOT DETECTED; HUMAN METAPNEUMOVIRUS NOT DETECTED; INFLUENZA A- RESP PCR PANEL NOT DETECTED; INFLUENZA B - RESP PCR PANEL NOT DETECTED; M. PNEUMONIAE- RESP PCR PANEL NOT DETECTED; PARAINFLUENZA VIRUS 1 NOT DETECTED; PARAINFLUENZA VIRUS 2 NOT DETECTED; PARAINFLUENZA VIRUS 3 NOT DETECTED; PARAINFLUENZA VIRUS 4 NOT DETECTED; RHINOVIRUS/ENTEROVIRUS NOT DETECTED; RSV- RESP PCR PANEL NOT DETECTED; SARS-CoV-2 -RESP PCR PANEL NOT DETECTED
[2020-04-06] MEDS ORDERED: PROCHLORPERAZINE 10 MG/2 ML VIAL IVP PRN (14:58)
[2020-04-06] MEDS ORDERED: SENNA 8.6 MG TABLET PO PRN (15:01)
[2020-04-06] MEDS: glipiZIDE 5 MG TABLET PO SCH (17:03)
[2020-04-06] MEDS: INSULIN ASPART 300 UNIT/3 ML PEN SUBQ SCH ×2 (17:05→21:18)
[2020-04-06] MEDS: levoFLOXacin 750 MG/150 ML 750 MG/150 ML BAG IV SCH (17:06)
[2020-04-06] MEDS: SODIUM CHLORIDE FLUSH 0.9% 10 ML SYRINGE IVP SCH (17:09)
[2020-04-06] MEDS: IPRATROPIUM/ALBUTEROL 3 ML NEB INH SCH (18:30)
[2020-04-06] MEDS: BUDESONIDE 0.5 MG/2 ML NEB INH SCH (18:30)
--- NOTE | 2020-04-06 19:07 | HISTORY & PHYSICAL EXAMINATION ---
DATE OF SERVICE: 04/06/2020 Physician: Carlyn Awan MD PRIMARY CARE PHYSICIAN: None HISTORY OF PRESENT ILLNESS: This is a 49-year-old white female with history of morbid obesity, DM, BMI is 76, she is homeless. She has developmental delay, history of asthma/COPD and a very large goiter/thyroid tumor, which causes her to have upper airway obstruction when she lies supine, stridor and she becomes apneic, desaturates oxygen and this causes bradycardia. She has been admitted here with that combination of problems several months ago. There was another visit to our ER about 1 month ago with presentation of shortness of breath and stridor and it was advised she be transferred to [facility] where her ENT specialist is for more aggressive management of the goiter. She was admitted there from 03/11/2020 until 03/21/2020. Discharge summary is available and shows that she had pmo consultant visits from her ear, nose, throat and thoracic specialist and that the goiter surgery is planned in early May (unclear from these notes why it is delayed for 2-1/2 months). Patient was homeless and they discharged her with a new nebulizer machine and a new oxygen tank. She can only access this nighttime when she goes to live at the homeless long-term because during the day she is not at the homeless long-term according to the rules there. She walks around [place] with a suitcase. Patient has come to our ER over the past 3 days with shortness of breath, felt to have asthmatic exacerbation with bronchitis and has been started on antibiotics as well as steroids. Today is her fourth visit back and she is desaturating to 85-90% and the emergency room doctor reached out to the hospitalist team for admission. PAST MEDICAL HISTORY 1. Morbid obesity. 2. Thyroid tumor. 3. Asthma. 4. Developmental delay. ALLERGIES: NONE. MEDICATIONS 1. Ventolin HFA inhaler every 4 hours p.r.n. 2. Advair Diskus 1 puff b.i.d. 3. Prednisone 10 mg with a taper schedule. 4. Cyclobenzaprine 10 mg t.i.d. p.r.n. 5. Glipizide 2.5 mg daily every night. 6. Senna p.r.n. 7. Torsemide 20 mg daily. REVIEW OF SYSTEMS: A comprehensive review of systems was done and the pertinent positives are listed, the rest are negative. FAMILY HISTORY: Noncontributory. SOCIAL HISTORY: She is homeless. She is a nonsmoker, uses no alcohol. She has been scammed from a gentleman living in the [facility] who she thinks is her "fiancee" and she sends him money every month in order for them to get . PHYSICAL EXAMINATION GENERAL: Morbidly obese, middle-aged female. She is short of breath with movement. VITAL SIGNS: Blood pressure 138/88, pulse 85-95 in sinus rhythm, afebrile, and oxygen saturation is 100% on 2 liters nasal cannula, was as low as 85-88% in the ER on 2 liters nasal cannula. HEENT: Reveals carmen complexion and moist oral mucosa. Her voice is high pitched and hoarse from her tumor in her neck. Her neck is severely obese and distended. I could not visualize any vascular territory or define the size of the mass. CHEST: Prolonged expiratory phase and scattered wheezes. HEART: Sounds are very distant because of large pendulous breasts. ABDOMEN: Obese with a large pannus down to her knees. EXTREMITIES: Show venous stasis changes and trace pretibial edema. NEUROLOGIC: Shows that she has developmental delay when she speaks, but overall has no focal motor findings. LABORATORY DATA: Sodium 143, potassium 4.8, chloride 98, bicarbonate 34, BUN 12, creatinine 0.5. Normal liver tests. Normal BNP of 37. Normal lipase. White blood count 10.7, hemoglobin 12, platelet count normal at 286. No INR was done. Her [TIME: 06:22] shows negative COVID. IMAGING: Chest x-ray was read as having cardiomegaly and under inflation of the lungs and the mass effect seen on the trachea in the neck, deviating the trachea to the right. No EKG was done. IMPRESSION/DIAGNOSES 1. Acute respiratory failure with hypoxia. 2. Asthma exacerbation, she has failed outpatient treatment. 3. Acute bronchitis. 4. Goiter, which is causing airway compromise and she is awaiting surgery from her [facility] and thoracic surgery in 2 months. 5. Morbid obesity with body mass index greater than 70. 6. Diabetes mellitus type 2. 7. Developmental delay. 8. Obstructive sleep apnea. 9. Homeless person. PLAN: Admit patient to inpatient status on telemetry. In the past when she gets apneic and then hypoxic, and then she becomes bradycardic. She will likely need upright position for sleeping and will order a hospital CPAP machine to be used with auto titration. Begin treatment aggressively for her asthma exacerbation using nebulizers scheduled and p.r.n. and inhaled steroids and begin IV steroids using Solu-Medrol. Begin empiric treatment for bronchitis after obtaining sputum. We will order Levofloxacin since she has recently been hospitalized just 1 week ago. Continue with supplemental oxygen, weaning down as possible. Continue with her torsemide, Glipizide and order a carb-controlled diet, sliding scale insulin coverage for Accu-Cheks results. CODE STATUS: FULL CODE. ATTESTATION: Patient is expected to be discharged or transferred to another facility within 96 hours: Yes. TD: 04/06/2020 18:12 MTDD
[2020-04-06] MEDS: ACETAMINOPHEN 325 MG TABLET PO PRN (20:06)
[2020-04-06] MEDS: guaiFENesin 600 MG TABLET PO SCH (21:17)
[2020-04-06] MEDS: FAMOTIDINE 20 MG TABLET PO SCH (21:17)
[2020-04-06] MEDS: methylPREDNISolone SUCCINATE 40 MG/ML VIAL IVP SCH (22:00)
[2020-04-06] MEDS: IPRATROPIUM/ALBUTEROL 3 ML NEB INH PRN (23:54)
[2020-04-07] MEDS: SODIUM CHLORIDE FLUSH 0.9% 10 ML SYRINGE IVP SCH ×4 (01:01→23:50)
[2020-04-07] MEDS: methylPREDNISolone SUCCINATE 40 MG/ML VIAL IVP SCH ×3 (06:07→22:23)
[2020-04-07] MEDS: INSULIN ASPART 300 UNIT/3 ML PEN SUBQ SCH ×4 (08:03→20:45)
[2020-04-07] MEDS: FAMOTIDINE 20 MG TABLET PO SCH ×2 (08:45→20:44)
[2020-04-07] MEDS: guaiFENesin 600 MG TABLET PO SCH ×2 (08:45→20:44)
[2020-04-07] MEDS: TORSEMIDE 20 MG TABLET PO SCH (08:45)
[2020-04-07] MEDS: ACETAMINOPHEN 325 MG TABLET PO PRN (08:46)
[2020-04-07] MEDS: BENZOCAINE/MENTHOL LOZENGE MM PRN ×2 (08:46→16:11)
[2020-04-07] MEDS: levoFLOXacin 750 MG/150 ML 750 MG/150 ML BAG IV SCH (09:15)
[2020-04-07] MEDS: BUDESONIDE 0.5 MG/2 ML NEB INH SCH ×2 (09:20→18:00)
[2020-04-07] MEDS: IPRATROPIUM/ALBUTEROL 3 ML NEB INH SCH ×3 (09:20→18:00)
[2020-04-07 10:09] LABS: ESTIMATED AVERAGE GLUCOSE 186 mg/dL (70-100); HEMOGLOBIN A1c% 8.1 % (4.27-6.07)
--- NOTE | 2020-04-07 13:19 | PROVIDER PROGRESS NOTE ---
Assessment/Plan - Problem List (1) Acute respiratory failure with hypoxia Assessment/Plan: Her FiO2 need has improved slightly. Continue to treat with supplemental oxygen, titrating down as needed and treat the underlying problem: Asthma exacerbation and acute bronchitis. (2) Acute asthma exacerbation Qualifiers: Asthma severity: mild Asthma persistence: persistent Qualified Code(s): J45.31 - Mild persistent asthma with (acute) exacerbation Assessment/Plan: Antibiotics for bronchitis, nebs, Pulmicort, IV steroids.Her O2 needs have already improved, (3) Acute bronchitis Qualifiers: Bronchitis organism: unspecified organism Qualified Code(s): J20.9 - Acute bronchitis, unspecified Assessment/Plan: Empiric Levaquin started due to recent hospitalization at [facility]. (4) Thyroid mass Assessment/Plan: In fact, ENT and Thoracic surgery are planned in early May at [facility]. The mass was 11 cm x 11 cm x 3 cm on the last CT imaging and does contribute to upper airway obstruction especially if she is supine. (5) Morbid obesity with BMI of 70 and over, adult Assessment/Plan: As per Hx (6) DM type 2 (diabetes mellitus, type 2) Assessment/Plan: Carb controlled diet and sliding scale insulin and Accu-Cheks have been ordered (7) Developmental delay, mild Assessment/Plan: As per Hx (8) CEDRIC (obstructive sleep apnea) Assessment/Plan: Was documented several years ago and she used to have a CPAP machine that she used when she lived in her (mother's) house for which she was evicted 1 or 2 years ago. She does not have this piece of equipment [facility]. I have ordered the hospital CPAP machine with auto titration. Not complain to me that she does not like to use it. (9) Homeless single person Assessment/Plan: As per Hx. She goes to the homeless prison every evening and only then can get to her nebulizer and her O2 tank. I told this to the box storage worker today who will speak to her about spending day times at a [facility]ianist that is opening up for homeless people, that has electric outlets and warmth and heat available - Current Meds Current Meds: Current Medications Generic Name Dose Route Start Last Admin Trade Name Freq PRN Reason Stop Dose Admin Acetaminophen 650 mg 04/06/20 14:58 04/07/20 08:46 Acetaminophen 325 Mg Tablet PO 650 mg Q4HR PRN Administration Pain 1 to 4 Albuterol/Ipratropium 3 ml 04/06/20 19:00 04/06/20 18:30 Ipratropium/Albuterol 3 Ml Neb INH 3 ml RTQID DEANGELO Administration Albuterol/Ipratropium 3 ml 04/06/20 15:03 04/06/20 23:54 Ipratropium/Albuterol 3 Ml Neb INH 3 ml Q4HR PRN Administration Wheezing Budesonide 0.5 mg 04/06/20 19:00 04/06/20 18:30 Budesonide 0.5 Mg/2 Ml Neb INH 0.5 mg RTBID DEANGELO Administration Famotidine 20 mg 04/06/20 21:00 04/07/20 08:45 Famotidine 20 Mg Tablet PO 20 mg BID DEANGELO Administration Glipizide 2.5 mg 04/06/20 17:00 04/06/20 17:03 Glipizide 5 Mg Tablet PO 2.5 mg QDDINNER DEANGELO Administration Guaifenesin 600 mg 04/06/20 21:00 04/07/20 08:45 Guaifenesin 600 Mg Tablet PO 600 mg BID DEANGELO Administration Levofloxacin 750 mg in 150 mls @ 100 mls/hr 04/06/20 17:00 04/07/20 11:05 Levaquin 750 Mg/150 Ml IV 04/10/20 10:29 Infused DAILY DEANGELO Infusion Insulin Aspart 1 - 9 unit 04/07/20 12:00 04/07/20 11:50 Insulin Aspart 300 Unit/3 Ml Pen SUBQ 7 unit 0800,1200,1700,2100 DEANGELO Administration Protocol Methylprednisolone 40 mg 04/06/20 22:00 04/07/20 06:07 Methylprednisolone Succinate 40 Mg/Ml Vial IVP 40 mg TID DEANGELO Administration Sodium Chloride 10 ml 04/06/20 17:00 04/07/20 09:15 Sodium Chloride Flush 0.9% 10 Ml Syringe IVP 10 ml 0100,0900,1700 DEANGELO Administration Throat Lozenges 1 lozenge 04/07/20 08:00 04/07/20 08:46 Benzocaine/Menthol Lozenge MM 1 lozenge Q2HR PRN Administration Throat pain Torsemide 20 mg 04/07/20 09:00 04/07/20 08:45 Torsemide 20 Mg Tablet PO 20 mg DAILY DEANGELO Administration - Lab Result Fish Bone Diagrams: 04/06/20 12:12 04/06/20 12:12 - Additional Planning My Orders: My Active Orders 04/06/20 14:58 Initiate Bronchodialator Abbe [RC] .PROTOCOL Initiate Lung Inflation Protoc [RC] .PROTOCOL Initiate Secretion Clearance P [RC] .PROTOCOL Oxygen Therapy [RC] .PRN Telemetry- [RC] Q4HR Acetaminophen [Tylenol] 650 mg PO Q4HR PRN Prochlorperazine Inj [Compazine Inj] 10 mg IVP Q6HR PRN Sodium Chloride Flush 0.9% [Normal Saline Flush 0.9%] 10 ml IVP PRN PRN 04/06/20 14:59 Activity Orders [RC] Q2HR IO [RC] IOSHIFT Initiate Bowel Care Protocol [RC] .protocol Initiate Personal Care Protoco [RC] .protocol Vital Signs [RC] Q4H Code Status [OTHERS] Routine Condition of Patient [OTHERS] Routine DVT Prophylaxis [OTHERS] Routine 04/06/20 15:00 Daily Weight [RC] 0600 IV Insert [RC] .ONCE 04/06/20 15:01 Initiate Line Care Protocol [RC] QSHIFT SCDs [RC] QSHIFT Senna [Senokot] 8.6 mg PO DAILY PRN 04/06/20 15:02 Blood Glucose Checks - Eating [RC] 0800,1200,1700,2100 Initiate Hypoglycemia Protocol [RC] .protocol 04/06/20 15:03 Ipratropium/Albuterol [Duoneb] 3 ml INH Q4HR PRN 04/06/20 15:05 CPAP [BIPAP/CPAP - RT] [RC] HS 04/06/20 15:34 Cyclobenzaprine [Flexeril] 10 mg PO TID PRN 04/06/20 16:00 CUL, RESPIRATORY [RM] Urgent 04/06/20 Dinner Carb-controlled Diet [DIET] 04/06/20 17:00 Sodium Chloride Flush 0.9% [Normal Saline Flush 0.9%] 10 ml IVP 0100,0900,1700 glipiZIDE [Glucotrol] 2.5 mg PO QDDINNER levoFLOXacin 750 MG/150 ML [Levaquin 750 mg/150 ml] 750 mg in 150 ml IV DAILY 04/06/20 18:33 Nebulizer/MDI Tx. [RC] QID 04/06/20 19:00 Budesonide [Pulmicort] 0.5 mg INH RTBID Ipratropium/Albuterol [Duoneb] 3 ml INH RTQID 04/06/20 21:00 Famotidine [Pepcid] 20 mg PO BID guaiFENesin [Mucinex] 600 mg PO BID 04/06/20 22:00 methylPREDNISolone SUCCINATE [SOLU-Medrol (40MG VIAL)] 40 mg IVP TID 04/07/20 08:00 Benzocaine/Menthol [Cepacol] 1 lozenge MM Q2HR PRN 04/07/20 09:00 Torsemide 20 mg PO DAILY 04/07/20 12:00 Insulin Aspart [NovoLOG] 1 - 9 unit SUBQ 0800,1200,1700,2100 04/07/20 13:15 Nystatin [Nystop] 1 applic TOP BID 04/08/20 05:00 BMP - BASIC METABOLIC PANEL [CHEM] DAILYLAB CBC - COMP BLD CT W/AUTO DIFF [HEME] DAILYLAB Subjective - Subjective Patient Reports: Feeling Better, Shortness of Breath Objective Vital Signs: Vital Signs - 24 hr 04/06/20 04/06/20 04/06/20 15:10 15:36 16:14 Temperature 36.4 C L Heart Rate 68 84 Heart Rate [ Brachial] Heart Rate [ 96 Monitoring electrodes] Respiratory 24 18 24 Rate Blood Pressure 138/88 H Blood Pressure 124/71 [Right Brachial artery] Blood Pressure [Right Radial artery] O2 Saturation 95 97 04/06/20 04/06/20 04/06/20 18:30 21:14 23:45 Temperature 36.9 C 36.7 C Heart Rate 90 Heart Rate [ 102 H 81 Brachial] Heart Rate [ Monitoring electrodes] Respiratory 20 23 18 Rate Blood Pressure Blood Pressure 139/57 H 131/74 H [Right Brachial artery] Blood Pressure [Right Radial artery] O2 Saturation 94 95 04/06/20 04/07/20 04/07/20 23:54 00:13 00:20 Temperature Heart Rate 86 92 Heart Rate [ Brachial] Heart Rate [ Monitoring electrodes] Respiratory 10 L Rate Blood Pressure Blood Pressure [Right Brachial artery] Blood Pressure [Right Radial artery] O2 Saturation 95 04/07/20 04/07/20 04/07/20 05:00 07:41 11:24 Temperature 36.5 C 36.6 C 36.6 C Heart Rate Heart Rate [ 97 82 97 Brachial] Heart Rate [ Monitoring electrodes] Respiratory 17 20 22 Rate Blood Pressure Blood Pressure 139/78 H 128/75 [Right Brachial artery] Blood Pressure 129/66 [Right Radial artery] O2 Saturation 95 94 98 Oxygen O2 Source Nasal cannula I&O (Last 24 Hrs): Intake and Output Totals x24h 04/05/20 04/06/20 04/07/20 23:59 23:59 23:59 Intake Total 386 1110 Output Total 250 Balance 136 1110 General: Alert, Oriented x3 HEENT: Mucous membr. moist/pink Neck: Supple, Other (Very wide neck, cannot vis vessels) Neuro: Alert, Non Focal Cardiovascular: Regular rate Respiratory: Chest non-tender, Other (Diminished breath sounds, prolonged exp phase, no wheezing) Abdomen: Other (Obese with pannus down to knees) Extremities: No edema - Results Results: Laboratory Results WBC 10.7 x10^3/uL (4.8-10.8) 04/06/20 12:12 RBC 4.37 10^6/uL (4.20-5.40) 04/06/20 12:12 Hgb 12.0 g/dL (12.0-16.0) 04/06/20 12:12 Hct 40.2 % (37.0-47.0) 04/06/20 12:12 MCV 92.0 fL (81.0-99.0) 04/06/20 12:12 MCH 27.5 pg (27.0-31.0) 04/06/20 12:12 MCHC 29.9 g/dL (32.0-36.0) L 04/06/20 12:12 RDW 15.7 % (12.0-15.0) H 04/06/20 12:12 Plt Count 286 10^3/uL (130-450) 04/06/20 12:12 MPV 9.1 fL (7.9-10.8) 04/06/20 12:12 Neut # (Auto) 9.0 10^3/uL (1.5-6.6) H 04/06/20 12:12 Lymph # (Auto) 1.2 10^3/uL (1.5-3.5) L 04/06/20 12:12 [place] # (Auto) 0.5 10^3/uL (0.0-1.0) 04/06/20 12:12 Eos # (Auto) 0.1 10^3/uL (0.0-0.7) 04/06/20 12:12 Baso # (Auto) 0.0 10^3/uL (0.0-0.1) 04/06/20 12:12 Absolute Nucleated RBC 0.00 x10^3/uL 04/06/20 12:12 Nucleated RBC % 0.0 /100WBC 04/06/20 12:12 Sodium 143 mmol/L (135-145) 04/06/20 12:12 Potassium 4.2 mmol/L (3.5-5.0) 04/06/20 12:12 Chloride 98 mmol/L (101-111) L 04/06/20 12:12 Carbon Dioxide 34 mmol/L (21-32) H 04/06/20 12:12 Anion Gap 11.0 (6-13) 04/06/20 12:12 BUN 12 mg/dL (6-20) 04/06/20 12:12 Creatinine 0.5 mg/dL (0.4-1.0) 04/06/20 12:12 Estimated GFR (MDRD) 131 (>89) 04/06/20 12:12 Glucose 216 mg/dL (70-100) H 04/06/20 12:12 Estimat Average Glucose 186 mg/dL (70-100) H 04/07/20 04:25 Hemoglobin A1c % 8.1 % (4.27-6.07) H 04/07/20 04:25 Calcium 9.0 mg/dL (8.5-10.3) 04/06/20 12:12 Total Bilirubin 0.4 mg/dL (0.2-1.0) 04/06/20 12:12 AST 15 IU/L (10-42) 04/06/20 12:12 ALT 24 IU/L (10-60) 04/06/20 12:12 Alkaline Phosphatase 61 IU/L (42-121) 04/06/20 12:12 B-Natriuretic Peptide 37 pg/mL (5-100) 04/06/20 12:12 Total Protein 6.2 g/dL (6.7-8.2) L 04/06/20 12:12 Albumin 3.2 g/dL (3.2-5.5) 04/06/20 12:12 Globulin 3.0 g/dL (2.1-4.2) 04/06/20 12:12 Albumin/Globulin Ratio 1.1 (1.0-2.2) 04/06/20 12:12 Lipase 50 U/L (22-51) 04/06/20 12:12 Nasal Adenovirus (PCR) NOT DETECTED 04/06/20 12:12 Nasal B. parapertussis DNA (PCR) NOT DETECTED 04/06/20 12:12 Nasal Coronavir 229E PCR NOT DETECTED 04/06/20 12:12 Nasal Coronavir HKU1 PCR NOT DETECTED 04/06/20 12:12 Nasal Coronavir NL63 PCR NOT DETECTED 04/06/20 12:12 Nasal Coronavir OC43 PCR NOT DETECTED 04/06/20 12:12 Nasal Enterovir/Rhinovir PCR NOT DETECTED 04/06/20 12:12 Nasal Influenza B PCR NOT DETECTED 04/06/20 12:12 Nasal Influenza A PCR NOT DETECTED 04/06/20 12:12 Nasal Parainfluen 1 PCR NOT DETECTED 04/06/20 12:12 Nasal Parainfluen 2 PCR NOT DETECTED 04/06/20 12:12 Nasal Parainfluen 3 PCR NOT DETECTED 04/06/20 12:12 Nasal Parainfluen 4 PCR NOT DETECTED 04/06/20 12:12 Nasal RSV (PCR) NOT DETECTED 04/06/20 12:12 Nasal B.pertussis DNA PCR NOT DETECTED 04/06/20 12:12 Nasal C.pneumoniae (PCR) NOT DETECTED 04/06/20 12:12 Rohan Human Metapneumo PCR NOT DETECTED 04/06/20 12:12 Nasal M.pneumoniae (PCR) NOT DETECTED 04/06/20 12:12 Nasal SARS-CoV-2 (PCR) NOT DETECTED 04/06/20 12:12 - Procedures Procedures: Procedures METATARSOPHALANGEAL FUS (07/27/13)
[2020-04-07] MEDS: SODIUM CHLORIDE FLUSH 0.9% 10 ML SYRINGE IVP PRN (14:00)
[2020-04-07] MEDS: NYSTATIN POWDER 15 GM TOP SCH ×2 (14:00→20:45)
[2020-04-07] MEDS: glipiZIDE 5 MG TABLET PO SCH (17:24)
[2020-04-07] MEDS: IPRATROPIUM/ALBUTEROL 3 ML NEB INH PRN (22:46)
[2020-04-08] MEDS: CYCLOBENZAPRINE 10 MG TABLET PO PRN ×3 (00:16→21:04)
[2020-04-08] MEDS: methylPREDNISolone SUCCINATE 40 MG/ML VIAL IVP SCH ×3 (05:02→21:03)
[2020-04-08] MEDS: SODIUM CHLORIDE FLUSH 0.9% 10 ML SYRINGE IVP PRN ×2 (05:02→21:06)
[2020-04-08 05:51] LABS: BASOPHILS % (AUTO) 0.1 %; HCT - HEMATOCRIT 40.3 % (37.0-47.0); HGB - HEMOGLOBIN 11.9 g/dL (12.0-16.0); LYMPHOCYTES # (AUTO) 0.6 10^3/uL (1.5-3.5); LYMPHOCYTES % (AUTO) 5.4 %; MEAN CORPUSCULAR HEMOGLOBIN 27.4 pg (27.0-31.0); MEAN CORPUSCULAR HGB CONC 29.5 g/dL (32.0-36.0); MEAN CORPUSCULAR VOLUME 92.9 fL (81.0-99.0); MEAN PLATELET VOLUME 8.9 fL (7.9-10.8); MONOCYTES # (AUTO) 0.2 10^3/uL (0.0-1.0); MONOCYTES % (AUTO) 2.2 %; NEUTROPHILS # (AUTO) 9.9 10^3/uL (1.5-6.6); NEUTROPHILS % (AUTO) 91.9 %; PLT - PLATELET COUNT 295 10^3/uL (130-450); RED BLOOD COUNT 4.34 10^6/uL (4.20-5.40); RED CELL DISTRIBUTION WIDTH 15.2 % (12.0-15.0); WHITE BLOOD COUNT 10.8 x10^3/uL (4.8-10.8)
[2020-04-08 06:01] LABS: CREATININE 0.7 mg/dL (0.4-1.0); POTASSIUM 4.9 mmol/L (3.5-5.0)
[2020-04-08] MEDS: IPRATROPIUM/ALBUTEROL 3 ML NEB INH SCH ×4 (07:47→18:10)
[2020-04-08] MEDS: BUDESONIDE 0.5 MG/2 ML NEB INH SCH ×2 (07:48→18:07)
[2020-04-08] MEDS: INSULIN ASPART 300 UNIT/3 ML PEN SUBQ SCH ×4 (07:57→21:03)
[2020-04-08] MEDS ORDERED: ALBUTEROL NEB 2.5 MG/3 ML INH PRN (08:07)
[2020-04-08] MEDS: SODIUM CHLORIDE FLUSH 0.9% 10 ML SYRINGE IVP SCH ×2 (08:46→14:09)
[2020-04-08] MEDS: levoFLOXacin 750 MG/150 ML 750 MG/150 ML BAG IV SCH (08:46)
[2020-04-08] MEDS: FAMOTIDINE 20 MG TABLET PO SCH ×2 (08:46→20:09)
[2020-04-08] MEDS: guaiFENesin 600 MG TABLET PO SCH ×2 (08:46→20:09)
[2020-04-08] MEDS: TORSEMIDE 20 MG TABLET PO SCH (08:46)
[2020-04-08] MEDS: NYSTATIN POWDER 15 GM TOP SCH ×2 (08:46→20:10)
--- NOTE | 2020-04-08 09:18 | PHARMACY PROGRESS NOTE ---
- Best Possible Medication History Admit Date and Time: 04/06/20 1445 Processed by: Nursing Medication History completed: Yes As the person ultimately responsible for medication therapy, providers are able to order a medication from an existing home medication list in [facility] via the "Reconcile Routine" prior to Confirmation of that medication by customer support advisor. Such practice is discouraged except when the physician, in their clinical judgment, deems that a medical need exists for a medication without regard to previous use.
--- NOTE | 2020-04-08 11:25 | PROVIDER PROGRESS NOTE ---
Subjective - Prog Note Date Prog Note Date: 04/08/20 - Subjective Pt reports feeling: No change Subjective: Patient still reported she feel shortness of breathing and wheezing, and difficult to walk. she denies fever, chill, chest pain. Current Medications - Current Medications Current Medications: Active Medications Acetaminophen (Acetaminophen 325 Mg Tablet) 650 mg PO Q4HR PRN PRN Reason: Pain 1 to 4 Last Admin: 04/07/20 08:46 Dose: 650 mg Documented by: Albuterol (Albuterol Neb 2.5 Mg/3 Ml) 2.5 mg INH RTQ4H PRN PRN Reason: Wheezing Albuterol/Ipratropium (Ipratropium/Albuterol 3 Ml Neb) 3 ml INH RTQID [facility] Last Admin: 04/08/20 07:47 Dose: 3 ml Documented by: Albuterol/Ipratropium (Ipratropium/Albuterol 3 Ml Neb) 3 ml INH Q4HR PRN PRN Reason: Wheezing Last Admin: 04/07/20 22:46 Dose: 3 ml Documented by: Budesonide (Budesonide 0.5 Mg/2 Ml Neb) 0.5 mg INH RTBID [facility] Last Admin: 04/08/20 07:48 Dose: 0.5 mg Documented by: Cyclobenzaprine HCl (Cyclobenzaprine 10 Mg Tablet) 10 mg PO TID PRN PRN Reason: Spasms Last Admin: 04/08/20 00:16 Dose: 10 mg Documented by: Famotidine (Famotidine 20 Mg Tablet) 20 mg PO BID [facility] Last Admin: 04/08/20 08:46 Dose: 20 mg Documented by: Glipizide (Glipizide 5 Mg Tablet) 2.5 mg PO QDDINNER [facility] Last Admin: 04/07/20 17:24 Dose: 2.5 mg Documented by: Guaifenesin (Guaifenesin 600 Mg Tablet) 600 mg PO BID [facility] Last Admin: 04/08/20 08:46 Dose: 600 mg Documented by: Levofloxacin (Levaquin 750 Mg/150 Ml) 750 mg in 150 mls @ 100 mls/hr IV DAILY [facility] Stop: 04/10/20 10:29 Last Infusion: 04/08/20 10:20 Dose: Infused Documented by: Insulin Aspart (Insulin Aspart 300 Unit/3 Ml Pen) 1 - 9 unit SUBQ 0800,1200,1700,2100 [facility]; Protocol Last Admin: 04/08/20 07:57 Dose: 3 unit Documented by: Methylprednisolone (Methylprednisolone Succinate 40 Mg/Ml Vial) 40 mg IVP TID [facility] Last Admin: 04/08/20 05:02 Dose: 40 mg Documented by: Montelukast Sodium (Montelukast 10 Mg Tablet) 10 mg PO QPM [facility] Nystatin (Nystatin Powder 15 Gm) 1 applic TOP BID [facility] Last Admin: 04/08/20 08:46 Dose: 1 applic Documented by: Prochlorperazine Edisylate (Prochlorperazine 10 Mg/2 Ml Vial) 10 mg IVP Q6HR PRN PRN Reason: Nausea / Vomiting Senna (Senna 8.6 Mg Tablet) 8.6 mg PO DAILY PRN PRN Reason: Constipation Sodium Chloride (Sodium Chloride Flush 0.9% 10 Ml Syringe) 10 ml IVP PRN PRN PRN Reason: NEEDED PER PROVIDER ORDERS Last Admin: 04/08/20 05:02 Dose: 10 ml Documented by: Sodium Chloride (Sodium Chloride Flush 0.9% 10 Ml Syringe) 10 ml IVP 0100,0900,1700 [facility] Last Admin: 04/08/20 08:46 Dose: 10 ml Documented by: Throat Lozenges (Benzocaine/Menthol Lozenge) 1 lozenge MM Q2HR PRN PRN Reason: Throat pain Last Admin: 04/07/20 16:11 Dose: 1 lozenge Documented by: Torsemide (Torsemide 20 Mg Tablet) 20 mg PO DAILY [facility] Last Admin: 04/08/20 08:46 Dose: 20 mg Documented by: Fluticasone/Salmeterol [Advair 250-50 Diskus] 1 puffs IH BID 03/10/20 Cyclobenzaprine HCl 10 mg PO TID PRN 04/02/20 Glipizide 2.5 mg PO DAILY PM 04/02/20 Senna [Senokot] 8.6 mg PO DAILY PRN 04/02/20 Torsemide 20 mg PO DAILY 04/02/20 Objective - Vital Signs/Intake & Output Vital Signs: Vital Signs x48h Temp Pulse Pulse Resp BP Pulse Ox 04/08/20 07:50 66 16 04/08/20 07:28 36.4 C L 97 18 126/62 92 04/08/20 03:59 36.4 C L 88 15 140/65 H 97 Intake & Output: Intake & Output 04/05/20 04/06/20 04/07/20 04/08/20 23:59 23:59 23:59 23:59 Intake Total 386 1590 1110 Output Total 250 Balance 136 1590 1110 - Objective General Appearance: positive: Alert, Mild distress. negative: Lethargic Eyes Bilateral: positive: Normal inspection, PERRL, No lid inflammation ENT: positive: No signs of dehydration. negative: Purulent nasal drainage Neck: positive: Thyromegaly. negative: Stiff neck Respiratory: positive: Chest non-tender, Wheezes, Other (right low lobe wheezing more than left). negative: No respiratory distress, Breath sounds nml Cardiovascular: positive: Regular rate & rhythm, No murmur. negative: Tachycardia, Bradycardia, Systolic murmur, Diastolic murmur Peripheral Pulses: 2+ Radial (R), 2+ Radial (L) Abdomen: positive: Non-tender, Nml bowel sounds. negative: Tenderness, Guarding, Rebound Back: positive: Nml inspection Skin: positive: Color nml, Warm, Dry. negative: Cyanosis, Diaphoresis, Pallor Extremities: positive: Non-tender, Full ROM. negative: Calf tenderness Neurologic/Psychiatric: positive: Oriented x3, Motor nml, Sensation nml, Mood/affect nml. negative: Sensory loss, Facial droop, Slurred/abnml speech, Depressed mood/affect - Lab Results Fish Bones: 04/08/20 05:19 04/08/20 05:19 Other Labs: Lab Results x24hrs 04/08/20 04/08/20 04/08/20 Range/Units 07:27 05:19 05:19 WBC 10.8 (4.8-10.8) x10^3/uL RBC 4.34 (4.20-5.40) 10^6/uL Hgb 11.9 L (12.0-16.0) g/dL Hct 40.3 (37.0-47.0) % MCV 92.9 (81.0-99.0) fL MCH 27.4 (27.0-31.0) pg MCHC 29.5 L (32.0-36.0) g/dL RDW 15.2 H (12.0-15.0) % Plt Count 295 (130-450) 10^3/uL MPV 8.9 (7.9-10.8) fL Neut # (Auto) 9.9 H (1.5-6.6) 10^3/uL Lymph # (Auto) 0.6 L (1.5-3.5) 10^3/uL [place] # (Auto) 0.2 (0.0-1.0) 10^3/uL Eos # (Auto) 0.0 (0.0-0.7) 10^3/uL Baso # (Auto) 0.0 (0.0-0.1) 10^3/uL Absolute Nucleated RBC 0.00 x10^3/uL Nucleated RBC % 0.0 /100WBC Sodium 138 (135-145) mmol/L Potassium 4.9 (3.5-5.0) mmol/L Chloride 96 L (101-111) mmol/L Carbon Dioxide 34 H (21-32) mmol/L Anion Gap 8.0 (6-13) BUN 21 H (6-20) mg/dL Creatinine 0.7 (0.4-1.0) mg/dL Estimated GFR (MDRD) 89 (>89) Glucose 196 H (70-100) mg/dL POC Whole Bld Glucose 206 H (70 - 100) mg/dL Calcium 9.0 (8.5-10.3) mg/dL 04/07/20 04/07/20 04/07/20 Range/Units 20:17 16:47 11:08 WBC (4.8-10.8) x10^3/uL RBC (4.20-5.40) 10^6/uL Hgb (12.0-16.0) g/dL Hct (37.0-47.0) % MCV (81.0-99.0) fL MCH (27.0-31.0) pg MCHC (32.0-36.0) g/dL RDW (12.0-15.0) % Plt Count (130-450) 10^3/uL MPV (7.9-10.8) fL Neut # (Auto) (1.5-6.6) 10^3/uL Lymph # (Auto) (1.5-3.5) 10^3/uL [place] # (Auto) (0.0-1.0) 10^3/uL Eos # (Auto) (0.0-0.7) 10^3/uL Baso # (Auto) (0.0-0.1) 10^3/uL Absolute Nucleated RBC x10^3/uL Nucleated RBC % /100WBC Sodium (135-145) mmol/L Potassium (3.5-5.0) mmol/L Chloride (101-111) mmol/L Carbon Dioxide (21-32) mmol/L Anion Gap (6-13) BUN (6-20) mg/dL Creatinine (0.4-1.0) mg/dL Estimated GFR (MDRD) (>89) Glucose (70-100) mg/dL POC Whole Bld Glucose 211 H 165 H 293 H (70 - 100) mg/dL Calcium (8.5-10.3) mg/dL 04/07/20 04/06/20 04/06/20 Range/Units 07:39 21:03 16:47 WBC (4.8-10.8) x10^3/uL RBC (4.20-5.40) 10^6/uL Hgb (12.0-16.0) g/dL Hct (37.0-47.0) % MCV (81.0-99.0) fL MCH (27.0-31.0) pg MCHC (32.0-36.0) g/dL RDW (12.0-15.0) % Plt Count (130-450) 10^3/uL MPV (7.9-10.8) fL Neut # (Auto) (1.5-6.6) 10^3/uL Lymph # (Auto) (1.5-3.5) 10^3/uL [place] # (Auto) (0.0-1.0) 10^3/uL Eos # (Auto) (0.0-0.7) 10^3/uL Baso # (Auto) (0.0-0.1) 10^3/uL Absolute Nucleated RBC x10^3/uL Nucleated RBC % /100WBC Sodium (135-145) mmol/L Potassium (3.5-5.0) mmol/L Chloride (101-111) mmol/L Carbon Dioxide (21-32) mmol/L Anion Gap (6-13) BUN (6-20) mg/dL Creatinine (0.4-1.0) mg/dL Estimated GFR (MDRD) (>89) Glucose (70-100) mg/dL POC Whole Bld Glucose 210 H 211 H 202 H (70 - 100) mg/dL Calcium (8.5-10.3) mg/dL ABX Reporting Has patient been on IV antibiotics over the past 48 hours?: Yes Assessment/Plan - Problem List (1) Acute respiratory failure with hypoxia Impression: Patient Has limited improvement, She still needed 2 L oxygen and has only 92% of sats, Wheezing and shortness of breathing, special when she was on ambulation. Unfortunately her living status is homeless, will try to wean off oxygen for patient as possible if pt can be Stabilization without oxygen. Continue treat asthma exacerbation with intravenous steroid and breathing treatment, Continue treat acute bronchitis with IV antibiotics (2) Acute asthma exacerbation Patient still present right side lower lobe significantly wheezing. continue Antibiotics for bronchitis, nebs, Pulmicort, IV steroids, add singular, Continue provide oxygen as needed (3) Acute bronchitis continue Empiric IV Levaquin started due to recent hospitalization at [facility]. (4) Thyroid mass stable, pt can talk, pt has wheezing and Asthma exacerbation. after providing of O2, pt's respiratory distress has significant reduced. advis pt followup ENT an d Thoracic surgery are planned in early May at [facility]. (5) Morbid obesity with BMI of 70 and over, adult Assessment/Plan: As per Hx (6) DM type 2 (diabetes mellitus, type 2) Assessment/Plan: A1C is 8.1, glucose level increased after she was on steroid. continue Carb controlled diet and sliding scale insulin and Accu-Cheks have been ordered (7) Developmental delay, mild Assessment/Plan: As per Hx (8) CEDRIC (obstructive sleep apnea) pt need to followup with out-pt crm dynamics developer to have sleep study, unfortunately she is homeless status now continue the hospital CPAP machine with auto titration. (9) Homeless single person Assessment/Plan: unfortunately she is homeless status now As per Hx. consult social media manager to try get help for pt.
[2020-04-08] MEDS: glipiZIDE 5 MG TABLET PO SCH (17:01)
[2020-04-08] MEDS: IPRATROPIUM/ALBUTEROL 3 ML NEB INH PRN (18:07)
[2020-04-08] MEDS ORDERED: MONTELUKAST 10 MG TABLET PO SCH (21:00)
[2020-04-08] MEDS: ACETAMINOPHEN 325 MG TABLET PO PRN (21:03)
[2020-04-09] MEDS: ACETAMINOPHEN 325 MG TABLET PO PRN (01:07)
[2020-04-09] MEDS: SODIUM CHLORIDE FLUSH 0.9% 10 ML SYRINGE IVP SCH ×2 (01:07→09:07)
[2020-04-09] MEDS: methylPREDNISolone SUCCINATE 40 MG/ML VIAL IVP SCH ×2 (06:35→13:50)
[2020-04-09] MEDS: SODIUM CHLORIDE FLUSH 0.9% 10 ML SYRINGE IVP PRN ×2 (06:36→13:50)
[2020-04-09] MEDS: IPRATROPIUM/ALBUTEROL 3 ML NEB INH SCH ×2 (07:15→11:52)
[2020-04-09] MEDS: BUDESONIDE 0.5 MG/2 ML NEB INH SCH (07:15)
[2020-04-09] MEDS: INSULIN ASPART 300 UNIT/3 ML PEN SUBQ SCH ×2 (09:05→11:45)
[2020-04-09] MEDS: levoFLOXacin 750 MG/150 ML 750 MG/150 ML BAG IV SCH (09:06)
[2020-04-09] MEDS: FAMOTIDINE 20 MG TABLET PO SCH (09:06)
[2020-04-09] MEDS: TORSEMIDE 20 MG TABLET PO SCH (09:06)
[2020-04-09] MEDS: guaiFENesin 600 MG TABLET PO SCH (09:06)
[2020-04-09] MEDS: NYSTATIN POWDER 15 GM TOP SCH (09:07)
[2020-04-09 11:01] LABS: CALCIUM 9.5 mg/dL (8.5-10.3); CREATININE 0.6 mg/dL (0.4-1.0); POTASSIUM 4.2 mmol/L (3.5-5.0)
[2020-04-09 11:14] LABS: HCG UR QUAL NEGATIVE
[2020-04-09 11:18] LABS: BASOPHILS % (AUTO) 0.1 %; HCT - HEMATOCRIT 43.7 % (37.0-47.0); HGB - HEMOGLOBIN 12.9 g/dL (12.0-16.0); LYMPHOCYTES # (AUTO) 0.6 10^3/uL (1.5-3.5); LYMPHOCYTES % (AUTO) 4.5 %; MEAN CORPUSCULAR HGB CONC 29.5 g/dL (32.0-36.0); MEAN CORPUSCULAR VOLUME 91.4 fL (81.0-99.0); MEAN PLATELET VOLUME 8.8 fL (7.9-10.8); MONOCYTES # (AUTO) 0.5 10^3/uL (0.0-1.0); NEUTROPHILS # (AUTO) 11.5 10^3/uL (1.5-6.6); PLT - PLATELET COUNT 330 10^3/uL (130-450); RED BLOOD COUNT 4.78 10^6/uL (4.20-5.40); RED CELL DISTRIBUTION WIDTH 15.3 % (12.0-15.0); WHITE BLOOD COUNT 12.6 x10^3/uL (4.8-10.8)
[2020-04-09 11:22] VITALS: BP 124/66
[2020-04-09] MEDS ORDERED: glipiZIDE 5 MG TABLET PO SCH ×2 (12:00)
--- NOTE | 2020-04-09 13:08 | XRAY Report ---
PROCEDURE: Chest 1 View X-Ray INDICATIONS: right anterior chest pain, rib fracture? TECHNIQUE: One view of the chest was acquired. COMPARISON: 04/06/2020 FINDINGS: Surgical changes and devices: None. Lungs and pleura: No pleural effusions or pneumothorax. There is suggestion of pulmonary vascular co ngestion and pulmonary edema. Small loculated right pleural effusion is also seen unchanged from prev ious study. No definite focal infiltrate. No gross pneumothorax. Mediastinum: Mediastinal contours appear normal. Heart size is markedly enlarged Bones and chest wall: No suspicious bony lesions. Overlying soft tissues appear unremarkable. IMPRESSION: Congestive changes and pulmonary edema. Trace right pleural effusion. No gross pneumothorax. No obvio us displaced rib fracture. Reviewed by: Andrew Moscoso MD on 04/09/2020 1:07 PM PST Approved by: Andrew Moscoso MD on 04/09/2020 1:07 PM [facility] Station ID: [id number]
--- NOTE | 2020-04-09 14:28 | Discharge Plan ---
Discharge Plan Problem Reviewed?: Yes Disposition: Home, Self Care Condition: Stable Prescriptions: Levofloxacin [Levaquin] 500 mg PO DAILY #3 tablet Montelukast [Singulair] 10 mg PO QPM #30 tablet Diet: Diabetic Activity Restrictions: Activity as Tolerated Shower Restrictions: No (fall precaution) Instruction Topics: Asthma Important Info Ch, Asthma Ch, Asthma, Inhaler Care Health Concerns: asthma exacerbation, thyroid mass Plan of Treatment: you have no respiratory distress, you have 93% sat on room air. You are prescribed new medication Singulair, and Levaquin, resume your home medication as the scheduled. Advise you followup ENT surgery appointment for your thyroid mass. Care Goals: stabilization and improvement of your medical conditions Assessment: discussed the care plan with you, answered your questions, you understood. Additional Instructions or Follow Up instructions: You may followup with your PCP in 1-2 weeks, followup with your ENT appointment as the scheduled. Should your symptoms return or worsen, you may present ER or call 911 for help. No Smoking: If you smoke, Please STOP! Call for help.
--- NOTE | 2020-04-09 14:40 | DISCHARGE SUMMARY ---
Discharge Summary Admit Date: 04/06/20 Discharge Date: 04/09/20 Discharging Provider: Elgin Izquierdo Condition at Discharge: Stable Discharge Disposition: 01 Home, Self Care Discharge Facility Name: home - DIAGNOSES Discharge Diagnoses with Status of Each Condition: (1) Acute respiratory failure with hypoxia resolved. pt has no respiratory distress when she walked at her room. pt has 93% sat on room air without Tachycardia or tachypnea. she feel comfortable. Patient had new nebulization machine and new oxygen tank as needed (2) Acute asthma exacerbation resolved acute exacerbation. pt has no respiratory distress when she walked at her room. pt has 93% sat on room air without Tachycardia or tachypnea. pt had Prednisone Taper dosage at home, pt is prescribed short course of Levaquin and singular, resume home meds (3) Acute bronchitis resolved acute phrase. pt has no cough and no respiratory distress or no fever. pt is prescribed short course of Levaquin (4) Thyroid mass stable, advis pt followup ENT and Thoracic surgery are planned in early May at [facility]. (5) Morbid obesity with BMI of 70 and over, adult As per Hx (6) DM type 2 (diabetes mellitus, type 2) A1C is 8.1, glucose level was slight increased after she was on steroid. continue home meds (7) Developmental delay, mild As per Hx, marriage and family social worker help pt for her situation. (8) CEDRIC (obstructive sleep apnea) advise pt need to followup with out-pt cleat feeder to have sleep study, unfortunately she is homeless status now, marriage and family social worker help pt (9) Homeless single person unfortunately she is homeless status now As per Hx. consult marriage and family social worker to try get help for pt. (10)atypical chest pain pt first report her right chest pain, later pt report she actually had left shoulder pain, from her left chronic shoulder arthritis. repeated troponin and EKG are unremarkable. - HPI History of Present Illness: This is a 49 years old female with past medical history of asthma, morbid obesity, Homeless and developmental delay, Who present to ER complain shortness of breathing. Patient was found to have acute respiratory failure with hypoxia, Asthma exacerbation, bronchitis. Patient had a scheduled to see ENT to have surgery appointment for her thyroid mass on early May. Patient was homeless, and patient was discharged with a new nebulization machine and new oxygen tank in the last discharge. - HOSPITAL COURSE Hospital Course: Patient was admitted for shortness of breathing. Patient was found to have asthma exacerbation with bronchitis. pt has History of asthma, and morbid Obesity. Patient was treated with intravenous steroids, INH Breathing treatment. After treatment, patient's symptoms was resolved, pt has no Respiratory distress. Patient was discharge as hemodynamic stable. - ALLERGIES Allergies/Adverse Reactions: Allergies Allergy/AdvReac Type Severity Reaction Status Date / Time No Known Drug Allergies Allergy Verified 04/06/20 10:15 - MEDICATIONS Home Medications: Ambulatory Orders Medication Instructions Recorded Confirmed Albuterol Sulf [Ventolin Hfa 1 - 2 puffs INH Q4HR PRN #1 inhaler 02/27/20 04/06/20 Inhaler] predniSONE [Deltasone] 10 mg PO [id number] #42 tab 02/27/20 04/06/20 Fluticasone/Salmeterol [Advair 1 puffs IH BID 03/10/20 04/06/20 250-50 Diskus] Cyclobenzaprine HCl 10 mg PO TID PRN 04/02/20 04/06/20 Glipizide 2.5 mg PO DAILY PM 04/02/20 04/06/20 Senna [Senokot] 8.6 mg PO DAILY PRN 04/02/20 04/06/20 Torsemide 20 mg PO DAILY 04/02/20 04/06/20 Levofloxacin [Levaquin] 500 mg PO DAILY #3 tablet 04/09/20 Montelukast [Singulair] 10 mg PO QPM #30 tablet 04/09/20 - PHYSICAL EXAM AT DISCHARGE General Appearance: positive: No acute distress, Alert. negative: Lethargic Eyes Bilateral: positive: Normal inspection, PERRL, No lid inflammation ENT: positive: Pharynx nml, No signs of dehydration. negative: Dry mucous membranes Neck: positive: Trachea midline, Other (pt has large neck). negative: Stiff neck, Swelling/bruising Respiratory: positive: Chest non-tender, No respiratory distress. negative: Rales Cardiovascular: positive: Regular rate & rhythm, No murmur. negative: Tachycardia, Bradycardia, Systolic murmur, Diastolic murmur Peripheral Pulses: positive: 2+ Abdomen: positive: Non-tender, Nml bowel sounds. negative: Tenderness Back: positive: Nml inspection Skin: positive: Color nml, Warm, Dry. negative: Cyanosis, Diaphoresis, Pallor Extremities: positive: Non-tender, Full ROM. negative: Calf tenderness Neurologic/Psychiatric: positive: Oriented x3, Motor nml, Sensation nml. negative: Weakness, Sensory loss, Facial droop, Slurred/abnml speech, Depressed mood/affect - LABS Result Diagrams: 04/09/20 11:00 04/09/20 10:30 - FOLLOW UP Follow Up: you have no respiratory distress, you have 93% sat on room air. You are prescribed new medication Singulair, and Levaquin, resume your home medication as the scheduled. Advise you followup ENT surgery appointment for your thyroid mass. You may followup with your PCP in 1-2 weeks, followup with your ENT appointment as the scheduled. Should your symptoms return or worsen, you may present ER or call 911 for help. - TIME SPENT Time Spent in Discharge (Minutes): 30
== END 2020-04-09 15:00 | disposition home or self-care (01) | DRG 189 ==
LOC: EDUNIT# → ED 09:54 → MS2 14:45
PROVIDERS: ADMIT Internal Medicine; ATTEND Nurse Practitioner Gerontology
DX: J96.01 Acute respiratory failure with hypoxia (principal); Z68.45 Body mass index [BMI] 70 or greater, adult; J44.0 Chronic obstructive pulmonary disease with (acute) lower respiratory infection; J44.1 Chronic obstructive pulmonary disease with (acute) exacerbation; J20.9 Acute bronchitis, unspecified; E04.9 Nontoxic goiter, unspecified; E11.9 Type 2 diabetes mellitus without complications; G47.33 Obstructive sleep apnea (adult) (pediatric); E66.01 Morbid (severe) obesity due to excess calories; R62.50 Unspecified lack of expected normal physiological development in childhood; M19.012 Primary osteoarthritis, left shoulder; Z59.0 Homelessness; Z79.51 Long term (current) use of inhaled steroids
CPT/HCPCS: 0202U; 36415; 71045; 80048; 80053; 81025; 83036; 83690; 83880; 84484; 85025; 87070; 87205; 93005; 94640; 94660; 99284; 99285; A9270; J7626

== ENCOUNTER 2020-04-13 22:23 | Outpatient (CLI) | payer MEDICAID | END 2020-04-13 22:24 | disposition critical access hospital (66) | LOC: EMS 22:23 | PROVIDERS: ATTEND Emergency Medicine | DX: M25.562 Pain in left knee (principal) | CPT/HCPCS: A0425; A0429; A0999 ==

== ENCOUNTER 2020-04-13 22:41 | Emergency (ER) | payer MEDICAID ==
--- NOTE | 2020-04-13 23:27 | ED Physician Documentation ---
PD HPI LOWER EXT INJURY - Stated complaint Stated Complaint: GLF, LEFT KNEE PAIN - Chief complaint Chief Complaint: Trauma Ext - History obtained from History obtained from: Patient - History of Present Illness PD HPI LOW EXT INJURY LOCATION: Left, Knee Type of injury: Fall Where injury occurred: Street Timing - onset: Today Timing - duration: Minutes Timing - details: Abrupt onset, Still present Improved by: Rest, Immobilization Worsened by: Moving, Palpating Associated symptoms: No: Weakness, Numbness, Tingling, Swelling, Discolored Contributing factors: No: Anticoagulated Similar symptoms before: Diagnosis (fall) Recently seen: Emergency Dept - Additional information Additional information: 49-year-old homeless, morbidly obese, developmentally delayed female uses a front wheeled walker and today she got out of a van to go into a [employer] and tripped over the curb landing on her left knee. She is complaining of left knee pain. She is able to stand and bear weight, has a bit of pain associated with this. She has recently been admitted into the hospital for respiratory failure and is now on as needed oxygen. She has plans to get a thyroid mass removed in May of this year at [facility] in [place]. Review of Systems Constitutional: denies: Fever Eyes: denies: Decreased vision Ears: denies: Ear pain Nose: denies: Congestion Throat: denies: Sore throat Cardiac: denies: Chest pain / pressure, Palpitations, Pedal edema Respiratory: reports: Dyspnea (improving), Cough (improving), Wheezing (improving still has not gone to pharmacy to seed cone picker meds for nebulizer.) GI: denies: Abdominal Pain, Nausea, Vomiting, Constipation, Diarrhea : denies: Dysuria, Frequency Musculoskeletal: reports: Joint pain, Pain with weight bearing. denies: Neck pain, Back pain Neurologic: denies: Generalized weakness, Focal weakness, Numbness PD PAST MEDICAL HISTORY - Past Medical History Past Medical History: Yes Cardiovascular: None Respiratory: Asthma, COPD, Pneumonia, Sleep apnea, CPAP use Neuro: None Endocrine/Autoimmune: Type 2 diabetes GI: None FAMILY COURT REGISTRAR: None : None HEENT: None, Other Psych: Depression Musculoskeletal: None Derm: None Other Past Medical History: goiter/thyroid tumor - Past Surgical History Past Surgical History: Yes Ortho: Carpal Tunnel surgery /FAMILY COURT REGISTRAR: Other - Present Medications Home Medications: Ambulatory Orders Medication Instructions Recorded Confirmed Albuterol Sulf [Ventolin Hfa 1 - 2 puffs INH Q4HR PRN #1 inhaler 02/27/20 04/13/20 Inhaler] predniSONE [Deltasone] 10 mg PO [id number] #42 tab 02/27/20 04/13/20 Fluticasone/Salmeterol [Advair 1 puffs IH BID 03/10/20 04/13/20 250-50 Diskus] Cyclobenzaprine HCl 10 mg PO TID PRN 04/02/20 04/13/20 Glipizide 2.5 mg PO DAILY PM 04/02/20 04/13/20 Senna [Senokot] 8.6 mg PO DAILY PRN 04/02/20 04/13/20 Torsemide 20 mg PO DAILY 04/02/20 04/13/20 Levofloxacin [Levaquin] 500 mg PO DAILY #3 tablet 04/09/20 04/13/20 Montelukast [Singulair] 10 mg PO QPM #30 tablet 04/09/20 04/13/20 - Allergies Allergies/Adverse Reactions: Allergies Allergy/AdvReac Type Severity Reaction Status Date / Time No Known Drug Allergies Allergy Verified 04/06/20 10:15 - Social History Does the pt smoke?: No Smoking Status: Never smoker Does the pt drink ETOH?: No Does the pt have substance abuse?: No - Immunizations Immunizations are current?: Yes - POLST Patient has POLST: No PD ED PE NORMAL - Vitals Vital signs reviewed: Yes (tachy and hypertensive ) - General General: Alert and oriented X 3, No acute distress, Well developed/nourished - HEENT HEENT: Atraumatic, PERRL, EOMI - Respiratory Respiratory: No respiratory distress - Derm Derm: Normal color, Warm and dry, No rash - Extremities Extremities: No deformity, No edema, Other (large legs --very large. point tenderness to the anterior left knee over the patella. No joint effusion appreciated. Ligaments appear stable to testing- a difficult exam with the large legs. ) - Neuro Neuro: Alert and oriented X 3, bridge repairer 2-12 intact, No motor deficit, No sensory deficit, Normal speech Eye Opening: Spontaneous Motor: Obeys Commands Verbal: Oriented GCS Score: 15 - Psych Psych: Normal mood, Normal affect Results - Vitals Vitals: Vital Signs - 24 hr 04/13/20 22:45 Temperature 37.1 C Heart Rate 113 H Respiratory 24 Rate Blood Pressure 131/81 H O2 Saturation 96 Oxygen O2 Source Nasal cannula - Rads (name of study) left knee Radiology: Prelim report reviewed (Impression: No acute fracture. Soft tissue edema.), EMP read indepedently, See rad report PD MEDICAL DECISION MAKING - ED course Complexity details: reviewed old records, reviewed results, re-evaluated patient, considered differential, d/w patient ED course: 49-year-old homeless female with lung disease and morbid obesity has had a fall injuring her left knee. Her exam shows only mild tenderness to the anterior patella and and x-rays without evidence of fracture. She is able to bear weight on the leg. This patient seems to be affected by many obstacles as a homeless person and somehow she is managing her BMI of 67.8. I have noted in her chart that she does not appear to have a primary. She has not seen a primary in about 3 years despite being in the hospital twice in the past 4 months. She does have an ENT at [facility] in [place]. Today we will refer her to WCP as this was the last primary she had and we will refer her to ortho if she is unable to recover with conservative measures. Departure - Departure Disposition: 01 Home, Self Care Clinical Impression: Contusion of left knee Qualifiers: Encounter type: initial encounter Qualified Code(s): S80.02XA - Contusion of left knee, initial encounter Condition: Stable Instructions: ED Sprain Knee Follow-Up: [facility] [Provider Group] [facility] [Provider Group]
[2020-04-14 01:54] VITALS: BP 140/83
--- NOTE | 2020-04-14 06:28 | XRAY Report ---
PROCEDURE: Knee 4 View LT INDICATIONS: fall anterior pain TECHNIQUE: 4 views of the left knee(s) were acquired. COMPARISON: None. FINDINGS: Bones: No fractures or dislocations. No suspicious bony lesions. Tricompartment osteophytes with m edial compartment joint space loss. Soft tissues: No joint effusion. No suspicious soft tissue calcifications. IMPRESSION: 1. Degenerative arthritis. 2. No evidence acute bony abnormality of the left knee. If clinical suspicion and/or symptoms persist, further assessment with repeat plain films or advanced imaging (e.g., CT, MRI, or bone scan) may be helpful for further assessment. A preliminary report with the above findings was provided at the time of the study by [facility]. Reviewed by: Julito Willoughby MD on 04/14/2020 5:27 AM [facility] Approved by: Julito Willoughby MD on 04/14/2020 5:27 AM [facility] Station ID: [id number]
== END 2020-04-14 01:54 | disposition home or self-care (01) ==
LOC: EDUNIT# → ED 22:41
DX: S80.02XA Contusion of left knee, initial encounter (principal); W01.0XXA Fall on same level from slipping, tripping and stumbling without subsequent striking against object, initial encounter; Y93.01 Activity, walking, marching and hiking; Y92.480 Sidewalk as the place of occurrence of the external cause; M17.12 Unilateral primary osteoarthritis, left knee; E66.01 Morbid (severe) obesity due to excess calories; Z68.44 Body mass index [BMI] 60.0-69.9, adult; J44.9 Chronic obstructive pulmonary disease, unspecified; E11.9 Type 2 diabetes mellitus without complications; Z79.84 Long term (current) use of oral hypoglycemic drugs; E04.9 Nontoxic goiter, unspecified; Z59.0 Homelessness
CPT/HCPCS: 99282; 99283

== ENCOUNTER 2020-04-16 16:34 | Outpatient (CLI) | payer MEDICAID | END 2020-04-16 16:35 | disposition critical access hospital (66) | LOC: EMS 16:34 | PROVIDERS: ATTEND Emergency Medicine | DX: M25.562 Pain in left knee (principal); M25.462 Effusion, left knee; R60.1 Generalized edema | CPT/HCPCS: A0425; A0429; A0999 ==

== ENCOUNTER 2020-04-16 16:55 | Emergency (ER) | payer MEDICAID ==
[2020-04-16 17:02] VITALS: BP 136/112
--- NOTE | 2020-04-16 17:41 | ED Physician Documentation ---
History of Present Illness - Stated complaint Stated Complaint: KNEE PX - Chief complaint Chief Complaint: Ext Problem - Additonal information Additional information: 49-year-old female returns to the emergency department reporting left knee pain. She was seen in this ER for similar 3 days ago after a fall. X-ray did not show any acute abnormalities. She is able to ambulate very well and at baseline using her walker. She states that she feels the knee is unstable and is requesting a hinged knee brace. This patient has become a frequent visitor to our emergency department. She has been seen multiple times by social work and often has malingering behaviors. She has been offered and set up with primary care providers but does not go to the appointments. She is known to have a very large approximately 12 cm thyroid mass which does cause some narrowing of her trachea. At baseline however she is on room air and is not hypoxic today her breathing is unlabored today. Review of Systems Constitutional: reports: Reviewed and negative Eyes: reports: Reviewed and negative Musculoskeletal: reports: Joint pain (left knee) Neurologic: reports: Reviewed and negative Psychiatric: reports: Reviewed and negative PD PAST MEDICAL HISTORY - Past Medical History Cardiovascular: None Respiratory: Asthma, COPD, Pneumonia, Sleep apnea, CPAP use Neuro: None Endocrine/Autoimmune: Type 2 diabetes GI: None SOFTWARE BUILD ENGINEER: None : None HEENT: None, Other Psych: Depression Musculoskeletal: None Derm: None - Past Surgical History Past Surgical History: Yes Ortho: Carpal Tunnel surgery /SOFTWARE BUILD ENGINEER: Other - Present Medications Home Medications: Ambulatory Orders Medication Instructions Recorded Confirmed Albuterol Sulf [Ventolin Hfa 1 - 2 puffs INH Q4HR PRN #1 inhaler 02/27/20 04/13/20 Inhaler] predniSONE [Deltasone] 10 mg PO [id number] #42 tab 02/27/20 04/13/20 Fluticasone/Salmeterol [Advair 1 puffs IH BID 03/10/20 04/13/20 250-50 Diskus] Cyclobenzaprine HCl 10 mg PO TID PRN 04/02/20 04/13/20 Glipizide 2.5 mg PO DAILY PM 04/02/20 04/13/20 Senna [Senokot] 8.6 mg PO DAILY PRN 04/02/20 04/13/20 Torsemide 20 mg PO DAILY 04/02/20 04/13/20 Levofloxacin [Levaquin] 500 mg PO DAILY #3 tablet 04/09/20 04/13/20 Montelukast [Singulair] 10 mg PO QPM #30 tablet 04/09/20 04/13/20 - Allergies Allergies/Adverse Reactions: Allergies Allergy/AdvReac Type Severity Reaction Status Date / Time No Known Drug Allergies Allergy Verified 04/16/20 17:02 - Social History Does the pt smoke?: No Smoking Status: Never smoker Does the pt drink ETOH?: No Does the pt have substance abuse?: No - Immunizations Immunizations are current?: Yes - POLST Patient has POLST: No PD ED PE EXPANDED - General General: Alert, No acute distress, Other (morbid obesity) - Extremities Extremities: Left knee (unable to expose skin due to tigh tfitting garments. Normal flexion, extenstion. No LAXITY. rapid normal gait with walker) Results - Vitals Vitals: Vital Signs - 24 hr 04/16/20 16:55 Temperature 37.4 C Heart Rate 111 H Respiratory 22 Rate Blood Pressure 136/112 H O2 Saturation 94 Oxygen O2 Source Room air PD MEDICAL DECISION MAKING - ED course Complexity details: reviewed results, considered differential, d/w patient ED course: 49-year-old female presents the emergency department for acute left knee pain. She did have a fall 3 days ago and was seen for similar. X-ray showed no deformity/fracture. Patient feels that she has knee instability and an ACL tear. On exam there was no laxity in her joint. She had a normal gait using her walker. She is requesting a hinged knee brace. Unfortunately due to her body habitus and large size we do not have knee braces that would fit her. She is requesting the emergency department order a knee brace to fit which is not something that we can accommodate today. I discussed with patient that in the long-term if her knee pain does not improve a primary doctor may want to consider an MRI. I discussed with her than an emergetn MRI si not warranted today, and even if it was warranted, we did not have MRI available in that case. I also discussed with patient that in the past we have set her up with primary care appointments with the aid of social work but she has not made those appointments. Patient feels that she cannot go to primary care appointments and instead comes to the ER because she knows how to get here. She asked this provider "you think it's realistic for me to go to the [facility] with knee pain?" She told this provider that she needed to stay in the ER because if she does not get to the [facility] by 6 pm, she can not enter the [facility]. Patient was given two 6 inch Kenn wraps to help provide support of the knee. Patient left frustrated and upset however appeared to have no gait abnormality with her walker. There is some component of malingering and ED misuse for Kendal, however with her morbid obesity and tyroid mass and suspected obesity hypoventilation syndrome, she is at risk for real pathology
== END 2020-04-16 17:25 | disposition home or self-care (01) ==
LOC: EDUNIT# → ED 16:55
DX: M25.562 Pain in left knee (principal); E04.9 Nontoxic goiter, unspecified; E11.9 Type 2 diabetes mellitus without complications; Z79.84 Long term (current) use of oral hypoglycemic drugs; E66.01 Morbid (severe) obesity due to excess calories; Z68.43 Body mass index [BMI] 50.0-59.9, adult; Z76.5 Malingerer [conscious simulation]
CPT/HCPCS: 99282; 99283

== ENCOUNTER 2020-04-21 12:19 | Outpatient (CLI) | payer MEDICAID | END 2020-04-21 12:20 | disposition critical access hospital (66) | LOC: EMS 12:19 | DX: M25.562 Pain in left knee (principal) | CPT/HCPCS: A0425; A0429; A0999 ==

== ENCOUNTER 2020-04-21 12:38 | Emergency (ER) | payer MEDICAID ==
[2020-04-21 12:48] VITALS: BP 152/86
--- NOTE | 2020-04-21 12:57 | ED Physician Documentation ---
History of Present Illness - Stated complaint Stated Complaint: SOA - Chief complaint Chief Complaint: Ext Problem - History obtained from History obtained from: Patient - Additonal information Additional information: Pt comes to the ED requesting a knee brace. She states she has not been able to get to the store to get one for her ongoing, chronic knee pain. She states her asthma was acting up earlier, but that she feels fine now. No other complaints. No new knee injuries. Review of Systems Ten Systems: 10 systems reviewed and negative Constitutional: reports: Reviewed and negative Eyes: reports: Reviewed and negative Ears: reports: Reviewed and negative Nose: reports: Reviewed and negative Throat: reports: Reviewed and negative Cardiac: reports: Reviewed and negative Respiratory: reports: Reviewed and negative GI: reports: Reviewed and negative : reports: Reviewed and negative Skin: reports: Reviewed and negative Musculoskeletal: reports: Extremity pain, Joint pain Neurologic: reports: Reviewed and negative Psychiatric: reports: Reviewed and negative Endocrine: reports: Reviewed and negative Immunocompromised: reports: Reviewed and negative PD PAST MEDICAL HISTORY - Past Medical History Cardiovascular: None Respiratory: Asthma, COPD, Pneumonia, Sleep apnea, CPAP use Neuro: None Endocrine/Autoimmune: Type 2 diabetes GI: None CITY MAINTENANCE MANAGER: None : None HEENT: None, Other Psych: Depression Musculoskeletal: None Derm: None - Past Surgical History Past Surgical History: Yes Ortho: Carpal Tunnel surgery /CITY MAINTENANCE MANAGER: Other - Present Medications Home Medications: Ambulatory Orders Medication Instructions Recorded Confirmed Albuterol Sulf [Ventolin Hfa 1 - 2 puffs INH Q4HR PRN #1 inhaler 02/27/20 04/21/20 Inhaler] predniSONE [Deltasone] 10 mg PO [id number] #42 tab 02/27/20 04/21/20 Fluticasone/Salmeterol [Advair 1 puffs IH BID 03/10/20 04/21/20 250-50 Diskus] Cyclobenzaprine HCl 10 mg PO TID PRN 04/02/20 04/21/20 Glipizide 2.5 mg PO DAILY PM 04/02/20 04/21/20 Senna [Senokot] 8.6 mg PO DAILY PRN 04/02/20 04/21/20 Torsemide 20 mg PO DAILY 04/02/20 04/21/20 Montelukast [Singulair] 10 mg PO QPM #30 tablet 04/09/20 04/21/20 - Allergies Allergies/Adverse Reactions: Allergies Allergy/AdvReac Type Severity Reaction Status Date / Time No Known Drug Allergies Allergy Verified 04/21/20 12:48 - Social History Does the pt smoke?: No Smoking Status: Never smoker Does the pt drink ETOH?: No Does the pt have substance abuse?: No - Immunizations Immunizations are current?: Yes - POLST Patient has POLST: No PD ED PE NORMAL - Vitals Vital signs reviewed: Yes - General General: Alert and oriented X 3, No acute distress, Well developed/nourished - HEENT HEENT: Atraumatic, PERRL, EOMI, Moist mucous membranes - Neck Neck: Supple, no meningeal sign - Respiratory Respiratory: No respiratory distress - Derm Derm: Normal color, Warm and dry, No rash - Extremities Extremities: No deformity, Other (Very obese extremties. No obvious swelling of L knee compared to the R. No point tenderness to palpation.) - Neuro Neuro: Alert and oriented X 3 - Psych Psych: Normal mood, Normal affect Results - Vitals Vitals: Vital Signs - 24 hr 04/21/20 12:44 Temperature 37.1 C Heart Rate 115 H Respiratory 16 Rate Blood Pressure 152/86 H O2 Saturation 96 Oxygen O2 Source Room air PD MEDICAL DECISION MAKING - ED course Complexity details: reviewed old records, considered differential, d/w patient ED course: I d/w pt that we do not have a brace that will fit her leg. I have written a prescription for a brace, which pt can take to the medical supply store in [place], where she lives. We have discussed the usual indications for return. Departure - Departure Disposition: 01 Home, Self Care Clinical Impression: Knee pain, left Qualifiers: Chronicity: chronic Qualified Code(s): M25.562 - Pain in left knee Condition: Stable Instructions: ED Knee Pain [facility] Comments: We do not have any knee braces that will be the right size for your leg here in the emergency department. You have been given a prescription for a knee brace to take to the medical supply place in [place]. You may follow-up with your primary care physician for further concerns. Discharge Date/Time: 04/21/20 13:15
== END 2020-04-21 13:15 | disposition home or self-care (01) ==
LOC: EDBD → EDUNIT# → ED 12:38
DX: M25.562 Pain in left knee (principal); G89.29 Other chronic pain; J45.909 Unspecified asthma, uncomplicated; E11.9 Type 2 diabetes mellitus without complications; Z79.84 Long term (current) use of oral hypoglycemic drugs; E66.01 Morbid (severe) obesity due to excess calories; Z68.45 Body mass index [BMI] 70 or greater, adult
CPT/HCPCS: 99283

== ENCOUNTER 2020-04-27 09:17 | Outpatient (CLI) | payer MEDICAID | END 2020-04-27 09:18 | disposition EMS.NT | LOC: EMS 09:17 | DX: R25.2 Cramp and spasm (principal) ==

== ENCOUNTER 2020-04-30 06:13 | Outpatient (CLI) | payer MEDICAID | END 2020-04-30 06:14 | disposition critical access hospital (66) | LOC: EMS 06:13 | PROVIDERS: ATTEND Emergency Medicine | DX: R07.9 Chest pain, unspecified (principal) | CPT/HCPCS: A0425; A0429; A0999 ==

== ENCOUNTER 2020-04-30 06:30 | Emergency (ER) | payer MEDICAID ==
[2020-04-30] MEDS ORDERED: SODIUM CHLORIDE 0.9% 1,000 ML IV STA (07:26)
[2020-04-30] MEDS ORDERED: IPRATROPIUM/ALBUTEROL 3 ML NEB INH STA (07:41)
--- NOTE | 2020-04-30 07:45 | ED Physician Documentation ---
History of Present Illness - Stated complaint Stated Complaint: CP - Chief complaint Chief Complaint: Resp - History obtained from History obtained from: Patient - Additonal information Additional information: 49-year-old undomiciled woman with history of asthma presents with shortness of breath since yesterday and some mild chest tightness. Central, nonradiating, tight quality, mild. She states that this feels like her usual asthma exacerbation. She has an inhaler but has not used it. She is requesting a shower. +vaccinated against covid-19. denies fevers, nausea, diaphoresis, known sick contacts. denies worsening leg swelling. Does have mild nonproductive cough[facility] Review of Systems Ten Systems: 10 systems reviewed and negative Constitutional: denies: Fever Cardiac: reports: Chest pain / pressure Respiratory: reports: Dyspnea, Cough PD PAST MEDICAL HISTORY - Past Medical History Past Medical History: Yes Cardiovascular: None Respiratory: Asthma, COPD, Pneumonia, Sleep apnea, CPAP use Neuro: None Endocrine/Autoimmune: Type 2 diabetes GI: None ICT ANALYST: None : None HEENT: None, Other Psych: Depression Musculoskeletal: None Derm: None - Past Surgical History Past Surgical History: Yes Ortho: Carpal Tunnel surgery /ICT ANALYST: Other - Present Medications Home Medications: Ambulatory Orders Medication Instructions Recorded Confirmed Albuterol Sulf [Ventolin Hfa 1 - 2 puffs INH Q4HR PRN #1 inhaler 02/27/20 04/30/20 Inhaler] predniSONE [Deltasone] 10 mg PO [id number] #42 tab 02/27/20 04/30/20 Fluticasone/Salmeterol [Advair 1 puffs IH BID 03/10/20 04/30/20 250-50 Diskus] Cyclobenzaprine HCl 10 mg PO TID PRN 04/02/20 04/30/20 Glipizide 2.5 mg PO DAILY PM 04/02/20 04/30/20 Senna [Senokot] 8.6 mg PO DAILY PRN 04/02/20 04/30/20 Torsemide 20 mg PO DAILY 04/02/20 04/30/20 Montelukast [Singulair] 10 mg PO QPM #30 tablet 04/09/20 04/30/20 - Allergies Allergies/Adverse Reactions: Allergies Allergy/AdvReac Type Severity Reaction Status Date / Time No Known Drug Allergies Allergy Verified 04/30/20 06:49 - Social History Does the pt smoke?: No Smoking Status: Never smoker Does the pt drink ETOH?: No Does the pt have substance abuse?: No - Immunizations Immunizations are current?: Yes - POLST Patient has POLST: No PD ED PE NORMAL - Vitals Vital signs reviewed: Yes - General General: Alert and oriented X 3, No acute distress, Other (morbid obesity) - HEENT HEENT: Atraumatic, PERRL, EOMI - Neck Neck: Supple, no meningeal sign - Cardiac Cardiac: Other (borderline tachycardic rate, regular rhythm) - Respiratory Respiratory: Other (distant breath sounds. transmitted upper airway congestion. +end expiratory wheezing) - Abdomen Abdomen: Non tender, Non distended - Derm Derm: Normal color - Extremities Extremities: No deformity, Other (2+ symmetric pitting edema) - Neuro Neuro: Alert and oriented X 3 - Psych Psych: Normal mood, Normal affect Results - Vitals Vitals: Vital Signs - 24 hr 04/30/20 04/30/20 04/30/20 06:30 07:07 07:19 Temperature 36.0 C L Heart Rate 120 H 94 110 H Respiratory 27 H 22 20 Rate Blood Pressure 145/110 H 151/101 H 151/101 H O2 Saturation 95 100 100 04/30/20 04/30/20 04/30/20 07:26 08:07 08:13 Temperature Heart Rate 113 H 105 H Respiratory 21 Rate Blood Pressure 131/76 H O2 Saturation 100 100 Oxygen O2 Source Nasal cannula Oxygen Flow Rate 4 - EKG (time done) 0637 Rate: Rate (enter#) (109) Rhythm: Sinus tachycardia Intervals: Normal AK QRS: Normal - Labs Labs: Laboratory Tests 04/30/20 04/30/20 04/30/20 07:50 08:15 08:15 WBC 10.0 RBC 4.30 Hgb 11.9 L Hct 39.0 MCV 90.7 MCH 27.7 MCHC 30.5 L RDW 15.4 H Plt Count 293 MPV 8.6 Neut # (Auto) 7.9 H Lymph # (Auto) 1.4 L Mcduffie # (Auto) 0.5 Eos # (Auto) 0.2 Baso # (Auto) 0.0 Absolute Nucleated RBC 0.00 Nucleated RBC % 0.0 Sodium 137 Potassium 4.1 Chloride 100 L Carbon Dioxide 30 Anion Gap 7.0 BUN 11 Creatinine 0.6 Estimated GFR (MDRD) 106 Glucose 169 H Lactic Acid 0.7 Calcium 8.9 Total Bilirubin 0.2 AST 14 ALT 19 Alkaline Phosphatase 69 Total Protein 6.5 L Albumin 3.2 Globulin 3.3 Albumin/Globulin Ratio 1.0 PD MEDICAL DECISION MAKING - ED course ED course: 49yF with pmh asthma presents with likely asthma exacerbation. Will give breathing treatment, obtain labs, reassess. Labs noncontributory. CXR technically limited with report stating there could be a left sided consolidation or effusion. Given patient clinical appearance I have lower suspicion for pneumonia but she will return if she develops fevers. SOB subjectively improved s/p duoneb and she was able to get a shower. patient still with mild borderline tachycardia but lung exam with resolution of wheezing. She has her albuterol inhaler at home. Return precautions given. Patient may follow up in [facility] clinic. Departure - Departure Disposition: Home, Self Care Clinical Impression: Asthma exacerbation, Homelessness Condition: Good Instructions: Asthma Dc Comments: You were seen in the emergency department for an asthma exacerbation. Use your inhaler as prescribed. Return to the emergency department if you develop fevers or any new or worsening symptoms or other concerns. Follow-up in walk-in clinic. [facility] [address] [place] [address] ~60.9 nc
--- NOTE | 2020-04-30 08:03 | XRAY Report ---
PROCEDURE: Chest 1 View X-Ray INDICATIONS: SOA since yesterday TECHNIQUE: One view of the chest was acquired. COMPARISON: Chest x-ray 04/06/2020 FINDINGS: Limited exam secondary to patient body habitus. Surgical changes and devices: None. Lungs and pleura: No pleural effusions or pneumothorax. Lungs are clear. Mediastinum: Mediastinal contours appear normal. Heart size is enlarged. As previously noted, trach ea is deviated to the right. Bones and chest wall: No suspicious bony lesions. Overlying soft tissues appear unremarkable. IMPRESSION: 1. Significantly suboptimal exam. Left base is appeared by overlying shadows. Underlying pleural effu carley or consolidation cannot be excluded. 2. Heart is enlarged. 3. Persistent right-sided tracheal deviation, suspected be secondary to enlarged thyroid as noted on significantly suboptimal CT chest exam of 03/10/2020. Reviewed by: Christy Partida MD on 04/30/2020 8:01 AM PDT Approved by: Christy Partida MD on 04/30/2020 8:01 AM PDT Station ID: [id number]
[2020-04-30 08:20] LABS: BASOPHILS % (AUTO) 0.3 %; EOSINOPHILS # (AUTO) 0.2 10^3/uL (0.0-0.7); EOSINOPHILS % (AUTO) 1.5 %; HGB - HEMOGLOBIN 11.9 g/dL (12.0-16.0); LYMPHOCYTES # (AUTO) 1.4 10^3/uL (1.5-3.5); LYMPHOCYTES % (AUTO) 13.6 %; MEAN CORPUSCULAR HEMOGLOBIN 27.7 pg (27.0-31.0); MEAN CORPUSCULAR HGB CONC 30.5 g/dL (32.0-36.0); MEAN CORPUSCULAR VOLUME 90.7 fL (81.0-99.0); MEAN PLATELET VOLUME 8.6 fL (7.9-10.8); MONOCYTES # (AUTO) 0.5 10^3/uL (0.0-1.0); MONOCYTES % (AUTO) 5.3 %; NEUTROPHILS # (AUTO) 7.9 10^3/uL (1.5-6.6); PLT - PLATELET COUNT 293 10^3/uL (130-450); RED CELL DISTRIBUTION WIDTH 15.4 % (12.0-15.0)
[2020-04-30 08:30] LABS: ALBUMIN 3.2 g/dL (3.2-5.5); BILIRUBIN,TOTAL 0.2 mg/dL (0.2-1.0); CALCIUM 8.9 mg/dL (8.5-10.3); CREATININE 0.6 mg/dL (0.4-1.0); POTASSIUM 4.1 mmol/L (3.5-5.0); TOTAL PROTEIN 6.5 g/dL (6.7-8.2)
[2020-04-30 09:56] VITALS: BP 124/74
== END 2020-04-30 10:05 | disposition home or self-care (01) ==
LOC: EDUNIT# → EDBD → ED 06:30
DX: J44.1 Chronic obstructive pulmonary disease with (acute) exacerbation (principal); E11.9 Type 2 diabetes mellitus without complications; Z79.84 Long term (current) use of oral hypoglycemic drugs; E66.01 Morbid (severe) obesity due to excess calories; R00.0 Tachycardia, unspecified; Z59.0 Homelessness
CPT/HCPCS: 36415; 80053; 83605; 85025; 93005; 94640; 96360; 96361; 99284

== ENCOUNTER 2020-05-04 12:10 | Outpatient (CLI) | payer MEDICAID | END 2020-05-04 12:11 | disposition critical access hospital (66) | LOC: EMS 12:10 | PROVIDERS: ATTEND Emergency Medicine | DX: R42 Dizziness and giddiness (principal) | CPT/HCPCS: A0425; A0429; A0999 ==

== ENCOUNTER 2020-05-04 12:28 | Emergency (ER) | payer MEDICAID ==
[2020-05-04] MEDS ORDERED: ONDANSETRON ODT 4 MG TABLET TL STA (12:46)
[2020-05-04 12:55] VITALS: BP 131/97
--- NOTE | 2020-05-04 12:55 | ED Physician Documentation ---
History of Present Illness - Stated complaint Stated Complaint: DIZZINESS - Chief complaint Chief Complaint: General - History obtained from History obtained from: Patient - History of Present Illness Timing: Today Pain level max: 0 Pain level now: 0 - Additonal information Additional information: 49 year old female with nausea today. No chest pain. No shortness of breath (other than her chronic dyspnea). No fevers. No headache. No falls. No trauma. No focal weakness or numbness. Patient with no other complaints Review of Systems Constitutional: denies: Fever, Chills Throat: denies: Sore throat Cardiac: denies: Chest pain / pressure, Palpitations Respiratory: reports: Wheezing (chronic, unchanged.). denies: Cough GI: denies: Nausea, Vomiting Skin: denies: Rash Musculoskeletal: denies: Neck pain, Back pain PD PAST MEDICAL HISTORY - Past Medical History Cardiovascular: None Respiratory: Asthma, COPD, Pneumonia, Sleep apnea, CPAP use Neuro: None Endocrine/Autoimmune: Type 2 diabetes GI: None MEDICATION ADMINISTRATION PROFESSIONAL: None : None HEENT: None, Other Psych: Depression Musculoskeletal: None Derm: None - Past Surgical History Past Surgical History: Yes Ortho: Carpal Tunnel surgery /MEDICATION ADMINISTRATION PROFESSIONAL: Other - Present Medications Home Medications: Ambulatory Orders Medication Instructions Recorded Confirmed Albuterol Sulf [Ventolin Hfa 1 - 2 puffs INH Q4HR PRN #1 inhaler 02/27/20 04/30/20 Inhaler] predniSONE [Deltasone] 10 mg PO [id number] #42 tab 02/27/20 04/30/20 Fluticasone/Salmeterol [Advair 1 puffs IH BID 03/10/20 04/30/20 250-50 Diskus] Cyclobenzaprine HCl 10 mg PO TID PRN 04/02/20 04/30/20 Glipizide 2.5 mg PO DAILY PM 04/02/20 04/30/20 Senna [Senokot] 8.6 mg PO DAILY PRN 04/02/20 04/30/20 Torsemide 20 mg PO DAILY 04/02/20 04/30/20 Montelukast [Singulair] 10 mg PO QPM #30 tablet 04/09/20 04/30/20 - Allergies Allergies/Adverse Reactions: Allergies Allergy/AdvReac Type Severity Reaction Status Date / Time No Known Drug Allergies Allergy Verified 05/04/20 12:51 - Social History Does the pt smoke?: No Smoking Status: Never smoker Does the pt drink ETOH?: No Does the pt have substance abuse?: No - Immunizations Immunizations are current?: Yes - POLST Patient has POLST: No PD ED PE NORMAL - Vitals Vital signs reviewed: Yes - General General: Alert and oriented X 3, No acute distress, Well developed/nourished, Other (Morbidly obese female) - HEENT HEENT: PERRL, Moist mucous membranes - Neck Neck: Supple, no meningeal sign - Cardiac Cardiac: RRR, Strong equal pulses - Respiratory Respiratory: No respiratory distress, Other (Mild wheeze bilaterally) - Abdomen Abdomen: Soft, Non tender, Non distended - Derm Derm: Warm and dry - Extremities Extremities: No calf tenderness / cord - Neuro Neuro: Alert and oriented X 3, real estate portfolio 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 2-12 intact, No motor deficit, No sensory deficit, Normal speech Eye Opening: Spontaneous Motor: Obeys Commands Verbal: Oriented GCS Score: 15 - Psych Psych: Normal mood, Normal affect Results - Vitals Vitals: Vital Signs - 24 hr 05/04/20 05/04/20 12:32 12:53 Temperature 37.0 C Heart Rate 99 103 H Respiratory 30 H 24 Rate Blood Pressure 161/102 H 131/97 H O2 Saturation 100 95 Oxygen O2 Source Room air PD MEDICAL DECISION MAKING - ED course Complexity details: reviewed results, re-evaluated patient, considered differential, d/w patient ED course: Symptoms resolved with a dose of antinausea medication, Zofran. Patient has no other complaints at this time. Has had several normal blood tests recently including a full work-up 3 days ago for chest pain. No chest pain today. We will not perform further blood work at this time. Patient counseled regarding signs and symptoms for which I believe and urgent re-evaluation would be necessary. Patient with good understanding of and agreement to plan and is comfortable going home at this time This document was made in part using voice recognition software. While efforts are made to proofread this document, sound alike and grammatical errors may occur. Departure - Departure Disposition: 01 Home, Self Care Clinical Impression: Nausea Condition: Good Instructions: ED Nausea Vomiting Follow-Up: your,doctor in 1 week [Other] Comments: Follow up with your doctor for further care. Discharge Date/Time: 05/04/20 13:18
== END 2020-05-04 13:18 | disposition home or self-care (01) ==
LOC: ED 12:28
DX: R11.0 Nausea (principal); J44.9 Chronic obstructive pulmonary disease, unspecified; E11.9 Type 2 diabetes mellitus without complications; Z79.84 Long term (current) use of oral hypoglycemic drugs; E66.01 Morbid (severe) obesity due to excess calories; Z68.45 Body mass index [BMI] 70 or greater, adult
CPT/HCPCS: 99282; 99283; Q0162

== ENCOUNTER 2020-05-05 06:16 | Outpatient (CLI) | payer MEDICAID | END 2020-05-05 06:17 | disposition critical access hospital (66) | LOC: EMS 06:16 | PROVIDERS: ATTEND Emergency Medicine | DX: R11.0 Nausea (principal); R53.1 Weakness; R53.83 Other fatigue; R05 Cough | CPT/HCPCS: A0425; A0429; A0999 ==

== ENCOUNTER 2020-05-05 06:32 | Inpatient (IN) | payer MEDICAID ==
[2020-05-05 07:41] LABS: BASOPHILS % (AUTO) 0.3 %; HCT - HEMATOCRIT 40.6 % (37.0-47.0); HGB - HEMOGLOBIN 11.9 g/dL (12.0-16.0); LYMPHOCYTES # (AUTO) 1.3 10^3/uL (1.5-3.5); LYMPHOCYTES % (AUTO) 9.2 %; MEAN CORPUSCULAR HEMOGLOBIN 27.4 pg (27.0-31.0); MEAN CORPUSCULAR HGB CONC 29.3 g/dL (32.0-36.0); MEAN CORPUSCULAR VOLUME 93.3 fL (81.0-99.0); MONOCYTES # (AUTO) 0.8 10^3/uL (0.0-1.0); MONOCYTES % (AUTO) 5.9 %; NEUTROPHILS # (AUTO) 11.5 10^3/uL (1.5-6.6); NEUTROPHILS % (AUTO) 83.9 %; NRBC ABSOLUTE COUNT (AUTO) 0.02 x10^3/uL; NUCLEATED RED BLOOD CELLS AUTO 0.1 /100WBC; PLT - PLATELET COUNT 385 10^3/uL (130-450); RED BLOOD COUNT 4.35 10^6/uL (4.20-5.40); RED CELL DISTRIBUTION WIDTH 15.5 % (12.0-15.0); WHITE BLOOD COUNT 13.7 x10^3/uL (4.8-10.8)
[2020-05-05] MEDS ORDERED: IPRATROPIUM/ALBUTEROL 3 ML NEB INH STA (07:42)
[2020-05-05 07:51] LABS: ALBUMIN 3.3 g/dL (3.2-5.5); ALBUMIN/GLOBULIN RATIO 0.9 (1.0-2.2); BILIRUBIN,TOTAL 0.2 mg/dL (0.2-1.0); CALCIUM 9.1 mg/dL (8.5-10.3); CREATININE 0.8 mg/dL (0.4-1.0); POTASSIUM 5.1 mmol/L (3.5-5.0); TOTAL PROTEIN 6.8 g/dL (6.7-8.2)
--- NOTE | 2020-05-05 08:05 | XRAY Report ---
PROCEDURE: Chest 1 View X-Ray INDICATIONS: Shortness of breath TECHNIQUE: One view of the chest was acquired. COMPARISON: 04/30/2020, 04/09/2020, 04/06/2020 FINDINGS: This study is limited by low lung volumes and patient body habitus. Surgical changes and devices: None. Lungs and pleura: No large pneumothorax can be seen on this semiupright study. There is blunting of the left costophrenic angle. Diffuse interstitial infiltrates are seen. Mediastinum: Mediastinal contours appear normal. Heart size is moderately enlarged. Bones and chest wall: No suspicious bony lesions. Age-appropriate degenerative changes are seen. Overlying soft tissues appear unremarkable. IMPRESSION: Limited study with suspicion for CHF, with cardiomegaly, interstitial prominence, and a small left-si ded pleural effusion. Reviewed by: Chinedu Shi MD on 05/05/2020 7:03 AM AGUILA Approved by: Chinedu Shi MD on 05/05/2020 7:03 AM AGUILA Station ID: [id number]
[2020-05-05 08:09] LABS: VBG BASE EXCESS 2.6 mmol/L (-2 - +2); VBG HCO3 31.9 mmol/L (23-28); VBG PCO2 74.1 mmHg (41-51); VBG PH 7.252 (7.31-7.41); VBG PO2 53.3 mmHg (25-47); VBG TOTAL CO2 34.2 mmol/L (24-29)
[2020-05-05 08:10] LABS: VBG OXYGEN SATURATION 83.9 % (60-80)
[2020-05-05] MEDS ORDERED: FUROSEMIDE 40 MG/4 ML VIAL IVP STA (08:40)
--- NOTE | 2020-05-05 08:55 | ED Physician Documentation ---
History of Present Illness - Stated complaint Stated Complaint: SOA - Chief complaint Chief Complaint: Resp - History obtained from History obtained from: Patient - Additonal information Additional information: 49-year-old woman with history of obstructive sleep apnea, COPD/asthma, diabetes, mild MR, living at the [facility] and well-known to our emergency department, presents with shortness of breath acute in onset this morning. EMS reported that there was an issue with her portable oxygen tubing overnight and she may not of been getting her CPAP like she normally does. She was seen here yesterday without any signs of respiratory distress and today she is able to only give a limited history due to shortness of breath. Review of Systems Unable to obtain: Other (shortness of breath) PD PAST MEDICAL HISTORY - Past Medical History Past Medical History: Yes Cardiovascular: None Respiratory: Asthma, COPD, Pneumonia, Sleep apnea, CPAP use Neuro: None Endocrine/Autoimmune: Type 2 diabetes GI: None FEEDER OPERATOR: None : None HEENT: None, Other Psych: Depression Musculoskeletal: None Derm: None - Past Surgical History Past Surgical History: Yes Ortho: Carpal Tunnel surgery /FEEDER OPERATOR: Other - Present Medications Home Medications: Ambulatory Orders Medication Instructions Recorded Confirmed Albuterol Sulf [Ventolin Hfa 1 - 2 puffs INH Q4HR PRN #1 inhaler 02/27/20 04/30/20 Inhaler] predniSONE [Deltasone] 10 mg PO [id number] #42 tab 02/27/20 04/30/20 Fluticasone/Salmeterol [Advair 1 puffs IH BID 03/10/20 04/30/20 250-50 Diskus] Cyclobenzaprine HCl 10 mg PO TID PRN 04/02/20 04/30/20 Glipizide 2.5 mg PO DAILY PM 04/02/20 04/30/20 Senna [Senokot] 8.6 mg PO DAILY PRN 04/02/20 04/30/20 Torsemide 20 mg PO DAILY 04/02/20 04/30/20 Montelukast [Singulair] 10 mg PO QPM #30 tablet 04/09/20 04/30/20 - Allergies Allergies/Adverse Reactions: Allergies Allergy/AdvReac Type Severity Reaction Status Date / Time No Known Drug Allergies Allergy Verified 05/05/20 06:48 - Social History Does the pt smoke?: No Smoking Status: Never smoker Does the pt drink ETOH?: No Does the pt have substance abuse?: No - Immunizations Immunizations are current?: Yes - POLST Patient has POLST: No PD ED PE NORMAL - Vitals Vital signs reviewed: Yes - General General: Other (morbid obesity. Alert, eye opening spontaneously. speaking in single word sentences 2/2 respiratory distress) - HEENT HEENT: Atraumatic, PERRL, EOMI, Moist mucous membranes - Neck Neck: Supple, no meningeal sign - Cardiac Cardiac: Other (tachycardic rate, regular rhythm) - Respiratory Respiratory: Other (visibly tachypneic with increased wob. distant lung sounds.) - Abdomen Abdomen: Soft, Non tender, Other (large pannus) - Female Female : Deferred - Rectal Rectal: Deferred - Derm Derm: Normal color - Extremities Extremities: No deformity, Other (2+ BL edema) - Neuro Neuro: Other (alert, visibly tachypneic) - Psych Psych: Normal mood, Normal affect Results - Vitals Vitals: Vital Signs - 24 hr 05/05/20 05/05/20 05/05/20 06:33 06:48 07:25 Temperature 37.0 C Heart Rate 128 H 122 H 114 H Respiratory 35 H 20 26 H Rate Blood Pressure 130/98 H 130/98 H 121/77 O2 Saturation 96 93 94 05/05/20 05/05/20 08:00 08:30 Temperature Heart Rate 118 H 116 H Respiratory 28 H 35 H Rate Blood Pressure 110/70 O2 Saturation 90 L Oxygen O2 Source BIPAP Oxygen Flow Rate 2 - Labs Labs: Laboratory Tests 05/05/20 05/05/20 05/05/20 07:07 07:07 07:07 WBC 13.7 H RBC 4.35 Hgb 11.9 L Hct 40.6 MCV 93.3 MCH 27.4 MCHC 29.3 L RDW 15.5 H Plt Count 385 MPV 9.0 Neut # (Auto) 11.5 H Lymph # (Auto) 1.3 L Garden # (Auto) 0.8 Eos # (Auto) 0.0 Baso # (Auto) 0.0 Absolute Nucleated RBC 0.02 Nucleated RBC % 0.1 Bld Gas Analysis Time Sample Site ABG pH ABG pCO2 ABG pO2 ABG HCO3 ABG Total CO2 ABG O2 Saturation ABG Base Excess Krystian Test VBG pH VBG pCO2 VBG pO2 VBG HCO3 VBG Total CO2 VBG O2 Saturation VBG Base Excess Respiration Rate O2 Delivery Device Vent Mode FiO2 EPAP IPAP Sodium 138 Potassium 5.1 H Chloride 98 L Carbon Dioxide 31 Anion Gap 9.0 BUN 24 H Creatinine 0.8 Estimated GFR (MDRD) 76 L Glucose 309 H Calcium 9.1 Total Bilirubin 0.2 AST 43 H ALT 43 Alkaline Phosphatase 77 B-Natriuretic Peptide 214 H Total Protein 6.8 Albumin 3.3 Globulin 3.5 Albumin/Globulin Ratio 0.9 L Lipase 31 05/05/20 05/05/20 08:03 09:09 WBC RBC Hgb Hct MCV MCH MCHC RDW Plt Count MPV Neut # (Auto) Lymph # (Auto) Garden # (Auto) Eos # (Auto) Baso # (Auto) Absolute Nucleated RBC Nucleated RBC % Bld Gas Analysis Time 0915 Sample Site RIGHT RADIAL ABG pH 7.25 L ABG pCO2 79 H* ABG pO2 77 L ABG HCO3 34.1 H ABG Total CO2 36.6 H ABG O2 Saturation 94 ABG Base Excess 4.5 H Krystian Test POSITIVE VBG pH 7.252 L VBG pCO2 74.1 H VBG pO2 53.3 H VBG HCO3 31.9 H VBG Total CO2 34.2 H VBG O2 Saturation 83.9 H VBG Base Excess 2.6 H Respiration Rate 16 O2 Delivery Device BiPAP Vent Mode SYNCHRONOUS/TIMES FiO2 40.00 EPAP 5 IPAP 10 Sodium Potassium Chloride Carbon Dioxide Anion Gap BUN Creatinine Estimated GFR (MDRD) Glucose Calcium Total Bilirubin AST ALT Alkaline Phosphatase B-Natriuretic Peptide Total Protein Albumin Globulin Albumin/Globulin Ratio Lipase PD MEDICAL DECISION MAKING - ED course ED course: Tachypnea and increased wob, HR improved on bipap. Patient resting comfortably. will d/w Dr. Mak for admission. CRITICAL CARE NOTE I have personally performed a history, physical exam, and my own medical decisi on making. Upon my evaluation, this patient had a high probability of imminent or life- threatening deterioration due to respiratory distress 2/2 obstructive lung disease, which required my direct attention, intervention, and personal management. I have personally provided 30 minutes of critical care time exclusive of time spent on separately billable procedures. Time includes review of laboratory data, radiology results, discussion with consultants, and monitoring for potential decompensation. Interventions were performed as documented above. EDW 9:30am 05/05/20 Departure - Departure Disposition: 66 [facility] DC/Xfer Clinical Impression: Obstructive lung disease, Respiratory distress, Elevated brain natriuretic peptide (BNP) level Condition: Stable
[2020-05-05 09:18] LABS: ABG HCO3 34.1 mmol/L (22.0-26.0); ABG PH 7.25 (7.35-7.45); ABG PO2 77 mmHg (80-100); ABG TCO2 36.6 MMOL/L (21.0-29.0)
[2020-05-05 09:19] LABS: ABG BASE EXCESS 4.5 mmol/L (-2.0-3.0); ABG OXYGEN SATURATION 94 % (94-98); ALLEN TEST POSITIVE
[2020-05-05 09:20] LABS: ABG MODE OF VENTILATION SYNCHRONOUS/TIMES; ABG RESPIRATORY RATE 16 b/min
[2020-05-05 09:23] LABS: ABG PCO2 79 mmHg (34-45)
[2020-05-05] MEDS ORDERED: ALBUTEROL NEB 2.5 MG/3 ML INH PRN (11:38)
[2020-05-05 12:00] LABS: B. PARAPERTUSSIS- RESP PCR PAN NOT DETECTED; B. PERTUSSIS- RESP PCR PANEL NOT DETECTED; C. PNEUMONIAE- RESP PCR PANEL NOT DETECTED; CORONAVIRUS 229E-RESP PCR NOT DETECTED; CORONAVIRUS HKU1-RESP PCR NOT DETECTED; CORONAVIRUS NL63-RESP PCR NOT DETECTED; CORONAVIRUS OC43-RESP PCR NOT DETECTED; HUMAN METAPNEUMOVIRUS NOT DETECTED; INFLUENZA A- RESP PCR PANEL NOT DETECTED; INFLUENZA B - RESP PCR PANEL NOT DETECTED; M. PNEUMONIAE- RESP PCR PANEL NOT DETECTED; PARAINFLUENZA VIRUS 1 NOT DETECTED; PARAINFLUENZA VIRUS 2 NOT DETECTED; PARAINFLUENZA VIRUS 3 NOT DETECTED; PARAINFLUENZA VIRUS 4 NOT DETECTED; RHINOVIRUS/ENTEROVIRUS NOT DETECTED; RSV- RESP PCR PANEL NOT DETECTED; SARS-CoV-2 -RESP PCR PANEL NOT DETECTED
[2020-05-05] MEDS ORDERED: IPRATROPIUM/ALBUTEROL 3 ML NEB INH PRN (13:27)
[2020-05-05] MEDS ORDERED: SENNA 8.6 MG TABLET PO PRN (13:28)
--- NOTE | 2020-05-05 14:15 | PHARMACY PROGRESS NOTE ---
- Best Possible Medication History Admit Date and Time: 05/05/20 0926 Processed by: Pharmacy Medication History completed: Yes Patient Interview: Completed Secondary Source(s): Prescription bottles (PATIENT INTERVIEWED BY PHARMACY. PATIENT BROUGHT IN MEDICATION BOTTLES), Physician records, Pharmacy records (PATIENT INTERVIEWED BY PHARMACY. PATIENT BROUGHT IN MEDICATION BOTTLES), Insurance records As the person ultimately responsible for medication therapy, providers are able to order a medication from an existing home medication list in [facility] via the "Reconcile Routine" prior to Confirmation of that medication by production support developer. Such practice is discouraged except when the physician, in their clinical judgment, deems that a medical need exists for a medication without regard to previous use.
[2020-05-05] MEDS: IPRATROPIUM/ALBUTEROL 3 ML NEB INH SCH ×2 (15:20→19:54)
[2020-05-05] MEDS: methylPREDNISolone SUCCINATE 40 MG/ML VIAL IVP SCH ×2 (15:29→21:00)
[2020-05-05] MEDS: NYSTATIN POWDER 15 GM TOP SCH ×2 (15:29→20:59)
--- NOTE | 2020-05-05 15:47 | HISTORY & PHYSICAL EXAMINATION ---
DATE OF SERVICE: 05/05/2020 Physician: Carlyn Awan MD HISTORY OF PRESENT ILLNESS: This is a 49-year-old white female with a history of morbid obesity, her BMI is 81. She is homeless, has a history of diabetes mellitus, on oral agents, sleep apnea on CPAP, thyroid tumor that has been worked up at [facility] and for which she is scheduled to undergo removal by ENT and thoracic surgery because of its very large size of 11 cm x 11 cm x 13 cm (scheduled for some time in May, next month). The patient has a history of developmental delay and comes to this emergency room frequently, in the past years she would present several times a year, but since February, she presents about 4 times per month because of shortness of breath, asthma exacerbation, but also has various complaints such as wanting a shower, arm pain, requesting a COVID vaccination. The patient was last here in the ER yesterday with shortness of breath, which improved with nebulizer treatment and she was discharged. She presented by EMS bringing her in today when there was some trouble with the CPAP machine or oxygen tubing becoming unhooked and she became severely tachypneic. In the emergency room, she was desaturating and required placement of a BiPAP. With this, she had stabilization of her respiratory status. Her workup shows possibly new CHF on chest x-ray as well as a new elevation of BNP of 200 (her baseline BNP is normal), and she also has an elevated white blood count of 13.7 without being on steroids, blood gas shows a pH of 7.25, pCO2 of 79, pO2 of 77, consistent with respiratory acidosis and fatigue. The patient is being admitted to the ICU on BiPAP for medical management. PAST MEDICAL HISTORY: Morbid obesity with body mass index 81, asthma, diabetes, thyroid tumor, which causes upper airway obstruction, developmental delay, sleep apnea on CPAP, chronic leg edema, and homeless. The patient walks around [place] during the day and goes to [facility] at night where she has her equipment. ALLERGIES: NONE. MEDICATIONS 1. Albuterol inhaler as needed. 2. Cyclobenzaprine as needed. 3. Advair Diskus twice daily. 4. Glipizide 5 mg every night. 5. Singulair 10 mg every night. 6. Senna as needed. 7. Torsemide 20 mg daily for chronic leg edema. REVIEW OF SYSTEMS: This patient's last echo was done in 01/2020 and showed normal LV systolic function, there was no mention at all made over what her right ventricular size or function was. This patient has reported that "she has a fiance who lives in [place]" for whom she sends her monthly financial amounts and through all of her admissions nobody has been able to obtain details about the fiance in order to call him and confirm. The patient used to live in her mother's house, but it became condemned and she was subsequently made homeless, approximately a year or 2 ago. The patient has been given multiple episodes of assisting her to get to her PCP, but she does not show up for appointments and instead comes to the hospital ER for her management. A comprehensive review of systems was performed and the pertinent positives are listed, the rest are negative. SOCIAL HISTORY: She is a nonsmoker, drinks no alcohol. No illicit drug use history. FAMILY HISTORY: Noncontributory. PHYSICAL EXAMINATION GENERAL: Obese white female, skin is heavily tattooed.. She is currently on a BiPAP and appears comfortable, is sleeping, awakens and converses. VITAL SIGNS: Blood pressure 121/64, pulse of 102 in sinus rhythm, now down to 98. Afebrile, oxygen saturation is 96% on 40% FiO2 via BiPAP. Respiratory rate is 24-28. HEENT: Reveals her to be on the BiPAP. NECK: Extremely obese and cannot be evaluated for a neck mass or JVD. CHEST: Inspiratory stridor present. Prolonged expiratory phase, no wheezing. HEART: Sounds very distant. ABDOMEN: Extremely obese with a very large pannus, nearly down to her knees. EXTREMITIES: 1-2+ edema to the knees. NEUROLOGIC: Currently lethargic, but awakens and is nonfocal. LABORATORY DATA: Sodium 138, potassium 5.1, BUN 24, creatinine 0.8, AST 43, and ALT 43. BNP 214, and her baseline BNP on prior testing is 15-39. Lipase was normal. No INR was done. White blood count 13.7, hemoglobin 11.9, and platelet count normal at 385. BioFire test is negative for COVID and for everything else. EKG: Sinus tachycardia at a rate of 115, low voltage in the precordial leads, borderline abnormal R-wave progression in the precordial leads. Chest x-ray: Small left pleural effusion, interstitial edema seen, cardiomegaly. IMPRESSION/DIAGNOSES 1. Acute respiratory failure with hypoxia. 2. Respiratory acidosis. 3. Acute asthmatic exacerbation. 4. Elevated BNP. 5. Morbid obesity. 6. Thyroid tumor. 7. Prerenal azotemia. 8. Diabetes mellitus. 9. Developmental delay. 10. Obstructive sleep apnea, on CPAP. 11. Edema of both legs. 12. Homeless person. PLAN: Admit the patient to the ICU on telemetry. Continue with BiPAP support supplemental oxygen support, and wean down as tolerated. Continue with management for volume overload with IV Lasix. Also, institute treatment for an asthmatic exacerbation with scheduled nebulizers, inhaled steroids. Cycle troponins because of the new elevation of BNP, follow BNP daily. Obtain an Echo, to evaluate LV and RV contractility. Continue with her diabetic diet when she is able to eat, start sliding scale insulin coverage and her oral agent. Continue with her home CPAP device. Plan for followup soon for the scheduled thyroid surgery. Because she has had prior no shows for PCP visits to a new provider, there may need for some type of extra help to give this lady for appearing for her scheduled thyroid surgery at [facility]. DEEP VENOUS THROMBOSIS PROPHYLAXIS: Pharmacotherapy. CODE STATUS: FULL CODE. ATTESTATION: Patient is expected to be discharged or transferred to another facility within 96 hours: Yes. TD: 05/05/2020 13:29 MTDEric
[2020-05-05] MEDS: INSULIN ASPART 300 UNIT/3 ML PEN SUBQ SCH ×2 (16:55→21:01)
[2020-05-05] MEDS: SODIUM CHLORIDE FLUSH 0.9% 10 ML SYRINGE IVP SCH ×2 (16:56→21:00)
[2020-05-05] MEDS ORDERED: ASPIRIN CHEW 81 MG TABLET PO STA (19:26)
[2020-05-05] MEDS ORDERED: ACETAMINOPHEN 325 MG TABLET PO PRN (19:29)
[2020-05-05 20:58] LABS: CALCIUM 8.9 mg/dL (8.5-10.3); CREATININE 0.6 mg/dL (0.4-1.0); POTASSIUM 4.5 mmol/L (3.5-5.0)
[2020-05-05] MEDS: MONTELUKAST 10 MG TABLET PO SCH (20:59)
[2020-05-05] MEDS: HEPARIN 5,000 UNIT/ML VIAL SUBQ SCH (20:59)
[2020-05-05] MEDS: FAMOTIDINE 20 MG/2 ML VIAL IVP SCH (20:59)
[2020-05-06] MEDS: SODIUM CHLORIDE FLUSH 0.9% 10 ML SYRINGE IVP PRN ×4 (03:48→21:44)
[2020-05-06] MEDS: methylPREDNISolone SUCCINATE 40 MG/ML VIAL IVP SCH ×3 (06:29→21:43)
[2020-05-06 06:35] LABS: BASOPHILS % (AUTO) 0.1 %; HCT - HEMATOCRIT 39.5 % (37.0-47.0); HGB - HEMOGLOBIN 11.6 g/dL (12.0-16.0); LYMPHOCYTES # (AUTO) 0.9 10^3/uL (1.5-3.5); LYMPHOCYTES % (AUTO) 7.8 %; MEAN CORPUSCULAR HEMOGLOBIN 27.1 pg (27.0-31.0); MEAN CORPUSCULAR HGB CONC 29.4 g/dL (32.0-36.0); MEAN CORPUSCULAR VOLUME 92.3 fL (81.0-99.0); MEAN PLATELET VOLUME 8.8 fL (7.9-10.8); MONOCYTES # (AUTO) 0.1 10^3/uL (0.0-1.0); MONOCYTES % (AUTO) 0.9 %; NEUTROPHILS # (AUTO) 9.8 10^3/uL (1.5-6.6); NEUTROPHILS % (AUTO) 90.6 %; PLT - PLATELET COUNT 290 10^3/uL (130-450); RED BLOOD COUNT 4.28 10^6/uL (4.20-5.40); RED CELL DISTRIBUTION WIDTH 14.6 % (12.0-15.0); WHITE BLOOD COUNT 10.8 x10^3/uL (4.8-10.8)
[2020-05-06 06:49] LABS: CALCIUM 8.6 mg/dL (8.5-10.3); CREATININE 0.5 mg/dL (0.4-1.0); MAGNESIUM 2.3 mg/dL (1.7-2.8); POTASSIUM 4.7 mmol/L (3.5-5.0)
[2020-05-06] MEDS: IPRATROPIUM/ALBUTEROL 3 ML NEB INH SCH ×4 (07:25→20:22)
[2020-05-06] MEDS ORDERED: AZITHROMYCIN 250 MG TABLET PO ONE (08:30)
[2020-05-06] MEDS: SODIUM CHLORIDE FLUSH 0.9% 10 ML SYRINGE IVP SCH ×2 (08:31→17:36)
[2020-05-06] MEDS: polyethylene glycoL 3350 17 GM PACKET PO SCH (08:31)
[2020-05-06] MEDS: FUROSEMIDE 40 MG/4 ML VIAL IVP SCH (08:32)
[2020-05-06] MEDS: NYSTATIN POWDER 15 GM TOP SCH ×2 (08:32→20:33)
[2020-05-06] MEDS: INSULIN ASPART 300 UNIT/3 ML PEN SUBQ SCH ×4 (08:32→20:38)
[2020-05-06] MEDS: FAMOTIDINE 20 MG/2 ML VIAL IVP SCH ×2 (08:32→20:33)
[2020-05-06] MEDS: glipiZIDE 5 MG TABLET PO SCH (08:35)
--- NOTE | 2020-05-06 08:37 | XRAY Report ---
PROCEDURE: Chest 1 View X-Ray INDICATIONS: F/U COPD and CHF TECHNIQUE: One view of the chest was acquired. COMPARISON: 05/05/2020 FINDINGS: Lordotic patient position and low lung volumes. Surgical changes and devices: None. Lungs and pleura: Probable small right pleural effusion layering laterally.. Hazy alveolar opacities with dense linear opacity in the left suprahilar region. Mediastinum: Indistinct central vessels and probable cardiomegaly without significant change since th e prior study. Bones and chest wall: No suspicious bony lesions. Overlying soft tissues appear unremarkable. IMPRESSION: 1. Suboptimal study secondary to both patient and technical factors. 2. Persistent dense linear consolidation likely atelectasis in the left upper lobe. 3. Indistinct central vessels and cardiomegaly suggesting CHF and/or volume overload. Reviewed by: Anamaria Cali MD on 05/06/2020 8:36 AM PDT Approved by: Anamaria Cali MD on 05/06/2020 8:36 AM PDT Station ID: [id number]
[2020-05-06] MEDS: HEPARIN 5,000 UNIT/ML VIAL SUBQ SCH ×2 (11:20→20:39)
[2020-05-06 12:06] LABS: ESTIMATED AVERAGE GLUCOSE 194 mg/dL (70-100); HEMOGLOBIN A1c% 8.4 % (4.27-6.07)
[2020-05-06 14:38] LABS: BILIRUBIN,URINE NEGATIVE (NEGATIVE); GLUCOSE, URINE (UA) 500 mg/dL (NEGATIVE); KETONES,URINE (UA) NEGATIVE (NEGATIVE); LEUKOCYTE ESTERASE, URINE NEGATIVE (NEGATIVE); NITRITE,URINE NEGATIVE (NEGATIVE); OCCULT BLOOD,URINE TRACE-INTA (NEGATIVE); PH,URINE 5.5 PH (5.0-7.5); PROTEIN,URINE NEGATIVE (NEGATIVE); UROBILINOGEN,URINE 0.2 (NORMAL) E.U./dL (NORMAL)
[2020-05-06 14:41] LABS: CLARITY,URINE CLEAR (CLEAR); HCG UR QUAL NEGATIVE
--- NOTE | 2020-05-06 14:50 | PROVIDER PROGRESS NOTE ---
Assessment/Plan - Problem List (1) Acute respiratory failure with hypoxia Assessment/Plan: She was desaturating in the ER at [facility] and told the ER that there was something wrong with her O2 machine tubing, which is housed at the [facility] where she stays every night because she is homeless. She needed BiPAP overnight, today her saturations are better just on nasal cannula supplemental oxygen during the day. Continue to treat the multifactorial cause for desaturation: CHF, asthma, bronchitis and her very large thyroid mass needs removal. (2) Asthma exacerbation Assessment/Plan: Continue bronchodilator and steroid nebs, iv Solumedrol and empiric Zithromax orally. (3) Elevated brain natriuretic peptide (BNP) level Assessment/Plan: She also had an elevated troponin level that was climbing however not doubling, she has ruled out for an FL. I suspect the elevation of troponins was demand ischemia from hypoxia Her Echo today is ordered with Definity for good evaluation of the LV and the RV (in January there was no visualization of the RV at all). The patient told the survey data technician that she may be therefore we are awaiting a urine hCG, then definitive can be given without concerns. Continue with iv Lasix treatment daily. (4) Morbid obesity with BMI of 70 and over, adult Assessment/Plan: This is a higher BMI than at her last admission, making fluid retention the suspected cause. Triage Register Nurse to see. Continue iv diuresis. (5) Thyroid mass Assessment/Plan: his was evaluated at [facility] and the plan had been for a combine ENT and Thoracic surgery procedure on 05/16/20, as per information found out by our [facility] RN, Alecia. But [facility] was trying to reach her and could not (she is homeless), so called her brother but he has been "fired" by the patient from being her DPOA and he could not reach her. Apparently the surgery has been cancelled at [facility]. She told the that she cancelled whatever she had coming up at [facility], because she sis not want it. She may not understand the importance of this procedure, because of having developmental delay. Will ask SW to help with legal matters, going forward. (6) DM type 2 (diabetes mellitus, type 2) Assessment/Plan: She is only on an oral agent at home. Here we started a cc diet and ss Insulin coverage. (7) Developmental delay, mild Assessment/Plan: Unsure if she has ever had a cognitive eval here, to determine if she has capacity to make medical decisions for herself. She told the SW that she cancelled whatever she had coming up at [facility], because she sis not want it. She may not understand the importance of this procedure, because of having d evelopmental delay. Will ask SW to help with legal matters, going forward. (8) CEDRIC (obstructive sleep apnea) Assessment/Plan: She DOES NOT have a CPAP machine at [facility], only an oxygen machine. (9) Cor pulmonale Assessment/Plan: This was seen on Echo done today. It is likely the cause of her chronic leg edema. Treat hypoxia, continue diuresis. (10) Homeless single person Assessment/Plan: She sleeps at [facility], where she goes in the evening. Unknown what she does during the day. (11) Respiratory acidosis Assessment/Plan: Resolved with ventilation with BIPAP Will move pt out of ICU later today - Current Meds Current Meds: Current Medications Generic Name Dose Route Start Last Admin Trade Name Freq PRN Reason Stop Dose Admin Albuterol/Ipratropium 3 ml 05/05/20 15:00 05/06/20 10:58 Ipratropium/Albuterol 3 Ml Neb INH 3 ml RTQID DEANGELO Administration Famotidine 20 mg 05/05/20 21:00 05/06/20 08:32 Famotidine 20 Mg/2 Ml Vial IVP 20 mg BID DEANGELO Administration Furosemide 40 mg 05/06/20 09:00 05/06/20 08:32 Furosemide 40 Mg/4 Ml Vial IVP 40 mg DAILY DEANGELO Administration Glipizide 2.5 mg 05/06/20 09:00 05/06/20 08:35 Glipizide 5 Mg Tablet PO 2.5 mg DAILY DEANGELO Administration Heparin Sodium (Porcine) 5,000 unit 05/05/20 21:00 05/06/20 11:20 Heparin 5,000 Unit/Ml Vial SUBQ 5,000 unit BID DEANGELO Administration Insulin Aspart 1 - 5 unit 05/05/20 17:00 05/06/20 12:56 Insulin Aspart 300 Unit/3 Ml Pen SUBQ 5 unit 0800,1200,1700,2100 DEANGELO Administration Protocol Methylprednisolone 80 mg 05/05/20 14:00 05/06/20 06:29 Methylprednisolone Succinate 40 Mg/Ml Vial IVP 80 mg Q8HR DEANGELO Administration Montelukast Sodium 10 mg 05/05/20 21:00 05/05/20 20:59 Montelukast 10 Mg Tablet PO 10 mg QPM DEANGELO Administration Nystatin 1 applic 05/05/20 15:20 05/06/20 08:32 Nystatin Powder 15 Gm TOP 1 applic BID DEANGELO Administration Polyethylene Glycol 17 gm 05/06/20 09:00 05/06/20 08:31 Polyethylene Glycol 3350 17 Gm Packet PO 17 gm DAILY DEANGELO Administration Sodium Chloride 10 ml 05/05/20 17:00 05/06/20 08:31 Sodium Chloride Flush 0.9% 10 Ml Syringe IVP 10 ml 0100,0900,1700 DEANGELO Administration Sodium Chloride 10 ml 05/05/20 11:38 05/06/20 06:29 Sodium Chloride Flush 0.9% 10 Ml Syringe IVP 10 ml PRN PRN Administration NEEDED PER PROVIDER ORDERS - Lab Result Fish Bone Diagrams: 05/06/20 06:30 05/06/20 06:30 - Additional Planning My Orders: My Active Orders 05/05/20 14:00 methylPREDNISolone SUCCINATE [SOLU-Medrol (40MG VIAL)] 80 mg IVP Q8HR 05/05/20 15:00 Ipratropium/Albuterol [Duoneb] 3 ml INH RTQID 05/05/20 15:20 Nystatin [Nystop] 1 applic TOP BID 05/05/20 17:00 Insulin Aspart [NovoLOG] 1 - 5 unit SUBQ 0800,1200,1700,2100 Sodium Chloride Flush 0.9% [Normal Saline Flush 0.9%] 10 ml IVP 0100,0900,1700 05/05/20 21:00 Famotidine [Pepcid] 20 mg IVP BID Heparin [Heparin Sodium (Porcine)] 5,000 unit SUBQ BID Montelukast [Singulair] 10 mg PO QPM 05/06/20 08:00 Echo [Echo Transthoracic w/Definity] [ECHO] Routine 05/06/20 09:00 FUROSEMIDE INJ 40mg VIAL [LASIX INJ 40 mg VIAL] 40 mg IVP DAILY glipiZIDE [Glucotrol] 2.5 mg PO DAILY polyethylene glycoL 3350 [Miralax] 17 gm PO DAILY 05/06/20 Lunch Carb-controlled Diet [DIET] 05/06/20 14:19 HCG QUALITATIVE, URINE [URIN] Urgent UA w/ MICROSCOPIC, CULT IF [URIN] Urgent 05/07/20 09:00 Azithromycin [Zithromax] 250 mg PO DAILY Subjective - Subjective Patient Reports: Feeling Better, Resting Comfortably, Cough Objective Vital Signs: Vital Signs - 24 hr 05/05/20 05/05/20 05/05/20 15:00 15:20 16:00 Temperature 37.2 C Heart Rate 97 Heart Rate [ 97 98 Monitoring electrodes] Respiratory 27 H 25 H 24 Rate Blood Pressure 119/64 122/66 [Left Radial artery] O2 Saturation 100 100 05/05/20 05/05/20 05/05/20 17:00 17:50 18:00 Temperature Heart Rate 96 Heart Rate [ 102 H 94 Monitoring electrodes] Respiratory 20 25 H Rate Blood Pressure 132/69 H 138/65 H [Left Radial artery] O2 Saturation 97 98 05/05/20 05/05/20 05/05/20 19:00 19:55 20:00 Temperature 37.5 C Heart Rate 84 Heart Rate [ 100 91 Monitoring electrodes] Respiratory 20 24 20 Rate Blood Pressure 115/84 H 125/76 [Left Radial artery] O2 Saturation 98 05/05/20 05/05/20 05/05/20 20:02 21:00 22:00 Temperature Heart Rate 80 Heart Rate [ 70 95 Monitoring electrodes] Respiratory 25 H 20 Rate Blood Pressure 118/72 113/70 [Left Radial artery] O2 Saturation 96 90 L 05/05/20 05/06/20 05/06/20 23:00 00:00 00:15 Temperature Heart Rate 85 Heart Rate [ 97 85 Monitoring electrodes] Respiratory 23 19 Rate Blood Pressure 113/69 116/74 [Left Radial artery] O2 Saturation 94 95 05/06/20 05/06/20 05/06/20 01:00 02:00 03:00 Temperature 36.4 C L Heart Rate Heart Rate [ 93 911 H 81 Monitoring electrodes] Respiratory 21 22 22 Rate Blood Pressure 111/68 109/60 108/74 [Left Radial artery] O2 Saturation 97 94 96 05/06/20 05/06/20 05/06/20 03:30 04:00 05:00 Temperature 36.6 C Heart Rate 83 Heart Rate [ 89 92 Monitoring electrodes] Respiratory 18 25 H Rate Blood Pressure 107/66 104/59 L [Left Radial artery] O2 Saturation 97 95 05/06/20 05/06/20 05/06/20 05:50 06:00 07:00 Temperature Heart Rate 86 Heart Rate [ 76 89 Monitoring electrodes] Respiratory 18 18 Rate Blood Pressure 111/70 111/63 [Left Radial artery] O2 Saturation 97 99 05/06/20 05/06/20 05/06/20 07:27 08:00 09:00 Temperature 36.8 C Heart Rate 89 Heart Rate [ 96 102 H Monitoring electrodes] Respiratory 23 18 18 Rate Blood Pressure 112/87 H 116/66 [Left Radial artery] O2 Saturation 97 96 05/06/20 05/06/20 05/06/20 10:00 11:00 12:00 Temperature Heart Rate 100 Heart Rate [ 103 H 103 H Monitoring electrodes] Respiratory 20 21 21 Rate Blood Pressure 100/57 L 113/65 [Left Radial artery] O2 Saturation 97 98 05/06/20 05/06/20 13:00 14:00 Temperature Heart Rate Heart Rate [ 102 H 94 Monitoring electrodes] Respiratory 20 Rate Blood Pressure 132/80 H 144/91 H [Left Radial artery] O2 Saturation 100 97 Oxygen O2 Source Nasal cannula Oxygen Flow Rate 2 I&O (Last 24 Hrs): Intake and Output Totals x24h 05/04/20 05/05/20 05/06/20 23:59 23:59 23:59 Intake Total 1500 810 Output Total 1400 2065 Balance 100 -1255 General: Alert, Oriented x3 HEENT: Mucous membr. moist/pink Neck: Other (Large neck, from thyroid and her morbid obesity) Neuro: Alert, Non Focal Cardiovascular: Regular rate Respiratory: No respiratory distress, Other (scattered rhonchi) Abdomen: Other (Obese with pannus to her knees) Extremities: No edema (2+ edema), Other (Cyanosis of fingernails noted) - Results Results: Laboratory Results WBC 10.8 x10^3/uL (4.8-10.8) 05/06/20 06:30 RBC 4.28 10^6/uL (4.20-5.40) 05/06/20 06:30 Hgb 11.6 g/dL (12.0-16.0) L 05/06/20 06:30 Hct 39.5 % (37.0-47.0) 05/06/20 06:30 MCV 92.3 fL (81.0-99.0) 05/06/20 06:30 MCH 27.1 pg (27.0-31.0) 05/06/20 06:30 MCHC 29.4 g/dL (32.0-36.0) L 05/06/20 06:30 RDW 14.6 % (12.0-15.0) 05/06/20 06:30 Plt Count 290 10^3/uL (130-450) 05/06/20 06:30 MPV 8.8 fL (7.9-10.8) 05/06/20 06:30 Neut # (Auto) 9.8 10^3/uL (1.5-6.6) H 05/06/20 06:30 Lymph # (Auto) 0.9 10^3/uL (1.5-3.5) L 05/06/20 06:30 [place] # (Auto) 0.1 10^3/uL (0.0-1.0) 05/06/20 06:30 Eos # (Auto) 0.0 10^3/uL (0.0-0.7) 05/06/20 06:30 Baso # (Auto) 0.0 10^3/uL (0.0-0.1) 05/06/20 06:30 Absolute Nucleated RBC 0.00 x10^3/uL 05/06/20 06:30 Nucleated RBC % 0.0 /100WBC 05/06/20 06:30 D-Dimer 407.7 ng/mL (200.0-255.0) H 05/05/20 07:07 Bld Gas Analysis Time 91405/05/20 09:09 Sample Site RIGHT RADIAL 05/05/20 09:09 ABG pH 7.25 (7.35-7.45) L 05/05/20 09:09 ABG pCO2 79 mmHg (34-45) H* 05/05/20 09:09 ABG pO2 77 mmHg (80-100) L 05/05/20 09:09 ABG HCO3 34.1 mmol/L (22.0-26.0) H 05/05/20 09:09 ABG Total CO2 36.6 MMOL/L (21.0-29.0) H 05/05/20 09:09 ABG O2 Saturation 94 % (94-98) 05/05/20 09:09 ABG Base Excess 4.5 mmol/L (-2.0-3.0) H 05/05/20 09:09 Krystian Test POSITIVE 05/05/20 09:09 VBG pH 7.252 (7.31-7.41) L 05/05/20 08:03 VBG pCO2 74.1 mmHg (41-51) H 05/05/20 08:03 VBG pO2 53.3 mmHg (25-47) H 05/05/20 08:03 VBG HCO3 31.9 mmol/L (23-28) H 05/05/20 08:03 VBG Total CO2 34.2 mmol/L (24-29) H 05/05/20 08:03 VBG O2 Saturation 83.9 % (60-80) H 05/05/20 08:03 VBG Base Excess 2.6 mmol/L (-2 - +2) H 05/05/20 08:03 Respiration Rate 16 b/min 05/05/20 09:09 O2 Delivery Device BiPAP 05/05/20 09:09 Vent Mode SYNCHRONOUS/TIMES 05/05/20 09:09 FiO2 40.00 05/05/20 09:09 EPAP 5 cmH2O 05/05/20 09:09 IPAP 10 cmH2O 05/05/20 09:09 Sodium 138 mmol/L (135-145) 05/06/20 06:30 Potassium 4.7 mmol/L (3.5-5.0) 05/06/20 06:30 Chloride 94 mmol/L (101-111) L 05/06/20 06:30 Carbon Dioxide 35 mmol/L (21-32) H 05/06/20 06:30 Anion Gap 9.0 (6-13) 05/06/20 06:30 BUN 17 mg/dL (6-20) 05/06/20 06:30 Creatinine 0.5 mg/dL (0.4-1.0) 05/06/20 06:30 Estimated GFR (MDRD) 131 (>89) 05/06/20 06:30 Glucose 211 mg/dL (70-100) H 05/06/20 06:30 Estimat Average Glucose 194 mg/dL (70-100) H 05/06/20 06:30 Hemoglobin A1c % 8.4 % (4.27-6.07) H 05/06/20 06:30 Calcium 8.6 mg/dL (8.5-10.3) 05/06/20 06:30 Phosphorus 4.0 mg/dL (2.5-4.6) 05/06/20 06:30 Magnesium 2.3 mg/dL (1.7-2.8) 05/06/20 06:30 Total Bilirubin 0.2 mg/dL (0.2-1.0) 05/05/20 07:07 AST 43 IU/L (10-42) H 05/05/20 07:07 ALT 43 IU/L (10-60) 05/05/20 07:07 Alkaline Phosphatase 77 IU/L (42-121) 05/05/20 07:07 Troponin I High Sens 386.6 ng/L (2.3-14.8) H* 05/05/20 20:26 B-Natriuretic Peptide 145 pg/mL (5-100) H 05/06/20 06:30 Total Protein 6.8 g/dL (6.7-8.2) 05/05/20 07:07 Albumin 3.3 g/dL (3.2-5.5) 05/05/20 07:07 Globulin 3.5 g/dL (2.1-4.2) 05/05/20 07:07 Albumin/Globulin Ratio 0.9 (1.0-2.2) L 05/05/20 07:07 Lipase 31 U/L (22-51) 05/05/20 07:07 Urine Color YELLOW 05/06/20 14:19 Urine Clarity CLEAR (CLEAR) 05/06/20 14:19 Urine pH 5.5 PH (5.0-7.5) 05/06/20 14:19 Ur Specific [place] 1.020 (1.002-1.030) 05/06/20 14:19 Urine Protein NEGATIVE mg/dL (NEGATIVE) 05/06/20 14:19 Urine Glucose (UA) 500 mg/dL (NEGATIVE) H 05/06/20 14:19 Urine Ketones NEGATIVE mg/dL (NEGATIVE) 05/06/20 14:19 Urine Occult Blood TRACE-INTA (NEGATIVE) 05/06/20 14:19 Urine Nitrite NEGATIVE (NEGATIVE) 05/06/20 14:19 Urine Bilirubin NEGATIVE (NEGATIVE) 05/06/20 14:19 Urine Urobilinogen 0.2 (NORMAL) E.U./dL (NORMAL) 05/06/20 14:19 Ur Leukocyte Esterase NEGATIVE (NEGATIVE) 05/06/20 14:19 Urine HCG, Qual NEGATIVE 05/06/20 14:19 Nasal Adenovirus (PCR) NOT DETECTED 05/05/20 10:54 Nasal B. parapertussis DNA (PCR) NOT DETECTED 05/05/20 10:54 Nasal Coronavir 229E PCR NOT DETECTED 05/05/20 10:54 Nasal Coronavir HKU1 PCR NOT DETECTED 05/05/20 10:54 Nasal Coronavir NL63 PCR NOT DETECTED 05/05/20 10:54 Nasal Coronavir OC43 PCR NOT DETECTED 05/05/20 10:54 Nasal Enterovir/Rhinovir PCR NOT DETECTED 05/05/20 10:54 Nasal Influenza B PCR NOT DETECTED 05/05/20 10:54 Nasal Influenza A PCR NOT DETECTED 05/05/20 10:54 Nasal Parainfluen 1 PCR NOT DETECTED 05/05/20 10:54 Nasal Parainfluen 2 PCR NOT DETECTED 05/05/20 10:54 Nasal Parainfluen 3 PCR NOT DETECTED 05/05/20 10:54 Nasal Parainfluen 4 PCR NOT DETECTED 05/05/20 10:54 Nasal RSV (PCR) NOT DETECTED 05/05/20 10:54 Nasal Screen MRSA (PCR) NEGATIVE (NEGATIVE) 05/05/20 12:00 Nasal B.pertussis DNA PCR NOT DETECTED 05/05/20 10:54 Nasal C.pneumoniae (PCR) NOT DETECTED 05/05/20 10:54 Rohan Human Metapneumo PCR NOT DETECTED 05/05/20 10:54 Nasal M.pneumoniae (PCR) NOT DETECTED 05/05/20 10:54 Nasal SARS-CoV-2 (PCR) NOT DETECTED 05/05/20 10:54 - Procedures Procedures: Procedures METATARSOPHALANGEAL FUS (07/27/13)
[2020-05-06 14:58] LABS: BACTERIA,URINE Moderate /HPF (None Seen); CASTS, URINE 0-2 Hyaline Casts /LPF; SQUAMOUS EPITHELIAL CELL,UR FEW Squamous (<= Few)
[2020-05-06] MEDS ORDERED: LIDOCAINE OINTMENT 5% 35.44 GM TUBE TOP ONE (15:16)
[2020-05-06] MEDS ORDERED: PERFLUTREN LIPID MICROSPHERES 1.65 MG/1.5 ML VIAL IVP ONE (16:03)
[2020-05-06] MEDS ORDERED: INSULIN ASPART 300 UNIT/3 ML PEN SUBQ SCH (17:28)
[2020-05-06] MEDS: MONTELUKAST 10 MG TABLET PO SCH (20:34)
[2020-05-07] MEDS: SODIUM CHLORIDE FLUSH 0.9% 10 ML SYRINGE IVP SCH ×4 (03:31→23:46)
[2020-05-07] MEDS: methylPREDNISolone SUCCINATE 40 MG/ML VIAL IVP SCH ×3 (06:41→21:33)
[2020-05-07] MEDS: SODIUM CHLORIDE FLUSH 0.9% 10 ML SYRINGE IVP PRN ×2 (06:41→21:33)
[2020-05-07] MEDS: IPRATROPIUM/ALBUTEROL 3 ML NEB INH SCH ×4 (07:00→18:08)
[2020-05-07] MEDS: INSULIN ASPART 300 UNIT/3 ML PEN SUBQ SCH ×3 (07:52→21:26)
[2020-05-07] MEDS: guaiFENesin 600 MG TABLET PO SCH ×2 (08:53→21:24)
[2020-05-07] MEDS: AZITHROMYCIN 250 MG TABLET PO SCH (08:53)
[2020-05-07] MEDS: glipiZIDE 5 MG TABLET PO SCH (08:54)
[2020-05-07 08:55] LABS: BASOPHILS % (AUTO) 0.2 %; HCT - HEMATOCRIT 41.1 % (37.0-47.0); HGB - HEMOGLOBIN 12.2 g/dL (12.0-16.0); LYMPHOCYTES % (AUTO) 7.2 %; MEAN CORPUSCULAR HEMOGLOBIN 26.8 pg (27.0-31.0); MEAN CORPUSCULAR HGB CONC 29.7 g/dL (32.0-36.0); MEAN CORPUSCULAR VOLUME 90.1 fL (81.0-99.0); MONOCYTES # (AUTO) 0.3 10^3/uL (0.0-1.0); MONOCYTES % (AUTO) 2.3 %; NEUTROPHILS # (AUTO) 12.7 10^3/uL (1.5-6.6); NEUTROPHILS % (AUTO) 89.7 %; PLT - PLATELET COUNT 358 10^3/uL (130-450); RED BLOOD COUNT 4.56 10^6/uL (4.20-5.40); RED CELL DISTRIBUTION WIDTH 14.9 % (12.0-15.0); WHITE BLOOD COUNT 14.1 x10^3/uL (4.8-10.8)
[2020-05-07] MEDS: FAMOTIDINE 20 MG/2 ML VIAL IVP SCH ×2 (08:55→21:32)
[2020-05-07] MEDS: FUROSEMIDE 40 MG/4 ML VIAL IVP SCH (08:55)
[2020-05-07] MEDS ORDERED: INSULIN GLARGINE 300 UNIT/3 ML PEN SUBQ SCH ×2 (09:00→21:00)
[2020-05-07 09:05] LABS: CALCIUM 9.5 mg/dL (8.5-10.3); CREATININE 0.7 mg/dL (0.4-1.0); POTASSIUM 4.3 mmol/L (3.5-5.0)
[2020-05-07] MEDS: polyethylene glycoL 3350 17 GM PACKET PO SCH (09:07)
[2020-05-07] MEDS: NYSTATIN POWDER 15 GM TOP SCH ×2 (09:08→21:31)
[2020-05-07] MEDS: HEPARIN 5,000 UNIT/ML VIAL SUBQ SCH ×2 (09:10→21:28)
[2020-05-07] MEDS ORDERED: INSULIN ASPART 300 UNIT/3 ML PEN SUBQ ONE ×2 (09:12→16:49)
[2020-05-07] MEDS ORDERED: ASPIRIN 325 MG TABLET PO STA (09:28)
[2020-05-07] MEDS ORDERED: SODIUM CHLORIDE 0.9% 1,000 ML IV SCH (10:00)
[2020-05-07] MEDS ORDERED: METOPROLOL TARTRATE 25 MG TABLET PO SCH ×3 (10:00→21:00)
[2020-05-07] MEDS ORDERED: ASPIRIN CHEW 81 MG TABLET PO SCH (10:00)
[2020-05-07] MEDS: BUDESONIDE 0.5 MG/2 ML NEB INH SCH ×2 (10:48→18:08)
--- NOTE | 2020-05-07 11:29 | PROVIDER PROGRESS NOTE ---
Assessment/Plan - Problem List (1) Chest pain Assessment/Plan: pt report she still Has mild anterior left chest pain. Patient had elevated troponin over 200 then over 400, now down to troponin 100. EKG show I and V4 ST depression compared with previous one. ECHO reveal mild global hypokinesis of LV, all show pt had NSTEM. Aspirin daily, low dosage of metoprolol, check lipid panel. ECHO could not reveals EF and right ventricular function status. (2) Acute respiratory failure with hypoxia Assessment/Plan: Patient still present shortness of breathing, she feel better and she can speak a whole sentence, Continue supplemental oxygen as needed, continue treated as asthma exacerbation with intravenous Solu-Medrol, Pulmicort and DuoNeb, albuterol, empiric Zithromax orally. hold Lasix because increase of anion gap and BUN significant. (3) Asthma exacerbation Assessment/Plan: will Continue bronchodilator, add pulmicort, and IV steroid, and nebs, and empiric Zithromax orally, And singular. (4) Morbid obesity with BMI of 70 and over, adult Assessment/Plan: This is a higher BMI than at her last admission, advise pt need loss of weight. But pt complain the weight measured at hospital was not accurate. [employer] consult (5) Thyroid mass Assessment/Plan: I strongly advise pt continue followup with her scheduled surgery appointment at [place] but pt state she plan to move to [place] at May. consult with social service assistant try to help pt. But eventually need pt agree to followup with surgeon (6) DM type 2 (diabetes mellitus, type 2) Assessment/Plan: pt's glucose increased likely due to IV steroid usage. She is only on an oral agent at home. Here we started a cc diet reduced glucose intake, and ss Insulin coverage, add lantus in the morning. (7) Developmental delay, mild consult with social service assistant to help her keep her medical compliant, and help her management of her social condition (8) CEDRIC (obstructive sleep apnea) Assessment/Plan: She DOES NOT have a CPAP machine at [facility], only an oxygen machine. advise pt has out-pt sleep study (9) Homeless single person Assessment/Plan: as her hx, consult with social service assistant to help her. She sleeps at [facility], where she goes in the evening. Unknown what she does during the day. (10) Respiratory acidosis Assessment/Plan: Resolved with ventilation with BIPAP Will move pt out of ICU later today - Current Meds Current Meds: Current Medications Generic Name Dose Route Start Last Admin Trade Name Shantell PRN Reason Stop Dose Admin Acetaminophen 650 mg 05/05/20 19:29 05/07/20 07:53 Acetaminophen 325 Mg Tablet PO 650 mg Q4HR PRN Administration Pain or Fever > 38C (100.4F) Albuterol/Ipratropium 3 ml 05/05/20 15:00 05/07/20 10:48 Ipratropium/Albuterol 3 Ml Neb INH 3 ml RTQID DEANGELO Administration Azithromycin 250 mg 05/07/20 09:00 05/07/20 08:53 Azithromycin 250 Mg Tablet PO 05/10/20 09:01 250 mg DAILY DEANGELO Administration Budesonide 0.5 mg 05/07/20 08:33 05/07/20 10:48 Budesonide 0.5 Mg/2 Ml Neb INH 0.5 mg RTBID DEANGELO Administration Famotidine 20 mg 05/05/20 21:00 05/07/20 08:55 Famotidine 20 Mg/2 Ml Vial IVP 20 mg BID DEANGELO Administration Glipizide 2.5 mg 05/06/20 09:00 05/07/20 08:54 Glipizide 5 Mg Tablet PO 2.5 mg DAILY DEANGELO Administration Guaifenesin 600 mg 05/07/20 09:00 05/07/20 08:53 Guaifenesin 600 Mg Tablet PO 600 mg BID DEANGELO Administration Heparin Sodium (Porcine) 5,000 unit 05/05/20 21:00 05/07/20 09:10 Heparin 5,000 Unit/Ml Vial SUBQ 5,000 unit BID DEANGELO Administration Insulin Aspart 1 - 9 unit 05/07/20 08:00 05/07/20 07:52 Insulin Aspart 300 Unit/3 Ml Pen SUBQ 5 unit 0800,1200,1700,2100 DEANGELO Administration Protocol Insulin Glargine 5 unit 05/07/20 09:00 05/07/20 09:33 Insulin Glargine 300 Unit/3 Ml Pen SUBQ 5 unit QDBREAKFAST DEANGELO Administration Montelukast Sodium 10 mg 05/05/20 21:00 05/06/20 20:34 Montelukast 10 Mg Tablet PO 10 mg QPM DEANGELO Administration Nystatin 1 applic 05/05/20 15:20 05/07/20 09:08 Nystatin Powder 15 Gm TOP 1 applic BID DEANGELO Administration Polyethylene Glycol 17 gm 05/06/20 09:00 05/07/20 09:07 Polyethylene Glycol 3350 17 Gm Packet PO Not Given DAILY DEANGELO Sodium Chloride 10 ml 05/05/20 17:00 05/07/20 09:08 Sodium Chloride Flush 0.9% 10 Ml Syringe IVP 10 ml 0100,0900,1700 DEANGELO Administration Sodium Chloride 10 ml 05/05/20 11:38 05/07/20 06:41 Sodium Chloride Flush 0.9% 10 Ml Syringe IVP 10 ml PRN PRN Administration NEEDED PER PROVIDER ORDERS - Lab Result Fish Bone Diagrams: 05/07/20 08:37 05/07/20 08:37 - Additional Planning My Orders: My Active Orders 05/07/20 08:33 Resp Teach Nebulizer/MDI [RC] .ONCE Budesonide [Pulmicort] 0.5 mg INH RTBID 05/07/20 09:00 Insulin Glargine [Lantus Solostar] 5 unit SUBQ QDBREAKFAST 05/07/20 09:29 EKG - Electrocardiogram [RC] .ONCE 05/07/20 14:00 methylPREDNISolone SUCCINATE [SOLU-Medrol (40MG VIAL)] 60 mg IVP Q8HR 05/07/20 21:00 Metoprolol Tartrate [Lopressor] 12.5 mg PO BID 05/08/20 05:00 BMP - BASIC METABOLIC PANEL [CHEM] DAILYLAB CBC - COMP BLD CT W/AUTO DIFF [HEME] DAILYLAB 05/08/20 09:00 Aspirin Chewable [St Case Aspirin] 81 mg PO DAILY 05/09/20 05:00 BMP - BASIC METABOLIC PANEL [CHEM] DAILYLAB CBC - COMP BLD CT W/AUTO DIFF [HEME] DAILYLAB 05/10/20 05:00 BMP - BASIC METABOLIC PANEL [CHEM] DAILYLAB CBC - COMP BLD CT W/AUTO DIFF [HEME] DAILYLAB 05/11/20 05:00 BMP - BASIC METABOLIC PANEL [CHEM] DAILYLAB CBC - COMP BLD CT W/AUTO DIFF [HEME] DAILYLAB 05/12/20 05:00 BMP - BASIC METABOLIC PANEL [CHEM] DAILYLAB CBC - COMP BLD CT W/AUTO DIFF [HEME] DAILYLAB Subjective - Subjective Patient Reports: Feeling Better Objective Vital Signs: Vital Signs - 24 hr 05/06/20 05/06/20 05/06/20 12:00 13:00 14:00 Temperature Heart Rate Heart Rate [ 103 H 102 H 94 Monitoring electrodes] Respiratory 21 20 21 Rate Blood Pressure 113/65 132/80 H 144/91 H [Left Radial artery] O2 Saturation 98 100 97 05/06/20 05/06/20 05/06/20 15:00 15:53 16:00 Temperature 37.3 C Heart Rate 93 Heart Rate [ 97 99 Monitoring electrodes] Respiratory 19 15 20 Rate Blood Pressure 139/81 H 143/85 H [Left Radial artery] O2 Saturation 98 100 05/06/20 05/06/20 05/07/20 20:00 20:25 00:43 Temperature 36.8 C Heart Rate 96 Heart Rate [ 94 111 H Monitoring electrodes] Respiratory 18 16 25 H Rate Blood Pressure 129/81 H 132/94 H [Left Radial artery] O2 Saturation 94 94 05/07/20 05/07/20 05/07/20 04:35 07:00 07:40 Temperature 36.2 C L Heart Rate 92 Heart Rate [ 60 92 Monitoring electrodes] Respiratory 21 20 24 Rate Blood Pressure 135/88 H 138/71 H [Left Radial artery] O2 Saturation 97 92 05/07/20 10:49 Temperature Heart Rate 97 Heart Rate [ Monitoring electrodes] Respiratory 20 Rate Blood Pressure [Left Radial artery] O2 Saturation Oxygen O2 Source Nasal cannula Oxygen Flow Rate 2 I&O (Last 24 Hrs): Intake and Output Totals x24h 05/05/20 05/06/20 05/07/20 23:59 23:59 23:59 Intake Total 1500 2910 670 Output Total 1400 2665 Balance 100 245 670 General: Alert, Oriented x3, Cooperative, No acute distress HEENT: Atraumatic Neck: Supple Lymphatic: no adenopathy Neuro: Alert, Non Focal, Oriented Times 3 Cardiovascular: Regular rate, Normal S1, Normal S2 Respiratory: Chest non-tender, No respiratory distress Abdomen: Normal bowel sounds, Soft - Results Results: Laboratory Results WBC 14.1 x10^3/uL (4.8-10.8) H 05/07/20 08:37 RBC 4.56 10^6/uL (4.20-5.40) 05/07/20 08:37 Hgb 12.2 g/dL (12.0-16.0) 05/07/20 08:37 Hct 41.1 % (37.0-47.0) 05/07/20 08:37 MCV 90.1 fL (81.0-99.0) 05/07/20 08:37 MCH 26.8 pg (27.0-31.0) L 05/07/20 08:37 MCHC 29.7 g/dL (32.0-36.0) L 05/07/20 08:37 RDW 14.9 % (12.0-15.0) 05/07/20 08:37 Plt Count 358 10^3/uL (130-450) 05/07/20 08:37 MPV 9.0 fL (7.9-10.8) 05/07/20 08:37 Neut # (Auto) 12.7 10^3/uL (1.5-6.6) H 05/07/20 08:37 Lymph # (Auto) 1.0 10^3/uL (1.5-3.5) L 05/07/20 08:37 [place] # (Auto) 0.3 10^3/uL (0.0-1.0) 05/07/20 08:37 Eos # (Auto) 0.0 10^3/uL (0.0-0.7) 05/07/20 08:37 Baso # (Auto) 0.0 10^3/uL (0.0-0.1) 05/07/20 08:37 Absolute Nucleated RBC 0.00 x10^3/uL 05/07/20 08:37 Nucleated RBC % 0.0 /100WBC 05/07/20 08:37 D-Dimer 407.7 ng/mL (200.0-255.0) H 05/05/20 07:07 Bld Gas Analysis Time 91405/05/20 09:09 Sample Site RIGHT RADIAL 05/05/20 09:09 ABG pH 7.25 (7.35-7.45) L 05/05/20 09:09 ABG pCO2 79 mmHg (34-45) H* 05/05/20 09:09 ABG pO2 77 mmHg (80-100) L 05/05/20 09:09 ABG HCO3 34.1 mmol/L (22.0-26.0) H 05/05/20 09:09 ABG Total CO2 36.6 MMOL/L (21.0-29.0) H 05/05/20 09:09 ABG O2 Saturation 94 % (94-98) 05/05/20 09:09 ABG Base Excess 4.5 mmol/L (-2.0-3.0) H 05/05/20 09:09 Krystian Test POSITIVE 05/05/20 09:09 VBG pH 7.252 (7.31-7.41) L 05/05/20 08:03 VBG pCO2 74.1 mmHg (41-51) H 05/05/20 08:03 VBG pO2 53.3 mmHg (25-47) H 05/05/20 08:03 VBG HCO3 31.9 mmol/L (23-28) H 05/05/20 08:03 VBG Total CO2 34.2 mmol/L (24-29) H 05/05/20 08:03 VBG O2 Saturation 83.9 % (60-80) H 05/05/20 08:03 VBG Base Excess 2.6 mmol/L (-2 - +2) H 05/05/20 08:03 Respiration Rate 16 b/min 05/05/20 09:09 O2 Delivery Device BiPAP 05/05/20 09:09 Vent Mode SYNCHRONOUS/TIMES 05/05/20 09:09 FiO2 40.00 05/05/20 09:09 EPAP 5 cmH2O 05/05/20 09:09 IPAP 10 cmH2O 05/05/20 09:09 Sodium 138 mmol/L (135-145) 05/07/20 08:37 Potassium 4.3 mmol/L (3.5-5.0) 05/07/20 08:37 Chloride 90 mmol/L (101-111) L 05/07/20 08:37 Carbon Dioxide 33 mmol/L (21-32) H 05/07/20 08:37 Anion Gap 15.0 (6-13) H 05/07/20 08:37 BUN 21 mg/dL (6-20) H 05/07/20 08:37 Creatinine 0.7 mg/dL (0.4-1.0) 05/07/20 08:37 Estimated GFR (MDRD) 89 (>89) 05/07/20 08:37 Glucose 339 mg/dL (70-100) H 05/07/20 08:37 POC Whole Bld Glucose 241 mg/dL (70 - 100) H 05/07/20 07:40 Estimat Average Glucose 194 mg/dL (70-100) H 05/06/20 06:30 Hemoglobin A1c % 8.4 % (4.27-6.07) H 05/06/20 06:30 Calcium 9.5 mg/dL (8.5-10.3) 05/07/20 08:37 Phosphorus 4.0 mg/dL (2.5-4.6) 05/06/20 06:30 Magnesium 2.3 mg/dL (1.7-2.8) 05/06/20 06:30 Total Bilirubin 0.2 mg/dL (0.2-1.0) 05/05/20 07:07 AST 43 IU/L (10-42) H 05/05/20 07:07 ALT 43 IU/L (10-60) 05/05/20 07:07 Alkaline Phosphatase 77 IU/L (42-121) 05/05/20 07:07 Troponin I High Sens 126.5 ng/L (2.3-14.8) H* 05/07/20 08:27 B-Natriuretic Peptide 145 pg/mL (5-100) H 05/06/20 06:30 Total Protein 6.8 g/dL (6.7-8.2) 05/05/20 07:07 Albumin 3.3 g/dL (3.2-5.5) 05/05/20 07:07 Globulin 3.5 g/dL (2.1-4.2) 05/05/20 07:07 Albumin/Globulin Ratio 0.9 (1.0-2.2) L 05/05/20 07:07 Lipase 31 U/L (22-51) 05/05/20 07:07 Urine Color YELLOW 05/06/20 14:19 Urine Clarity CLEAR (CLEAR) 05/06/20 14:19 Urine pH 5.5 PH (5.0-7.5) 05/06/20 14:19 Ur Specific [place] 1.020 (1.002-1.030) 05/06/20 14:19 Urine Protein NEGATIVE mg/dL (NEGATIVE) 05/06/20 14:19 Urine Glucose (UA) 500 mg/dL (NEGATIVE) H 05/06/20 14:19 Urine Ketones NEGATIVE mg/dL (NEGATIVE) 05/06/20 14:19 Urine Occult Blood TRACE-INTA (NEGATIVE) 05/06/20 14:19 Urine Nitrite NEGATIVE (NEGATIVE) 05/06/20 14:19 Urine Bilirubin NEGATIVE (NEGATIVE) 05/06/20 14:19 Urine Urobilinogen 0.2 (NORMAL) E.U./dL (NORMAL) 05/06/20 14:19 Ur Leukocyte Esterase NEGATIVE (NEGATIVE) 05/06/20 14:19 Urine RBC 6-10 /HPF (0-5) H 05/06/20 14:19 Urine WBC 4-5 /HPF (0-5) 05/06/20 14:19 Ur Squamous Epith Cells FEW Squamous (<= Few) 05/06/20 14:19 Urine Bacteria Moderate /HPF (None Seen) H 05/06/20 14:19 Urine Casts 0-2 Hyaline Casts /LPF 05/06/20 14:19 Urine Culture Comments INDICATED 05/06/20 14:19 Urine HCG, Qual NEGATIVE 05/06/20 14:19 Nasal Adenovirus (PCR) NOT DETECTED 05/05/20 10:54 Nasal B. parapertussis DNA (PCR) NOT DETECTED 05/05/20 10:54 Nasal Coronavir 229E PCR NOT DETECTED 05/05/20 10:54 Nasal Coronavir HKU1 PCR NOT DETECTED 05/05/20 10:54 Nasal Coronavir NL63 PCR NOT DETECTED 05/05/20 10:54 Nasal Coronavir OC43 PCR NOT DETECTED 05/05/20 10:54 Nasal Enterovir/Rhinovir PCR NOT DETECTED 05/05/20 10:54 Nasal Influenza B PCR NOT DETECTED 05/05/20 10:54 Nasal Influenza A PCR NOT DETECTED 05/05/20 10:54 Nasal Parainfluen 1 PCR NOT DETECTED 05/05/20 10:54 Nasal Parainfluen 2 PCR NOT DETECTED 05/05/20 10:54 Nasal Parainfluen 3 PCR NOT DETECTED 05/05/20 10:54 Nasal Parainfluen 4 PCR NOT DETECTED 05/05/20 10:54 Nasal RSV (PCR) NOT DETECTED 05/05/20 10:54 Nasal Screen MRSA (PCR) NEGATIVE (NEGATIVE) 05/05/20 12:00 Nasal B.pertussis DNA PCR NOT DETECTED 05/05/20 10:54 Nasal C.pneumoniae (PCR) NOT DETECTED 05/05/20 10:54 Rohan Human Metapneumo PCR NOT DETECTED 05/05/20 10:54 Nasal M.pneumoniae (PCR) NOT DETECTED 05/05/20 10:54 Nasal SARS-CoV-2 (PCR) NOT DETECTED 05/05/20 10:54 - Procedures Procedures: Procedures METATARSOPHALANGEAL FUS (07/27/13) Sepsis Event Note (H) - Evaluation Current Stage of Sepsis: Ruled out ABX Reporting Has patient been on IV antibiotics over the past 48 hours?: Yes Current Medications - Current Medications Current Medications: Active Medications Acetaminophen (Acetaminophen 325 Mg Tablet) 650 mg PO Q4HR PRN PRN Reason: Pain or Fever > 38C (100.4F) Last Admin: 05/07/20 07:53 Dose: 650 mg Documented by: Albuterol (Albuterol Neb 2.5 Mg/3 Ml) 2.5 mg INH Q4HR PRN PRN Reason: Wheezing Albuterol/Ipratropium (Ipratropium/Albuterol 3 Ml Neb) 3 ml INH Q4HR PRN PRN Reason: Wheezing Albuterol/Ipratropium (Ipratropium/Albuterol 3 Ml Neb) 3 ml INH RTQID [facility] Last Admin: 05/07/20 10:48 Dose: 3 ml Documented by: Aspirin (Aspirin Chew 81 Mg Tablet) 81 mg PO DAILY [facility] Azithromycin (Azithromycin 250 Mg Tablet) 250 mg PO DAILY [facility] Stop: 05/10/20 09:01 Last Admin: 05/07/20 08:53 Dose: 250 mg Documented by: Budesonide (Budesonide 0.5 Mg/2 Ml Neb) 0.5 mg INH RTBID [facility] Last Admin: 05/07/20 10:48 Dose: 0.5 mg Documented by: Famotidine (Famotidine 20 Mg/2 Ml Vial) 20 mg IVP BID [facility] Last Admin: 05/07/20 08:55 Dose: 20 mg Documented by: Glipizide (Glipizide 5 Mg Tablet) 2.5 mg PO DAILY [facility] Last Admin: 05/07/20 08:54 Dose: 2.5 mg Documented by: Guaifenesin (Guaifenesin 600 Mg Tablet) 600 mg PO BID [facility] Last Admin: 05/07/20 08:53 Dose: 600 mg Documented by: Heparin Sodium (Porcine) (Heparin 5,000 Unit/Ml Vial) 5,000 unit SUBQ BID [facility] Last Admin: 05/07/20 09:10 Dose: 5,000 unit Documented by: Insulin Aspart (Insulin Aspart 300 Unit/3 Ml Pen) 1 - 9 unit SUBQ 0800,12 00,1700,2100 [facility]; Protocol Last Admin: 05/07/20 07:52 Dose: 5 unit Documented by: Insulin Glargine (Insulin Glargine 300 Unit/3 Ml Pen) 5 unit SUBQ QDBREAKFAST [facility] Last Admin: 05/07/20 09:33 Dose: 5 unit Documented by: Methylprednisolone (Methylprednisolone Succinate 40 Mg/Ml Vial) 60 mg IVP Q8HR [facility] Metoprolol Tartrate (Metoprolol Tartrate 25 Mg Tablet) 12.5 mg PO BID [facility] Montelukast Sodium (Montelukast 10 Mg Tablet) 10 mg PO QPM [facility] Last Admin: 05/06/20 20:34 Dose: 10 mg Documented by: Nystatin (Nystatin Powder 15 Gm) 1 applic TOP BID [facility] Last Admin: 05/07/20 09:08 Dose: 1 applic Documented by: Polyethylene Glycol (Polyethylene Glycol 3350 17 Gm Packet) 17 gm PO DAILY [facility] Last Admin: 05/07/20 09:07 Dose: Not Given Documented by: Senna (Senna 8.6 Mg Tablet) 8.6 mg PO DAILY PRN PRN Reason: Constipation Sodium Chloride (Sodium Chloride Flush 0.9% 10 Ml Syringe) 10 ml IVP 0100,0900,1700 [facility] Last Admin: 05/07/20 09:08 Dose: 10 ml Documented by: Sodium Chloride (Sodium Chloride Flush 0.9% 10 Ml Syringe) 10 ml IVP PRN PRN PRN Reason: NEEDED PER PROVIDER ORDERS Last Admin: 05/07/20 06:41 Dose: 10 ml Documented by: Senna [Senokot] 8.6 mg PO DAILY PRN 04/02/20 Torsemide 20 mg PO DAILY 04/02/20 Budesonide/Formoterol Fumarate [Symbicort 160-4.5 Mcg Inhaler] 1 inh PO DAILY 05/05/20 Cyclobenzaprine [Flexeril] 10 mg PO TID PRN 05/05/20 Glipizide 2.5 mg PO BID 05/05/20
[2020-05-07] MEDS ORDERED: SODIUM CHLORIDE 0.65% NASAL SPRAY NAS PRN (13:58)
[2020-05-07] MEDS ORDERED: INSULIN ASPART 300 UNIT/3 ML PEN SUBQ SCH (17:00)
[2020-05-07] MEDS ORDERED: GI COCKTAIL 120 ML BOTTLE PO PRN (17:36)
[2020-05-07] MEDS: MONTELUKAST 10 MG TABLET PO SCH (21:24)
[2020-05-08 05:23] LABS: BASOPHILS % (AUTO) 0.1 %; HCT - HEMATOCRIT 39.9 % (37.0-47.0); LYMPHOCYTES # (AUTO) 0.9 10^3/uL (1.5-3.5); LYMPHOCYTES % (AUTO) 7.1 %; MEAN CORPUSCULAR HEMOGLOBIN 27.1 pg (27.0-31.0); MEAN CORPUSCULAR HGB CONC 30.1 g/dL (32.0-36.0); MEAN CORPUSCULAR VOLUME 90.3 fL (81.0-99.0); MONOCYTES # (AUTO) 0.4 10^3/uL (0.0-1.0); MONOCYTES % (AUTO) 2.9 %; NEUTROPHILS # (AUTO) 10.7 10^3/uL (1.5-6.6); NEUTROPHILS % (AUTO) 89.4 %; PLT - PLATELET COUNT 335 10^3/uL (130-450); RED BLOOD COUNT 4.42 10^6/uL (4.20-5.40); RED CELL DISTRIBUTION WIDTH 14.9 % (12.0-15.0); WHITE BLOOD COUNT 11.9 x10^3/uL (4.8-10.8)
[2020-05-08 05:34] LABS: CALCIUM 8.8 mg/dL (8.5-10.3); CREATININE 0.7 mg/dL (0.4-1.0)
[2020-05-08 05:54] LABS: CHOL/HDL RATIO 8.7 (<4.4); CHOLESTEROL 209 mg/dL; HDL CHOLESTEROL 24 mg/dL; LDL CHOLESTEROL,CALCULATED 149 mg/dL; LDL/HDL RATIO 6.2 (<4.4); TRIGLYCERIDES 178 mg/dL; VLDL CHOLESTEROL 36 mg/dL
[2020-05-08] MEDS: methylPREDNISolone SUCCINATE 40 MG/ML VIAL IVP SCH (06:06)
[2020-05-08] MEDS: SODIUM CHLORIDE FLUSH 0.9% 10 ML SYRINGE IVP PRN ×2 (06:06→08:24)
[2020-05-08] MEDS: IPRATROPIUM/ALBUTEROL 3 ML NEB INH SCH ×2 (07:11→11:11)
[2020-05-08] MEDS: BUDESONIDE 0.5 MG/2 ML NEB INH SCH (07:11)
[2020-05-08] MEDS ORDERED: INSULIN GLARGINE 300 UNIT/3 ML PEN SUBQ SCH (08:00)
[2020-05-08] MEDS: glipiZIDE 5 MG TABLET PO SCH (08:22)
[2020-05-08] MEDS: AZITHROMYCIN 250 MG TABLET PO SCH (08:23)
[2020-05-08] MEDS: FAMOTIDINE 20 MG/2 ML VIAL IVP SCH (08:23)
[2020-05-08] MEDS: polyethylene glycoL 3350 17 GM PACKET PO SCH (08:23)
[2020-05-08] MEDS: guaiFENesin 600 MG TABLET PO SCH (08:23)
[2020-05-08] MEDS: SODIUM CHLORIDE FLUSH 0.9% 10 ML SYRINGE IVP SCH (08:24)
[2020-05-08] MEDS: INSULIN ASPART 300 UNIT/3 ML PEN SUBQ SCH ×2 (08:32→11:55)
[2020-05-08] MEDS: HEPARIN 5,000 UNIT/ML VIAL SUBQ SCH (08:33)
[2020-05-08] MEDS ORDERED: ASPIRIN CHEW 81 MG TABLET PO SCH (09:00)
[2020-05-08] MEDS ORDERED: METOPROLOL TARTRATE 25 MG TABLET PO SCH (09:00)
[2020-05-08] MEDS: NYSTATIN POWDER 15 GM TOP SCH (11:58)
[2020-05-08] MEDS ORDERED: INSULIN ASPART 300 UNIT/3 ML PEN SUBQ ONE (12:24)
[2020-05-08 13:49] VITALS: BP 155/91
[2020-05-08] MEDS ORDERED: methylPREDNISolone SUCCINATE 40 MG/ML VIAL IVP SCH (14:00)
--- NOTE | 2020-05-08 14:00 | Discharge Plan ---
Discharge Plan Problem Reviewed?: Yes Disposition: Home, Self Care Condition: Stable Prescriptions: Albuterol Sulf [Ventolin Hfa Inhaler] 1 - 2 puffs INH Q4HR PRN #1 inhaler PRN Reason: Shortness Of Air/Wheezing predniSONE [Deltasone] 20 mg PO [id number] #8 tab Gi Cocktail 30 ml PO Q4H PRN #2 bottle PRN Reason: Abdominal Pain glipiZIDE [Glucotrol] 5 mg PO BID #60 tablet Atorvastatin [Lipitor] 40 mg PO QPM #30 tablet Metoprolol Tartrate [Lopressor] 25 mg PO BID #60 tablet Aspirin Chewable [St Case Aspirin] 81 mg PO DAILY #30 tablet Azithromycin [Zithromax] 250 mg PO DAILY #4 tablet Diet: Diabetic Activity Restrictions: Activity as Tolerated Shower Restrictions: No (fall precaution) Instruction Topics: Metoprolol tablets, Atorvastatin tablets, Azithromycin tablets, Aspirin ASA chewable tablets, Heart Risk, ED GERD, Hyperglycemia, Hypoglycemia, Diabetes Type 2 Coping, Glipizide tablets, Asthma, Inhaler Care Health Concerns: asthma exacerbation, chest pain, hyperglycemia/diabetes control, thyroid mass Plan of Treatment: Your respiratory status is stable, and you are walking in the hallway without respiratory distress. you are prescribed albuterol inhaler with weaning of Prednisone dosage. Your chest pain was resolved now. you are prescribed Aspirin, Lipitor and Metoprolol, followup with out-pt computer programming manager for stress test. you are also prescribed GI cocktail as needed for heart burning sensation as well. your Glipizide dosage is increased to 5mg bid. you had elevated glucose level in hospital because of usage of IV steroid. you may followup with PCP for further management. Strongly advise you followup with your surgeon appointment for your thyroid mass. Care Goals: stabilization and improvement of your medical conditions Assessment: discussed the care plan with you, answered your question, you understood. Additional Instructions or Follow Up instructions: You may followup with your PCP in one week, followup with your surgeon appointment for your thyroid mass. Should your symptoms return or worsen, you may present ER or call 911 for help. No Smoking: If you smoke, Please STOP! Call for help.
--- NOTE | 2020-05-08 14:18 | DISCHARGE SUMMARY ---
Discharge Summary Admit Date: 05/05/20 Discharge Date: 05/08/20 Discharging Provider: Elgin Izquierdo Condition at Discharge: Stable Discharge Disposition: 01 Home, Self Care Discharge Facility Name: home - DIAGNOSES Discharge Diagnoses with Status of Each Condition: (1)chest pain pt's chest pain is resolved now. Patient had elevated troponin, EKG show Ischemi c change, ECHO reveal mild global hypokinesis of LV. Aspirin, metoprolol, Lipitor for her HLD, pt may Follow-up outpatient stress test (2) Acute respiratory failure with hypoxia resolved. pt has 95% sat on room air without Respiratory distress. patient walk in the hallway without any distress. (3) Asthma exacerbation acute of Asthma exacerbation was resolved. pt has 95% sat on room air without Respiratory distress. patient walk in the hallway without any distress. pt is prescribed short term of Prednisone, and refill of Albuterol INH. (4) Morbid obesity with BMI of 70 and over, adult advise pt loss of weight, Tool Designer consult for pt (5)HTN stable. pt is prescribed Metoprolol (5) Thyroid mass I strongly advise pt continue followup with her scheduled surgery appointment at [place], consult with social welfare research worker try to help pt. (6) DM type 2 (diabetes mellitus, type 2) Patient's home glipizide dosage increases to 5 mg twice daily. A1C is 8.4. (7) Developmental delay, mild consult with social welfare research worker to help her keep her medical compliant, and help her management of her social condition (8) CEDRIC (obstructive sleep apnea) She DOES NOT have a CPAP machine at [facility], only an oxygen machine. advise pt has out-pt sleep study (9) Homeless single person as her hx, consult with social welfare research worker to help her. She sleeps at [facility], where she goes in the evening. (10) Respiratory acidosis Resolved (11)GERD pt is prescribed Protonix (12)HLD pt is prescribed Lipitor. - HPI History of Present Illness: Patient was admitted for shortness of breathing. Patient has a history of mobility obesity, Asthma, thyroid mass, homeless, diabetes, sleep apnea on CPAP. Patient has been several admission for similar complaint of shortness of breathing. Patient was found to have asthma exacerbation, initially patient was admitted in the ICU with a BiPAP to support. Patient was treated with intravenous Solu-Medrol, Pulmicort, albuterol, And oxygen support as needed. - HOSPITAL COURSE Hospital Course: Patient was admitted for shortness of breathing, hypoxia, asthma exacerbation. Patient also was found chest pain with elevated troponin, EKG had ischemic change, echo show mild global hypokinesis of LV. Patient was treated supplemental oxygen as needed, Intravenous steroid, Breathing treatment, Pulmicort, Patient was Treated with aspirin, beta-berenice, and Lipitor. Patient was also found to have hyperlipidemia. After patient was treated, her symptoms resolved. She was walking in the hallway without any distress. Patient was strongly recommended to have surgery appointment in [place] to assess her thyroid mass. Patient was discharged in hemodynamically stable condition - ALLERGIES Allergies/Adverse Reactions: Allergies Allergy/AdvReac Type Severity Reaction Status Date / Time No Known Drug Allergies Allergy Verified 05/05/20 06:48 - MEDICATIONS Home Medications: Ambulatory Orders Medication Instructions Recorded Confirmed Senna [Senokot] 8.6 mg PO DAILY PRN 04/02/20 05/05/20 Torsemide 20 mg PO DAILY 04/02/20 05/05/20 Montelukast [Singulair] 10 mg PO QPM #30 tablet 04/09/20 05/05/20 Budesonide/Formoterol Fumarate 1 inh PO DAILY 05/05/20 05/05/20 [Symbicort 160-4.5 Mcg Inhaler] Cyclobenzaprine [Flexeril] 10 mg PO TID PRN 05/05/20 05/05/20 Glipizide 2.5 mg PO BID 05/05/20 05/05/20 Albuterol Sulf [Ventolin Hfa 1 - 2 puffs INH Q4HR PRN #1 inhaler 05/08/20 Inhaler] Aspirin Chewable [St Case 81 mg PO DAILY #30 tablet 05/08/20 Aspirin] Atorvastatin [Lipitor] 40 mg PO QPM #30 tablet 05/08/20 Azithromycin [Zithromax] 250 mg PO DAILY #4 tablet 05/08/20 Gi Cocktail 30 ml PO Q4H PRN #2 bottle 05/08/20 Metoprolol Tartrate [Lopressor] 25 mg PO BID #60 tablet 05/08/20 glipiZIDE [Glucotrol] 5 mg PO BID #60 tablet 05/08/20 predniSONE [Deltasone] 20 mg PO [id number] #8 tab 05/08/20 - PHYSICAL EXAM AT DISCHARGE General Appearance: positive: No acute distress, Alert. negative: Lethargic Eyes Bilateral: positive: Normal inspection, PERRL, No lid inflammation ENT: positive: ENT inspection nml, No signs of dehydration. negative: Purulent nasal drainage Neck: positive: Other (large neck). negative: Stiff neck, Swelling/bruising Respiratory: positive: Chest non-tender, No respiratory distress. negative: Rales Cardiovascular: positive: Regular rate & rhythm, No murmur. negative: Tachycardia, Bradycardia, Systolic murmur, Diastolic murmur Peripheral Pulses: positive: 2+ Abdomen: positive: Non-tender, Nml bowel sounds, No distention. negative: Tenderness Back: positive: Nml inspection Skin: positive: Color nml, Warm, Dry Extremities: positive: Non-tender, Full ROM, Nml appearance. negative: Calf tenderness Neurologic/Psychiatric: positive: Oriented x3, Motor nml, Sensation nml. negative: Weakness, Sensory loss, Facial droop, Slurred/abnml speech, Depressed mood/affect - LABS Result Diagrams: 05/08/20 05:03 05/08/20 05:03 - SEPSIS Current Stage of Sepsis: Ruled out - FOLLOW UP Follow Up: Your respiratory status is stable, and you are walking in the hallway without r espiratory distress. you are prescribed albuterol inhaler with weaning of Prednisone dosage. Your chest pain was resolved now. you are prescribed Aspirin, Lipitor and Metoprolol, followup with out-pt garnisher for stress test. you are also prescribed GI cocktail as needed for heart burning sensation as well. your Glipizide dosage is increased to 5mg bid. you had elevated glucose level in hospital because of usage of IV steroid. you may followup with PCP for further management. Strongly advise you followup with your surgeon appointment for your thyroid mass. You may followup with your PCP in one week, followup with your surgeon appointment for your thyroid mass. Should your symptoms return or worsen, you may present ER or call 911 for help. - TIME SPENT Time Spent in Discharge (Minutes): 30
[2020-05-08] MEDS ORDERED: ATORVASTATIN 40 MG TABLET PO SCH (21:00)
[2020-05-08] MEDS ORDERED: glipiZIDE 5 MG TABLET PO SCH (21:00)
== END 2020-05-08 14:20 | disposition home or self-care (01) | DRG 189 ==
LOC: EDUNIT# → EDBD → ED 06:32 → ICU 09:26 → MS2 05-07 05:37
PROVIDERS: ADMIT Internal Medicine; ATTEND Nurse Practitioner Gerontology
DX: J96.01 Acute respiratory failure with hypoxia (principal); I21.4 Non-ST elevation (NSTEMI) myocardial infarction; J45.901 Unspecified asthma with (acute) exacerbation; Z68.45 Body mass index [BMI] 70 or greater, adult; E87.2 Acidosis; J40 Bronchitis, not specified as acute or chronic; E66.01 Morbid (severe) obesity due to excess calories; I27.81 Cor pulmonale (chronic); I11.0 Hypertensive heart disease with heart failure; I50.9 Heart failure, unspecified; E07.9 Disorder of thyroid, unspecified; E11.65 Type 2 diabetes mellitus with hyperglycemia; R62.50 Unspecified lack of expected normal physiological development in childhood; G47.33 Obstructive sleep apnea (adult) (pediatric); K21.9 Gastro-esophageal reflux disease without esophagitis; E78.5 Hyperlipidemia, unspecified; T38.0X5A Adverse effect of glucocorticoids and synthetic analogues, initial encounter; Y92.230 Patient room in hospital as the place of occurrence of the external cause; Z59.0 Homelessness; Z79.84 Long term (current) use of oral hypoglycemic drugs; Z79.51 Long term (current) use of inhaled steroids; Z79.899 Other long term (current) drug therapy; Z91.19 Patient's noncompliance with other medical treatment and regimen
CPT/HCPCS: 0202U; 36415; 36600; 71045; 80048; 80053; 80061; 81001; 81025; 82803; 83036; 83690; 83735; 83880; 84100; 84484; 85025; 85379; 87040; 87086; 87150; 93005; 93306; 94640; 94660; 96374; 99285; 99291; A9270; J1815; J7626; Q9957; 83721

== ENCOUNTER 2020-05-24 04:04 | Outpatient (CLI) | payer MEDICAID | END 2020-05-24 04:05 | disposition critical access hospital (66) | LOC: EMS 04:04 | DX: R06.02 Shortness of breath (principal) | CPT/HCPCS: A0425; A0429; A0999 ==

== ENCOUNTER 2020-05-24 04:22 | Emergency (ER) | payer MEDICAID ==
--- NOTE | 2020-05-24 04:53 | ED Physician Documentation ---
History of Present Illness - Stated complaint Stated Complaint: SOA - Chief complaint Chief Complaint: Resp - History obtained from History obtained from: Patient - Additonal information Additional information: 49-year-old woman with history of large obstructing thyroid mass, CEDRIC, asthma, well-known to our emergency department, presents with wheezing and soa this morning, relieved by ems albuterol inhaler. patient feeling better upon arrival to ED. She now states that she would like us to look at her left hand which is itching and has a rash on the dorsal aspect. Denies fevers, hematemesis, cough productive of yellow sputum. Denies chest pain. Review of Systems Ten Systems: 10 systems reviewed and negative Constitutional: denies: Fever, Chills Respiratory: reports: Dyspnea, Cough (chronic, nonworsening, nonproductive) Skin: reports: Rash PD PAST MEDICAL HISTORY - Past Medical History Past Medical History: Yes Cardiovascular: None Respiratory: Asthma, COPD, Pneumonia, Sleep apnea, CPAP use Neuro: None Endocrine/Autoimmune: Type 2 diabetes GI: None CANDY ATTENDANT: None : None HEENT: None, Other Psych: Depression Musculoskeletal: None Derm: None - Past Surgical History Past Surgical History: Yes Ortho: Carpal Tunnel surgery /CANDY ATTENDANT: Other - Present Medications Home Medications: Ambulatory Orders Medication Instructions Recorded Confirmed Senna [Senokot] 8.6 mg PO DAILY PRN 04/02/20 05/05/20 Torsemide 20 mg PO DAILY 04/02/20 05/05/20 Montelukast [Singulair] 10 mg PO QPM #30 tablet 04/09/20 05/05/20 Budesonide/Formoterol Fumarate 1 inh PO DAILY 05/05/20 05/05/20 [Symbicort 160-4.5 Mcg Inhaler] Cyclobenzaprine [Flexeril] 10 mg PO TID PRN 05/05/20 05/05/20 Glipizide 2.5 mg PO BID 05/05/20 05/05/20 Albuterol Sulf [Ventolin Hfa 1 - 2 puffs INH Q4HR PRN #1 inhaler 05/08/20 Inhaler] Aspirin Chewable [St Case 81 mg PO DAILY #30 tablet 05/08/20 Aspirin] Atorvastatin [Lipitor] 40 mg PO QPM #30 tablet 05/08/20 Azithromycin [Zithromax] 250 mg PO DAILY #4 tablet 05/08/20 Gi Cocktail 30 ml PO Q4H PRN #2 bottle 05/08/20 Metoprolol Tartrate [Lopressor] 25 mg PO BID #60 tablet 05/08/20 glipiZIDE [Glucotrol] 5 mg PO BID #60 tablet 05/08/20 predniSONE [Deltasone] 20 mg PO [id number] #8 tab 05/08/20 Albuterol 2.5 mg INH Q4H PRN #30 ml 05/24/20 Albuterol Sulf [Ventolin Hfa 1 - 2 puffs INH Q4HR PRN #18 gm 05/24/20 Inhaler] Hydrocortisone 1% Oint 28 gm TP TID PRN 10 Days #1 bottle 05/24/20 [Hydrocortisone] - Allergies Allergies/Adverse Reactions: Allergies Allergy/AdvReac Type Severity Reaction Status Date / Time No Known Drug Allergies Allergy Verified 05/24/20 04:39 - Social History Does the pt smoke?: No Smoking Status: Never smoker Does the pt drink ETOH?: No Does the pt have substance abuse?: No - Immunizations Immunizations are current?: Yes - POLST Patient has POLST: No PD ED PE NORMAL - Vitals Vital signs reviewed: Yes - General General: Alert and oriented X 3, No acute distress, Other (morbid obesity) - Cardiac Cardiac: Other (distant cardiac sounds) - Respiratory Respiratory: Other (distant lung sounds. transmitted upper airway sounds) - Abdomen Abdomen: Non tender, Non distended - Derm Derm: Normal color, Other (erythematous fine rash to dorsum of L hand and forearm. ) - Extremities Extremities: No deformity - Neuro Neuro: Alert and oriented X 3 - Psych Psych: Normal mood, Normal affect Results - Vitals Vitals: Vital Signs - 24 hr 05/24/20 04:15 Temperature 36.3 C L Heart Rate 112 H Respiratory 12 Rate Blood Pressure 122/58 L O2 Saturation 100 Oxygen O2 Source Nasal cannula Oxygen Flow Rate 2 PD MEDICAL DECISION MAKING - ED course ED course: 49-year-old woman with obstructive sleep apnea, obstructing thyroid mass, asthma, presents with acute asthma exacerbation this morning, stating that she lost her inhaler and requesting a new prescription. Also with rash to her left hand and forearm. Her shortness of breath appears to have resolved after breathing treatments given by EMS, however we will give 1 more treatment here And send her with a prescription. I can also give a steroid cream for her rash. Return precautions given. Patient will follow up with her primary doctor. Departure - Departure Clinical Impression: Asthma exacerbation, Rash and nonspecific skin eruption Condition: Good Instructions: Asthma Dc Prescriptions: Albuterol Sulf [Ventolin Hfa Inhaler] 1 - 2 puffs INH Q4HR PRN #18 gm PRN Reason: Shortness Of Air/Wheezing Albuterol 2.5 mg INH Q4H PRN #30 ml PRN Reason: Wheezing Hydrocortisone 1% Oint [Hydrocortisone] 28 gm TP TID PRN 10 Days #1 bottle PRN Reason: Itching
[2020-05-24] MEDS ORDERED: IPRATROPIUM/ALBUTEROL 3 ML NEB INH STA (04:55)
[2020-05-24 05:43] VITALS: BP 104/60
== END 2020-05-24 05:42 | disposition home or self-care (01) ==
LOC: EDUNIT# → ED 04:22
DX: J45.901 Unspecified asthma with (acute) exacerbation (principal); R21 Rash and other nonspecific skin eruption; E04.1 Nontoxic single thyroid nodule; G47.33 Obstructive sleep apnea (adult) (pediatric); E11.9 Type 2 diabetes mellitus without complications; Z79.84 Long term (current) use of oral hypoglycemic drugs; E66.01 Morbid (severe) obesity due to excess calories; Z68.43 Body mass index [BMI] 50.0-59.9, adult; Z79.82 Long term (current) use of aspirin
CPT/HCPCS: 94640; 99284; 99285

== ENCOUNTER 2020-05-30 21:43 | Outpatient (CLI) | payer MEDICAID | END 2020-05-30 21:44 | disposition critical access hospital (66) | LOC: EMS 21:43 | DX: R06.00 Dyspnea, unspecified (principal); R05 Cough | CPT/HCPCS: A0425; A0429; A0999 ==

== ENCOUNTER 2020-05-30 22:01 | Emergency (ER) | payer MEDICAID ==
--- NOTE | 2020-05-30 22:05 | ED Physician Documentation ---
PD HPI DYSPNEA - Stated complaint Stated Complaint: SOA/ COUGH - History obtained from History obtained from: Patient, EMS - History of Present Illness Timing - onset: Today, Chronic Timing - onset during: Light activity Timing - duration: Other (chronic dyspnea, worse since this afternoon) Timing - details: Gradual onset, Waxing and waning Pain level max: 0 Pain level now: 0 Improved by: O2, Inhaler/neb Worsened by: Exertion Associated symptoms: Wheezing, Bilateral edema. No: Fever, Cough, Chest pain / discomfort Recently seen: Emergency Dept - Additional information Additional information: BIBA for dyspnea that is chronic but worse than baseline since earlier this afternoon. She is well known to this ED for frequent visits that are mostly related to dyspnea (marcia is her 35th [facility] ED visit over past 12 months). She says she uses oxygen at night and occasionally during some days. She was given combivent via MDI en route by EMS and she reports significant improvement with this. Review of Systems Constitutional: denies: Fever, Chills, Sweats Cardiac: reports: Pedal edema. denies: Chest pain / pressure, Palpitations Respiratory: reports: Dyspnea, Wheezing. denies: Cough GI: denies: Abdominal Pain, Nausea, Vomiting PD PAST MEDICAL HISTORY - Past Medical History Cardiovascular: None Respiratory: Asthma, COPD, Pneumonia, Sleep apnea, CPAP use Neuro: None Endocrine/Autoimmune: Type 2 diabetes GI: None BENCH MOVER: None : None HEENT: None, Other Psych: Depression Musculoskeletal: None Derm: None - Past Surgical History Past Surgical History: Yes Ortho: Carpal Tunnel surgery /BENCH MOVER: Other - Present Medications Home Medications: Ambulatory Orders Medication Instructions Recorded Confirmed Senna [Senokot] 8.6 mg PO DAILY PRN 04/02/20 05/05/20 Torsemide 20 mg PO DAILY 04/02/20 05/05/20 Montelukast [Singulair] 10 mg PO QPM #30 tablet 04/09/20 05/05/20 Budesonide/Formoterol Fumarate 1 inh PO DAILY 05/05/20 05/05/20 [Symbicort 160-4.5 Mcg Inhaler] Cyclobenzaprine [Flexeril] 10 mg PO TID PRN 05/05/20 05/05/20 Glipizide 2.5 mg PO BID 05/05/20 05/05/20 Albuterol Sulf [Ventolin Hfa 1 - 2 puffs INH Q4HR PRN #1 inhaler 05/08/20 Inhaler] Aspirin Chewable [St Case 81 mg PO DAILY #30 tablet 05/08/20 Aspirin] Atorvastatin [Lipitor] 40 mg PO QPM #30 tablet 05/08/20 Azithromycin [Zithromax] 250 mg PO DAILY #4 tablet 05/08/20 Gi Cocktail 30 ml PO Q4H PRN #2 bottle 05/08/20 Metoprolol Tartrate [Lopressor] 25 mg PO BID #60 tablet 05/08/20 glipiZIDE [Glucotrol] 5 mg PO BID #60 tablet 05/08/20 predniSONE [Deltasone] 20 mg PO [id number] #8 tab 05/08/20 Albuterol 2.5 mg INH Q4H PRN #30 ml 05/24/20 Albuterol Sulf [Ventolin Hfa 1 - 2 puffs INH Q4HR PRN #18 gm 05/24/20 Inhaler] Hydrocortisone 1% Oint 28 gm TP TID PRN 10 Days #1 bottle 05/24/20 [Hydrocortisone] predniSONE [Deltasone] 40 mg PO DAILY 4 Days #8 tablet 05/31/20 - Allergies Allergies/Adverse Reactions: Allergies Allergy/AdvReac Type Severity Reaction Status Date / Time No Known Drug Allergies Allergy Verified 05/30/20 22:06 - Social History Does the pt smoke?: No Smoking Status: Never smoker Does the pt drink ETOH?: No Does the pt have substance abuse?: No - Immunizations Immunizations are current?: Yes - POLST Patient has POLST: No PD ED PE NORMAL - Vitals Vital signs reviewed: Yes - General General: Alert and oriented X 3, No acute distress, Other (morbidly obese female in NAD) - HEENT HEENT: Moist mucous membranes - Cardiac Cardiac: No murmur - Respiratory Respiratory: No respiratory distress - Abdomen Abdomen: Soft, Non distended - Derm Derm: No rash PD ED PE EXPANDED - Cardiac Cardiac: Tachy, Regular Rhythm - Respiratory Respiratory: Decreased breath sounds (distant breath sounds bilaterally) Results - Vitals Vitals: Vital Signs - 24 hr 05/30/20 05/31/20 05/31/20 23:39 01:00 03:00 Temperature 36.5 C 36.5 C Heart Rate 82 100 100 Respiratory 22 14 18 Rate Blood Pressure 126/72 121/85 H 120/80 O2 Saturation 92 91 L 99 05/31/20 05:00 Temperature 36.5 C Heart Rate 110 H Respiratory 18 Rate Blood Pressure 128/88 H O2 Saturation 94 Oxygen O2 Source Room air Oxygen Flow Rate 4 PD MEDICAL DECISION MAKING - ED course Complexity details: reviewed old records, re-evaluated patient, considered differential, d/w patient ED course: patient has distant breath sounds bilaterally which is comparable to previous exams I have performed on this patient. she is less dyspneic than other times I have evaluated her and reports improvement after having received combivent en route by medics. Given 10mg PO decadron and rx for prednisone provided. Departure - Departure Disposition: 01 Home, Self Care Clinical Impression: Asthma exacerbation Qualifiers: Asthma severity: mild Asthma persistence: intermittent Qualified Code(s): J45.21 - Mild intermittent asthma with (acute) exacerbation Condition: Good Instructions: ED Reactive Airway Disease Prescriptions: predniSONE [Deltasone] 40 mg PO DAILY 4 Days #8 tablet Discharge Date/Time: 05/31/20 06:57
[2020-05-30] MEDS ORDERED: CHERRY SYRUP 10 ML UDC PO ONE (22:22)
[2020-05-30] MEDS ORDERED: DEXAMETHASONE 10 MG/ML VIAL PO STA (22:22)
[2020-05-31 05:06] VITALS: BP 128/88
== END 2020-05-31 06:57 | disposition home or self-care (01) ==
LOC: EDUNIT# → ED 22:01
DX: J44.9 Chronic obstructive pulmonary disease, unspecified (principal); J45.21 Mild intermittent asthma with (acute) exacerbation; G47.30 Sleep apnea, unspecified; E11.9 Type 2 diabetes mellitus without complications; E66.01 Morbid (severe) obesity due to excess calories; Z68.45 Body mass index [BMI] 70 or greater, adult; Z79.51 Long term (current) use of inhaled steroids; Z79.82 Long term (current) use of aspirin; Z87.01 Personal history of pneumonia (recurrent)
CPT/HCPCS: 99283; 99284; A9270

== ENCOUNTER 2020-06-01 10:29 | Outpatient (CLI) | payer MEDICAID | END 2020-06-01 10:30 | disposition critical access hospital (66) | LOC: EMS 10:29 | DX: R20.0 Anesthesia of skin (principal); R29.6 Repeated falls; Z59.0 Homelessness | CPT/HCPCS: A0425; A0429; A0999 ==

== ENCOUNTER 2020-06-01 10:47 | Emergency (ER) | payer MEDICAID ==
--- NOTE | 2020-06-01 13:40 | ED Physician Documentation ---
History of Present Illness - Stated complaint Stated Complaint: LEG NUMBNESS - Chief complaint Chief Complaint: General - History obtained from History obtained from: Patient - Additonal information Additional information: 49-year-old woman presents with weakness in the bilateral legs on the left side worse than the right, worsening over the past month. Denies urinary or fecal incontinence,. Endorses diffuse body aches. Review of Systems Ten Systems: 10 systems reviewed and negative PD PAST MEDICAL HISTORY - Past Medical History Past Medical History: Yes Cardiovascular: None Respiratory: Asthma, COPD, Pneumonia, Sleep apnea, CPAP use Neuro: None Endocrine/Autoimmune: Type 2 diabetes GI: None HIP HOP PERFORMERS: None : None HEENT: None, Other Psych: Depression Musculoskeletal: None Derm: None - Past Surgical History Past Surgical History: Yes Ortho: Carpal Tunnel surgery /HIP HOP PERFORMERS: Other - Present Medications Home Medications: Ambulatory Orders Medication Instructions Recorded Confirmed Senna [Senokot] 8.6 mg PO DAILY PRN 04/02/20 05/05/20 Torsemide 20 mg PO DAILY 04/02/20 05/05/20 Montelukast [Singulair] 10 mg PO QPM #30 tablet 04/09/20 05/05/20 Budesonide/Formoterol Fumarate 1 inh PO DAILY 05/05/20 05/05/20 [Symbicort 160-4.5 Mcg Inhaler] Cyclobenzaprine [Flexeril] 10 mg PO TID PRN 05/05/20 05/05/20 Glipizide 2.5 mg PO BID 05/05/20 05/05/20 Albuterol Sulf [Ventolin Hfa 1 - 2 puffs INH Q4HR PRN #1 inhaler 05/08/20 Inhaler] Aspirin Chewable [St Case 81 mg PO DAILY #30 tablet 05/08/20 Aspirin] Atorvastatin [Lipitor] 40 mg PO QPM #30 tablet 05/08/20 Azithromycin [Zithromax] 250 mg PO DAILY #4 tablet 05/08/20 Gi Cocktail 30 ml PO Q4H PRN #2 bottle 05/08/20 Metoprolol Tartrate [Lopressor] 25 mg PO BID #60 tablet 05/08/20 glipiZIDE [Glucotrol] 5 mg PO BID #60 tablet 05/08/20 predniSONE [Deltasone] 20 mg PO [id number] #8 tab 05/08/20 Albuterol 2.5 mg INH Q4H PRN #30 ml 05/24/20 Albuterol Sulf [Ventolin Hfa 1 - 2 puffs INH Q4HR PRN #18 gm 05/24/20 Inhaler] Hydrocortisone 1% Oint 28 gm TP TID PRN 10 Days #1 bottle 05/24/20 [Hydrocortisone] predniSONE [Deltasone] 40 mg PO DAILY 4 Days #8 tablet 05/31/20 - Allergies Allergies/Adverse Reactions: Allergies Allergy/AdvReac Type Severity Reaction Status Date / Time No Known Drug Allergies Allergy Verified 06/01/20 11:04 - Social History Does the pt smoke?: No Smoking Status: Never smoker Does the pt drink ETOH?: No Does the pt have substance abuse?: No - Immunizations Immunizations are current?: Yes - POLST Patient has POLST: No PD ED PE NORMAL - Vitals Vital signs reviewed: Yes - General General: Alert and oriented X 3, No acute distress, Other (morbid obesity) - HEENT HEENT: Atraumatic, PERRL, EOMI - Neck Neck: Supple, no meningeal sign - Back Back: No spinal TTP - Derm Derm: Normal color - Extremities Extremities: No deformity, Other (ambulatory with walker with symmetric gait.) - Neuro Neuro: Alert and oriented X 3 Results - Vitals Vitals: Vital Signs - 24 hr 06/01/20 06/01/20 06/01/20 10:49 11:03 12:43 Temperature 36.0 C L 36.9 C Heart Rate 98 99 76 Respiratory 24 20 20 Rate Blood Pressure 118/47 L 126/93 H 135/69 H O2 Saturation 94 94 90 L Oxygen O2 Source Room air PD MEDICAL DECISION MAKING - ED course ED course: 49-year-old woman, well-known to emergency department presents with bilateral lower extremity pain and weakness, left worse than right. Advised patient to follow-up with her primary doctor for physical therapy or to follow-up in [facility] walk-in clinic if she is unable to get an appointment.Return precautions given. Departure - Departure Disposition: 01 Home, Self Care Clinical Impression: Leg pain Condition: Stable Instructions: ED Chronic Pain Management Comments: You are seen in the emergency department for chronic leg pain and weakness. Keep using your walker and follow-up with your primary doctor. You can go to the [facility] walk-in clinic. You need to get a CPAP machine. Return the emergency department if you have any other concerns.
[2020-06-01 13:45] VITALS: BP 120/80
== END 2020-06-01 13:51 | disposition home or self-care (01) ==
LOC: EDUNIT# → ED 10:47
DX: M79.604 Pain in right leg (principal); M79.605 Pain in left leg; R29.898 Other symptoms and signs involving the musculoskeletal system; E11.9 Type 2 diabetes mellitus without complications; Z79.84 Long term (current) use of oral hypoglycemic drugs; Z79.82 Long term (current) use of aspirin; E66.01 Morbid (severe) obesity due to excess calories; Z68.44 Body mass index [BMI] 60.0-69.9, adult
CPT/HCPCS: 99283

== ENCOUNTER 2020-06-02 | Outpatient (CLI) | payer MEDICAID | END 2020-06-02 14:47 | disposition critical access hospital (66) | DX: R06.02 Shortness of breath (principal) | CPT/HCPCS: A0425; A0429; A0999 ==

== ENCOUNTER 2020-06-02 | Outpatient (CLI) | payer MEDICAID | END 2020-06-02 18:19 | disposition other institution (70) | CPT/HCPCS: A0425; A0428 ==

== ENCOUNTER 2020-06-02 15:14 | Emergency (ER) | payer MEDICAID ==
[2020-06-02] MEDS ORDERED: IPRATROPIUM/ALBUTEROL 3 ML NEB INH STA (15:28)
--- NOTE | 2020-06-02 15:30 | ED Physician Documentation ---
PD HPI CHEST PAIN - Stated complaint Stated Complaint: WEAKNESS - Chief complaint Chief Complaint: Cardiac - History obtained from History obtained from: Patient - Additional information Additional information: This is a 49-year-old woman with history of homelessness, morbid obesity, asthma, diabetes, thyroid tumor, developmental delay, sleep apnea, diabetes. She presents by ambulance today for varied complaints. Initial call to EMS was for shortness of breath and generalized weakness. They found her sitting on a rock outside someone's house. On the way here she started to complain of diffus e substernal chest pain. 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 : None HEENT: None, Other Psych: Depression Musculoskeletal: None Derm: None - Past Surgical History Past Surgical History: Yes Ortho: Carpal Tunnel surgery /DIRECTOR OF CONSUMER MARKETING: Other - Present Medications Home Medications: Ambulatory Orders Medication Instructions Recorded Confirmed Senna [Senokot] 8.6 mg PO DAILY PRN 04/02/20 05/05/20 Torsemide 20 mg PO DAILY 04/02/20 05/05/20 Montelukast [Singulair] 10 mg PO QPM #30 tablet 04/09/20 05/05/20 Budesonide/Formoterol Fumarate 1 inh PO DAILY 05/05/20 05/05/20 [Symbicort 160-4.5 Mcg Inhaler] Cyclobenzaprine [Flexeril] 10 mg PO TID PRN 05/05/20 05/05/20 Glipizide 2.5 mg PO BID 05/05/20 05/05/20 Albuterol Sulf [Ventolin Hfa 1 - 2 puffs INH Q4HR PRN #1 inhaler 05/08/20 Inhaler] Aspirin Chewable [St Case 81 mg PO DAILY #30 tablet 05/08/20 Aspirin] Atorvastatin [Lipitor] 40 mg PO QPM #30 tablet 05/08/20 Azithromycin [Zithromax] 250 mg PO DAILY #4 tablet 05/08/20 Gi Cocktail 30 ml PO Q4H PRN #2 bottle 03/31/21 Metoprolol Tartrate [Lopressor] 25 mg PO BID #60 tablet 05/08/20 glipiZIDE [Glucotrol] 5 mg PO BID #60 tablet 05/08/20 predniSONE [Deltasone] 20 mg PO [id number] #8 tab 05/08/20 Albuterol 2.5 mg INH Q4H PRN #30 ml 05/24/20 Albuterol Sulf [Ventolin Hfa 1 - 2 puffs INH Q4HR PRN #18 gm 05/24/20 Inhaler] Hydrocortisone 1% Oint 28 gm TP TID PRN 10 Days #1 bottle 05/24/20 [Hydrocortisone] predniSONE [Deltasone] 40 mg PO DAILY 4 Days #8 tablet 05/31/20 - Allergies Allergies/Adverse Reactions: Allergies Allergy/AdvReac Type Severity Reaction Status Date / Time No Known Drug Allergies Allergy Verified 06/02/20 15:25 - Social History Does the pt smoke?: No Smoking Status: Never smoker Does the pt drink ETOH?: No Does the pt have substance abuse?: No - Immunizations Immunizations are current?: Yes - POLST Patient has POLST: No PD ED PE NORMAL - Vitals Vital signs reviewed: Yes - General General: Alert and oriented X 3, No acute distress - HEENT HEENT: PERRL, EOMI - Neck Neck: Supple, no meningeal sign, No bony TTP - Cardiac Cardiac: RRR, No murmur - Respiratory Respiratory: No respiratory distress, Other (Rhonchorous throughout with slight expiratory wheezes) - Abdomen Abdomen: Non tender - Back Back: No CVA TTP, No spinal TTP - Derm Derm: Normal color, Warm and dry - Extremities Extremities: Other (Mild edema of both legs superimposed on morbid obesity.) - Neuro Neuro: Alert and oriented X 3, Normal speech Results - Vitals Vitals: Vital Signs - 24 hr 06/02/20 06/02/20 06/02/20 15:20 15:51 15:52 Temperature 36.2 C L Heart Rate 110 H 103 H 94 Respiratory 20 22 23 Rate Blood Pressure 153/130 H 155/98 H O2 Saturation 87 L 100 06/02/20 06/02/20 16:00 16:46 Temperature Heart Rate 91 89 Respiratory 23 21 Rate Blood Pressure 124/98 H 144/88 H O2 Saturation 100 97 Oxygen O2 Source Nasal cannula - EKG (time done) 1521 Rate: Rate (enter#) (110) Rhythm: NSR [place]: Normal QRS: Low voltage Ischemia: Non specific changes Computer interpretation: Agree with computer - Labs Labs: Laboratory Tests 06/02/20 06/02/20 06/02/20 16:21 16:21 16:21 WBC 11.4 H RBC 4.59 Hgb 12.0 Hct 42.0 MCV 91.5 MCH 26.1 L MCHC 28.6 L RDW 15.5 H Plt Count 362 MPV 8.8 Manual Slide Review Indicated VBG pH 7.338 VBG pCO2 67.8 H VBG pO2 96.0 H VBG HCO3 35.6 H VBG Total CO2 37.7 H VBG O2 Saturation 97.0 H VBG Base Excess 7.5 H Sodium 138 Potassium 4.5 Chloride 97 L Carbon Dioxide 34 H Anion Gap 7.0 BUN 20 Creatinine 0.7 Estimated GFR (MDRD) 89 Glucose 271 H Calcium 8.8 Troponin I High Sens 06/02/20 16:21 WBC RBC Hgb Hct MCV MCH MCHC RDW Plt Count MPV Manual Slide Review VBG pH VBG pCO2 VBG pO2 VBG HCO3 VBG Total CO2 VBG O2 Saturation VBG Base Excess Sodium Potassium Chloride Carbon Dioxide Anion Gap BUN Creatinine Estimated GFR (MDRD) Glucose Calcium Troponin I High Sens 9.0 PD MEDICAL DECISION MAKING - ED course ED course: This is a 49-year-old woman with multiple medical problems outlined above who presents with shortness of breath and subsequently chest pain. The chest pain seems like a non sequitur, started on the way here as sort of an ancillary complaints. Her lungs are rhonchorous but she appeared less labored and was clear after a DuoNeb here. Her venous blood gas shows chronic CO2 retention but no evidence of an acute worsening. Troponin and EKG are nonischemic. Departure - Departure Disposition: 01 Home, Self Care Clinical Impression: COPD (chronic obstructive pulmonary disease) Qualifiers: COPD type: unspecified COPD Qualified Code(s): J44.9 - Chronic obstructive pulmonary disease, unspecified Chest pain Qualifiers: Chest pain type: unspecified Qualified Code(s): R07.9 - Chest pain, unspecified Condition: Stable Record reviewed to determine appropriate education?: Yes Instructions: COPD Dc Comments: As discussed, it is imperative to set up and keep primary care appointments. Return for new or worsening symptoms.
--- NOTE | 2020-06-02 15:41 | XRAY Report ---
PROCEDURE: Chest 1 View X-Ray INDICATIONS: chest pain TECHNIQUE: One view of the chest was acquired. COMPARISON: 05/06/2020, 04/27/2020, 04/30/2020 FINDINGS: This study is limited by body habitus. Surgical changes and devices: None. Lungs and pleura: Low lung volumes can be seen, causing a crowded appearance to the lung markings. Mild interstitial prominence is seen, which is improved compared to the prior. There is potential charlie nting of the left costophrenic angle. No pneumothorax is detected. Mediastinum: Mediastinal contours appear normal. Heart size is moderately enlarged. Bones and chest wall: No suspicious bony lesions. Overlying soft tissues appear unremarkable. IMPRESSION: Moderate cardiomegaly and interstitial prominence, with a potential small left-sided pleural effusion . Please correlate with patient examination, history, and laboratory values for underlying congestive heart failure. Reviewed by: Chinedu Shi MD on 06/02/2020 2:39 PM [email or web address] Approved by: Chinedu Shi MD on 06/02/2020 2:39 PM [email or web address] Station ID: [id number]
[2020-06-02 16:31] LABS: BASOPHILS % (AUTO) 0.3 %; EOSINOPHILS # (AUTO) 0.1 10^3/uL (0.0-0.7); LYMPHOCYTES # (AUTO) 1.7 10^3/uL (1.5-3.5); LYMPHOCYTES % (AUTO) 15.2 %; MEAN CORPUSCULAR HEMOGLOBIN 26.1 pg (27.0-31.0); MEAN CORPUSCULAR HGB CONC 28.6 g/dL (32.0-36.0); MEAN CORPUSCULAR VOLUME 91.5 fL (81.0-99.0); MEAN PLATELET VOLUME 8.8 fL (7.9-10.8); MONOCYTES # (AUTO) 0.8 10^3/uL (0.0-1.0); MONOCYTES % (AUTO) 6.6 %; NEUTROPHILS # (AUTO) 8.7 10^3/uL (1.5-6.6); NEUTROPHILS % (AUTO) 76.4 %; PLT - PLATELET COUNT 362 10^3/uL (130-450); RED BLOOD COUNT 4.59 10^6/uL (4.20-5.40); RED CELL DISTRIBUTION WIDTH 15.5 % (12.0-15.0); WHITE BLOOD COUNT 11.4 x10^3/uL (4.8-10.8)
[2020-06-02 16:38] LABS: VBG BASE EXCESS 7.5 mmol/L (-2 - +2); VBG HCO3 35.6 mmol/L (23-28); VBG PCO2 67.8 mmHg (41-51); VBG PH 7.338 (7.31-7.41); VBG TOTAL CO2 37.7 mmol/L (24-29)
[2020-06-02 16:43] LABS: SLIDE REVIEW? Indicated
[2020-06-02 16:44] LABS: CALCIUM 8.8 mg/dL (8.5-10.3); CREATININE 0.7 mg/dL (0.4-1.0); POTASSIUM 4.5 mmol/L (3.5-5.0)
[2020-06-02 17:10] LABS: PLATELET ESTIMATE, MANUAL NORMAL (130-450,000) (NORMAL); PLATELET MORPHOLOGY NORMAL APPEARANCE (NORMAL); RBC MORPHOLOGY (MULTIPLE) 2+ HYPOCHROMASIA (NORMAL)
[2020-06-02 18:07] VITALS: BP 138/95
== END 2020-06-02 18:17 | disposition home or self-care (01) ==
LOC: EDUNIT# → ED 15:14
DX: J44.9 Chronic obstructive pulmonary disease, unspecified (principal); R07.89 Other chest pain; R00.0 Tachycardia, unspecified; G47.30 Sleep apnea, unspecified; E11.9 Type 2 diabetes mellitus without complications; Z79.84 Long term (current) use of oral hypoglycemic drugs; E66.01 Morbid (severe) obesity due to excess calories; Z68.44 Body mass index [BMI] 60.0-69.9, adult; Z79.82 Long term (current) use of aspirin; Z59.0 Homelessness
CPT/HCPCS: 36415; 80048; 82803; 84484; 85025; 93005; 94640; 99284

== ENCOUNTER 2020-06-07 14:22 | Outpatient (CLI) | payer MEDICAID | END 2020-06-07 14:23 | disposition critical access hospital (66) | LOC: EMS 14:22 | DX: Z76.89 Persons encountering health services in other specified circumstances (principal) | CPT/HCPCS: A0425; A0429; A0999 ==

== ENCOUNTER 2020-06-07 14:48 | Emergency (ER) | payer MEDICAID ==
--- NOTE | 2020-06-07 15:21 | ED Physician Documentation ---
History of Present Illness - Stated complaint Stated Complaint: MHE - Chief complaint Chief Complaint: General - History obtained from History obtained from: Patient - Additonal information Additional information: 49-year-old woman with multiple comorbidities including morbid obesity presents by ambulance for evaluation of 8-month . States that she is 8 months and feels distended and that her urine is funny and that she has been incontinent and her urine smells sweet. She denies specific dysuria. Of note we have done several tests on her over the last few months all of which have been reliably negative. 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: Other - Present Medications Home Medications: Ambulatory Orders Medication Instructions Recorded Confirmed Montelukast [Singulair] 10 mg PO QPM #30 tablet 04/09/20 06/07/20 Budesonide/Formoterol Fumarate 1 inh PO DAILY 05/05/20 06/07/20 [Symbicort 160-4.5 Mcg Inhaler] Glipizide 2.5 mg PO BID 05/05/20 06/07/20 Aspirin Chewable [St Case 81 mg PO DAILY #30 tablet 05/08/20 06/07/20 Aspirin] Metoprolol Tartrate [Lopressor] 25 mg PO BID #60 tablet 05/08/20 06/07/20 glipiZIDE [Glucotrol] 5 mg PO BID #60 tablet 05/08/20 06/07/20 Albuterol Sulf [Ventolin Hfa 1 - 2 puffs INH Q4HR PRN #18 gm 05/24/20 06/07/20 Inhaler] - Allergies Allergies/Adverse Reactions: Allergies Allergy/AdvReac Type Severity Reaction Status Date / Time No Known Drug Allergies Allergy Verified 06/07/20 15:00 - Social History Does the pt smoke?: No Smoking Status: Never smoker Does the pt drink ETOH?: No Does the pt have substance abuse?: No - Immunizations Immunizations are current?: Yes - POLST Patient has POLST: No PD ED PE NORMAL - Vitals Vital signs reviewed: Yes - General General: Alert and oriented X 3, No acute distress - Abdomen Abdomen: Soft, Non tender, Other (Bedside ultrasound demonstrates no free fluid or intrauterine growth.) Results - Vitals Vitals: Vital Signs - 24 hr 06/07/20 14:54 Temperature 36.1 C L Heart Rate 100 Respiratory 20 Rate Blood Pressure 134/77 H O2 Saturation 93 Oxygen O2 Source Room air - Labs Labs: Laboratory Tests 06/07/20 15:35 Urine Color YELLOW Urine Clarity CLEAR Urine pH 5.5 Ur Specific [place] 1.025 Urine Protein 30 H Urine Glucose (UA) >=1000 H Urine Ketones NEGATIVE Urine Occult Blood NEGATIVE Urine Nitrite NEGATIVE Urine Bilirubin NEGATIVE Urine Urobilinogen 0.2 (NORMAL) Ur Leukocyte Esterase NEGATIVE Urine RBC 0-5 Urine WBC 0-3 Ur Squamous Epith Cells FEW Squamous Amorphous Sediment Few Urine Bacteria None Seen Urine Mucus Few Strands Ur Microscopic Review INDICATED Urine Culture Comments NOT INDICATED Urine HCG, Qual NEGATIVE PD MEDICAL DECISION MAKING - ED course ED course: 49-year-old woman with multiple comorbidities presents with concern for and abdominal dependent edema benign by ultrasound nor urine test. She had a complaint of a sweet smelling urine which corresponds with modestly uncontrolled diabetes and glucosuria with a fingerstick blood sugar in the 220s here. Departure - Departure Disposition: 01 Home, Self Care Clinical Impression: Pseudocyesis, Glucosuria Condition: Stable Record reviewed to determine appropriate education?: Yes Instructions: ED Hyperglycemia Diabetic Comments: Follow-up with your primary care physician for further evaluation and treatment and to work on better glucose control in the setting of type 2 diabetes. Return if worse or for new symptoms. Rest assured you are not .
[2020-06-07 15:48] LABS: BILIRUBIN,URINE NEGATIVE (NEGATIVE); GLUCOSE, URINE (UA) >=1000 mg/dL (NEGATIVE); KETONES,URINE (UA) NEGATIVE (NEGATIVE); LEUKOCYTE ESTERASE, URINE NEGATIVE (NEGATIVE); NITRITE,URINE NEGATIVE (NEGATIVE); OCCULT BLOOD,URINE NEGATIVE (NEGATIVE); PH,URINE 5.5 PH (5.0-7.5); PROTEIN,URINE 30 mg/dL (NEGATIVE); UROBILINOGEN,URINE 0.2 (NORMAL) E.U./dL (NORMAL)
[2020-06-07 16:10] LABS: CLARITY,URINE CLEAR (CLEAR); HCG UR QUAL NEGATIVE
[2020-06-07 16:12] LABS: AMORPHOUS SEDIMENT,UR Few /LPF; BACTERIA,URINE None Seen /HPF (None Seen); MUCUS,URINE Few Strands; RBC,URINE 0-5 /HPF (0-5); SQUAMOUS EPITHELIAL CELL,UR FEW Squamous (<= Few); WBC,URINE 0-3 /HPF (0-5)
[2020-06-07] MEDS ORDERED: ONDANSETRON ODT 4 MG TABLET TL STA (16:26)
[2020-06-07 17:01] VITALS: BP 133/58
[2020-06-07] MEDS ORDERED: NALOXONE 0.4 MG/ML VIAL ONE ×3 (19:25→19:30)
[2020-06-07] MEDS ORDERED: ETOMIDATE 40 MG/20 ML VIAL IVP ONE (19:29)
[2020-06-07] MEDS ORDERED: ROCURONIUM 50 MG/5 ML VIAL ONE (19:30)
[2020-06-07] MEDS ORDERED: PROPOFOL 200 MG/20 ML VIAL IVP ONE (19:55)
== END 2020-06-07 17:10 | disposition home or self-care (01) ==
LOC: EDUNIT# → ED 14:48
DX: F45.8 Other somatoform disorders (principal); E11.65 Type 2 diabetes mellitus with hyperglycemia; E66.01 Morbid (severe) obesity due to excess calories; Z79.84 Long term (current) use of oral hypoglycemic drugs; Z68.44 Body mass index [BMI] 60.0-69.9, adult
CPT/HCPCS: 81001; 81003; 81025; 87086; 99283

== ENCOUNTER 2020-06-07 18:55 | Outpatient (CLI) | payer MEDICAID | END 2020-06-07 18:56 | disposition critical access hospital (66) | LOC: EMS 18:55 | DX: R07.89 Other chest pain (principal); R06.02 Shortness of breath; R11.0 Nausea; Z59.0 Homelessness | CPT/HCPCS: A0425; A0429; A0999 ==

== ENCOUNTER 2020-06-07 19:13 | Emergency (ER) | payer MEDICAID ==
[2020-06-07] MEDS ORDERED: PROPOFOL 500 MG/50 ML 500 MG/50 ML VIAL IV STA ×3 (19:38→22:31)
[2020-06-07] MEDS ORDERED: ROCURONIUM 50 MG/5 ML VIAL IVP STA (19:38)
[2020-06-07] MEDS ORDERED: ETOMIDATE 40 MG/20 ML VIAL IVP STA (19:38)
[2020-06-07 20:07] LABS: BASOPHILS # (AUTO) 0.1 10^3/uL (0.0-0.1); BASOPHILS % (AUTO) 0.4 %; EOSINOPHILS # (AUTO) 0.1 10^3/uL (0.0-0.7); EOSINOPHILS % (AUTO) 0.4 %; HCT - HEMATOCRIT 45.9 % (37.0-47.0); HGB - HEMOGLOBIN 13.2 g/dL (12.0-16.0); LYMPHOCYTES # (AUTO) 2.5 10^3/uL (1.5-3.5); LYMPHOCYTES % (AUTO) 13.3 %; MEAN CORPUSCULAR HEMOGLOBIN 26.7 pg (27.0-31.0); MEAN CORPUSCULAR HGB CONC 28.8 g/dL (32.0-36.0); MEAN CORPUSCULAR VOLUME 92.7 fL (81.0-99.0); MONOCYTES # (AUTO) 0.9 10^3/uL (0.0-1.0); MONOCYTES % (AUTO) 4.6 %; NEUTROPHILS # (AUTO) 14.7 10^3/uL (1.5-6.6); NEUTROPHILS % (AUTO) 78.8 %; NRBC ABSOLUTE COUNT (AUTO) 0.04 x10^3/uL; NUCLEATED RED BLOOD CELLS AUTO 0.2 /100WBC; PLT - PLATELET COUNT 340 10^3/uL (130-450); RED BLOOD COUNT 4.95 10^6/uL (4.20-5.40); RED CELL DISTRIBUTION WIDTH 15.4 % (12.0-15.0); WHITE BLOOD COUNT 18.6 x10^3/uL (4.8-10.8)
[2020-06-07 20:08] LABS: SLIDE REVIEW? Indicated
[2020-06-07 20:13] LABS: VBG BASE EXCESS -0.4 mmol/L (-2 - +2); VBG HCO3 30.7 mmol/L (23-28); VBG OXYGEN SATURATION 88.3 % (60-80); VBG PCO2 86.2 mmHg (41-51); VBG PH 7.169 (7.31-7.41); VBG PO2 64.9 mmHg (25-47); VBG TOTAL CO2 33.3 mmol/L (24-29)
--- NOTE | 2020-06-07 20:14 | ED Physician Documentation ---
PD HPI DYSPNEA - Stated complaint Stated Complaint: CP,SOA - Chief complaint Chief Complaint: Critical Care - History obtained from History obtained from: EMS - Additional information Additional information: Patient seen earlier in the day for urinary complaints and potential for . She has a history of morbid obesity, pickwickian syndrome, large thyroid tumor which she has been seen for several times in [place] and reportedly is not optimized enough to be a surgical candidate yet. She was going home on the bus and started to complain of upper chest pain reportedly. Note all of the history is from the EMS because on the way here she developed obtundation and respiratory failure. Reportedly was talking and seeming fairly normal on the way here in the ambulance but shortly prior to arrival became obtunded and dropped her sats. On arrival she is being bagged with sats in the 40s. She has a history of a large thyroid tumor measuring 11 x 11 x 13 cm. She is on CPAP at home. She is homeless. She is morbidly obese. 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: Other - Present Medications Home Medications: Ambulatory Orders Medication Instructions Recorded Confirmed Montelukast [Singulair] 10 mg PO QPM #30 tablet 04/09/20 06/07/20 Budesonide/Formoterol Fumarate 1 inh PO DAILY 05/05/20 06/07/20 [Symbicort 160-4.5 Mcg Inhaler] Glipizide 2.5 mg PO BID 05/05/20 06/07/20 Aspirin Chewable [St Case 81 mg PO DAILY #30 tablet 05/08/20 06/07/20 Aspirin] Metoprolol Tartrate [Lopressor] 25 mg PO BID #60 tablet 05/08/20 06/07/20 glipiZIDE [Glucotrol] 5 mg PO BID #60 tablet 05/08/20 06/07/20 Albuterol Sulf [Ventolin Hfa 1 - 2 puffs INH Q4HR PRN #18 gm 05/24/20 06/07/20 Inhaler] - Allergies Allergies/Adverse Reactions: Allergies Allergy/AdvReac Type Severity Reaction Status Date / Time No Known Drug Allergies Allergy Verified 06/07/20 15:00 - Social History Does the pt smoke?: No Smoking Status: Never smoker Does the pt drink ETOH?: No Does the pt have substance abuse?: No - Immunizations Immunizations are current?: Yes - POLST Patient has POLST: No PD ED PE NORMAL - Vitals Vital signs reviewed: Yes - General General: Other (She is responsive to painful stimuli and withdraws to pain, small but not pinpoint pupils, sats are in the 40s.) - Neck Neck: Supple, no meningeal sign, No bony TTP - Cardiac Cardiac: No murmur, Other (tachycardic) - Respiratory Respiratory: Clear bilaterally - Abdomen Abdomen: Non tender - Neuro Eye Opening: To Pain Motor: Withdraws to Pain Verbal: None GCS Score: 7 Results - Vitals Vitals: Vital Signs - 24 hr 06/07/20 06/07/20 06/07/20 19:15 20:21 21:00 Temperature 36.7 C Heart Rate 130 H 108 H 78 Respiratory 6 L 24 Rate Blood Pressure 190/130 H 108/82 H O2 Saturation 40 L 98 06/07/20 06/07/20 06/07/20 21:55 22:06 22:23 Temperature 36.6 C 36.7 C 36.7 C Heart Rate 71 77 75 Respiratory 24 24 24 Rate Blood Pressure 126/71 107/74 107/86 H O2 Saturation 100 100 100 Oxygen O2 Source Mechanical ventilator - EKG (time done) 2026 Rate: Rate (enter#) (118) Rhythm: Sinus tachycardia [place]: Normal Intervals: Normal VT QRS: Low voltage Ischemia: Non specific changes. No: ST elevation c/w ischemia, ST depression - Labs Labs: Laboratory Tests 06/07/20 06/07/20 06/07/20 08:15 20:00 20:00 WBC 18.6 H RBC 4.95 Hgb 13.2 Hct 45.9 MCV 92.7 MCH 26.7 L MCHC 28.8 L RDW 15.4 H Plt Count 340 MPV 9.0 Neut # (Auto) 14.7 H Lymph # (Auto) 2.5 [place] # (Auto) 0.9 Eos # (Auto) 0.1 Baso # (Auto) 0.1 Absolute Nucleated RBC 0.04 Nucleated RBC % 0.2 Manual Slide Review Indicated WBC Morphology NORMAL APPEARANCE Platelet Estimate NORMAL (130-450,000) Platelet Morphology NORMAL APPEARANCE RBC Morph Micro Appear NORMAL APPEARANCE PT INR APTT VBG pH VBG pCO2 VBG pO2 VBG HCO3 VBG Total CO2 VBG O2 Saturation VBG Base Excess Sodium 138 Potassium 4.6 Chloride 99 L Carbon Dioxide 33 H Anion Gap 6.0 BUN 20 Creatinine 0.7 Estimated GFR (MDRD) 89 Glucose 327 H Lactic Acid Calcium 8.7 Total Bilirubin 0.4 AST 34 ALT 51 Alkaline Phosphatase 88 Troponin I High Sens B-Natriuretic Peptide Total Protein 6.9 Albumin 3.6 Globulin 3.3 Albumin/Globulin Ratio 1.1 Lipase 40 Nasal Adenovirus (PCR) Nasal B. parapertussis DNA (PCR) Nasal Coronavir 229E PCR Nasal Coronavir HKU1 PCR Nasal Coronavir NL63 PCR Nasal Coronavir OC43 PCR Nasal Enterovir/Rhinovir PCR Nasal Influenza B PCR Nasal Influenza A PCR Nasal Parainfluen 1 PCR Nasal Parainfluen 2 PCR Nasal Parainfluen 3 PCR Nasal Parainfluen 4 PCR Nasal RSV (PCR) Nasal B.pertussis DNA PCR Nasal C.pneumoniae (PCR) Rohan Human Metapneumo PCR Nasal M.pneumoniae (PCR) Nasal SARS-CoV-2 (PCR) Salicylates < 6.0 Urine Opiates Screen Ur Oxycodone Screen Urine Methadone Screen Ur Propoxyphene Screen Acetaminophen < 10 L Ur Barbiturates Screen Ur Tricyclics Screen Ur Phencyclidine Scrn Ur Amphetamine Screen U Methamphetamines Scrn U Benzodiazepines Scrn Urine Cocaine Screen U Cannabinoids Screen Ethyl Alcohol < 5.0 06/07/20 06/07/20 06/07/20 20:00 20:00 20:00 WBC RBC Hgb Hct MCV MCH MCHC RDW Plt Count MPV Neut # (Auto) Lymph # (Auto) [place] # (Auto) Eos # (Auto) Baso # (Auto) Absolute Nucleated RBC Nucleated RBC % Manual Slide Review WBC Morphology Platelet Estimate Platelet Morphology RBC Morph Micro Appear PT 12.5 INR 1.1 APTT 17.0 L VBG pH 7.169 L VBG pCO2 86.2 H VBG pO2 64.9 H VBG HCO3 30.7 H VBG Total CO2 33.3 H VBG O2 Saturation 88.3 H VBG Base Excess -0.4 Sodium Potassium Chloride Carbon Dioxide Anion Gap BUN Creatinine Estimated GFR (MDRD) Glucose Lactic Acid Calcium Total Bilirubin AST ALT Alkaline Phosphatase Troponin I High Sens 18.7 H* B-Natriuretic Peptide Total Protein Albumin Globulin Albumin/Globulin Ratio Lipase Nasal Adenovirus (PCR) Nasal B. parapertussis DNA (PCR) Nasal Coronavir 229E PCR Nasal Coronavir HKU1 PCR Nasal Coronavir NL63 PCR Nasal Coronavir OC43 PCR Nasal Enterovir/Rhinovir PCR Nasal Influenza B PCR Nasal Influenza A PCR Nasal Parainfluen 1 PCR Nasal Parainfluen 2 PCR Nasal Parainfluen 3 PCR Nasal Parainfluen 4 PCR Nasal RSV (PCR) Nasal B.pertussis DNA PCR Nasal C.pneumoniae (PCR) Rohan Human Metapneumo PCR Nasal M.pneumoniae (PCR) Nasal SARS-CoV-2 (PCR) Salicylates Urine Opiates Screen Ur Oxycodone Screen Urine Methadone Screen Ur Propoxyphene Screen Acetaminophen Ur Barbiturates Screen Ur Tricyclics Screen Ur Phencyclidine Scrn Ur Amphetamine Screen U Methamphetamines Scrn U Benzodiazepines Scrn Urine Cocaine Screen U Cannabinoids Screen Ethyl Alcohol 06/07/20 06/07/20 06/07/20 20:00 20:00 20:45 WBC RBC Hgb Hct MCV MCH MCHC RDW Plt Count MPV Neut # (Auto) Lymph # (Auto) [place] # (Auto) Eos # (Auto) Baso # (Auto) Absolute Nucleated RBC Nucleated RBC % Manual Slide Review WBC Morphology Platelet Estimate Platelet Morphology RBC Morph Micro Appear PT INR APTT VBG pH VBG pCO2 VBG pO2 VBG HCO3 VBG Total CO2 VBG O2 Saturation VBG Base Excess Sodium Potassium Chloride Carbon Dioxide Anion Gap BUN Creatinine Estimated GFR (MDRD) Glucose Lactic Acid 1.2 Calcium Total Bilirubin AST ALT Alkaline Phosphatase Troponin I High Sens B-Natriuretic Peptide 140 H Total Protein Albumin Globulin Albumin/Globulin Ratio Lipase Nasal Adenovirus (PCR) NOT DETECTED Nasal B. parapertussis DNA (PCR) NOT DETECTED Nasal Coronavir 229E PCR NOT DETECTED Nasal Coronavir HKU1 PCR NOT DETECTED Nasal Coronavir NL63 PCR NOT DETECTED Nasal Coronavir OC43 PCR NOT DETECTED Nasal Enterovir/Rhinovir PCR NOT DETECTED Nasal Influenza B PCR NOT DETECTED Nasal Influenza A PCR NOT DETECTED Nasal Parainfluen 1 PCR NOT DETECTED Nasal Parainfluen 2 PCR NOT DETECTED Nasal Parainfluen 3 PCR NOT DETECTED Nasal Parainfluen 4 PCR NOT DETECTED Nasal RSV (PCR) NOT DETECTED Nasal B.pertussis DNA PCR NOT DETECTED Nasal C.pneumoniae (PCR) NOT DETECTED Rohan Human Metapneumo PCR NOT DETECTED Nasal M.pneumoniae (PCR) NOT DETECTED Nasal SARS-CoV-2 (PCR) NOT DETECTED Salicylates Urine Opiates Screen Ur Oxycodone Screen Urine Methadone Screen Ur Propoxyphene Screen Acetaminophen Ur Barbiturates Screen Ur Tricyclics Screen Ur Phencyclidine Scrn Ur Amphetamine Screen U Methamphetamines Scrn U Benzodiazepines Scrn Urine Cocaine Screen U Cannabinoids Screen Ethyl Alcohol 06/07/20 06/07/20 20:54 21:40 WBC RBC Hgb Hct MCV MCH MCHC RDW Plt Count MPV Neut # (Auto) Lymph # (Auto) [place] # (Auto) Eos # (Auto) Baso # (Auto) Absolute Nucleated RBC Nucleated RBC % Manual Slide Review WBC Morphology Platelet Estimate Platelet Morphology RBC Morph Micro Appear PT INR APTT VBG pH 7.382 VBG pCO2 54.0 H VBG pO2 50.2 H VBG HCO3 31.4 H VBG Total CO2 33.0 H VBG O2 Saturation 87.1 H VBG Base Excess 5.0 H Sodium Potassium Chloride Carbon Dioxide Anion Gap BUN Creatinine Estimated GFR (MDRD) Glucose Lactic Acid Calcium Total Bilirubin AST ALT Alkaline Phosphatase Troponin I High Sens B-Natriuretic Peptide Total Protein Albumin Globulin Albumin/Globulin Ratio Lipase Nasal Adenovirus (PCR) Nasal B. parapertussis DNA (PCR) Nasal Coronavir 229E PCR Nasal Coronavir HKU1 PCR Nasal Coronavir NL63 PCR Nasal Coronavir OC43 PCR Nasal Enterovir/Rhinovir PCR Nasal Influenza B PCR Nasal Influenza A PCR Nasal Parainfluen 1 PCR Nasal Parainfluen 2 PCR Nasal Parainfluen 3 PCR Nasal Parainfluen 4 PCR Nasal RSV (PCR) Nasal B.pertussis DNA PCR Nasal C.pneumoniae (PCR) Rohan Human Metapneumo PCR Nasal M.pneumoniae (PCR) Nasal SARS-CoV-2 (PCR) Salicylates Urine Opiates Screen NEGATIVE Ur Oxycodone Screen NEGATIVE Urine Methadone Screen NEGATIVE Ur Propoxyphene Screen NEGATIVE Acetaminophen Ur Barbiturates Screen NEGATIVE Ur Tricyclics Screen NEGATIVE Ur Phencyclidine Scrn NEGATIVE Ur Amphetamine Screen NEGATIVE U Methamphetamines Scrn NEGATIVE U Benzodiazepines Scrn NEGATIVE Urine Cocaine Screen NEGATIVE U Cannabinoids Screen NEGATIVE Ethyl Alcohol Procedures - General procedure General procedure: Personally placed an IO after ChloraPrep in the right tibia which mariana and flushed well. - Intubation Provider: Emergency physician Medications: Etomidate (20mg), Rocuronium (100mg) Blade: Glidescope Tube: Size-enter number (7.5), Cuffed, Other (Initially about 26 cm at the lips, withdrawn 3 cm after the first x-ray.) Confirmation: Direct visualization, Bilateral breath sounds, Pulse ox, Chest xray - Central Line Central Line Preparation: Unable to obtain consent Central line location: Right IJ Central line type: Triple lumen Central line aftercare: Chlorhexidine disc placed PD MEDICAL DECISION MAKING - ED course ED course: 49-year-old woman presents with acute respiratory failure that happened on the way here in the setting of a complaint of chest pain. On arrival she was very ill, an IO was placed in the right tibia and Narcan 0.8 mg was given with no effect. Subsequently she was set up for intubation. Initial attempt with very poor view but second attempt with the glide scope was successful. Right IJ central line was placed using real-time ultrasound guidance. There was a concern on postprocedural x-ray that across the midline, however we transduced it, and it showed a venous waveform with a CVP in the high 20s. There was no arterial waveform. Presume the appearance on x-ray is either due to positioning or could be in the brachiocephalic vein. ETT was pulled back 3 cm after 1st CXR. Also a second venous blood gas was done off the central line, at that time her FiO2 was 40%, and her pulse oximetry continued to be 100%. Given that her sats on the venous gas is 87%, I am even more convinced that the central line is venous. - Critical Care Time(min): 45 Time Includes: Direct patient care, Review records, Reassess patient, Document care, Coordinate care, Medical consult Data interpretation: Labs, Pulse ox Procedures included in critical care time: Peripheral IV Procedures excluded from critical care time: Central IV, Intubation, EKG Departure - Departure Disposition: 02 Transfer Acute Care Hosp Clinical Impression: Thyroid mass COPD (chronic obstructive pulmonary disease) Qualifiers: COPD type: unspecified COPD Qualified Code(s): J44.9 - Chronic obstructive pulmonary disease, unspecified Respiratory failure Qualifiers: Chronicity: acute on chronic Respiratory failure complication: hypoxia and hypercapnia Qualified Code(s): J96.21 - Acute and chronic respiratory failure with hypoxia Condition: Critical
[2020-06-07 20:20] LABS: ALBUMIN 3.6 g/dL (3.2-5.5); ALBUMIN/GLOBULIN RATIO 1.1 (1.0-2.2); ALKALINE PHOSPHATASE 88 IU/L (42-121); ALT ALANINE AMINOTRANSFERASE 51 IU/L (10-60); AST ASPARTATE AMINOTRANSFERASE 34 IU/L (10-42); BILIRUBIN,TOTAL 0.4 mg/dL (0.2-1.0); BUN - BLOOD UREA NITROGEN 20 mg/dL (6-20); CALCIUM 8.7 mg/dL (8.5-10.3); CARBON DIOXIDE - CO2 33 mmol/L (21-32); CHLORIDE 99 mmol/L (101-111); CREATININE 0.7 mg/dL (0.4-1.0); ETOH - ETHANOL < 5.0 mg/dL; GFR - MDRD 89 (>89); GLUCOSE 327 mg/dL (70-100); INR 1.1 (0.8-1.2); LIPASE 40 U/L (22-51); POTASSIUM 4.6 mmol/L (3.5-5.0); PT - PROTHROMBIN TIME 12.5 secs (9.9-12.6); SODIUM 138 mmol/L (135-145); TOTAL PROTEIN 6.9 g/dL (6.7-8.2)
[2020-06-07] MEDS ORDERED: MIDAZOLAM 2 MG/2 ML VIAL IVP STA (20:21)
[2020-06-07] MEDS ORDERED: VECURONIUM 10 MG VIAL IVP STA ×2 (20:21→21:35)
--- NOTE | 2020-06-07 20:22 | XRAY Report ---
PROCEDURE: Chest 1 View X-Ray INDICATIONS: Chest Pain TECHNIQUE: One view of the chest was acquired. COMPARISON: Chest x-ray, one view, 06/02/2020 FINDINGS: Surgical changes and devices: There is an endotracheal tube. The tip of the endotracheal tube project ing to the right mainstem bronchus. Lungs and pleura: There is volume loss in the left lung. Bilateral perihilar infiltrates suspicious for pulmonary edema. No pleural effusions or pneumothorax. Lungs are clear. Mediastinum: Mediastinal contours appear normal. Heart size is normal. Bones and chest wall: No suspicious bony lesions. Overlying soft tissues appear unremarkable. IMPRESSION: 1. The endotracheal tube tip is within the right mainstem bronchus. The result was discussed with Dr. Powell. 2. Volume loss in the left hemithorax. 3. Bilateral perihilar infiltrates consistent with pulmonary edema. Reviewed by: Nancy Mcadams MD on 06/07/2020 8:21 PM PDT Approved by: Nancy Mcadams MD on 06/07/2020 8:21 PM PDT Station ID: [id number]
[2020-06-07 20:23] LABS: PLATELET ESTIMATE, MANUAL NORMAL (130-450,000) (NORMAL); PLATELET MORPHOLOGY NORMAL APPEARANCE (NORMAL); RBC MORPHOLOGY (MULTIPLE) NORMAL APPEARANCE (NORMAL); WBC MORPHOLOGY (MULTIPLE) NORMAL APPEARANCE (NORMAL)
--- NOTE | 2020-06-07 20:31 | XRAY Report ---
PROCEDURE: Chest for Line Placement INDICATIONS: ETT and RIJ lines TECHNIQUE: One view of the chest was acquired. COMPARISON: Chest x-ray, 06/07/2020. FINDINGS: Surgical changes and devices: The endotracheal tube is pulled back, now the tip is 1.9 cm above brittni a. There is a right IJ central line. The tip of the central line projecting across midline to the le ft. Lungs and pleura: No pleural effusions or pneumothorax. Bilateral perihilar infiltrates consistent w ith pulmonary edema. Mediastinum: Mediastinal contours appear normal. Heart size is mildly increased. Bones and chest wall: No suspicious bony lesions. Overlying soft tissues appear unremarkable. IMPRESSION: 1. Endotracheal tube is 1.9 cm above concha. 2. The right IJ central line tip is abnormally location, projecting across the midline to the left. P lease confirm venous nature of the central line. If clinically indicated, blood gas analysis may be h elpful. The result was discussed with ER nurse Ruby. Dr. Reed was in a procedure at the time of phone call. Reviewed by: Nancy Mcadams MD on 06/07/2020 8:30 PM PDT Approved by: Nancy Mcadams MD on 06/07/2020 8:30 PM PDT Station ID: [id number]
[2020-06-07 21:01] LABS: MUDS CUTOFF CONCENTRATIONS CUTOFF CONC BELOW:
[2020-06-07 21:12] LABS: AMPHETAMINE SCREEN,URINE NEGATIVE (NEGATIVE); BARBITURATE SCREEN,UR NEGATIVE (NEGATIVE); BENZODIAZEPINES SCREEN, URINE NEGATIVE (NEGATIVE); COCAINE SCREEN URINE NEGATIVE (NEGATIVE); METHADONE SCREEN, URINE NEGATIVE (NEGATIVE); METHAMPHETAMINES SCREEN, URINE NEGATIVE (NEGATIVE); OPIATE SCREEN, URINE NEGATIVE (NEGATIVE); OXYCODONE SCREEN, URINE NEGATIVE (NEGATIVE); PROPOXYPHENE SCREEN, URINE NEGATIVE (NEGATIVE); THC CANNABINOID SCREEN, URINE NEGATIVE (NEGATIVE); TRICYCLIC ANTIDEPRESSANT,URINE NEGATIVE (NEGATIVE)
[2020-06-07 21:19] LABS: ACETAMINOPHEN < 10 ug/mL (10-30); SALICYLATE < 6.0 mg/dL
--- NOTE | 2020-06-07 21:31 | XRAY Report ---
PROCEDURE: Chest for Line Placement INDICATIONS: resp failure TECHNIQUE: One view of the chest was acquired. COMPARISON: Chest x-ray, 05/30/2019. FINDINGS: Surgical changes and devices: There is an endotracheal tube with the tip 2.3 cm above concha. A righ t IJ central line is seen with the tip across the midline to the left. Lungs and pleura: No pleural effusions or pneumothorax. Lateral perihilar infiltrates compatible wit h pulmonary edema. Basilar interstitial or atelectasis. Mediastinum: Mediastinal contours appear normal. Heart size is according. Bones and chest wall: No suspicious bony lesions. Overlying soft tissues appear unremarkable. IMPRESSION: 1. The tip of the right IJ central line remains to appear across midline to the left. Please confirm venous nature of the catheter. The finding was discussed with Dr. Powell earlier. 2. Endotracheal tube 2.3 cm above concha. 3. There is cardiomegaly and bilateral perihilar infiltrates compatible with congestive heart failure . 4. Left basilar infiltrate or atelectasis Reviewed by: Nancy Mcadams MD on 06/07/2020 9:29 PM PDT Approved by: Nancy Mcadams MD on 06/07/2020 9:29 PM PDT Station ID: [id number]
[2020-06-07] MEDS ORDERED: fentaNYL 100 MCG/2 ML VIAL IVP STA (21:35)
[2020-06-07 21:40] LABS: B. PARAPERTUSSIS- RESP PCR PAN NOT DETECTED; B. PERTUSSIS- RESP PCR PANEL NOT DETECTED; C. PNEUMONIAE- RESP PCR PANEL NOT DETECTED; CORONAVIRUS 229E-RESP PCR NOT DETECTED; CORONAVIRUS HKU1-RESP PCR NOT DETECTED; CORONAVIRUS NL63-RESP PCR NOT DETECTED; CORONAVIRUS OC43-RESP PCR NOT DETECTED; HUMAN METAPNEUMOVIRUS NOT DETECTED; INFLUENZA A- RESP PCR PANEL NOT DETECTED; INFLUENZA B - RESP PCR PANEL NOT DETECTED; M. PNEUMONIAE- RESP PCR PANEL NOT DETECTED; PARAINFLUENZA VIRUS 1 NOT DETECTED; PARAINFLUENZA VIRUS 2 NOT DETECTED; PARAINFLUENZA VIRUS 3 NOT DETECTED; PARAINFLUENZA VIRUS 4 NOT DETECTED; RHINOVIRUS/ENTEROVIRUS NOT DETECTED; RSV- RESP PCR PANEL NOT DETECTED; SARS-CoV-2 -RESP PCR PANEL NOT DETECTED
[2020-06-07 21:45] LABS: VBG HCO3 31.4 mmol/L (23-28); VBG OXYGEN SATURATION 87.1 % (60-80); VBG PH 7.382 (7.31-7.41); VBG PO2 50.2 mmHg (25-47)
[2020-06-07 22:24] VITALS: BP 107/86
== END 2020-06-07 22:50 | disposition short-term general hospital (02) ==
LOC: EDUNIT# → ED 19:13
DX: J96.21 Acute and chronic respiratory failure with hypoxia (principal); J96.22 Acute and chronic respiratory failure with hypercapnia; D49.7 Neoplasm of unspecified behavior of endocrine glands and other parts of nervous system; J44.9 Chronic obstructive pulmonary disease, unspecified; E66.2 Morbid (severe) obesity with alveolar hypoventilation; Z79.84 Long term (current) use of oral hypoglycemic drugs; F45.8 Other somatoform disorders; E11.65 Type 2 diabetes mellitus with hyperglycemia; Z68.44 Body mass index [BMI] 60.0-69.9, adult
CPT/HCPCS: 0202U; 31500; 36415; 36556; 51702; 71045; 80053; 80306; 80307; 80320; 80329; 81001; 81025; 82803; 83605; 83690; 83880; 84484; 85025; 85610; 85730; 93005; 96374; 96375; 96376; 99283; 99285; 99291; Q0162; 81003; 87086; 94770

== ENCOUNTER 2020-06-07 23:00 | Outpatient (CLI) | payer MEDICAID | END 2020-06-07 23:01 | disposition short-term general hospital (02) | LOC: EMS 23:00 | PROVIDERS: ATTEND Emergency Medicine | DX: J96.90 Respiratory failure, unspecified, unspecified whether with hypoxia or hypercapnia (principal) | CPT/HCPCS: A0425; A0426 ==